=== PATIENT | male | born 1960 | race Two or more races ===

== ENCOUNTER 2017-03-20 05:41 | Emergency (ER) | payer OTHER ==
[2017-03-20 05:41] VITALS: BMI 25.8
[2017-03-20 05:51] VITALS: BP 162/94; PULSE 99; RESP 16; TEMP 98.7; O2SAT 97
--- NOTE | 2017-03-20 06:01 | C.PDOC ---
Time Seen by Provider: 03/20/17 06:00 Chief Complaint (Nursing): Chest Pain Past Medical History Vital Signs: Last Vital Signs Temp 98.7 F 03/20/17 05:50 Pulse 99 H 03/20/17 05:50 Resp 16 03/20/17 05:50 BP 162/94 H 03/20/17 05:50 Pulse Ox 97 03/20/17 05:50 - Medical History PMH: Depression Denies: Diabetes, Hepatitis, HIV, HTN, Chronic Kidney Disease, Seizures, Sexually Transmitted Disease - [facility] Procedures ALCOHOL DETOXIFICATION (10/24/14) Family History: States: Unknown Family Hx - Social History Hx Tobacco Use: No Hx Alcohol Use: Yes Hx Substance Use: No - Immunization History Hx Tetanus Toxoid Vaccination: No Hx Influenza Vaccination: No Hx Pneumococcal Vaccination: No ED Course And Treatment ECG: Interpreted By Me, Viewed By Me ECG Rhythm: Sinus Rhythm (101), Nonspecific Changes O2 Sat by Pulse Oximetry: 97 Pulse Ox Interpretation: Normal Disposition Counseled Patient/Family Regarding: Studies Performed, Diagnosis - Disposition Disposition Time: 06:00
--- NOTE | 2017-03-22 23:20 | CARD ---
APPROVED REPORT EKG Measurement Heart [id number] <Conclusion> Accelerated Junctional rhythm Left axis deviation Nonspecific T wave abnormality Abnormal ECG
== END 2017-03-20 06:00 | disposition left against medical advice (07) ==
LOC: C.ER 05:41
DX: Z02.89 Encounter for other administrative examinations (principal); R07.9 Chest pain, unspecified
CPT/HCPCS: 93005; LWBS0

== ENCOUNTER 2017-03-25 10:35 | Emergency (ER) | payer OTHER ==
[2017-03-25 10:36] VITALS: BMI 25.8
[2017-03-25 10:55] VITALS: BP 159/90; PULSE 80; RESP 18; TEMP 97.8
[2017-03-25 10:58] VITALS: O2SAT 99
--- NOTE | 2017-03-25 11:15 | C.PDOC ---
History Of Present Illness 56 y/o male presents to the ER complaining of left hip pain which began 1 week ago after the patient slipped and fell.Patient reports that he has a history of left hip replacement which he had a year ago. Patient is also intoxicated and seeking detox from ETOH. Time Seen by Provider: 03/25/17 11:04 Chief Complaint (Nursing): Substance Abuse History Per: Patient History/Exam Limitations: intoxication Onset/Duration Of Symptoms: Days Current Symptoms Are (Timing): Still Present Past Medical History Reviewed: Historical Data, Nursing Documentation, Vital Signs Vital Signs: Last Vital Signs Temp 97.8 F 03/25/17 10:55 Pulse 80 03/25/17 10:55 Resp 18 03/25/17 10:55 BP 159/90 H 03/25/17 10:55 Pulse Ox 99 03/25/17 13:57 - Medical History PMH: Depression Denies: Diabetes, Hepatitis, HIV, HTN, Chronic Kidney Disease, Seizures, Sexually Transmitted Disease Surgical History: No Surg Hx - [facility] Procedures ALCOHOL DETOXIFICATION (10/24/14) Family History: States: No Known Family Hx - Social History Hx Tobacco Use: No Hx Alcohol Use: Yes Hx Substance Use: No - Immunization History Hx Tetanus Toxoid Vaccination: No Hx Influenza Vaccination: No Hx Pneumococcal Vaccination: No Review Of Systems Except As Marked, All Systems Reviewed And Found Negative. Musculoskeletal: Positive for: Other (left hip pain) Neurological: Negative for: Weakness, Numbness Physical Exam - Physical Exam Appears: No Acute Distress, Other (intoxicated) Skin: Normal Color, Warm Head: Atraumatic, Normacephalic Eye(s): bilateral: Normal Inspection, PERRL Nose: Normal Oral Mucosa: Moist Neck: Supple Chest: Symmetrical Cardiovascular: Rhythm Regular Respiratory: Normal Breath Sounds, No Accessory Muscle Use Extremity: Normal ROM, No Tenderness, No Swelling Neurological/Psych: Oriented x3, Normal Speech, Normal Cognition, Normal Motor, Normal Sensation Gait: Steady (without any pain) ED Course And Treatment O2 Sat by Pulse Oximetry: 99 (RA) Pulse Ox Interpretation: Normal Medical Decision Making Medical Decision Makin week L hip pain x 1 week, s/p fall, h/o L hip replacement. etoh intox, initially seeking detox (pre-screened) then decided he needed to go home and drink more alcohol and put food in his fridge L hip films ordered and tylenol ordered, pt eloped @ 1120, many prior elopements from ED. Disposition Doctor Will See Patient In The: Office - Disposition Disposition: ELOPEMENT - ER ONLY Disposition Time: 11:18 Condition: GOOD Forms: [facility] (Cymraes) - Clinical Impression Clinical Impression: Alcohol abuse, Hip pain, left - Scribe Statement The provider has reviewed the documentation as recorded by the Nubia Julian Provider Attestation: All medical record entries made by the Nubia were at my direction and personally dictated by me. I have reviewed the chart and agree that the record accurately reflects my personal performance of the history, physical exam, medical decision making, and the department course for this patient. I have also personally directed, reviewed, and agree with the discharge instructions and disposition.
== END 2017-03-25 11:16 | disposition left against medical advice (07) ==
LOC: C.ER 10:35
DX: M25.552 Pain in left hip (principal); F10.129 Alcohol abuse with intoxication, unspecified; Y90.9 Presence of alcohol in blood, level not specified

== ENCOUNTER 2017-03-26 04:33 | Emergency (ER) | payer OTHER ==
[2017-03-26 04:33] VITALS: BMI 25.8
[2017-03-26 04:54] VITALS: TEMP 97.5
--- NOTE | 2017-03-26 06:28 | C.PDOC ---
History Of Present Illness Patient c/o chronic left hip pain for 1 year after hip replacement surgery that was performed at [facility].. Patient sts he was not drinking alcohol for 2.5 years, but started drinking for the last 2 weeks secondary to severe hip pain. Patient also requested detox from alcohol, however he was informed that hospital currently has no available detox beds. Patient sts his last ETOH intake was yesterday. Time Seen by Provider: 03/26/17 05:12 Chief Complaint (Nursing): Substance Abuse Past Medical History Reviewed: Historical Data, Nursing Documentation, Vital Signs Vital Signs: Last Vital Signs Temp 97.5 F L 03/26/17 04:47 Pulse 86 03/26/17 04:47 Resp 18 03/26/17 04:47 BP 123/71 03/26/17 04:47 Pulse Ox 100 03/26/17 06:27 - Medical History PMH: Depression, Chronic Pain Denies: Diabetes, Hepatitis, HIV, HTN, Chronic Kidney Disease, Seizures, Sexually Transmitted Disease Other Surgeries: left hip replacement - [facility] Procedures ALCOHOL DETOXIFICATION (10/24/14) Family History: States: Unknown Family Hx - Social History Hx Tobacco Use: No Hx Alcohol Use: Yes Hx Substance Use: No - Immunization History Hx Tetanus Toxoid Vaccination: No Hx Influenza Vaccination: No Hx Pneumococcal Vaccination: No Review Of Systems Except As Marked, All Systems Reviewed And Found Negative. Physical Exam - Physical Exam Appears: Non-toxic, No Acute Distress, Other (uncomfortable) Skin: Normal Color, Warm Head: Atraumatic, Normacephalic Eye(s): bilateral: Normal Inspection Neck: Normal ROM, Supple Cardiovascular: Rhythm Regular, No Edema Respiratory: Normal Breath Sounds Gastrointestinal/Abdominal: Soft, No Tenderness Back: No Vertebral Tenderness, No Paraspinal Tenderness Extremity: No Normal ROM (hip pain with left leg movement), Tenderness (laterak left hip), No Pedal Edema, No Calf Tenderness, Capillary Refill (<2 sec), No Deformity, No Swelling Neurological/Psych: Oriented x3, Normal Speech, Normal Cognition ED Course And Treatment O2 Sat by Pulse Oximetry: 100 - Other Rad left hip xray X-Ray: Interpreted by Me Interpretation: hip prosthesis in place, loose avulsed piece of bone seen laterally to the hip joint Progress Note: Patient was d/c home on Naproxen and Tramadol with Ortho follow up. Disposition - Disposition Referrals: Spenser Wan MD [Staff Provider] - Disposition: HOME/ ROUTINE Disposition Time: 06:25 Condition: STABLE Additional Instructions: Follow up with your PMD and Orthopedist within 2-3 days. Return to Ed if feel worse. Prescriptions: Naproxen [Naprosyn] 1 tab PO BID PRN #25 tab PRN Reason: Pain traMADol [Ultram] 50 mg PO Q6 #20 tab Instructions: Chronic Pain (ED), Abuse of Alcohol (ED) Forms: [facility] (Irish) - Clinical Impression Clinical Impression: Alcohol abuse, Chronic hip pain
[2017-03-26 06:50] VITALS: BP 120/70; PULSE 70; RESP 14; O2SAT 97
--- NOTE | 2017-03-26 08:37 | RAD ---
PROCEDURE: Left Hip X-ray Radiographs. HISTORY: chronic pain, s/p replacement 1 yr ago COMPARISON: Preoperative examination 05/21/2015 FINDINGS: BONES: Satisfactory position alignment of components left THR. No evidence of orthopedic hardware failure. JOINTS: Normal. SOFT TISSUES: Mild situs postoperative in nature identified. OTHER FINDINGS: None. IMPRESSION: Satisfactory appearance of components left ROSARIO.
== END 2017-03-26 06:50 | disposition home or self-care (01) ==
LOC: C.ER 04:33
DX: F10.10 Alcohol abuse, uncomplicated (principal); G89.29 Other chronic pain; M25.552 Pain in left hip; Z96.642 Presence of left artificial hip joint
CPT/HCPCS: 73502; 96372; 99283; J1885

== ENCOUNTER 2017-04-17 22:25 | Emergency (ER) | payer OTHER ==
[2017-04-17 22:25] VITALS: BMI 25.8
[2017-04-17 22:37] VITALS: BP 148/85; PULSE 86; RESP 18; TEMP 98.1; O2SAT 96
--- NOTE | 2017-04-18 00:25 | C.PDOC ---
History Of Present Illness 56 year old male with a Hx of right hip replacement presents to the ER with a complaint of intermittent right hip pain. Patient reports the pain is usually exacerbated with cold weather, he states he ran out of his pain medications and is requesting toradol IM. Denies recent injury, weakness, or numbness. Time Seen by Provider: 04/17/17 22:45 Chief Complaint (Nursing): Hip Pain History Per: Patient History/Exam Limitations: no limitations Onset/Duration Of Symptoms: Hrs, Intermittent Episodes Current Symptoms Are (Timing): Still Present Past Medical History Reviewed: Historical Data, Nursing Documentation, Vital Signs Vital Signs: Last Vital Signs Temp 98.1 F 04/17/17 22:33 Pulse 86 04/17/17 22:33 Resp 18 04/17/17 22:33 BP 148/85 04/17/17 22:33 Pulse Ox 96 04/18/17 03:45 - Medical History PMH: Depression, Chronic Pain - [facility] Procedures ALCOHOL DETOXIFICATION (10/24/14) Family History: States: Unknown Family Hx - Social History Hx Tobacco Use: No Hx Alcohol Use: Yes Hx Substance Use: No - Immunization History Hx Tetanus Toxoid Vaccination: No Hx Influenza Vaccination: No Hx Pneumococcal Vaccination: No Review Of Systems Musculoskeletal: Positive for: Other (right hip pain) Neurological: Negative for: Weakness, Numbness Physical Exam - Physical Exam Appears: Non-toxic, No Acute Distress Skin: Normal Color, Warm, Dry Head: Atraumatic, Normacephalic Eye(s): bilateral: Normal Inspection Extremity: Normal ROM (x4), No Tenderness, No Deformity, No Swelling Neurological/Psych: Oriented x3, Normal Speech, Normal Motor, Normal Sensation Gait: Steady ED Course And Treatment O2 Sat by Pulse Oximetry: 96 (Room air) Pulse Ox Interpretation: Normal Progress Note: Toradol administered with relief. Patient is resting comfortably in the ER, in no acute distress, and is able to ambulate without difficulty or pain. Will discharge home with Rx and instructions to follow up with PMD. Disposition Counseled Patient/Family Regarding: Diagnosis, Need For Followup, Rx Given - Disposition Disposition: HOME/ ROUTINE Disposition Time: 00:23 Condition: STABLE Additional Instructions: Please follow up with PMD Return to ER if worse Prescriptions: Ibuprofen [Motrin] 600 mg PO Q6H #24 tab Instructions: Arthralgia (ED) Forms: [facility] (Greek) - Clinical Impression Clinical Impression: Hip pain, Arthralgia - PA / [employer] / Resident Statement MD/DO has reviewed & agrees with the documentation as recorded. - Scribe Statement The provider has reviewed the documentation as recorded by the Scribrahul Calix All medical record entries made by the Oliviaibrahul were at my direction and personally dictated by me. I have reviewed the chart and agree that the record accurately reflects my personal performance of the history, physical exam, medical decision making, and the department course for this patient. I have also personally directed, reviewed, and agree with the discharge instructions and disposition.
== END 2017-04-18 00:43 | disposition home or self-care (01) ==
LOC: C.ER 22:25
DX: M25.551 Pain in right hip (principal)
CPT/HCPCS: 96372; 99283; J1885

== ENCOUNTER 2017-04-23 23:37 | Emergency (ER) | payer OTHER ==
[2017-04-23 23:38] VITALS: BMI 25.8
[2017-04-24] MEDS ORDERED: Lidocaine 1% Inj (20ml) ONE (01:00)
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
[2017-04-24 02:48] LABS: HEMOGLOBIN 12.3 g/dL (12.0-18.0); MEAN CORPUSCULAR HEMOGLOBIN 27.7 pg (27.0-31.0); MEAN CORPUSCULAR HGB CONC 32.5 g/dL (33.0-37.0); MEAN PLATELET VOLUME 7.9 fL (7.2-11.7); RBC 4.46 Mil/uL (4.40-5.90); WHITE BLOOD COUNT 7.9 K/uL (4.8-10.8)
[2017-04-24 03:16] LABS: PROTHROMBIN TIME 10.9 SECONDS (9.7-12.2)
[2017-04-24 05:07] VITALS: BP 148/77; PULSE 84; RESP 20; TEMP 97.8; O2SAT 97
== END 2017-04-24 05:07 | disposition home or self-care (01) ==
LOC: SUPCPDRO 23:37 → C.ER 23:37
DX: S01.511A Laceration without foreign body of lip, initial encounter (principal); Y04.0XXA Assault by unarmed brawl or fight, initial encounter

== ENCOUNTER 2017-05-06 21:41 | Emergency (ER) | payer OTHER ==
[2017-05-06 21:41] VITALS: BMI 25.8
[2017-05-06 22:20] VITALS: BP 125/79; PULSE 70; TEMP 98.2; O2SAT 98
--- NOTE | 2017-05-06 23:24 | C.PDOC ---
History Of Present Illness 56 year old male presents to the ED for evaluation of chronic left hip pain s/p left hip replacement. Patient seen 3 weeks ago for same complaint. He is requesting toradol injection and refill of naproxen. He denies trauma, extremity weakness/numbness, or bladder/bowel incontinence. Time Seen by Provider: 05/06/17 22:26 Chief Complaint (Nursing): Hip Pain History Per: Patient History/Exam Limitations: no limitations Onset/Duration Of Symptoms: Other (Chornic) Current Symptoms Are (Timing): Still Present Recent travel outside of the [place]: No Past Medical History Reviewed: Historical Data, Nursing Documentation, Vital Signs Vital Signs: Last Vital Signs Temp 98.2 F 05/06/17 22:11 Pulse 70 05/06/17 22:11 Resp 20 05/06/17 23:41 BP 125/79 05/06/17 22:11 Pulse Ox 98 05/07/17 00:07 - Medical History PMH: Depression, Chronic Pain Denies: Diabetes, Hepatitis, HIV, HTN, Chronic Kidney Disease, Seizures, Sexually Transmitted Disease - [facility] Procedures ALCOHOL DETOXIFICATION (10/24/14) Family History: States: Unknown Family Hx - Social History Hx Tobacco Use: No Hx Alcohol Use: No Hx Substance Use: No - Immunization History Hx Tetanus Toxoid Vaccination: No Hx Influenza Vaccination: No Hx Pneumococcal Vaccination: No Review Of Systems Constitutional: Negative for: Fever, Chills ENT: Negative for: Ear Pain, Throat Pain Cardiovascular: Negative for: Chest Pain Respiratory: Negative for: Cough, Shortness of Breath Gastrointestinal: Negative for: Nausea, Vomiting, Abdominal Pain, Diarrhea Genitourinary: Negative for: Incontinence Musculoskeletal: Positive for: Other (Hip pain) Skin: Negative for: Rash Neurological: Negative for: Weakness, Numbness, Headache Physical Exam - Physical Exam Appears: Well, Non-toxic, No Acute Distress Skin: Normal Color, Warm, Dry Head: Atraumatic, Normacephalic Eye(s): bilateral: Normal Inspection, PERRL, EOMI Oral Mucosa: Moist Neck: Normal ROM, Supple Chest: Symmetrical Back: Normal Inspection Extremity: Normal ROM, No Deformity, Other (Mild tenderness left hip, no swelling, no erythema, ROM intact, good strength and sensation ) Extremity: Bilateral: Atraumatic Neurological/Psych: Oriented x3, Normal Speech Gait: Steady (Fully ambulatory) ED Course And Treatment O2 Sat by Pulse Oximetry: 98 Pulse Ox Interpretation: Normal Progress Note: Given toradol IM and Pt was advised to follow up for pain management Disposition Counseled Patient/Family Regarding: Diagnosis, Need For Followup, Rx Given - Disposition Disposition: HOME/ ROUTINE Disposition Time: 23:22 Condition: STABLE Additional Instructions: Please follow up with PMD or in clinic Return to ER if worse Prescriptions: Naproxen [Naprosyn] 1 tab PO BID PRN #20 tab PRN Reason: Pain Instructions: Chronic Pain (DC) Forms: [employer] (Khmer) - Clinical Impression Clinical Impression: Chronic hip pain - Scribe Statement The provider has reviewed the documentation as recorded by the Scribe (Alfonso Haque) All medical record entries made by the Scribe were at my direction and personally dictated by me. I have reviewed the chart and agree that the record accurately reflects my personal performance of the history, physical exam, medical decision making, and the department course for this patient. I have also personally directed, reviewed, and agree with the discharge instructions and disposition.
[2017-05-06 23:42] VITALS: RESP 20
== END 2017-05-06 23:41 | disposition home or self-care (01) ==
LOC: C.ER 21:41
DX: G89.29 Other chronic pain (principal); M25.552 Pain in left hip
CPT/HCPCS: 96372; 99283; J1885

== ENCOUNTER 2017-05-10 18:02 | Emergency (ER) | payer OTHER ==
[2017-05-10 18:02] VITALS: BMI 25.8
== END 2017-05-10 19:08 | disposition left against medical advice (07) ==
LOC: C.ER 18:02
DX: Z02.89 Encounter for other administrative examinations (principal); M25.559 Pain in unspecified hip

== ENCOUNTER 2017-05-24 22:46 | Emergency (ER) | payer OTHER ==
[2017-05-24 22:47] VITALS: BMI 25.8
[2017-05-24 23:59] VITALS: RESP 20
== END 2017-05-24 23:58 | disposition left against medical advice (07) ==
LOC: C.ER 22:46
DX: Z02.89 Encounter for other administrative examinations (principal); M25.559 Pain in unspecified hip

== ENCOUNTER 2017-06-04 16:32 | Emergency (ER) | payer OTHER ==
[2017-06-04 16:33] VITALS: BMI 25.8
[2017-06-04 16:44] VITALS: BP 172/94; PULSE 99; RESP 16; TEMP 97.8; O2SAT 100
--- NOTE | 2017-06-04 17:10 | C.PDOC ---
History Of Present Illness 56 year old male with a Hx of chronic left hip and leg pain after hip replacement on 500mg naproxen presents to the ER requesting a refill of his naproxen and a shot of toradol for his current pain. Denies any new injuries or new symptoms. Time Seen by Provider: 06/04/17 16:58 Chief Complaint (Nursing): Med Refill History Per: Patient History/Exam Limitations: no limitations Onset/Duration Of Symptoms: Days Current Symptoms Are (Timing): Still Present Recent travel outside of the [place]: No Past Medical History Reviewed: Historical Data, Nursing Documentation, Vital Signs Vital Signs: Last Vital Signs Temp 97.8 F 06/04/17 16:41 Pulse 99 H 06/04/17 16:41 Resp 16 06/04/17 16:41 BP 172/94 H 06/04/17 16:41 Pulse Ox 100 06/04/17 17:10 - Medical History PMH: Depression, Chronic Pain - [facility] Procedures ALCOHOL DETOXIFICATION (10/24/14) Family History: States: Unknown Family Hx - Social History Hx Tobacco Use: No Hx Alcohol Use: No Hx Substance Use: No - Immunization History Hx Tetanus Toxoid Vaccination: No Hx Influenza Vaccination: No Hx Pneumococcal Vaccination: No Review Of Systems Except As Marked, All Systems Reviewed And Found Negative. Musculoskeletal: Positive for: Back Pain (Chronic), Leg Pain (Chronic) Physical Exam - Physical Exam Appears: Non-toxic, Other (Mild pain) Skin: Normal Color, Warm, Dry Head: Atraumatic, Normacephalic Eye(s): bilateral: Normal Inspection Chest: Symmetrical, No Tenderness Cardiovascular: Rhythm Regular Respiratory: Normal Breath Sounds, No Rales, No Rhonchi, No Wheezing Extremity: Tenderness (Left hip and left lateral thigh to palpation), No Deformity Neurological/Psych: Oriented x3, Normal Speech, Normal Motor, Normal Sensation Gait: Steady (w/ cane) ED Course And Treatment O2 Sat by Pulse Oximetry: 100 (Room air) Pulse Ox Interpretation: Normal Progress Note: Toradol administered with relief, patient given Rx for naproxen and discharged home. Disposition Counseled Patient/Family Regarding: Diagnosis, Need For Followup, Rx Given - Disposition Referrals: [facility] [Outside] Disposition: HOME/ ROUTINE Disposition Time: 17:15 Condition: STABLE Additional Instructions: FOLLOW UP WITH YOUR DOCTOR IN 1-2 DAYS USE MEDICATIONS NEEDED RETURN TO ER IF SYMPTOMS WORSEN Prescriptions: Naproxen [Naprosyn] 1 tab PO BID PRN #25 tab PRN Reason: Pain Instructions: Chronic Pain Forms: [facility] (Tunisian) Print Language: ROMANIAN - POA Present On Arrival: None - Clinical Impression Clinical Impression: Medication refill, Chronic left hip pain - Scribe Statement The provider has reviewed the documentation as recorded by the Scribe Hima Calix All medical record entries made by the Oliviaibrahul were at my direction and personally dictated by me. I have reviewed the chart and agree that the record accurately reflects my personal performance of the history, physical exam, medical decision making, and the department course for this patient. I have also personally directed, reviewed, and agree with the discharge instructions and disposition.
== END 2017-06-04 17:25 | disposition home or self-care (01) ==
LOC: C.ER 16:32
DX: Z76.0 Encounter for issue of repeat prescription (principal); G89.29 Other chronic pain; M25.552 Pain in left hip
CPT/HCPCS: 96372; 99282; J1885

== ENCOUNTER 2017-06-14 19:34 | Emergency (ER) | payer OTHER ==
[2017-06-14 19:34] VITALS: BMI 25.8
[2017-06-14 19:55] VITALS: BP 156/94; PULSE 78; RESP 14; TEMP 97.7; O2SAT 97
== END 2017-06-14 20:40 | disposition left against medical advice (07) ==
LOC: C.ER 19:34
DX: Z02.89 Encounter for other administrative examinations (principal); M25.551 Pain in right hip

== ENCOUNTER 2017-06-15 22:46 | Emergency (ER) | payer OTHER ==
[2017-06-15 22:47] VITALS: BMI 25.8
[2017-06-15 23:17] VITALS: RESP 20
[2017-06-16 02:09] VITALS: BP 157/78; PULSE 81; TEMP 97.9; O2SAT 97
--- NOTE | 2017-06-16 02:31 | RAD ---
EXAM: XR Left Hip With Pelvis When Performed, 2 or 3 Views EXAM DATE/TIME: 06/16/2017 12:53 AM CLINICAL HISTORY: 56 years old, male; Pain; Hip pain; Left hip; Additional info: Pain, S/P fall 2 months ago TECHNIQUE: Two or three views of the left hip, with pelvis when performed. COMPARISON: Prior left hip radiographs of LT 2015-05-21 13:58 FINDINGS: BONES/JOINTS: Left hip arthroplasty device in place. This does not appear malpositioned. Lucency is seen at the bone-component interface of the acetabular component of the device medially, measuring up to 4 mm, and cannot exclude mild loosening. Moderate primary osteoarthritic changes involving the right hip. No acute fractures are seen. No evidence of acute dislocation. SOFT TISSUES: Heterotopic ossification involving the left hip and gluteal soft tissues. IMPRESSION: - No evidence of fractures or other significant acute bony abnormality. - Findings involving the acetabular component of the left hip arthroplasty device which could be due to mild loosening. Recommend clinical correlation and followup. - See above for remaining findings.
--- NOTE | 2017-06-16 02:40 | C.PDOC ---
History Of Present Illness 56 year old male presents to the ER requesting detox from ETOH. Patient states he has been drinking because of his left hip pain; he reports he had a left hip replacement 2 years ago and his orthopedist retired so he has not been able to follow up. Patient notes he fell in March but did not have an x-ray done or seek any medical attention at the time. Denies new injury or other complaints. Time Seen by Provider: 06/16/17 00:25 Chief Complaint (Nursing): Lower Extremity Problem/Injury History Per: Patient History/Exam Limitations: no limitations Onset/Duration Of Symptoms: Days Current Symptoms Are (Timing): Still Present Recent travel outside of the [place]: No Past Medical History Reviewed: Historical Data, Nursing Documentation, Vital Signs Vital Signs: Last Vital Signs Temp 97.9 F 06/16/17 02:08 Pulse 81 06/16/17 02:08 Resp 20 06/16/17 02:08 BP 157/78 H 06/16/17 02:08 Pulse Ox 97 06/16/17 02:41 - Medical History PMH: Depression, Chronic Pain - [facility] Procedures ALCOHOL DETOXIFICATION (10/24/14) Family History: States: Unknown Family Hx - Social History Hx Tobacco Use: No Hx Alcohol Use: Yes Hx Substance Use: No - Immunization History Hx Tetanus Toxoid Vaccination: No Hx Influenza Vaccination: No Hx Pneumococcal Vaccination: No Review Of Systems Constitutional: Negative for: Fever, Chills Gastrointestinal: Negative for: Nausea, Vomiting Musculoskeletal: Positive for: Other (Left hip pain) Psych: Negative for: Depression, Suicidal ideation Physical Exam - Physical Exam Appears: Non-toxic, No Acute Distress Skin: Normal Color, Warm, Dry Head: Atraumatic, Normacephalic Eye(s): bilateral: Normal Inspection Oral Mucosa: Moist Chest: Symmetrical, No Tenderness Cardiovascular: Rhythm Regular Respiratory: Normal Breath Sounds, No Rales, No Rhonchi, No Wheezing Gastrointestinal/Abdominal: Soft, No Tenderness Extremity: No Tenderness, No Deformity, No Swelling Neurological/Psych: Oriented x3, Normal Speech, Normal Motor, Normal Sensation Gait: Other (Ambulates with cane) ED Course And Treatment O2 Sat by Pulse Oximetry: 97 (Room air) Pulse Ox Interpretation: Normal - Other Rad Left hip x-ray X-Ray: Viewed By Me, Read By Radiologist Interpretation: EXAM: XR Left Hip With Pelvis When Performed, 2 or 3 Views. EXAM DATE/TIME: 06/16/2017 12:53 AM. CLINICAL HISTORY: 56 years old, male; Pain ; Hip pain; Left hip; Additional info: Pain, S/P fall 2 months ago. TECHNIQUE: Two or three views of the left hip, with pelvis when performed. COMPARISON: Prior left hip radiographs of LT 2015-05-21 13:58. FINDINGS: BONES/JOINTS: Left hip arthroplasty device in place. This does not appear malpositioned. Lucency. is seen at the bone-component interface of the acetabular component of the device medially,. measuring up to 4 mm, and cannot exclude mild loosening. Moderate primary osteoarthritic changes. involving the right hip. No acute fractures are seen. No evidence of acute dislocation. SOFT TISSUES: Heterotopic ossification involving the left hip and gluteal soft tissues. IMPRESSION: - No evidence of fractures or other significant acute bony abnormality. - Findings involving the acetabular component of the left hip arthroplasty device which could be due. to mild loosening. Recommend clinical correlation and followup. Progress Note: Left hip x-ray ordered, results were negative. Toradol administered. On reevaluation, patient is resting comfortably in the ER in no pain or acute distress; will discharge home with instructions to follow up with PMD. Patient informed that there are no detox beds available at this time. Disposition - Disposition Referrals: Eduardo Franklin III, MD [Staff Provider] - Ron Umaña MD [Staff Provider] - Disposition: HOME/ ROUTINE Disposition Time: 02:37 Condition: GOOD Additional Instructions: Follow up with Orthopedist and injection specialist within 1-2 days. Return to ED if feel worse. 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 - Scribe Statement The provider has reviewed the documentation as recorded by the Scribe Hima Calix All medical record entries made by the Scribe were at my direction and personally dictated by me. I have reviewed the chart and agree that the record accurately reflects my personal performance of the history, physical exam, medical decision making, and the department course for this patient. I have also personally directed, reviewed, and agree with the discharge instructions and disposition.
== END 2017-06-16 03:08 | disposition home or self-care (01) ==
LOC: C.ER 22:46
DX: M25.552 Pain in left hip (principal)
CPT/HCPCS: 73502; 96372; 99284; J1885

== ENCOUNTER 2017-06-16 09:19 | Emergency (ER) | payer OTHER ==
[2017-06-16 09:20] VITALS: BMI 25.8
[2017-06-16 09:31] VITALS: RESP 18; TEMP 98; O2SAT 96
--- NOTE | 2017-06-16 09:31 | C.PDOC ---
History Of Present Illness 56 year old male presents to the ED requesting alcohol detox. Patient has had multiple ER visits for chronic pain exacerbation and detox evaluation. Patient currently denies alcohol withdrawal symptoms. REQUESTING ETOH DETOX. MULT RECENT ER VISITS FOR CHRONIC PAIN EXAC AND DETOX EVAL. 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 NO ACUTE INTOX OR WITHDRAWAL REMAINDER NEG Time Seen by Provider: 06/16/17 09:30 Chief Complaint (Nursing): Substance Abuse History Per: Patient History/Exam Limitations: no limitations Onset/Duration Of Symptoms: Hrs Current Symptoms Are (Timing): Still Present Suicide/Self Injury Attempted (Context): None Modifying Factor(s): Alcohol Associated Symptoms: denies: Suicidal Thoughts, Suicidal Plan Involuntary Hold By: None Recent travel outside of the [place]: No Additional History Per: Patient Past Medical History Reviewed: Historical Data, Nursing Documentation, Vital Signs Vital Signs: Last Vital Signs Temp 98 F 06/16/17 09:25 Pulse 77 06/16/17 09:54 Resp 18 06/16/17 09:54 BP 156/90 H 06/16/17 09:54 Pulse Ox 96 06/16/17 09:54 - Medical History PMH: Depression, Chronic Pain Denies: Diabetes, Hepatitis, HIV, HTN, Chronic Kidney Disease, Seizures, Sexually Transmitted Disease Surgical History: No Surg Hx - [facility] Procedures ALCOHOL DETOXIFICATION (10/24/14) Family History: States: Unknown Family Hx - Social History Hx Tobacco Use: No Hx Alcohol Use: Yes Hx Substance Use: No - Immunization History Hx Tetanus Toxoid Vaccination: No Hx Influenza Vaccination: No Hx Pneumococcal Vaccination: No Review Of Systems Psych: Positive for: Other (EtOH detox ). Negative for: Withdrawal Physical Exam - Physical Exam Appears: Non-toxic, No Acute Distress Skin: Normal Color, Warm, Dry Head: Atraumatic, Normacephalic Eye(s): bilateral: Normal Inspection Oral Mucosa: Moist Neck: Supple Chest: Symmetrical, No Deformity, No Tenderness Cardiovascular: Rhythm Regular, No Murmur Respiratory: Normal Breath Sounds, No Rales, No Rhonchi, No Wheezing Extremity: Normal ROM, Capillary Refill (less than 2 seconds ) Neurological/Psych: Oriented x3, Normal Speech, Normal Cognition, Other (calm and cooperative. no acute intoxication or withdrawal ) ED Course And Treatment O2 Sat by Pulse Oximetry: 96 (on RA) Pulse Ox Interpretation: Normal Progress - Re-Evaluation Re-evaluation Note: 06/16/17 09:31 D/W CRISIS, NO DETOX BEDS AVAIL - Data Reviewed Data Reviewed: Old records Disposition Counseled Patient/Family Regarding: Diagnosis, Need For Followup - Disposition Referrals: [facility] [Other] Disposition: HOME/ ROUTINE Disposition Time: 09:44 Condition: GOOD Additional Instructions: CALL [facility] FOR DETOX Instructions: Alcohol Abuse and Alcoholism (DC) Forms: [facility] (Armenian) - Clinical Impression Clinical Impression: Alcohol abuse - Scribe Statement The provider has reviewed the documentation as recorded by the Scribe (Selma Clark) Provider Attestation: All medical record entries made by the Scribe were at my direction and personally dictated by me. I have reviewed the chart and agree that the record accurately reflects my personal performance of the history, physical exam, medical decision making, and the department course for this patient. I have also personally directed, reviewed, and agree with the discharge instructions and disposition.
[2017-06-16 09:54] VITALS: BP 156/90; PULSE 77
== END 2017-06-16 09:55 | disposition home or self-care (01) ==
LOC: C.ER 09:19
DX: F10.10 Alcohol abuse, uncomplicated (principal)

== ENCOUNTER 2017-06-21 22:49 | Emergency (ER) | payer OTHER ==
[2017-06-21 22:49] VITALS: BMI 25.8
[2017-06-21 23:04] VITALS: BP 131/80; PULSE 82; RESP 16; TEMP 98.1; O2SAT 97
--- NOTE | 2017-06-21 23:36 | C.PDOC ---
History Of Present Illness Pt with h/o of chronic hip pain s/p hip replacement presents to ER requesting toradol IM and a refill of his naproxen. Pt denies any recent injuries, numbness , or weakness of lower extremities and has been noncompliant with outpatient follow up. Time Seen by Provider: 06/21/17 23:07 Chief Complaint (Nursing): Hip Pain History Per: Patient History/Exam Limitations: no limitations Onset/Duration Of Symptoms: Hrs Current Symptoms Are (Timing): Still Present Past Medical History Reviewed: Historical Data, Nursing Documentation, Vital Signs Vital Signs: Last Vital Signs Temp 98.1 F 06/21/17 22:56 Pulse 82 06/21/17 22:56 Resp 16 06/21/17 22:56 BP 131/80 06/21/17 22:56 Pulse Ox 97 06/21/17 23:44 - Medical History PMH: Depression, Chronic Pain Denies: Diabetes, Hepatitis, HIV, HTN, Chronic Kidney Disease, Seizures, Sexually Transmitted Disease Surgical History: No Surg Hx - [facility] Procedures ALCOHOL DETOXIFICATION (10/24/14) Family History: States: Unknown Family Hx - Social History Hx Tobacco Use: No Hx Alcohol Use: Yes Hx Substance Use: No - Immunization History Hx Tetanus Toxoid Vaccination: No Hx Influenza Vaccination: No Hx Pneumococcal Vaccination: No Review Of Systems Musculoskeletal: Positive for: Other (chronic hip pain ) Neurological: Negative for: Weakness, Numbness Physical Exam - Physical Exam Appears: Non-toxic, No Acute Distress Skin: Normal Color, Warm, Dry Extremity: Normal ROM (b/l lower extremities ), No Tenderness, Capillary Refill (less than 2 seconds ), No Deformity, No Swelling Neurological/Psych: Oriented x3, Normal Speech, Normal Cognition, Normal Sensation Gait: Steady ED Course And Treatment O2 Sat by Pulse Oximetry: 97 (on RA) Pulse Ox Interpretation: Normal Progress Note: Toradol IM administered. On reassessment, patient is resting comfortably and showing no signs of distress. Patient is ambulatory in the ED without distress and is stable for discharge. He is advised to f/u with his PMD within 1-2 days for further evaluation and/or return to the ED if symptoms worsen. 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 - Scribe Statement The provider has reviewed the documentation as recorded by the Scribe (Selma Clark) All medical record entries made by the Scribe were at my direction and personally dictated by me. I have reviewed the chart and agree that the record accurately reflects my personal performance of the history, physical exam, medical decision making, and the department course for this patient. I have also personally directed, reviewed, and agree with the discharge instructions and disposition.
== END 2017-06-21 23:47 | disposition home or self-care (01) ==
LOC: C.ER 22:49
DX: Z76.0 Encounter for issue of repeat prescription (principal); M25.552 Pain in left hip; G89.29 Other chronic pain
CPT/HCPCS: 96372; 99283; J1885

== ENCOUNTER 2017-07-13 22:43 | Emergency (ER) | payer MEDICAID, OTHER ==
[2017-07-13 22:43] VITALS: BMI 25.8
[2017-07-13 23:16] VITALS: BP 136/82; PULSE 80; RESP 20; TEMP 98.9; O2SAT 97
--- NOTE | 2017-07-13 23:40 | C.PDOC ---
History Of Present Illness 56 year old male with history of left hip replacement 2 years ago and chronic pain, presents to the ER complaining of left hip pain. He is asking for a "shot for pain" and needs refill of naproxen. Denies any fall, numbness, weakness, back pain, incontinence. Time Seen by Provider: 07/13/17 23:26 Chief Complaint (Nursing): Hip Pain History Per: Patient History/Exam Limitations: no limitations Onset/Duration Of Symptoms: Days Current Symptoms Are (Timing): Still Present Recent travel outside of the [place]: No Past Medical History Reviewed: Historical Data, Nursing Documentation, Vital Signs Vital Signs: Last Vital Signs Temp 98.9 F 07/13/17 23:13 Pulse 80 07/13/17 23:13 Resp 20 07/13/17 23:13 BP 136/82 07/13/17 23:13 Pulse Ox 97 07/13/17 23:41 - Medical History PMH: Depression, Chronic Pain - [facility] Procedures ALCOHOL DETOXIFICATION (10/24/14) Family History: States: Unknown Family Hx - Social History Hx Tobacco Use: No Hx Alcohol Use: Yes Hx Substance Use: No - Immunization History Hx Tetanus Toxoid Vaccination: No Hx Influenza Vaccination: No Hx Pneumococcal Vaccination: No Review Of Systems Genitourinary: Negative for: Incontinence Musculoskeletal: Positive for: Other (Left hip pain). Negative for: Back Pain Neurological: Negative for: Weakness, Numbness Physical Exam - Physical Exam Appears: Non-toxic Skin: Normal Color, Warm, Dry Head: Atraumatic, Normacephalic Extremity: Other (Left hip: (-) deformity, (+) mild tenderness, (-) tenderness to the pelvis, (+) full range of motion secondary to pain. Knee, ankle and foot : (-) tenderness, (-) deformity, (-) injury.) Neurological/Psych: Oriented x3, Normal Speech, Normal Motor, Normal Sensation, Other (No focal deficits) ED Course And Treatment O2 Sat by Pulse Oximetry: 97 (Room air) Pulse Ox Interpretation: Normal Medical Decision Making Medical Decision Making: Impression : chronic L hip pain Prior visits reviewed: Patient has multiple ER visits for similar hip pain. Last Visit was 06/24/17. Patient had Xray of hip on 06/24 and 06/16 showing post left hip arthoplasty in good anatomic alignment, no fracture. Plan : Toradol IM Patient instructed to follow-up with orthopedic or pain management. Rest and ice the joint. Return to the emergency room at any time for any new or worsening symptoms. Patient states he fully agrees with and understands discharge instructions. 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 - Scribe Statement The provider has reviewed the documentation as recorded by the Scribrahul Calix All medical record entries made by the Oliviaibrahul were at my direction and personally dictated by me. I have reviewed the chart and agree that the record accurately reflects my personal performance of the history, physical exam, medical decision making, and the department course for this patient. I have also personally directed, reviewed, and agree with the discharge instructions and disposition.
== END 2017-07-14 00:11 | disposition home or self-care (01) ==
LOC: C.ER 22:43
DX: G89.29 Other chronic pain (principal); M25.552 Pain in left hip
CPT/HCPCS: 96372; 99284; J1885

== ENCOUNTER → 2017-08-20 14:04 | Emergency (ER) | payer OTHER ==
[2017-08-20 14:04] VITALS: BMI 25.8
== END | disposition left against medical advice (07) ==
LOC: C.ER 14:04
DX: Z02.89 Encounter for other administrative examinations (principal)

== ENCOUNTER → 2017-08-23 09:59 | Emergency (ER) | payer OTHER ==
[2017-08-23 09:59] VITALS: BMI 25.8
== END | disposition left against medical advice (07) ==
LOC: C.ER 09:59
DX: Z02.89 Encounter for other administrative examinations (principal)

== ENCOUNTER 2017-08-23 17:46 | Inpatient (IN) | payer MEDICAID, OTHER ==
[2017-08-23 17:46] VITALS: BMI 25.8
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
[2017-08-23 22:37] LABS: BASO % 0.3 % (0.0-2.0); EOS # 0.2 K/uL (0.0-0.7); EOS % 2.2 % (0.0-4.0); HEMOGLOBIN 12.2 g/dL (12.0-18.0); LYMPH # 1.9 K/uL (1.0-4.3); LYMPH % 24.7 % (20.0-40.0); MEAN CORPUSCULAR HEMOGLOBIN 27.1 pg (27.0-31.0); MEAN CORPUSCULAR HGB CONC 32.8 g/dL (33.0-37.0); MEAN PLATELET VOLUME 7.4 fL (7.2-11.7); MONO # 0.6 K/uL (0.0-0.8); MONO % 7.7 % (0.0-10.0); NEUT % 65.1 % (50.0-75.0); NRBC % 0.1 % (0.0-2.0); RBC 4.48 Mil/uL (4.40-5.90); RED CELL DISTRIBUTION WIDTH 14.7 % (11.5-14.5); WHITE BLOOD COUNT 7.7 K/uL (4.8-10.8)
[2017-08-23 22:41] LABS: URINE BACTERIA RARE (<OCC); URINE BILIRUBIN NEGATIVE (NEGATIVE); URINE CLARITY Clear (Clear); URINE COLOR Straw (YELLOW); URINE GLUCOSE (UA) NORMAL (Normal); URINE LEUKOCYTE ESTERASE NEG Leu/uL (Negative); URINE PROTEIN NEGATIVE (NEGATIVE); URINE UROBILINOGEN NORMAL mg/dL (0.2-1.0)
[2017-08-23 22:44] LABS: MEAN CELL VOLUME 82.8 fL (80.0-94.0); URINE BLOOD TRACE (NEGATIVE)
[2017-08-23 22:49] LABS: ALB/GLOB RATIO 1.3 (1.0-2.1); ALBUMIN 4.5 g/dL (3.5-5.0); ALT/SGPT 55 U/L (21-72); AST/SGOT 103 U/L (17-59); BLOOD UREA NITROGEN 6 mg/dL (9-20); CALCIUM 9.3 mg/dl (8.6-10.4); GFR AFRICAN-AMERICAN > 60; GFR NON-AFRICAN AMERICAN > 60
[2017-08-23 22:58] LABS: BARBITURATES, UR NEGATIVE (NEGATIVE); BENZODIAZEPINES, UR NEGATIVE (NEGATIVE); OPIATES, UR NEGATIVE (NEGATIVE); PHENCYCLIDINE, UR NEGATIVE (NEGATIVE)
--- NOTE | 2017-08-24 03:14 | PCM.BM ---
<Rashida Vuong - Last Filed: 08/24/17 03:13> Treatment Plan Problems - Problems identified on initial assessmt Alcohol Dependence Date Initiated: 08/24/17 Time Initiated: 03:13 Assessment reference: NA Status: Active Treatment assets and liabiliti Patient Assests: cooperative, ADL independent Patient Liabilities: substance abuse - Milieu Protocol Maintain good personal hygiene: daily Encourage regular showers, daily Remind patient to perform daily oral care, daily Assist patient to perform ADL's Maintain personal safety: every shift Educate patient to report safety concerns to staff, every shift Monitor environment for contraband/sharps Medication safety: Monitor for expected outcome, potential side effects: every shift, Assess barriers to learning: every shift, Assess readiness for medication education: every shift <Elida Shea - Last Filed: 08/26/17 09:05> - Diagnosis (1) Alcohol dependence Status: Acute Interventions: 08/26/17 09:05 * Assess 7x/week regarding severity of withdrawal * Educate regarding risks, benefits, side effects and alternatives of medications * Use Motivational Interviewing for abstinence * Use CBT for relapse prevention * Medication management for withdrawal symptoms * Encourage medication assisted treatment *
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
[2017-08-24] MEDS: Multiple Vitamins Tab PO SCH (09:47)
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
[2017-08-25] MEDS: Multiple Vitamins Tab PO SCH (09:22)
[2017-08-25 16:38] VITALS: RESP 18
--- NOTE | 2017-08-26 09:05 | PCM.PYCHPN ---
Psychiatric Progress Note - Psychiatric Progress Note Patient seen today, length of contact: 16 min Patient Chief Complaint: "Alcohol" Problems Identified/Issues Discussed: The pt is seen, chart reviewed, case discussed with staff. Support and psychoeducation given, CBT and NH used briefly No new symptoms reported, improving slowly and needs more time No SEs from medications, risks discussed. After care discussed - wants to leave on Monday for day Medication Change: Yes (detox changes daily) Medical Record Reviewed: Yes Mental Status Examination - Cognitive Function Orientation: Person, Place, Situation, Time Memory: Intact Attention: WNL Concentration: Poor Association: WNL Fund of Knowledge: WNL - Mood Mood: Anxious - Affect Affect: Constricted - Speech Speech: Appropriate - Formal Thought Process Formal Thought Process: No Impairment - Suicidal Ideation Suicidal Ideation: No - Homicidal Ideation Homicidal Ideation: No Goal/Treatment Plan - Goal/Treatment Plan Need for Continued Stay: Discharge may exacerbated symptoms, Severe functional impairment Progress Toward Problem(s) and Goals/Treatment Plan: Taper with Librium Gabapentin for augmentation if needed As needed medications All risks, benefits and alternatives of the meds discussed, and the pt agreed and understood. Attend groups and activities Supportive therapy and psychoeducation [place] for abstinence CBT for relapse prevention Encourage MAT Refer to rehab or IOP, and self-help groups
[2017-08-26] MEDS: Multiple Vitamins Tab PO SCH (10:08)
--- NOTE | 2017-08-26 13:53 | PCM.PYCHPN ---
Psychiatric Progress Note - Psychiatric Progress Note Patient seen today, length of contact: 16 min Patient Chief Complaint: "Anxious" Problems Identified/Issues Discussed: The pt is seen, chart reviewed, case discussed with staff. Support given, CBT and [place] used briefly No new symptoms reported, improving slowly and needs more time No SEs from medications, risks discussed. After care discussed, he still wants to leave tomorrow. Detox adjusted accordingly after risks discussed Medication Change: Yes (detox changes daily) Medical Record Reviewed: Yes Mental Status Examination - Cognitive Function Orientation: Person, Place, Situation, Time Memory: Intact Attention: WNL Concentration: Poor Association: WNL Fund of Knowledge: WNL - Mood Mood: Anxious - Affect Affect: Constricted - Speech Speech: Appropriate - Formal Thought Process Formal Thought Process: No Impairment - Suicidal Ideation Suicidal Ideation: No - Homicidal Ideation Homicidal Ideation: No Goal/Treatment Plan - Goal/Treatment Plan Need for Continued Stay: Discharge may exacerbated symptoms, Severe functional impairment Progress Toward Problem(s) and Goals/Treatment Plan: Taper with Librium Gabapentin for augmentation if needed As needed medications All risks, benefits and alternatives of the meds discussed, and the pt agreed and understood. Attend groups and activities Supportive therapy and psychoeducation [place] for abstinence CBT for relapse prevention Encourage MAT Refer to rehab or IOP, and self-help groups Estimated Date of D/C: 08/27/17
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
[2017-08-27 08:37] VITALS: BP 111/74; PULSE 97; TEMP 97.5; O2SAT 98
[2017-08-27] MEDS: Multiple Vitamins Tab PO SCH (09:22)
== END 2017-08-27 10:30 | disposition home or self-care (01) | DRG 751 ==
LOC: C.ER 17:46 → C.7D 08-24 01:07
PROVIDERS: ADMIT Psychiatry & Neurology Psychiatry; ATTEND Psychiatry & Neurology Psychiatry
PROC: HZ2ZZZZ Detoxification Services for Substance Abuse Treatment (ICD-10-PCS; principal; 2017-08-24)
PROC: HZ52ZZZ Individual Psychotherapy for Substance Abuse Treatment, Cognitive-Behavioral (ICD-10-PCS; 2017-08-24)
PROC: HZ59ZZZ Individual Psychotherapy for Substance Abuse Treatment, Supportive (ICD-10-PCS; 2017-08-24)
DX: F10.239 Alcohol dependence with withdrawal, unspecified (principal); F12.90 Cannabis use, unspecified, uncomplicated; Z81.1 Family history of alcohol abuse and dependence; Z96.649 Presence of unspecified artificial hip joint; F32.9 Major depressive disorder, single episode, unspecified; G89.29 Other chronic pain

== ENCOUNTER → 2017-09-11 13:53 | Emergency (ER) | payer MEDICAID, OTHER ==
[2017-09-11 13:53] VITALS: BMI 25.8
== END | disposition left against medical advice (07) ==
LOC: C.ER 13:53
DX: Z02.89 Encounter for other administrative examinations (principal); Z00.00 Encounter for general adult medical examination without abnormal findings

== ENCOUNTER 2017-10-02 02:48 | Emergency (ER) | payer OTHER ==
[2017-10-02 02:48] VITALS: BMI 25.8
--- NOTE | 2017-10-02 03:22 | C.PDOC ---
History Of Present Illness 56-year-old male presented to the ER complaining of left hip pain onset after falling yesterday while intoxicated. Patient is able to ambulate with pain . He has a scraped left forearm, and nose. Patient requests detox from alcohol. Patient has a history of alcohol abuse and has previously undergone left hip replacement. Denies LOC. Time Seen by Provider: 10/02/17 03:04 Chief Complaint (Nursing): Substance Abuse History Per: Patient History/Exam Limitations: no limitations Onset/Duration Of Symptoms: Days Current Symptoms Are (Timing): Still Present - Hip Description Of Injury: Fell Past Medical History Reviewed: Historical Data, Nursing Documentation, Vital Signs Vital Signs: Last Vital Signs Temp 97.8 F 10/02/17 06:20 Pulse 67 10/02/17 06:20 Resp 16 10/02/17 06:20 BP 115/73 10/02/17 06:20 Pulse Ox 99 10/02/17 06:20 - Medical History PMH: Depression, Chronic Pain Other Surgeries: Musculoskeletal surgery: left hip replacement - [facility] Procedures ALCOHOL DETOXIFICATION (10/24/14) DETOXIFICATION SERVICES FOR SUBSTANCE ABUSE TREATMENT (08/24/17) INDIV PSYCHOTHERAPY FOR SUBSTANCE ABUSE TREATMENT, SUPPORT (08/24/17) INDIV PSYCHOTHERAPY FOR SUBSTANCE ABUSE, COGNITIV BEHAVIORAL (08/24/17) Family History: States: Unknown Family Hx - Social History Hx Tobacco Use: No Hx Alcohol Use: Yes Hx Substance Use: No - Immunization History Hx Tetanus Toxoid Vaccination: No Hx Influenza Vaccination: No Hx Pneumococcal Vaccination: No Review Of Systems Except As Marked, All Systems Reviewed And Found Negative. Musculoskeletal: Positive for: Other (Hip pain) Skin: Positive for: Bruising (forearm, head and abdomen) Neurological: Positive for: Weakness, Incoordination. Negative for: Numbness Physical Exam - Physical Exam Appears: Well, Non-toxic, No Acute Distress Skin: Warm, Dry, No Rash Head: Atraumatic, Normacephalic Eye(s): bilateral: Normal Inspection Neck: Normal ROM Chest: Symmetrical Cardiovascular: Rhythm Regular, No Murmur Respiratory: Normal Breath Sounds, No Rales, No Rhonchi, No Wheezing Gastrointestinal/Abdominal: Normal Exam, Bowel Sounds, Soft, No Tenderness, No Guarding Extremity: Bilateral: Atraumatic, Normal Color And Temperature, Normal ROM Neurological/Psych: Oriented x3, Normal Speech Gait: Unsteady ED Course And Treatment O2 Sat by Pulse Oximetry: 96 Medical Decision Making Medical Decision Making: Impression: 56 Year -old male presented to the ER complaining of left hip pain onset after falling yesterday while intoxicated. Also requesting detox Plan: --Left Hip Xray Xray viewed shows ORIF, no new fracture Call Crisis who informs me there are no detox beds available. Patient was made aware, he is now asking to rest. Will allow patient to rest for the night and discharge in the morning Disposition Counseled Patient/Family Regarding: Diagnosis, Need For Followup - Disposition Referrals: Maria Guadalupe Julio MD [Primary Care Provider] - Disposition: HOME/ ROUTINE Disposition Time: 06:00 Condition: STABLE Additional Instructions: For Detox please call [phone] or [phone] to inquire about our Detox availability Instructions: Effects of Alcohol on Your Health Forms: [facility] (Telugu) - POA Present On Arrival: None - Clinical Impression Clinical Impression: Alcohol abuse, Chronic left hip pain - 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 (Sonia Suazo) - Scribe Statement All medical record entries made by the Scribe were at my direction and personally dictated by me. I have reviewed the chart and agree that the record accurately reflects my personal performance of the history, physical exam, medical decision making, and the department course for this patient. I have also personally directed, reviewed, and agree with the discharge instructions and disposition.
[2017-10-02 06:37] VITALS: BP 115/73; PULSE 67; RESP 16; TEMP 97.8
--- NOTE | 2017-10-02 08:53 | RAD ---
PROCEDURE: Left Hip X-ray Radiographs. HISTORY: pain s.p fall COMPARISON: None. FINDINGS: BONES: Status post left hip arthroplasty. No evidence of dislocation. No osseous fracture. Prosthesis appears intact. No evidence of prosthesis loosening. No other osseous fracture elsewhere. JOINTS: As above SOFT TISSUES: Normal. OTHER FINDINGS: None. IMPRESSION: No acute fracture. Left hip arthroplasty.
[2017-10-02 21:11] VITALS: O2SAT 96
== END 2017-10-02 06:38 | disposition home or self-care (01) ==
LOC: SUPCPDRO 02:48 → C.ER 02:48
DX: F10.10 Alcohol abuse, uncomplicated (principal); M25.552 Pain in left hip; G89.29 Other chronic pain; Z96.642 Presence of left artificial hip joint

== ENCOUNTER → 2017-10-02 21:25 | Emergency (ER) | payer OTHER ==
[2017-10-02 21:25] VITALS: BMI 25.8
== END | disposition left against medical advice (07) ==
LOC: C.ER 21:25
DX: Z02.89 Encounter for other administrative examinations (principal); F19.10 Other psychoactive substance abuse, uncomplicated

== ENCOUNTER 2017-10-03 00:22 | Emergency (ER) | payer OTHER ==
[2017-10-03 00:24] VITALS: BMI 25.8
--- NOTE | 2017-10-03 01:54 | C.PDOC ---
History Of Present Illness 56-year-old male with a past medical history of alcohol abuse presents to the ED with alcohol intoxication. Patient admits to drinking today. He is requesting detox if available. Otherwise he denies any fall, trauma, suicidal/ homicidal ideation, or other complaint. Patient seen here yesterday with similar complaint. Time Seen by Provider: 10/03/17 00:40 Chief Complaint (Nursing): Substance Abuse History Per: Patient History/Exam Limitations: no limitations Onset/Duration Of Symptoms: Days Current Symptoms Are (Timing): Still Present Suicide/Self Injury Attempted (Context): None Modifying Factor(s): Alcohol Past Medical History Reviewed: Historical Data, Nursing Documentation, Vital Signs Vital Signs: Last Vital Signs Temp 97.5 F L 10/03/17 04:58 Pulse 62 10/03/17 04:58 Resp 16 10/03/17 04:58 BP 105/64 10/03/17 04:58 Pulse Ox 97 10/03/17 05:33 - Medical History PMH: Depression, Chronic Pain Denies: Diabetes, Hepatitis, HIV, HTN, Chronic Kidney Disease, Seizures, Sexually Transmitted Disease Other PMH: Alcohol abuse - [facility] Procedures ALCOHOL DETOXIFICATION (10/24/14) DETOXIFICATION SERVICES FOR SUBSTANCE ABUSE TREATMENT (08/24/17) INDIV PSYCHOTHERAPY FOR SUBSTANCE ABUSE TREATMENT, SUPPORT (08/24/17) INDIV PSYCHOTHERAPY FOR SUBSTANCE ABUSE, COGNITIV BEHAVIORAL (08/24/17) Family History: States: Unknown Family Hx - Social History Hx Tobacco Use: No Hx Alcohol Use: Yes Hx Substance Use: No - Immunization History Hx Tetanus Toxoid Vaccination: No Hx Influenza Vaccination: No Hx Pneumococcal Vaccination: No Review Of Systems Except As Marked, All Systems Reviewed And Found Negative. Constitutional: Negative for: Fever Respiratory: Negative for: Shortness of Breath Gastrointestinal: Negative for: Vomiting Psych: Positive for: Other (Alcohol intoxication). Negative for: Suicidal ideation, Withdrawal Physical Exam - Physical Exam Appears: Well, Non-toxic, No Acute Distress Skin: Warm, Dry, No Rash Head: Atraumatic, Normacephalic Eye(s): bilateral: Normal Inspection Oral Mucosa: Moist Neck: Normal ROM Chest: Symmetrical Cardiovascular: Rhythm Regular, No Murmur Respiratory: Normal Breath Sounds, No Rales, No Rhonchi, No Wheezing Gastrointestinal/Abdominal: Soft, No Tenderness Extremity: Bilateral: Atraumatic, Normal ROM Neurological/Psych: Oriented x3, Normal Speech ED Course And Treatment O2 Sat by Pulse Oximetry: 97 (RA) Pulse Ox Interpretation: Normal Medical Decision Making Medical Decision Making: Impression: Alcohol intoxication, requesting detox Plan: * Accucheck * Will speak with crisis As per crisis team, no detox beds are available at this time. Patient is resting comfortably in stretcher. Plan is to discharge patient when clinically sober. As per crisis there will be possibility of 2 detox beds in the morning after discharges. Patient will be added to the waitlist. I informed patient of this and was instructed to call or return in the morning after 9am Disposition Counseled Patient/Family Regarding: Need For Followup - Disposition Disposition: HOME/ ROUTINE Disposition Time: 05:32 Condition: STABLE Additional Instructions: Return in the morning 9am to speak with Detox coordinator Rylee Instructions: Alcohol Abuse and Alcoholism (DC) Forms: [facility] (Honduran) - POA Present On Arrival: None - Clinical Impression Clinical Impression: Alcohol abuse - PA / ACQUISITIONS ANALYST / Resident Statement MD/DO has reviewed & agrees with the documentation as recorded. - Scribe Statement The provider has reviewed the documentation as recorded by the Scribe (Sonia Suazo) All medical record entries made by the Scribe were at my direction and personally dictated by me. I have reviewed the chart and agree that the record accurately reflects my personal performance of the history, physical exam, medical decision making, and the department course for this patient. I have also personally directed, reviewed, and agree with the discharge instructions and disposition.
[2017-10-03 04:58] VITALS: BP 105/64; PULSE 62; RESP 16; TEMP 97.5
[2017-10-03 05:33] VITALS: O2SAT 97
== END 2017-10-03 05:37 | disposition home or self-care (01) ==
LOC: C.ER 00:22
DX: F10.129 Alcohol abuse with intoxication, unspecified (principal); Y90.9 Presence of alcohol in blood, level not specified

== ENCOUNTER 2017-10-04 01:05 | Inpatient (IN) | payer MEDICAID, OTHER ==
[2017-10-04 01:05] VITALS: BMI 25.8
[2017-10-04 03:11] LABS: GRANULAR CAST 4 /lpf (0-1); SQUAMOUS EPITHIAL < 1 /hpf (0-5); URINE BILIRUBIN NEGATIVE (NEGATIVE); URINE BLOOD 1+ (NEGATIVE); URINE CLARITY Clear (Clear); URINE COLOR Yellow (YELLOW); URINE GLUCOSE (UA) NORMAL (Normal); URINE LEUKOCYTE ESTERASE NEG Leu/uL (Negative); URINE PROTEIN NEGATIVE (NEGATIVE); URINE UROBILINOGEN NORMAL mg/dL (0.2-1.0)
[2017-10-04 03:12] LABS: ALB/GLOB RATIO 1.5 (1.0-2.1); ALBUMIN 4.9 g/dL (3.5-5.0); ALT/SGPT 33 U/L (21-72); AST/SGOT 55 U/L (17-59); BLOOD UREA NITROGEN 9 mg/dL (9-20); CALCIUM 9.3 mg/dl (8.6-10.4); GFR AFRICAN-AMERICAN > 60; GFR NON-AFRICAN AMERICAN > 60
--- NOTE | 2017-10-04 03:13 | C.PDOC ---
History Of Present Illness 56 y/o male presents to ED requesting detox from alcohol. Denies any physical complaints. Patient admits to drinking today. Time Seen by Provider: 10/04/17 01:33 Chief Complaint (Nursing): Substance Abuse History Per: Patient History/Exam Limitations: no limitations Onset/Duration Of Symptoms: Hrs Suicide/Self Injury Attempted (Context): Cut Wrists Modifying Factor(s): Alcohol Associated Symptoms: denies: Anger, Suicidal Thoughts, Suicidal Plan Involuntary Hold By: None Recent travel outside of the [place]: No Past Medical History Reviewed: Historical Data, Nursing Documentation, Vital Signs Vital Signs: Last Vital Signs Temp 98.2 F 10/04/17 04:56 Pulse 78 10/04/17 04:56 Resp 18 10/04/17 04:56 BP 137/77 10/04/17 04:56 Pulse Ox 96 10/04/17 04:56 - Medical History PMH: Depression, Chronic Pain - [facility] Procedures ALCOHOL DETOXIFICATION (10/24/14) DETOXIFICATION SERVICES FOR SUBSTANCE ABUSE TREATMENT (08/24/17) INDIV PSYCHOTHERAPY FOR SUBSTANCE ABUSE TREATMENT, SUPPORT (08/24/17) INDIV PSYCHOTHERAPY FOR SUBSTANCE ABUSE, COGNITIV BEHAVIORAL (08/24/17) Family History: States: Unknown Family Hx - Social History Hx Tobacco Use: No Hx Alcohol Use: Yes Hx Substance Use: Yes ("sometimes") - Immunization History Hx Tetanus Toxoid Vaccination: No Hx Influenza Vaccination: No Hx Pneumococcal Vaccination: No Review Of Systems Constitutional: Negative for: Fever, Chills Gastrointestinal: Negative for: Nausea, Vomiting, Abdominal Pain, Diarrhea Skin: Negative for: Rash Neurological: Negative for: Weakness, Numbness Psych: Negative for: Suicidal ideation Physical Exam - Physical Exam Appears: Well, Non-toxic, No Acute Distress Skin: Normal Color, Warm, Dry Head: Atraumatic, Normacephalic Eye(s): bilateral: Normal Inspection, PERRL, EOMI Oral Mucosa: Moist Neck: Supple Chest: Symmetrical, No Tenderness Cardiovascular: Rhythm Regular, No Murmur Respiratory: Normal Breath Sounds, No Decreased Breath Sounds, No Rales, No Rhonchi, No Wheezing Gastrointestinal/Abdominal: Soft, No Tenderness, No Distention Extremity: Normal ROM, No Deformity Extremity: Bilateral: Atraumatic, Normal Color And Temperature, Normal ROM Neurological/Psych: Oriented x3, Normal Speech Gait: Steady ED Course And Treatment - Laboratory Results Result Diagrams: 10/04/17 02:54 10/04/17 02:54 O2 Sat by Pulse Oximetry: 98 (RA) Pulse Ox Interpretation: Normal Medical Decision Making Medical Decision Making: Ordered blood work and urinalysis. 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 - Scribe Statement The provider has reviewed the documentation as recorded by the Oliviaibrahul Rosen All medical record entries made by the Oliviaibrahul were at my direction and personally dictated by me. I have reviewed the chart and agree that the record accurately reflects my personal performance of the history, physical exam, medical decision making, and the department course for this patient. I have also personally directed, reviewed, and agree with the discharge instructions and disposition.
[2017-10-04 03:14] LABS: BASO # 0.2 K/uL (0.0-0.2); BASO % 2.6 % (0.0-2.0); EOS # 0.1 K/uL (0.0-0.7); EOS % 1.4 % (0.0-4.0); HEMOGLOBIN 13.9 g/dL (12.0-18.0); LYMPH # 2.6 K/uL (1.0-4.3); LYMPH % 34.2 % (20.0-40.0); MEAN CELL VOLUME 83.9 fL (80.0-94.0); MEAN CORPUSCULAR HEMOGLOBIN 27.3 pg (27.0-31.0); MEAN CORPUSCULAR HGB CONC 32.5 g/dL (33.0-37.0); MEAN PLATELET VOLUME 8.5 fL (7.2-11.7); MONO # 0.5 K/uL (0.0-0.8); MONO % 6.4 % (0.0-10.0); NEUT # 4.2 K/uL (1.8-7.0); NEUT % 55.4 % (50.0-75.0); NRBC % 0.1 % (0.0-2.0); RBC 5.09 Mil/uL (4.40-5.90); RED CELL DISTRIBUTION WIDTH 14.4 % (11.5-14.5); WHITE BLOOD COUNT 7.6 K/uL (4.8-10.8)
[2017-10-04 03:33] LABS: BARBITURATES, UR NEGATIVE (NEGATIVE); BENZODIAZEPINES, UR NEGATIVE (NEGATIVE); OPIATES, UR NEGATIVE (NEGATIVE); PHENCYCLIDINE, UR NEGATIVE (NEGATIVE)
--- NOTE | 2017-10-04 06:13 | PCM.BM ---
<Josiah Haleyessa M - Last Filed: 10/04/17 06:12> Treatment Plan Problems - Problems identified on initial assessmt Ineffective Coping Skills Date Initiated: 10/04/17 Time Initiated: 06:12 Assessment reference: NA Status: Active Treatment assets and liabiliti Patient Assests: cooperative, ADL independent Patient Liabilities: substance abuse, other - Milieu Protocol Maintain good personal hygiene: daily Encourage regular showers, daily Remind patient to perform daily oral care, daily Assist patient to perform ADL's Maintain personal safety: every shift Educate patient to report safety concerns to staff, every shift Monitor environment for contraband/sharps Medication safety: Monitor for expected outcome, potential side effects: every shift, Assess barriers to learning: every shift, Assess readiness for medication education: every shift <Rylee Guthrie - Last Filed: 10/04/17 13:22> Family Contact Family involvement: Family/SO is involved Family contact: Patient agrees to contact Family contact name: daughter Family contacted how many times per week?: 1 - Goals for Treatment Patient goals for treatment: Complete detox and atted o/p program. Discharge/Continuing Care - Education Needs Education Needs: Family Medication, Family Diagnosis/Disease Process, Family Anger Management skills, Family Placement options, Family Community resources, Patient Medication, Patient Diagnosis/Disease Process, Patient Coping Skills, Patient Anger Management skills, Patient Placement options, Patient Community resources - Discharge Discharge Criteria: No longer exhibiting s/s of withdrawal, Reduction of target symptoms Discharge to:: Home, With Family - Treatment Team Participation Patient/Family/SO Statement: 10/04/17 13:23 "I wanna go to outpatient--I can't go to inpatient--I need my check..." Discussed with Family/SO: No Was Patient/Family/SO present at Treatment Team Meeting: Yes <Elida Shea - Last Filed: 10/06/17 14:19> - Diagnosis (1) Alcohol dependence Status: Acute Interventions: 10/06/17 14:19 * Assess 7x/week regarding severity of withdrawal * Educate regarding risks, benefits, side effects and alternatives of medications * Use Motivational Interviewing for abstinence * Use CBT for relapse prevention * Medication management for withdrawal symptoms * Encourage medication assisted treatment *
[2017-10-04] MEDS ORDERED: Multiple Vitamins Tab PO SCH (10:00)
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
[2017-10-04] MEDS: Multiple Vitamins Tab PO SCH (10:58)
[2017-10-05] MEDS: Multiple Vitamins Tab PO SCH (09:31)
--- NOTE | 2017-10-05 14:13 | PCM.PYCHPN ---
Psychiatric Progress Note - Psychiatric Progress Note Patient seen today, length of contact: 16 min Patient Chief Complaint: "Sleep is an issue" Problems Identified/Issues Discussed: The pt is seen, chart reviewed, case discussed with staff. The pt is compliant with medications and reports no side-effects. Symptoms are improving but needs more time to stabilize. Pt attends groups and activities. Support given, psycho-education provided. After care discussed. Medication Change: Yes (detox changes daily) Medical Record Reviewed: Yes Mental Status Examination - Cognitive Function Orientation: Person, Place, Situation, Time Memory: Intact Attention: WNL Concentration: WNL Association: WNL Fund of Knowledge: WN - Mood Mood: Depressed, Anxious - Affect Affect: Constricted - Speech Speech: Appropriate - Formal Thought Process Formal Thought Process: No Impairment - Suicidal Ideation Suicidal Ideation: No - Homicidal Ideation Homicidal Ideation: No Goal/Treatment Plan - Goal/Treatment Plan Need for Continued Stay: Discharge may exacerbated symptoms, Severe functional impairment Progress Toward Problem(s) and Goals/Treatment Plan: Taper with Librium Gabapentin for augmentation if needed As needed medications All risks, benefits and alternatives of the meds discussed, and the pt agreed and understood. Attend groups and activities Supportive therapy and psychoeducation [place] for abstinence CBT for relapse prevention Encourage MAT Refer to rehab or IOP, and self-help groups Estimated Date of D/C: 10/07/17
[2017-10-05 19:00] VITALS: RESP 18
[2017-10-06] MEDS: Multiple Vitamins Tab PO SCH (09:34)
--- NOTE | 2017-10-06 14:19 | PCM.PYCHPN ---
Psychiatric Progress Note - Psychiatric Progress Note Patient seen today, length of contact: 16 min Patient Chief Complaint: "Better" Problems Identified/Issues Discussed: The pt is seen, chart reviewed, case discussed with staff. Support and psychoeducation given, CBT and MT used briefly No new symptoms reported, improving slowly and needs more time No SEs from medications, risks discussed. After care discussed Medication Change: Yes (detox changes daily) Medical Record Reviewed: Yes Mental Status Examination - Cognitive Function Orientation: Person, Place, Situation, Time Memory: Intact Attention: WNL Concentration: WNL Association: WNL Fund of Knowledge: WNL - Mood Mood: Depressed, Anxious - Affect Affect: Constricted - Speech Speech: Appropriate - Formal Thought Process Formal Thought Process: No Impairment - Suicidal Ideation Suicidal Ideation: No - Homicidal Ideation Homicidal Ideation: No Goal/Treatment Plan - Goal/Treatment Plan Need for Continued Stay: Discharge may exacerbated symptoms, Severe functional impairment Progress Toward Problem(s) and Goals/Treatment Plan: Taper with Librium Gabapentin for augmentation if needed As needed medications All risks, benefits and alternatives of the meds discussed, and the pt agreed and understood. Attend groups and activities Supportive therapy and psychoeducation MT for abstinence CBT for relapse prevention Encourage MAT Refer to rehab or IOP, and self-help groups Estimated Date of D/C: 10/07/17
[2017-10-07 08:35] VITALS: BP 135/89; PULSE 86; TEMP 97.5; O2SAT 98
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
[2017-10-07] MEDS: Multiple Vitamins Tab PO SCH (09:17)
== END 2017-10-07 10:00 | disposition home or self-care (01) | DRG 751 ==
LOC: C.ER 01:05 → SUPCPDRO 01:05 → C.9E 05:10 → C.7D 05:26
PROVIDERS: ADMIT Psychiatry & Neurology Psychiatry; ATTEND Psychiatry & Neurology Psychiatry
PROC: HZ2ZZZZ Detoxification Services for Substance Abuse Treatment (ICD-10-PCS; principal; 2017-10-04)
PROC: HZ59ZZZ Individual Psychotherapy for Substance Abuse Treatment, Supportive (ICD-10-PCS; 2017-10-04)
PROC: HZ56ZZZ Individual Psychotherapy for Substance Abuse Treatment, Psychoeducation (ICD-10-PCS; 2017-10-04)
PROC: GZ3ZZZZ Medication Management (ICD-10-PCS; 2017-10-04)
DX: F10.230 Alcohol dependence with withdrawal, uncomplicated (principal); F32.9 Major depressive disorder, single episode, unspecified; F12.10 Cannabis abuse, uncomplicated; F19.94 Other psychoactive substance use, unspecified with psychoactive substance-induced mood disorder; F17.210 Nicotine dependence, cigarettes, uncomplicated; Z96.649 Presence of unspecified artificial hip joint; Z81.1 Family history of alcohol abuse and dependence; Z59.0 Homelessness

== ENCOUNTER 2017-10-28 23:00 | Emergency (ER) | payer MEDICAID, OTHER ==
[2017-10-28 23:00] VITALS: BMI 25.8
[2017-10-28 23:39] VITALS: TEMP 98.5; O2SAT 97
--- NOTE | 2017-10-29 00:07 | C.PDOC ---
History Of Present Illness 57 year old male patient presents to the ER with c/o hip pain. Patient is a local homeless man with multiple prior visits. Patient reports his last alcohol intake was today. Patient notes he is looking for a place to stay. Patient denies fever, chills, numbness, and weakness. Time Seen by Provider: 10/29/17 00:01 Chief Complaint (Nursing): Hip Pain History Per: Patient History/Exam Limitations: no limitations Onset/Duration Of Symptoms: Hrs Current Symptoms Are (Timing): Still Present Modifying Factor(s): Alcohol Past Medical History Reviewed: Historical Data, Nursing Documentation, Vital Signs Vital Signs: Last Vital Signs Temp 98.5 F 10/28/17 23:36 Pulse 87 10/29/17 00:38 Resp 18 10/29/17 00:38 BP 156/76 H 10/29/17 00:38 Pulse Ox 97 10/29/17 00:07 - Medical History PMH: Depression, Chronic Pain - [facility] Procedures ALCOHOL DETOXIFICATION (10/24/14) DETOXIFICATION SERVICES FOR SUBSTANCE ABUSE TREATMENT (10/04/17) INDIV PSYCHOTHERAPY FOR SUBSTANCE ABUSE TREATMENT, SUPPORT (10/04/17) INDIV PSYCHOTHERAPY FOR SUBSTANCE ABUSE, COGNITIV BEHAVIORAL (08/24/17) INDIV PSYCHOTHERAPY FOR SUBSTANCE ABUSE, PSYCHOEDUCATION (10/04/17) MEDICATION MANAGEMENT (10/04/17) Family History: States: Unknown Family Hx - Social History Hx Tobacco Use: No Hx Alcohol Use: Yes Hx Substance Use: No - Immunization History Hx Tetanus Toxoid Vaccination: No Hx Influenza Vaccination: No Hx Pneumococcal Vaccination: No Review Of Systems Except As Marked, All Systems Reviewed And Found Negative. Constitutional: Negative for: Fever, Chills Musculoskeletal: Positive for: Other (hip pain) Neurological: Negative for: Weakness, Numbness Physical Exam - Physical Exam Appears: Well, Non-toxic, No Acute Distress Skin: Normal Color, Warm, Dry Head: Atraumatic, Normacephalic Eye(s): bilateral: Normal Inspection Ear(s): Bilateral: Normal Oral Mucosa: Moist Throat: Normal, Other (alcoholic breath) Neck: Normal ROM, Supple Extremity: Normal ROM (x4) Neurological/Psych: Oriented x3, Normal Speech, Normal Motor, Normal Sensation, Normal Reflexes Gait: Steady ED Course And Treatment O2 Sat by Pulse Oximetry: 97 (RA) Pulse Ox Interpretation: Normal Medical Decision Making Medical Decision Making: Plans: -- ibuprofen at least 4 prior radiology studies noting L hip arthroplasty Pt well known for alcohol abuse, c/o L hip pain, and homeless malingering. Disposition Doctor Will See Patient In The: Office Counseled Patient/Family Regarding: Studies Performed, Diagnosis - Disposition Referrals: [facility] [Outside] [facility] [Outside] [facility] [Outside] [facility] [Outside] [facility] [Outside] Disposition: HOME/ ROUTINE Disposition Time: 00:07 Condition: GOOD Additional Instructions: outpatient assistance for your persistent alcohol abuse Seek nightly [facility] placement Instructions: Chronic Pain (DC), Alcohol Abuse and Alcoholism (DC) Forms: [employer] (Malay) - Clinical Impression Clinical Impression: Alcohol abuse, Homelessness, Chronic left hip pain - Scribe Statement The provider has reviewed the documentation as recorded by the Scribe Spencer Do Provider Attestation: All medical record entries made by the Scribe were at my direction and personally dictated by me. I have reviewed the chart and agree that the record accurately reflects my personal performance of the history, physical exam, medical decision making, and the department course for this patient. I have also personally directed, reviewed, and agree with the discharge instructions and disposition.
[2017-10-29 00:38] VITALS: BP 156/76; PULSE 87; RESP 18
== END 2017-10-29 00:36 | disposition home or self-care (01) ==
LOC: C.ER 23:00
DX: G89.29 Other chronic pain (principal); M25.552 Pain in left hip; F10.10 Alcohol abuse, uncomplicated; Y90.9 Presence of alcohol in blood, level not specified; Z59.0 Homelessness

== ENCOUNTER 2017-10-29 07:04 | Emergency (ER) | payer OTHER ==
[2017-10-29 07:04] VITALS: BMI 25.8
[2017-10-29 07:23] VITALS: RESP 18; O2SAT 96
--- NOTE | 2017-10-29 07:47 | C.PDOC ---
History Of Present Illness 57 y/o male presents to ED for complaints of left hip pain that began after he fell last night. Patient was seen in ER after the fall and he reports "they did not do anything and discharged me." Patient states pain worsened which prompted the ED visit. Patient is requesting to be in detox and states he is homeless and wants a place to stay. Denies any other physical complaints. Time Seen by Provider: 10/29/17 07:25 Chief Complaint (Nursing): Back Pain History Per: Patient History/Exam Limitations: no limitations Onset/Duration Of Symptoms: Hrs Current Symptoms Are (Timing): Still Present Quality Of Discomfort: "Pain" Previous Symptoms: Chronic Pain Associated Symptoms: None Exacerbating Factor(s): Nothing Recent travel outside of the [place]: No Past Medical History Reviewed: Historical Data, Nursing Documentation, Vital Signs Vital Signs: Last Vital Signs Temp 97.6 F 10/29/17 07:19 Pulse 85 10/29/17 07:19 Resp 18 10/29/17 07:19 BP 151/92 H 10/29/17 07:19 Pulse Ox 96 10/29/17 09:32 - Medical History PMH: Depression, Chronic Pain - [facility] Procedures ALCOHOL DETOXIFICATION (10/24/14) DETOXIFICATION SERVICES FOR SUBSTANCE ABUSE TREATMENT (10/04/17) INDIV PSYCHOTHERAPY FOR SUBSTANCE ABUSE TREATMENT, SUPPORT (10/04/17) INDIV PSYCHOTHERAPY FOR SUBSTANCE ABUSE, COGNITIV BEHAVIORAL (08/24/17) INDIV PSYCHOTHERAPY FOR SUBSTANCE ABUSE, PSYCHOEDUCATION (10/04/17) MEDICATION MANAGEMENT (10/04/17) Family History: States: Unknown Family Hx - Social History Hx Tobacco Use: No Hx Alcohol Use: Yes Hx Substance Use: No - Immunization History Hx Tetanus Toxoid Vaccination: No Hx Influenza Vaccination: No Hx Pneumococcal Vaccination: No Review Of Systems Except As Marked, All Systems Reviewed And Found Negative. Musculoskeletal: Positive for: Other (Hip pain ) Physical Exam - Physical Exam Appears: Non-toxic, No Acute Distress, Other (Disheveled) Skin: Normal Color, Warm, Dry, No Rash Head: Atraumatic, Normacephalic Eye(s): bilateral: Normal Inspection, PERRL, EOMI Oral Mucosa: Moist Neck: Normal ROM, Supple Chest: Symmetrical, No Tenderness Cardiovascular: Rhythm Regular Respiratory: Normal Breath Sounds, No Decreased Breath Sounds, No Rales, No Rhonchi, No Wheezing Gastrointestinal/Abdominal: Normal Exam, Soft, No Tenderness Back: Other (Tenderness to left posterior iliac spine) Extremity: Normal ROM (Lower extremities ), No Tenderness, No Deformity Extremity: Bilateral: Atraumatic, Normal Color And Temperature, Normal ROM Neurological/Psych: Oriented x3, Normal Speech, Other (No focal deficits) Gait: Steady ED Course And Treatment O2 Sat by Pulse Oximetry: 96 (RA) Pulse Ox Interpretation: Normal - Other Rad L hip X-Ray: Interpreted by Me Interpretation: L hip prosthesis noted, no acute fracture/dislocation noted Medical Decision Making Medical Decision Making: Ordered Hip X-Ray which was unremarkable. Results discussed with patient. Also explained to patient that there are no detox beds available at this time. Disposition - Disposition Disposition: HOME/ ROUTINE Disposition Time: 09:30 Condition: GOOD Additional Instructions: RENARD MARTIN, thank you for letting us take care of you today. Your provider was Magda Duong MD and you were treated for BACK PAIN. The emergency medical care you received today was directed at your acute symptoms. If you were prescribed any medication, please fill it and take as directed. It may take several days for your symptoms to resolve. Return to the Emergency Department if your symptoms worsen, do not improve, or if you have any other problems. Please contact your doctor or call one of the physicians/clinics you have been referred to that are listed on the Patient Visit Information form that is included in your discharge packet. Bring any paperwork you were given at discharge with you along with any medications you are taking to your follow up visit. Our treatment cannot replace ongoing medical care by a primary care provider outside of the emergency department. Thank you for allowing the [facility] team to be part of your care today. If you had an X-Ray or CT scan: A Radiologist will review the ED reading if any change in treatment is needed we will contact you. If you had a blood, urine, or wound culture: It will take several days for the results, if any change in treatment is needed we will contact you. If you had an STI test: It will take 48 hours for the results. Please call after 1 week if you have not heard back. Instructions: Hip Pain (DC) Forms: [id number] (Bhutanese) - Clinical Impression Clinical Impression: Hip pain - Scribe Statement The provider has reviewed the documentation as recorded by the Oliviaibrahul Rosen All medical record entries made by the Nubia were at my direction and personally dictated by me. I have reviewed the chart and agree that the record accurately reflects my personal performance of the history, physical exam, medical decision making, and the department course for this patient. I have also personally directed, reviewed, and agree with the discharge instructions and disposition.
[2017-10-29 10:06] VITALS: BP 144/87; PULSE 88; TEMP 98.3
--- NOTE | 2017-10-29 11:52 | RAD ---
Pelvis and left hip three views History: Pain. Comparison: None available. Findings: Left hip: Status post left hip arthroplasty. Lucency at the metal bone interface at the medial left acetabulum, nonspecific. Mild loosening at this level cannot be excluded. Productive change within the bone with osteophyte formation at the inferior left acetabulum. Heterotopic bone formation at the left greater trochanter and along the lateral cortex of the proximal left femur. No evidence for acute displaced fracture or dislocation. Limited evaluation of the remainder of the pelvis demonstrates degenerative changes in the lower lumbar spine with paravertebral osteophytes. Moderate degenerative changes of the right hip joint space with subchondral sclerosis. Calcified phleboliths in the pelvis. Impression: Status post left hip arthroplasty. Lucency at the metal bone interface at the medial left acetabulum, nonspecific. Mild loosening at this level cannot be excluded. Productive change within the bone with osteophyte formation at the inferior left acetabulum. If there is persistent concern for loosening, correlation with nuclear medicine study may be helpful. Heterotopic bone formation at the left greater trochanter and along the lateral cortex of the proximal left femur.
== END 2017-10-29 10:06 | disposition home or self-care (01) ==
LOC: C.ER 07:04
DX: M25.552 Pain in left hip (principal)

== ENCOUNTER 2017-10-30 23:52 | Emergency (ER) | payer OTHER ==
[2017-10-30 23:52] VITALS: BMI 25.8
[2017-10-31 00:05] VITALS: TEMP 97.9
--- NOTE | 2017-10-31 00:13 | C.PDOC ---
History Of Present Illness The patient presents to the ED requesting a place to stay. Patient admits to daily drinking and presents with alcohol intoxication. Patient denies suicidal/ homicidal ideation and has no other complaints at this time. Time Seen by Provider: 10/31/17 00:13 Chief Complaint (Nursing): Substance Abuse History Per: Patient History/Exam Limitations: no limitations Onset/Duration Of Symptoms: Hrs Current Symptoms Are (Timing): Still Present Suicide/Self Injury Attempted (Context): None Modifying Factor(s): Alcohol Severity: None Pain Scale Rating Of: 0 Associated Symptoms: denies: Suicidal Thoughts, Suicidal Plan Involuntary Hold By: None Recent travel outside of the [place]: No Additional History Per: Patient Past Medical History Reviewed: Historical Data, Nursing Documentation, Vital Signs Vital Signs: Last Vital Signs Temp 97.9 F 10/30/17 23:56 Pulse 79 10/30/17 23:56 Resp 20 10/30/17 23:56 BP 138/72 10/30/17 23:56 Pulse Ox 95 10/31/17 00:30 - Medical History PMH: Depression, Chronic Pain Denies: Diabetes, Hepatitis, HIV, HTN, Chronic Kidney Disease, Seizures, Sexually Transmitted Disease Surgical History: No Surg Hx - [facility] Procedures ALCOHOL DETOXIFICATION (10/24/14) DETOXIFICATION SERVICES FOR SUBSTANCE ABUSE TREATMENT (10/04/17) INDIV PSYCHOTHERAPY FOR SUBSTANCE ABUSE TREATMENT, SUPPORT (10/04/17) INDIV PSYCHOTHERAPY FOR SUBSTANCE ABUSE, COGNITIV BEHAVIORAL (08/24/17) INDIV PSYCHOTHERAPY FOR SUBSTANCE ABUSE, PSYCHOEDUCATION (10/04/17) MEDICATION MANAGEMENT (10/04/17) Family History: States: Unknown Family Hx - Social History Hx Tobacco Use: No Hx Alcohol Use: Yes Hx Substance Use: No - Immunization History Hx Tetanus Toxoid Vaccination: No Hx Influenza Vaccination: No Hx Pneumococcal Vaccination: No Review Of Systems Constitutional: Negative for: Fever, Chills Cardiovascular: Negative for: Chest Pain, Palpitations Respiratory: Negative for: Cough, Shortness of Breath Gastrointestinal: Negative for: Nausea, Vomiting, Abdominal Pain Skin: Negative for: Rash, Lesions, Jaundice, Bruising Psych: Positive for: Other (alcohol intoxication ). Negative for: Suicidal ideation Physical Exam - Physical Exam Appears: Non-toxic, No Acute Distress, Other (visibly intoxicated ) Skin: Warm, Dry Head: Normacephalic Eye(s): bilateral: Normal Inspection Oral Mucosa: Moist, Other (alcohol on breath ) Neck: Supple Chest: Symmetrical, No Deformity, No Tenderness Cardiovascular: Rhythm Regular Respiratory: No Accessory Muscle Use Extremity: Normal ROM Neurological/Psych: Other (awake, alert and arousable to touch and verbal stimuli ) ED Course And Treatment O2 Sat by Pulse Oximetry: 95 (on RA) Pulse Ox Interpretation: Normal Progress Note: labs ordered and reviewed. Reevaluation Time: 05:11 Reassessment Condition: Improved Disposition Counseled Patient/Family Regarding: Studies Performed, Diagnosis, Need For Followup - Disposition Referrals: [facility] [Outside] Disposition: HOME/ ROUTINE Disposition Time: 00:13 Condition: FAIR Instructions: Alcohol Abuse and Alcoholism (DC) Forms: [employer] (Syriac) - Clinical Impression Clinical Impression: Alcohol abuse, Alcohol intoxication - Scribe Statement The provider has reviewed the documentation as recorded by the Scribe (Selma Clark) Provider Attestation: All medical record entries made by the Scribe were at my direction and personally dictated by me. I have reviewed the chart and agree that the record accurately reflects my personal performance of the history, physical exam, medical decision making, and the department course for this patient. I have also personally directed, reviewed, and agree with the discharge instructions and disposition.
[2017-10-31 05:24] VITALS: BP 128/76; PULSE 71; RESP 18; O2SAT 99
== END 2017-10-31 05:24 | disposition home or self-care (01) ==
LOC: C.ER 23:52
DX: F10.129 Alcohol abuse with intoxication, unspecified (principal); Y90.9 Presence of alcohol in blood, level not specified

== ENCOUNTER → 2017-10-31 09:01 | Emergency (ER) | payer OTHER ==
[2017-10-31 09:01] VITALS: BMI 25.8
== END | disposition left against medical advice (07) ==
LOC: C.ER 09:01
DX: Z02.89 Encounter for other administrative examinations (principal); F19.10 Other psychoactive substance abuse, uncomplicated

== ENCOUNTER 2017-11-01 20:00 | Inpatient (IN) | payer MEDICAID, OTHER ==
[2017-11-01 20:00] VITALS: BMI 25.8
--- NOTE | 2017-11-01 21:27 | C.PDOC ---
History Of Present Illness 57yo male, history of alcohol abuse, brought to ER for evaluation as patient noted that if he goes outside, he will kill himself. He admits to drinking alcohol today and had a disagreement with his daughter. He offers no medical complaints. Time Seen by Provider: 11/01/17 20:51 Chief Complaint (Nursing): Substance Abuse History Per: Patient Current Symptoms Are (Timing): Still Present Modifying Factor(s): Alcohol Associated Symptoms: Suicidal Thoughts. denies: Suicidal Plan Past Medical History Reviewed: Historical Data, Nursing Documentation, Vital Signs Vital Signs: Last Vital Signs Temp 98.9 F 11/01/17 20:22 Pulse 89 11/02/17 01:04 Resp 14 11/02/17 01:04 BP 132/65 11/02/17 01:04 Pulse Ox 99 11/02/17 01:04 - Medical History PMH: Depression, Chronic Pain Denies: Diabetes, Hepatitis, HIV, HTN, Chronic Kidney Disease, Seizures, Sexually Transmitted Disease Other Surgeries: right hip replacement - [facility] Procedures ALCOHOL DETOXIFICATION (10/24/14) DETOXIFICATION SERVICES FOR SUBSTANCE ABUSE TREATMENT (10/04/17) INDIV PSYCHOTHERAPY FOR SUBSTANCE ABUSE TREATMENT, SUPPORT (10/04/17) INDIV PSYCHOTHERAPY FOR SUBSTANCE ABUSE, COGNITIV BEHAVIORAL (08/24/17) INDIV PSYCHOTHERAPY FOR SUBSTANCE ABUSE, PSYCHOEDUCATION (10/04/17) MEDICATION MANAGEMENT (10/04/17) Family History: States: No Known Family Hx - Social History Hx Tobacco Use: No Hx Alcohol Use: Yes Hx Substance Use: Yes (occasional marijuana) - Immunization History Hx Tetanus Toxoid Vaccination: No Hx Influenza Vaccination: No Hx Pneumococcal Vaccination: No Review Of Systems Except As Marked, All Systems Reviewed And Found Negative. Constitutional: Negative for: Fever, Chills Eyes: Negative for: Pain ENT: Negative for: Ear Pain Cardiovascular: Negative for: Chest Pain Respiratory: Positive for: Cough. Negative for: Shortness of Breath, SOB with Excertion, Pleuritic Pain Gastrointestinal: Negative for: Nausea, Vomiting, Abdominal Pain, Constipation Genitourinary: Negative for: Dysuria Musculoskeletal: Negative for: Neck Pain, Back Pain Skin: Positive for: Rash Neurological: Negative for: Weakness, Numbness Psych: Positive for: Suicidal ideation Physical Exam - Physical Exam Appears: No Acute Distress Skin: Normal Color, Warm Head: Atraumatic, Normacephalic Eye(s): bilateral: Normal Inspection, PERRL, EOMI Ear(s): Bilateral: Normal Oral Mucosa: Moist Tongue: Normal Appearing Lips: Normal Appearing Gingiva: Normal Appearing Neck: Normal ROM, Supple Chest: Symmetrical Cardiovascular: Rhythm Regular Respiratory: Normal Breath Sounds Gastrointestinal/Abdominal: Normal Exam, Soft, No Tenderness Back: Normal Inspection Extremity: Normal ROM Extremity: Bilateral: Atraumatic, No Pedal Edema, Normal Color And Temperature, Normal ROM Neurological/Psych: Oriented x3 ED Course And Treatment - Laboratory Results Result Diagrams: 11/01/17 21:28 11/01/17 21:28 O2 Sat by Pulse Oximetry: 96 (RA) Pulse Ox Interpretation: Normal Medical Decision Making Medical Decision Making: Plan: * Labs * Urinalysis * UDS [address] Funez due to alcohol abuse and major depressive disorder. Disposition Counseled Patient/Family Regarding: Diagnosis - Disposition Disposition Time: 01:50 Condition: FAIR - Clinical Impression Clinical Impression: Alcohol abuse, Alcohol intoxication, Depression - Scribe Statement The provider has reviewed the documentation as recorded by the Nubia Archer Provider Attestation: All medical record entries made by the Nubia were at my direction and personally dictated by me. I have reviewed the chart and agree that the record accurately reflects my personal performance of the history, physical exam, medical decision making, and the department course for this patient. I have also personally directed, reviewed, and agree with the discharge instructions and disposition.
[2017-11-01 21:32] LABS: BASO # 0.1 K/uL (0.0-0.2); BASO % 1.4 % (0.0-2.0); EOS # 0.1 K/uL (0.0-0.7); EOS % 1.5 % (0.0-4.0); HEMOGLOBIN 12.4 g/dL (12.0-18.0); LYMPH # 1.2 K/uL (1.0-4.3); MEAN CELL VOLUME 84.6 fL (80.0-94.0); MEAN CORPUSCULAR HGB CONC 33.2 g/dL (33.0-37.0); MEAN PLATELET VOLUME 7.4 fL (7.2-11.7); MONO # 0.5 K/uL (0.0-0.8); MONO % 11.4 % (0.0-10.0); NEUT # 2.6 K/uL (1.8-7.0); NEUT % 59.7 % (50.0-75.0); NRBC % 0.1 % (0.0-2.0); RBC 4.43 Mil/uL (4.40-5.90); WHITE BLOOD COUNT 4.4 K/uL (4.8-10.8)
[2017-11-01 21:49] LABS: BARBITURATES, UR NEGATIVE (NEGATIVE); OPIATES, UR NEGATIVE (NEGATIVE); PHENCYCLIDINE, UR NEGATIVE (NEGATIVE); SQUAMOUS EPITHIAL < 1 /hpf (0-5); URINE BACTERIA RARE (<OCC); URINE BILIRUBIN NEGATIVE (NEGATIVE); URINE BLOOD 1+ (NEGATIVE); URINE CLARITY Clear (Clear); URINE COLOR Yellow (YELLOW); URINE GLUCOSE (UA) NORMAL (Normal); URINE LEUKOCYTE ESTERASE NEG Leu/uL (Negative); URINE PROTEIN 1+ mg/dL (NEGATIVE); URINE UROBILINOGEN NORMAL mg/dL (0.2-1.0)
[2017-11-01 21:51] LABS: ALB/GLOB RATIO 1.3 (1.0-2.1); ALBUMIN 4.3 g/dL (3.5-5.0); ALT/SGPT 79 U/L (21-72); AST/SGOT 139 U/L (17-59); BENZODIAZEPINES, UR POSITIVE (NEGATIVE); BLOOD UREA NITROGEN 5 mg/dL (9-20); CALCIUM 8.9 mg/dl (8.6-10.4); GFR NON-AFRICAN AMERICAN > 60
--- NOTE | 2017-11-02 02:07 | PCM.BM ---
<Mp Perry - Last Filed: 11/02/17 02:05> Treatment Plan Problems - Problems identified on initial assessmt DEPRESSION Date Initiated: 11/02/17 Time Initiated: 01:50 Assessment reference: NA Status: Active ALCOHOL ABUSE Date Initiated: 11/02/17 Time Initiated: 01:50 Assessment reference: NA Status: Active Treatment assets and liabiliti Patient Assests: cooperative, self-reliant, ADL independent, good support system , negotiates basic needs Patient Liabilities: financial problems, poor support system, relationship conflicts, substance abuse, medical problems - Milieu Protocol Maintain good personal hygiene: daily Encourage regular showers, daily Remind patient to perform daily oral care, daily Assist patient to perform ADL's Maintain personal safety: every shift Educate patient to report safety concerns to staff, every shift Monitor environment for contraband/sharps Medication safety: Monitor for expected outcome, potential side effects: every shift, Assess barriers to learning: every shift, Assess readiness for medication education: every shift <Joey Infante - Last Filed: 11/03/17 10:57> - Diagnosis (1) Depression Status: Acute Interventions: 11/03/17 10:57 * Assess/adjust medications daily and /or as needed * See patient on an individual basis 7x/week to assess symptoms of depression * Monitor for side effects & effectiveness of medications * (2) Alcohol dependence Status: Acute Interventions: 11/03/17 10:58 * Assess 7x/week regarding severity of withdrawal * Educate regarding risks, benefits, side effects and alternatives of medications * Use Motivational Interviewing for abstinence * Use CBT for relapse prevention * Medication management for withdrawal symptoms * Encourage medication assisted treatment * <Violet Wills - Last Filed: 11/03/17 13:39> Family Contact Family involvement: Family/SO is involved Family contact: Patient declines to allow family contact at present - Goals for Treatment Patient goals for treatment: "I want to go to rehab." Discharge/Continuing Care - Education Needs Education Needs: Patient Medication, Patient Coping Skills, Patient Placement options, Patient Community resources - Discharge Discharge Criteria: Tolerates medication w/o severe side effects, No longer exhibiting s/s of withdrawal, Reduction of target symptoms Discharge to:: Substance Abuse Rehab - Treatment Team Participation Discussed with Family/SO: No Was Patient/Family/SO present at Treatment Team Meeting: Yes
[2017-11-02 06:36] VITALS: O2SAT 99
--- NOTE | 2017-11-02 10:57 | PCM.PSYCH ---
Initial Psychiatric Evaluation - Initial Psychiatric Evaluation Type of Admission: Voluntary Legal Status: Capacity Chief Complaint (in patient's own words): I was feeling depressed and suicidal.' History of Present Illness and Precipitating Events: Pt is 57yr old HM, was living with daughter, now homeless x 3 month, came to the hospital with history of depression, alcohol use disorder and suicidal ideation. Patient denies any past history of any inpatient psychiatric hospitalizations. He denies any past history of any follow-up with any psychiatrist as well. However he reports history of more than 4 detox, his last detox was at [facility], more than a month ago. As per the patient, he went to live with his daughter, and he stayed sober for almost 1 month but then he relapsed on drinking. His daughter kicked him out, and he became increasingly depressed. He reports of drinking 9-10 beers 24 oz, daily. Yesterday, he consumed almost 7 beers, became increasingly depressed, developed suicidal ideation and came to the hospital to get help. He reports depressed mood, feelings of hopelessness, helplessness, and worthlessness. He also reports poor sleep and poor appetite. He reports withdrawal symptoms including anxiety, nausea, shakes, sweating and headaches. He was shaking badly and appeared very depressed. However he denies any auditory or visual hallucinations or any paranoia. PMH: Hip pain s/p hip replacement Sx 2015 Current Medications: Active Medications Generic Name Dose Route Start Last Admin Trade Name Freq PRN Reason Stop Dose Admin Hydroxyzine HCl 25 mg 11/02/17 02:00 Atarax PO Q6 PRN Anxiety Pneumococcal Polyvalent Vaccine 0.5 ml 11/03/17 10:00 Pneumovax 23 Vaccine IM 11/03/17 10:01 .ONCE ONE Trazodone HCl 50 mg 11/02/17 02:00 11/02/17 02:12 Desyrel PO 50 mg HS PRN Administration Sleep Past Psychiatric History - Past Psychiatric History Previous Treatment History: Inpatient Pertinent Medical Hx (Current Medical&Sleep Prob, Allergies): Allergies Allergy/AdvReac Type Severity Reaction Status Date / Time No Known Allergies Allergy Verified 11/01/17 20:25 No Known Home Med 10/29/17 Review of Systems - Review of Systems All systems: reviewed and no additional remarkable complaints except - Psychiatric Psychiatric: Anxiety, Depression, Hopelessness, Irritability, Suicidal Ideation Mental Status Examination - Personal Presentation Personal Presentation: Looks stated age - Affect Affect: Constricted, Depressed - Motor Activity Motor Activity: Calm - Reliability in Providing Information Reliability in Providing Information: Fair - Speech Speech: Organized - Mood Mood: Depressed, Anxious - Formal Thought Process Formal Thought Process: No Impairment - Obsessions/Compulsions Obsessions: No Compulsions: No - Cognitive Functions Orientation: Person, Place, Situation, Time Sensorium: Alert Attention/Concentration: Attentive Abstract Thinking: [place] Estimate of Intelligence: Below average Judgement: Imparied, as evidence by: Poor judgement, Imparied, as evidence by: Lack of insight into illness - Risk Risk: Suicidal, Withdrawal, Diminished functioning - Limitations Limitations: Living alone DSM 5 DX - DSM 5 DSM 5 Diagnosis: Major depressive disorder recurrent severe without psychotic features Alcohol use disorder severe Alcohol withdrawal - Recommended/Plan of Treatment Treatment Recommendations and Plan of Treatment: Major depressive disorder recurrent severe without psychotic features Alcohol use disorder severe Alcohol withdrawal CBT Psychoeducation Supportive therapy, group therapy Zoloft 50 mg by mouth daily Trazodone 50 mg by mouth daily at bedtime Neurontin 100 mg PO TID Hydroxyzine for anxiety Ativan taper MVI/Thiamine/Folic Acid - Smoking Cessation Smoking Cessation Initiated: No
[2017-11-02] MEDS ORDERED: Aluminum Hydroxide/Magnesium Hydroxide Susp (30 mL) PO PRN (10:59)
[2017-11-02] MEDS: Multiple Vitamins Tab PO SCH (12:05)
[2017-11-03] MEDS: Multiple Vitamins Tab PO SCH (09:35)
[2017-11-03] MEDS ORDERED: Pneumococcal 23-Valent Vaccine IM ONE (10:00)
--- NOTE | 2017-11-03 10:59 | PCM.PYCHPN ---
Psychiatric Progress Note - Psychiatric Progress Note Patient seen today, length of contact: 15 min Patient Chief Complaint: I'm still feeling depressed.' Problems Identified/Issues Discussed: Patient seen and evaluated, chart reviewed and discussed with the nurse. Patient still reports depressed mood and feelings of hopelessness or helplessness. He remained depressed, isolative and withdrawn. He reports withdrawal symptoms including anxiety, headaches and nausea and reports some improvement in the shakes. He denies any auditory or visual hallucinations. He is taking medications and denies any side effects. Supportive therapy and psychoeducation was given. Medication Change: Yes Medical Record Reviewed: Yes Mental Status Examination - Cognitive Function Orientation: Person, Place, Situation, Time Memory: Intact Attention: WNL Concentration: Poor Association: WNL Fund of Knowledge: Poor - Mood Mood: Depressed, Anxious - Affect Affect: Constricted, Depressed - Speech Speech: Soft - Formal Thought Process Formal Thought Process: No Impairment - Suicidal Ideation Suicidal Ideation: No - Homicidal Ideation Homicidal Ideation: No Goal/Treatment Plan - Goal/Treatment Plan Need for Continued Stay: Severe depression anxiety, Severe functional impairment Progress Toward Problem(s) and Goals/Treatment Plan: Major depressive disorder recurrent severe without psychotic features Alcohol use disorder severe Alcohol withdrawal CBT Psychoeducation Supportive therapy, group therapy Zoloft 100 mg by mouth daily Trazodone 50 mg by mouth daily at bedtime Neurontin 100 mg PO TID Hydroxyzine for anxiety Ativan taper MVI/Thiamine/Folic Acid - Smoking Cessation Smoking Cessation Initiated: No
--- NOTE | 2017-11-03 15:48 | RAD ---
Date of service: 11/03/2017 HISTORY: Rehab placement COMPARISON: Chest 10/28/2014. TECHNIQUE: Chest PA and lateral FINDINGS: LUNGS: No evidence of acute infiltrate. There is a small approximately 4.8 mm elliptical shaped nodular density right lung base (overlying the right anterior 5th rib) that probably represents vessel on end artifact however followup nonemergent CT scan of the chest recommended to confirm and exclude a parenchymal nodule. Questionable tiny granuloma right medial upper lung field overlying the right posteromedial 5th rib. PLEURA: No significant pleural effusion identified. No pneumothorax apparent. CARDIOVASCULAR: Normal. OSSEOUS STRUCTURES: No significant abnormalities. VISUALIZED UPPER ABDOMEN: Normal. OTHER FINDINGS: None. IMPRESSION: No evidence of acute infiltrate. There is a small approximately 4.8 mm elliptical shaped nodular density right lung base that probably represents vessel on end artifact however followup nonemergent CT scan of the chest recommended to confirm and exclude a parenchymal nodule. Questionable tiny granuloma right medial upper lung field overlying the right posteromedial 5th rib.
[2017-11-04] MEDS: Multiple Vitamins Tab PO SCH (09:03)
--- NOTE | 2017-11-04 11:25 | PCM.PYCHPN ---
Psychiatric Progress Note - Psychiatric Progress Note Patient seen today, length of contact: 15 min Patient Chief Complaint: "Not well" Problems Identified/Issues Discussed: The pt is seen, chart reviewed, case discussed with staff. The pt is compliant with medications and reports no side-effects. Symptoms are improving but needs more time to stabilize. Pt attends groups and activities. Support given, psycho-education provided. After care discussed. Medication Change: Yes (meds adjusted) Medical Record Reviewed: Yes Mental Status Examination - Cognitive Function Orientation: Person, Place, Situation, Time Memory: Intact Attention: WNL Concentration: Poor Association: WNL Fund of Knowledge: Poor - Mood Mood: Depressed, Anxious - Affect Affect: Constricted, Depressed - Speech Speech: Soft - Formal Thought Process Formal Thought Process: No Impairment - Suicidal Ideation Suicidal Ideation: No - Homicidal Ideation Homicidal Ideation: No Goal/Treatment Plan - Goal/Treatment Plan Need for Continued Stay: Severe depression anxiety, Discharge may exacerbated symptoms, Severe functional impairment Progress Toward Problem(s) and Goals/Treatment Plan: Continue medications Support and psychoeducation daily Attend groups and activities daily After care planning by KETAN
[2017-11-05] MEDS: Multiple Vitamins Tab PO SCH (09:42)
--- NOTE | 2017-11-05 12:15 | PCM.PYCHPN ---
Psychiatric Progress Note - Psychiatric Progress Note Patient seen today, length of contact: 15 min Patient Chief Complaint: "A little better" Problems Identified/Issues Discussed: The pt is seen, chart reviewed, case discussed with staff. The pt is compliant with medications and reports no side-effects. Symptoms are improving but needs more time to stabilize. After care discussed, support and psychoeducation given. Medication Change: Yes (meds adjusted) Medical Record Reviewed: Yes Mental Status Examination - Cognitive Function Orientation: Person, Place, Situation, Time Memory: Intact Attention: WNL Concentration: Poor Association: WNL Fund of Knowledge: Poor - Mood Mood: Depressed, Anxious - Affect Affect: Constricted, Depressed - Speech Speech: Soft - Formal Thought Process Formal Thought Process: No Impairment - Suicidal Ideation Suicidal Ideation: No - Homicidal Ideation Homicidal Ideation: No Goal/Treatment Plan - Goal/Treatment Plan Need for Continued Stay: Severe depression anxiety, Discharge may exacerbated symptoms, Severe functional impairment Progress Toward Problem(s) and Goals/Treatment Plan: Continue medications Support and psychoeducation daily Attend groups and activities daily After care planning by KETAN
[2017-11-06] MEDS: Multiple Vitamins Tab PO SCH (09:51)
--- NOTE | 2017-11-06 10:11 | PCM.PYCHPN ---
Psychiatric Progress Note - Psychiatric Progress Note Patient seen today, length of contact: 15 min Patient Chief Complaint: I'm feeling little better.' Problems Identified/Issues Discussed: Patient seen and evaluated, chart reviewed and discussed with the nurse. As per the staff, he is more visible now and started coming out of his room. Today patient reports some improvement in his depressed mood and reports some improvement in the feelings of hopelessness or helplessness. He reports reports some improvement in the withdrawal symptoms as well. He denies any auditory or visual hallucinations. He is taking medications and denies any side effects. Supportive therapy and psychoeducation was given. Medication Change: Yes (meds adjusted) Medical Record Reviewed: Yes Mental Status Examination - Cognitive Function Orientation: Person, Place, Situation, Time Memory: Intact Attention: WNL Concentration: Poor Association: WNL Fund of Knowledge: Poor - Mood Mood: Depressed, Anxious - Affect Affect: Constricted, Depressed - Speech Speech: Soft - Formal Thought Process Formal Thought Process: No Impairment - Suicidal Ideation Suicidal Ideation: No - Homicidal Ideation Homicidal Ideation: No Goal/Treatment Plan - Goal/Treatment Plan Need for Continued Stay: Severe depression anxiety, Discharge may exacerbated symptoms, Severe functional impairment Progress Toward Problem(s) and Goals/Treatment Plan: Major depressive disorder recurrent severe without psychotic features Alcohol use disorder severe Alcohol withdrawal CBT Psychoeducation Supportive therapy, group therapy Zoloft 100 mg by mouth daily Trazodone 50 mg by mouth daily at bedtime Neurontin 300 mg PO TID Hydroxyzine for anxiety Ativan taper MVI/Thiamine/Folic Acid
[2017-11-07] MEDS: Multiple Vitamins Tab PO SCH (10:42)
[2017-11-08] MEDS: Multiple Vitamins Tab PO SCH (11:02)
[2017-11-09 06:35] VITALS: RESP 20
[2017-11-09] MEDS: Multiple Vitamins Tab PO SCH (09:07)
[2017-11-10 06:31] VITALS: BP 122/69; PULSE 68; TEMP 98.3
[2017-11-10] MEDS: Multiple Vitamins Tab PO SCH (09:01)
--- NOTE | 2017-11-10 10:34 | PCM.BM ---
<ElmaViolet - Last Filed: 11/10/17 10:33> Treatment Plan Problems - Problems identified on initial assessmt DEPRESSION Date Initiated: 11/02/17 Time Initiated: 01:50 Assessment reference: NA Status: Active ALCOHOL ABUSE Date Initiated: 11/02/17 Time Initiated: 01:50 Assessment reference: NA Status: Active Treatment assets and liabiliti Patient Assests: cooperative, self-reliant, ADL independent, good support system , negotiates basic needs Patient Liabilities: financial problems, poor support system, relationship conflicts, substance abuse, medical problems - Milieu Protocol Maintain good personal hygiene: daily Encourage regular showers, daily Remind patient to perform daily oral care, daily Assist patient to perform ADL's Maintain personal safety: every shift Educate patient to report safety concerns to staff, every shift Monitor environment for contraband/sharps Medication safety: Monitor for expected outcome, potential side effects: every shift, Assess barriers to learning: every shift, Assess readiness for medication education: every shift Milieu Narrative: Continue medications Support and psychoeducation daily Attend groups and activities daily After care planning by KETAN Family Contact Family involvement: Family/SO is involved Family contact: Patient declines to allow family contact at present - Goals for Treatment Patient goals for treatment: "I want to go to rehab." Discharge/Continuing Care - Education Needs Education Needs: Patient Medication, Patient Coping Skills, Patient Placement options, Patient Community resources - Discharge Discharge Criteria: Tolerates medication w/o severe side effects, No longer exhibiting s/s of withdrawal, Reduction of target symptoms Discharge to:: Substance Abuse Rehab - Treatment Team Participation Patient/Family/SO Statement: Continue medications Support and psychoeducation daily Attend groups and activities daily After care planning by SW Discussed with Family/SO: No Was Patient/Family/SO present at Treatment Team Meeting: Yes Treatment Plan Review - Problem DEPRESSION Time Initiated: :50 ALCOHOL ABUSE Time Initiated: :50 - Discharge / Continuing Care Discharge to:: Substance Abuse Rehab Behavioral Health Services: Residential treatment Health Needs: Medications/Rx, Alcohol/Drug treatment <Joey Infante - Last Filed: 11/10/17 11:50> - Diagnosis (1) Depression Status: Acute Interventions: 11/10/17 11:50 * Assess/adjust medications daily and /or as needed * See patient on an individual basis 7x/week to assess symptoms of depression * Monitor for side effects & effectiveness of medications * (2) Alcohol dependence Status: Acute Interventions: 11/10/17 11:50 * Assess 7x/week regarding severity of withdrawal * Educate regarding risks, benefits, side effects and alternatives of medications * Use Motivational Interviewing for abstinence * Use CBT for relapse prevention * Medication management for withdrawal symptoms * Encourage medication assisted treatment * <Nathalia Paredes - Last Filed: 11/10/17 12:12> Treatment Plan Problems - Problems identified on initial assessmt DEPRESSION Date Initiated: 11/10/17 Time Initiated: 12:11 Treatment Plan Review - Problem DEPRESSION Date Initiated: 11/10/17 Time Initiated: 12:11 Progress toward outcomes: resolved ALCOHOL ABUSE Date Initiated: 11/10/17 Time Initiated: 12:11 Progress toward outcomes: resolved
--- NOTE | 2017-11-10 11:45 | PCM.PYCHDC ---
Mental Status Examination - Mental Status Examination Orientation: Person, Place, Situation, Time Memory: Intact Mood: Neutral Affect: Constricted Speech: Soft Attention: WNL Concentration: WNL Association: WNL Fund of Knowledge: WNL Formal Thought Process: No Impairment Description of patient's judgement and insight: GOOD, FAIR Psychotic Thoughts and Behaviors: Denies any AVH Suicidal Ideation: No Current Homicidal Ideation?: No Discharge Summary - Discharge Note Consultations:: List each consultation separately and include: 1. Reason for request. 2. Findings. 3. Follow-up Summary of Hospital Course include:: 1. Description of specific treatment plan utilized for patients during their course of treatmen. 2. Summarize the time- course for resolution of acute symptoms and/or regressed behaviors. 3. Describe issues identified and worked on during hospitalization. 4. Describe medication utilized. 5. Describe medical problems identified and treated. 6. Reassessment of suicide risk Summary of Hospital Course: Pt is 57yr old HM, was living with daughter, now homeless x 3 month, came to the hospital with history of depression, alcohol use disorder and suicidal ideation. Patient denies any past history of any inpatient psychiatric hospitalizations. He denies any past history of any follow-up with any psychiatrist as well. However he reports history of more than 4 detox, his last detox was at [facility], more than a month ago. As per the patient, he went to live with his daughter, and he stayed sober for almost 1 month but then he relapsed on drinking. His daughter kicked him out, and he became increasingly depressed. He reports of drinking 9-10 beers 24 oz, daily. Yesterday, he consumed almost 7 beers, became increasingly depressed, developed suicidal ideation and came to the hospital to get help. He reports depressed mood, feelings of hopelessness, helplessness, and worthlessness. He also reports poor sleep and poor appetite. He reports withdrawal symptoms including anxiety, nausea, shakes, sweating and headaches. He was shaking badly and appeared very depressed. However he denies any auditory or visual hallucinations or any paranoia. PMH: Hip pain s/p hip replacement Sx 2016 - Diagnosis (1) Depression Current Visit: Yes Status: Acute (2) Alcohol dependence Current Visit: No Status: Acute - Final Diagnosis (DSM 5) Condition upon Discharge: FAIR Disposition: HOME/ ROUTINE Follow-up Treatment Plan: Major depressive disorder recurrent severe without psychotic features Alcohol use disorder severe Alcohol withdrawal CBT Psychoeducation Supportive therapy, group therapy Zoloft 100 mg by mouth daily Trazodone 50 mg by mouth daily at bedtime Neurontin 300 mg PO TID Hydroxyzine for anxiety Ativan taper MVI/Thiamine/Folic Acid Prescriptions/Medication Reconciliation: Gabapentin [Neurontin] 300 mg PO BID #60 cap Sertraline [Zoloft] 100 mg PO DAILY #30 tab traZODone [Desyrel] 50 mg PO HS PRN #30 tab PRN Reason: Sleep
== END 2017-11-10 12:47 | disposition home or self-care (01) | DRG 430 ==
LOC: C.ER 20:00 → C.5E 11-02 00:47
PROC: GZHZZZZ Group Psychotherapy (ICD-10-PCS; principal; 2017-11-02)
DX: F33.2 Major depressive disorder, recurrent severe without psychotic features (principal); F10.239 Alcohol dependence with withdrawal, unspecified; R45.851 Suicidal ideations; Z96.641 Presence of right artificial hip joint; Z59.0 Homelessness

== ENCOUNTER 2017-11-11 00:56 | Emergency (ER) | payer OTHER ==
[2017-11-11 00:57] VITALS: BMI 25.8
[2017-11-11] MEDS ORDERED: Tdap Vaccine 0.5 ml Vial (10-64 yrs) IM ONE ×2 (01:17→01:54)
--- NOTE | 2017-11-11 01:54 | C.PDOC ---
History Of Present Illness 57 y/o male, KHURRAM, presents to the ED with laceration to the occipital aspect from a fall he experienced earlier today. As per EMS,the patient had been drinking all day and falling on his back. He presented to the ED with minimal bleeding. The patients other medical complaints are unable to be assessed due to intoxication. Time Seen by Provider: 11/11/17 01:16 Chief Complaint (Nursing): Substance Abuse History Per: EMS History/Exam Limitations: intoxication Onset/Duration Of Symptoms: Hrs Modifying Factor(s): Alcohol Recent travel outside of the [place]: No Additional History Per: Patient Past Medical History Reviewed: Historical Data, Nursing Documentation, Vital Signs Vital Signs: Last Vital Signs Temp 98.2 F 11/11/17 03:39 Pulse 77 11/11/17 03:39 Resp 18 11/11/17 03:39 BP 124/71 11/11/17 03:39 Pulse Ox 99 11/11/17 03:39 - Medical History PMH: Depression (depression), Chronic Pain Denies: Diabetes, Hepatitis, HIV, HTN, Chronic Kidney Disease, Seizures, Sexually Transmitted Disease Other Surgeries: left hip replacement - [facility] Procedures ALCOHOL DETOXIFICATION (10/24/14) DETOXIFICATION SERVICES FOR SUBSTANCE ABUSE TREATMENT (10/04/17) INDIV PSYCHOTHERAPY FOR SUBSTANCE ABUSE TREATMENT, SUPPORT (10/04/17) INDIV PSYCHOTHERAPY FOR SUBSTANCE ABUSE, COGNITIV BEHAVIORAL (08/24/17) INDIV PSYCHOTHERAPY FOR SUBSTANCE ABUSE, PSYCHOEDUCATION (10/04/17) MEDICATION MANAGEMENT (10/04/17) Family History: States: Unknown Family Hx - Social History Hx Tobacco Use: No Hx Alcohol Use: Yes (daily 5 can of 24 oz. daily) Hx Substance Use: No - Immunization History Hx Tetanus Toxoid Vaccination: No Hx Influenza Vaccination: No Hx Pneumococcal Vaccination: No Review Of Systems Except As Marked, All Systems Reviewed And Found Negative. Constitutional: Negative for: Fever, Chills Skin: Positive for: Other (Laceration to occipital aspect ) Physical Exam - Physical Exam Appears: Non-toxic, No Acute Distress Skin: Normal Color, Warm, Dry Head: Laceration (1 cm to occipital aspect) Eye(s): bilateral: Normal Inspection, EOMI Ear(s): Bilateral: Normal Oral Mucosa: Moist Neck: Supple Chest: Symmetrical Cardiovascular: Rhythm Regular, No Murmur Respiratory: Normal Breath Sounds, No Rales, No Rhonchi, No Wheezing Gastrointestinal/Abdominal: Soft, No Tenderness, No Distention Extremity: Normal ROM Neurological/Psych: Normal Motor, Normal Sensation, Other (no gross focal deficits) ED Course And Treatment O2 Sat by Pulse Oximetry: 98 (RA) Pulse Ox Interpretation: Normal - CT Scan/US Head Other Rad Studies (CT/US): Read By Radiologist, Radiology Report Reviewed CT/US Interpretation: FINDINGS: Limitations: Artifact from left earring. Brain : Cerebral and cerebellar volume loss. Patchy hypodensity is seen in the periventricular and. subcortical white matter. Ventricles: Normal. No ventriculomegaly. Bones/joints: Normal. No acute fracture. Sinuses: Patchy sinus disease. Possible minimal fluid in the right maxillary sinus. Mastoid air cells: Normal as visualized. No mastoid effusion. Orbits: The visualized portions of globe and lens are intact. Soft tissues: Left posterior parietal scalp soft tissue swelling and skin samanta. IMPRESSION: 1. No evidence of an acute intracranial hemorrhage, midline shift or mass effect is identified. 2. Left posterior parietal scalp soft tissue swelling and skin samanta. Laceration - Laceration Repair Occipital Aspect of Head Wound Length (In cm): 1cm Description Of Wound: Linear Wound Cleansed With: Sterile Saline Wound Examination: No FB With Wound Exploration Wound Closure: [place] (4) Wound Complexity: Simple Medical Decision Making Medical Decision Making: Impression: 57 y/o male with 1 cm laceration to occipital aspect. Questionable LOC Plan: -Head CT -Tetanus Patient was advised to keep samanta clean and dry Disposition - Disposition Referrals: [facility] [Outside] [facility] [Outside] Disposition: HOME/ ROUTINE Disposition Time: 03:00 Condition: IMPROVED Additional Instructions: RENARD MARTIN, thank you for letting us take care of you today. Your provider was Alberto Coker DO and you were treated for FALL. The emergency medical care you received today was directed at your acute symptoms. If you were prescribed any medication, please fill it and take as directed. It may take several days for your symptoms to resolve. Return to the Emergency Department if your symptoms worsen, do not improve, or if you have any other problems. Please contact your doctor or call one of the physicians/clinics you have been referred to that are listed on the Patient Visit Information form that is included in your discharge packet. Bring any paperwork you were given at discharge with you along with any medications you are taking to your follow up visit. Our treatment cannot replace ongoing medical care by a primary care provider outside of the emergency department. Thank you for allowing the [facility] team to be part of your care today. Keep area that was stapled clean and dry at all times. Follow up with your doctor or the clinic in 10 days for staple removal. Instructions: Alcohol Use - When Is Drinking a Problem?, Laceration Repair With Samanta (DC) Forms: [employer] (Hungarian) - Clinical Impression Clinical Impression: Alcohol abuse, Scalp laceration - PA / TITLE I TEACHER / Resident Statement MD/DO has reviewed & agrees with the documentation as recorded. - Scribe Statement The provider has reviewed the documentation as recorded by the Scribe (Jennyfer Lee) Provider Attestation: All medical record entries made by the Scribe were at my direction and personally dictated by me. I have reviewed the chart and agree that the record accurately reflects my personal performance of the history, physical exam, medical decision making, and the department course for this patient. I have also personally directed, reviewed, and agree with the discharge instructions and disposition.
[2017-11-11 03:40] VITALS: BP 124/71; PULSE 77; RESP 18; TEMP 98.2
[2017-11-11 05:40] VITALS: O2SAT 98
--- NOTE | 2017-11-11 08:41 | CT ---
Date of service: 11/11/2017 PROCEDURE: CT HEAD WITHOUT CONTRAST. HISTORY: s/p fall - r/o ICH and fx COMPARISON: Comparison made with CT scan brain 08/23/2017. TECHNIQUE: Axial computed tomography images were obtained through the head/brain without intravenous contrast. Radiation dose: Total exam DLP = 887.58 mGy-cm. This CT exam was performed using one or more of the following dose reduction techniques: Automated exposure control, adjustment of the mA and/or kV according to patient size, and/or use of iterative reconstruction technique. . FINDINGS: HEMORRHAGE: No acute parenchymal, subarachnoid or extra-axial hemorrhage. BRAIN: Mild chronic periventricular white matter ischemic changes. Moderate generalized volume loss. VENTRICLES: No obstructive hydrocephalus however there is persistent asymmetry of the lateral ventricles right-side of which is slightly larger than left felt to represent an anatomic variation. CALVARIUM: Calvarium intact. Note made of several skin closure cecile reducing his scalp laceration in the left occipito parietal region of the subjacent the scalp swelling. PARANASAL SINUSES: Unremarkable as visualized. No significant inflammatory changes. MASTOID AIR CELLS: Unremarkable as visualized. No inflammatory changes. OTHER FINDINGS: None. IMPRESSION: No acute intracranial hemorrhage. Mild chronic periventricular white matter ischemic changes. Moderate generalized volume loss. Multiple skin closure cecile seen the closing a left occipito parietal scalp laceration. There is mild underlying scalp contusion/ soft tissue swelling.
== END 2017-11-11 03:42 | disposition home or self-care (01) ==
LOC: C.ER 00:56
DX: S01.01XA Laceration without foreign body of scalp, initial encounter (principal); W19.XXXA Unspecified fall, initial encounter; F10.10 Alcohol abuse, uncomplicated; Y90.9 Presence of alcohol in blood, level not specified

== ENCOUNTER 2017-11-15 20:12 | Emergency (ER) | payer OTHER ==
[2017-11-15 20:13] VITALS: BMI 25.8
[2017-11-15 20:50] VITALS: TEMP 98.5
[2017-11-15 21:40] LABS: BASO # 0.2 K/uL (0.0-0.2); EOS # 0.1 K/uL (0.0-0.7); MONO # 0.6 K/uL (0.0-0.8); MONO % 9.1 % (0.0-10.0); NRBC % 0.1 % (0.0-2.0)
--- NOTE | 2017-11-15 21:45 | C.PDOC ---
History Of Present Illness 57 year old male presents to the ED requesting detox for alcohol abuse. Patient was recently seen for a head injury due to his drinking. Patient reports that he got into an argument with his daughter because of his excessive drinking. Patient states his daughter threw him out and is now homeless. Patient denies SI /HI, hallucinations, CP, SOB, headache, new trauma, injury, fall. He has had multiple visits with the same complaint and has been in detox recently. Time Seen by Provider: 11/15/17 21:34 Chief Complaint (Nursing): Psychiatric Evaluation History Per: Patient History/Exam Limitations: intoxication Onset/Duration Of Symptoms: Hrs Current Symptoms Are (Timing): Still Present Suicide/Self Injury Attempted (Context): None Modifying Factor(s): Alcohol Associated Symptoms: denies: Depression, Suicidal Thoughts, Suicidal Plan Recent travel outside of the [place]: No Additional History Per: Patient Past Medical History Reviewed: Historical Data, Nursing Documentation, Vital Signs Vital Signs: Last Vital Signs Temp 98.5 F 11/15/17 20:46 Pulse 70 11/16/17 00:17 Resp 16 11/16/17 00:17 BP 130/73 11/16/17 00:17 Pulse Ox 98 11/16/17 00:37 - Medical History PMH: Depression (depression), Chronic Pain Denies: Diabetes, Hepatitis, HIV, HTN, Chronic Kidney Disease, Seizures, Sexually Transmitted Disease Surgical History: No Surg Hx - [facility] Procedures ALCOHOL DETOXIFICATION (10/24/14) DETOXIFICATION SERVICES FOR SUBSTANCE ABUSE TREATMENT (10/04/17) GROUP PSYCHOTHERAPY (11/02/17) INDIV PSYCHOTHERAPY FOR SUBSTANCE ABUSE TREATMENT, SUPPORT (10/04/17) INDIV PSYCHOTHERAPY FOR SUBSTANCE ABUSE, COGNITIV BEHAVIORAL (08/24/17) INDIV PSYCHOTHERAPY FOR SUBSTANCE ABUSE, PSYCHOEDUCATION (10/04/17) MEDICATION MANAGEMENT (10/04/17) Family History: States: Unknown Family Hx - Social History Hx Tobacco Use: No Hx Alcohol Use: Yes (daily 5 can of 24 oz. daily) Hx Substance Use: No - Immunization History Hx Tetanus Toxoid Vaccination: No Hx Influenza Vaccination: No Hx Pneumococcal Vaccination: No Review Of Systems Constitutional: Negative for: Fever, Chills Cardiovascular: Negative for: Chest Pain Respiratory: Negative for: Shortness of Breath Gastrointestinal: Negative for: Nausea, Vomiting Musculoskeletal: Negative for: Neck Pain Neurological: Negative for: Headache Psych: Negative for: Depression, Suicidal ideation Physical Exam - Physical Exam Appears: Non-toxic, No Acute Distress, Other (AOB, intoxicated) Skin: Normal Color, Warm, Dry Head: Atraumatic, Normacephalic, Other (well healed wound to the top of the head , abrasion on the forehead) Eye(s): bilateral: Normal Inspection Oral Mucosa: Moist Neck: Normal ROM, No Midline Cervical Tenderness, Supple Chest: Symmetrical Cardiovascular: Rhythm Regular Respiratory: Normal Breath Sounds, No Rales, No Rhonchi, No Wheezing Gastrointestinal/Abdominal: Soft, No Tenderness, No Guarding, No Rebound Extremity: Normal ROM, No Tenderness, No Swelling Neurological/Psych: Oriented x3, Normal Speech Gait: Steady ED Course And Treatment - Laboratory Results Result Diagrams: 11/15/17 21:33 11/15/17 21:33 Lab Interpretation: Abnormal (ETOH 284) O2 Sat by Pulse Oximetry: 98 (ON RA) Pulse Ox Interpretation: Normal Progress Note: Patient evaluated by crisis for evaluation for detox. He recommended for discharge and provided with references for [facility] and alternative detox programs. Reevaluation Time: 00:52 Reassessment Condition: Improved Medical Decision Making Medical Decision Making: Plan: * Labs * UA * Crisis evaluation * 1:1 Obs Disposition - Disposition Referrals: Alcoholics Anonymous [Outside] [facility] [Outside] Disposition: HOME/ ROUTINE Disposition Time: 00:53 Condition: IMPROVED Instructions: Alcohol Abuse and Alcoholism (DC) Forms: [facility] (Cuban) - Clinical Impression Clinical Impression: Alcohol intoxication, Alcohol dependence - Scribe Statement The provider has reviewed the documentation as recorded by the Scribe Harshil Daley All medical record entries made by the Scribe were at my direction and personally dictated by me. I have reviewed the chart and agree that the record accurately reflects my personal performance of the history, physical exam, medical decision making, and the department course for this patient. I have also personally directed, reviewed, and agree with the discharge instructions and disposition.
[2017-11-15 21:50] LABS: BASO % 2.6 % (0.0-2.0); EOS % 1.5 % (0.0-4.0); HEMOGLOBIN 12.6 g/dL (12.0-18.0); LYMPH # 1.8 K/uL (1.0-4.3); MEAN CELL VOLUME 84.3 fL (80.0-94.0); MEAN CORPUSCULAR HEMOGLOBIN 27.9 pg (27.0-31.0); MEAN CORPUSCULAR HGB CONC 33.1 g/dL (33.0-37.0); MEAN PLATELET VOLUME 7.2 fL (7.2-11.7); NEUT # 4.3 K/uL (1.8-7.0); NEUT % 60.8 % (50.0-75.0); RBC 4.53 Mil/uL (4.40-5.90); RED CELL DISTRIBUTION WIDTH 14.9 % (11.5-14.5)
[2017-11-15 21:59] LABS: ALB/GLOB RATIO 1.4 (1.0-2.1); ALBUMIN 4.6 g/dL (3.5-5.0); ALT/SGPT 81 U/L (21-72); AST/SGOT 78 U/L (17-59); BLOOD UREA NITROGEN 6 mg/dL (9-20); CALCIUM 9.2 mg/dl (8.6-10.4); GFR NON-AFRICAN AMERICAN > 60
[2017-11-15 22:01] LABS: URINE BACTERIA RARE (<OCC); URINE BILIRUBIN NEGATIVE (NEGATIVE); URINE CLARITY Clear (Clear); URINE COLOR Yellow (YELLOW); URINE GLUCOSE (UA) NORMAL (Normal); URINE LEUKOCYTE ESTERASE NEG Leu/uL (Negative); URINE PROTEIN NEGATIVE (NEGATIVE); URINE UROBILINOGEN NORMAL mg/dL (0.2-1.0)
[2017-11-15 22:02] LABS: URINE BLOOD TRACE (NEGATIVE)
[2017-11-15 22:03] LABS: BARBITURATES, UR NEGATIVE (NEGATIVE); BENZODIAZEPINES, UR NEGATIVE (NEGATIVE); OPIATES, UR NEGATIVE (NEGATIVE); PHENCYCLIDINE, UR NEGATIVE (NEGATIVE)
[2017-11-16 00:18] VITALS: BP 130/73; PULSE 70; RESP 16
[2017-11-16 00:37] VITALS: O2SAT 98
== END 2017-11-16 01:15 | disposition home or self-care (01) ==
LOC: C.ER 20:12
DX: F10.229 Alcohol dependence with intoxication, unspecified (principal); Y90.8 Blood alcohol level of 240 mg/100 ml or more; Z59.0 Homelessness

== ENCOUNTER 2017-11-16 17:31 | Emergency (ER) | payer OTHER ==
[2017-11-16 17:32] VITALS: BMI 25.8
--- NOTE | 2017-11-16 19:30 | C.PDOC ---
History Of Present Illness Patient presents to the ER requesting detox from ETOH and stating he feels depressed. Patient told there are no detox beds available at this time. Denies physical complaints at this time. Time Seen by Provider: 11/16/17 19:30 Chief Complaint (Nursing): Psychiatric Evaluation History Per: Patient History/Exam Limitations: no limitations Onset/Duration Of Symptoms: Hrs Current Symptoms Are (Timing): Still Present Suicide/Self Injury Attempted (Context): None Associated Symptoms: Depression Involuntary Hold By: None Recent travel outside of the [place]: No Past Medical History Reviewed: Historical Data, Nursing Documentation, Vital Signs Vital Signs: Last Vital Signs Temp 98.9 F 11/16/17 17:51 Pulse 94 H 11/16/17 17:51 Resp 18 11/16/17 17:51 BP 139/86 11/16/17 17:51 Pulse Ox 94 L 11/16/17 19:53 - Medical History PMH: Depression (depression), Chronic Pain Denies: Diabetes, Hepatitis, HIV, HTN, Chronic Kidney Disease, Seizures, Sexually Transmitted Disease - [facility] Procedures ALCOHOL DETOXIFICATION (10/24/14) DETOXIFICATION SERVICES FOR SUBSTANCE ABUSE TREATMENT (10/04/17) GROUP PSYCHOTHERAPY (11/02/17) INDIV PSYCHOTHERAPY FOR SUBSTANCE ABUSE TREATMENT, SUPPORT (10/04/17) INDIV PSYCHOTHERAPY FOR SUBSTANCE ABUSE, COGNITIV BEHAVIORAL (08/24/17) INDIV PSYCHOTHERAPY FOR SUBSTANCE ABUSE, PSYCHOEDUCATION (10/04/17) MEDICATION MANAGEMENT (10/04/17) Family History: States: No Known Family Hx - Social History Hx Tobacco Use: No Hx Alcohol Use: Yes Hx Substance Use: No - Immunization History Hx Tetanus Toxoid Vaccination: No Hx Influenza Vaccination: No Hx Pneumococcal Vaccination: No Review Of Systems Constitutional: Negative for: Fever, Chills Cardiovascular: Negative for: Chest Pain, Palpitations Respiratory: Negative for: Cough, Shortness of Breath Gastrointestinal: Negative for: Nausea, Vomiting Psych: Positive for: Depression Physical Exam - Physical Exam Appears: Non-toxic Skin: Warm, Dry Head: Normacephalic Oral Mucosa: Moist Chest: Symmetrical, No Tenderness Cardiovascular: Rhythm Regular Respiratory: No Rales, No Rhonchi, No Wheezing Gastrointestinal/Abdominal: Soft, No Tenderness Neurological/Psych: Oriented x3 Gait: Steady ED Course And Treatment O2 Sat by Pulse Oximetry: 94 (Room air) Pulse Ox Interpretation: Normal Progress Note: patient was cleared for discharge by dr David Reevaluation Time: 20:08 Reassessment Condition: Improved Disposition Counseled Patient/Family Regarding: Studies Performed, Diagnosis, Need For Followup - Disposition Disposition: HOME/ ROUTINE Disposition Time: 19:30 Condition: FAIR Additional Instructions: Please follow up with [facility] and [facility] Instructions: Depression, Adult (DC) Forms: [employer] (Swedish) - Clinical Impression Clinical Impression: Alcohol abuse, Major depressive disorder - Scribe Statement The provider has reviewed the documentation as recorded by the Scribrahul Calix All medical record entries made by the Scribe were at my direction and personally dictated by me. I have reviewed the chart and agree that the record accurately reflects my personal performance of the history, physical exam, medical decision making, and the department course for this patient. I have also personally directed, reviewed, and agree with the discharge instructions and disposition.
[2017-11-16 20:14] VITALS: BP 142/63; PULSE 85; RESP 16; TEMP 98.7; O2SAT 96
== END 2017-11-16 20:14 | disposition home or self-care (01) ==
LOC: C.ER 17:31
DX: F10.10 Alcohol abuse, uncomplicated (principal); Y90.9 Presence of alcohol in blood, level not specified; F32.9 Major depressive disorder, single episode, unspecified

== ENCOUNTER 2017-11-23 21:40 | Emergency (ER) | payer OTHER ==
[2017-11-23 21:41] VITALS: BMI 25.8
--- NOTE | 2017-11-23 21:59 | C.PDOC ---
History Of Present Illness 57 y/o male, KHURRAM, presents to the ED for public intoxication. The patient is well known to the ED and physicians for ETOH intoxication. Upon arrival the patient has AOB. He is requesting detox but was informed that there are no beds available.The patient offers no medical complaints at this time. Time Seen by Provider: 11/23/17 21:41 History Per: Patient History/Exam Limitations: intoxication Onset/Duration Of Symptoms: Hrs Current Symptoms Are (Timing): Still Present Modifying Factor(s): Alcohol Recent travel outside of the [place]: No Additional History Per: EMS Past Medical History Reviewed: Historical Data, Nursing Documentation, Vital Signs Vital Signs: Last Vital Signs Temp 98 F 11/23/17 21:52 Pulse 73 11/24/17 00:28 Resp 19 11/24/17 00:28 BP 110/62 11/24/17 00:28 Pulse Ox 97 11/24/17 00:28 - Medical History PMH: Depression, Chronic Pain Denies: Diabetes, Hepatitis, HIV, HTN, Chronic Kidney Disease, Seizures, Sexually Transmitted Disease Other Surgeries: Left Hip Replacement - [facility] Procedures ALCOHOL DETOXIFICATION (10/24/14) DETOXIFICATION SERVICES FOR SUBSTANCE ABUSE TREATMENT (10/04/17) GROUP PSYCHOTHERAPY (11/02/17) INDIV PSYCHOTHERAPY FOR SUBSTANCE ABUSE TREATMENT, SUPPORT (10/04/17) INDIV PSYCHOTHERAPY FOR SUBSTANCE ABUSE, COGNITIV BEHAVIORAL (08/24/17) INDIV PSYCHOTHERAPY FOR SUBSTANCE ABUSE, PSYCHOEDUCATION (10/04/17) MEDICATION MANAGEMENT (10/04/17) Family History: States: Unknown Family Hx - Social History Hx Tobacco Use: No Hx Alcohol Use: Yes Hx Substance Use: No - Immunization History Hx Tetanus Toxoid Vaccination: No Hx Influenza Vaccination: No Hx Pneumococcal Vaccination: No Review Of Systems Review Of Systems: ROS cannot be obtained secondary to pt's inabilty to answer questions. Constitutional: Negative for: Fever Physical Exam - Physical Exam Appears: Non-toxic, No Acute Distress Skin: Normal Color, Warm, Dry Head: Atraumatic, Normacephalic Eye(s): bilateral: PERRL, EOMI Ear(s): Bilateral: Normal Oral Mucosa: Moist Neck: Normal ROM Chest: Symmetrical Cardiovascular: Rhythm Regular, No Murmur Respiratory: No Rales, No Rhonchi, No Wheezing, Other (NARD) Gastrointestinal/Abdominal: Bowel Sounds, Soft, No Tenderness Extremity: Normal ROM Extremity: Bilateral: Atraumatic, Normal Color And Temperature, Normal ROM Pulses: Left Radial: Normal, Right Radial: Normal Neurological/Psych: Other (Alert. No focal deficits) ED Course And Treatment O2 Sat by Pulse Oximetry: 96 (RA) Pulse Ox Interpretation: Normal Disposition Counseled Patient/Family Regarding: Studies Performed, Diagnosis - Disposition Disposition: HOME/ ROUTINE Disposition Time: 06:00 Condition: IMPROVED Instructions: Alcohol Abuse and Alcoholism (DC) Forms: General Discharge Instructions - Clinical Impression Clinical Impression: Alcohol intoxication - PA / GLOBAL ACCOUNT MANAGER / Resident Statement MD/DO has reviewed & agrees with the documentation as recorded. - Scribe Statement The provider has reviewed the documentation as recorded by the Scribe (Jennyfer Lee) All medical record entries made by the Scribe were at my direction and personally dictated by me. I have reviewed the chart and agree that the record accurately reflects my personal performance of the history, physical exam, medical decision making, and the department course for this patient. I have also personally directed, reviewed, and agree with the discharge instructions and disposition.
[2017-11-23 22:12] VITALS: TEMP 98
[2017-11-24 06:05] VITALS: BP 130/80; PULSE 84; RESP 20; O2SAT 97
== END 2017-11-24 06:03 | disposition home or self-care (01) ==
LOC: C.ER 21:40
DX: F10.129 Alcohol abuse with intoxication, unspecified (principal)

== ENCOUNTER 2017-12-07 22:22 | Emergency (ER) | payer OTHER ==
[2017-12-07 22:23] VITALS: BMI 25.8
[2017-12-07 22:31] VITALS: BP 130/80; PULSE 90; RESP 16; TEMP 97.5; O2SAT 96
--- NOTE | 2017-12-08 02:01 | C.PDOC ---
History Of Present Illness 57 y/o male, KHURRAM, presents to the ED for ETOH intoxication. The patient admits to drinking earlier today. He denies any SI/HI. The patient offers no medical complaints at this time. Time Seen by Provider: 12/07/17 22:28 Chief Complaint (Nursing): Substance Abuse History Per: Patient History/Exam Limitations: intoxication Modifying Factor(s): Alcohol Recent travel outside of the [place]: No Past Medical History Reviewed: Historical Data, Nursing Documentation, Vital Signs Vital Signs: Last Vital Signs Temp 97.5 F L 12/07/17 22:28 Pulse 90 12/07/17 22:28 Resp 16 12/07/17 22:28 BP 130/80 12/07/17 22:28 Pulse Ox 96 12/07/17 22:28 - Medical History PMH: Depression, Chronic Pain Denies: Diabetes, Hepatitis, HIV, HTN, Chronic Kidney Disease, Seizures, Sexually Transmitted Disease Other Surgeries: Left hip replacement - [facility] Procedures ALCOHOL DETOXIFICATION (10/24/14) DETOXIFICATION SERVICES FOR SUBSTANCE ABUSE TREATMENT (10/04/17) GROUP PSYCHOTHERAPY (11/02/17) INDIV PSYCHOTHERAPY FOR SUBSTANCE ABUSE TREATMENT, SUPPORT (10/04/17) INDIV PSYCHOTHERAPY FOR SUBSTANCE ABUSE, COGNITIV BEHAVIORAL (08/24/17) INDIV PSYCHOTHERAPY FOR SUBSTANCE ABUSE, PSYCHOEDUCATION (10/04/17) MEDICATION MANAGEMENT (10/04/17) Family History: States: Unknown Family Hx - Social History Hx Tobacco Use: No Hx Alcohol Use: Yes Hx Substance Use: Yes - Immunization History Hx Tetanus Toxoid Vaccination: No Hx Influenza Vaccination: No Hx Pneumococcal Vaccination: No Review Of Systems Review Of Systems: ROS cannot be obtained secondary to pt's inabilty to answer questions. Constitutional: Negative for: Fever Physical Exam - Physical Exam Appears: Well, No Acute Distress Skin: Normal Color, Warm, Dry Head: Atraumatic, Normacephalic Eye(s): bilateral: Normal Inspection Ear(s): Bilateral: Normal Oral Mucosa: Moist Chest: Symmetrical Cardiovascular: Rhythm Regular, No Murmur Respiratory: Normal Breath Sounds, No Rales, No Rhonchi, No Wheezing Gastrointestinal/Abdominal: Soft, No Tenderness, No Distention Extremity: Normal ROM Extremity: Bilateral: Normal Color And Temperature, Normal ROM Neurological/Psych: Other (Alert. 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 - Scribe Statement The provider has reviewed the documentation as recorded by the Scribe (Jennyfer Lee) Provider Attestation: All medical record entries made by the Scribe were at my direction and personally dictated by me. I have reviewed the chart and agree that the record accurately reflects my personal performance of the history, physical exam, medical decision making, and the department course for this patient. I have also personally directed, reviewed, and agree with the discharge instructions and disposition.
== END 2017-12-08 02:30 | disposition left against medical advice (07) ==
LOC: C.ER 22:22
DX: F10.10 Alcohol abuse, uncomplicated (principal)

== ENCOUNTER 2017-12-20 00:31 | Emergency (ER) | payer OTHER ==
[2017-12-20 00:31] VITALS: BMI 25.8
[2017-12-20 01:22] VITALS: RESP 16
--- NOTE | 2017-12-20 03:15 | C.PDOC ---
History Of Present Illness 57 y/o intoxicated male presents to the ED for evaluation s/p fall. Patient reports he tripped and fell 30 min prior to arrival, subsequently hitting the left side of head. He now complains of pain to the left hip and left side of neck. Otherwise denies any LOC, syncope, dizziness, chest pain, SOB, nausea, vomiting, extremity weakness, or sensorivascular deficits. On arrival patient is ambulatory into the ED, no acute distress. Time Seen by Provider: 12/20/17 01:22 Chief Complaint (Nursing): Hip Pain History Per: Patient History/Exam Limitations: intoxication Onset/Duration Of Symptoms: Mins Current Symptoms Are (Timing): Still Present Past Medical History Reviewed: Historical Data, Nursing Documentation, Vital Signs Vital Signs: Last Vital Signs Temp 98.2 F 12/20/17 01:14 Pulse 92 H 12/20/17 01:14 Resp 16 12/20/17 01:14 BP 133/79 12/20/17 01:14 Pulse Ox 95 12/20/17 01:14 - Medical History PMH: Depression, Chronic Pain Denies: Diabetes, Hepatitis, HIV, HTN, Chronic Kidney Disease, Seizures, Sexually Transmitted Disease - [facility] Procedures ALCOHOL DETOXIFICATION (10/24/14) DETOXIFICATION SERVICES FOR SUBSTANCE ABUSE TREATMENT (10/04/17) GROUP PSYCHOTHERAPY (11/02/17) INDIV PSYCHOTHERAPY FOR SUBSTANCE ABUSE TREATMENT, SUPPORT (10/04/17) INDIV PSYCHOTHERAPY FOR SUBSTANCE ABUSE, COGNITIV BEHAVIORAL (08/24/17) INDIV PSYCHOTHERAPY FOR SUBSTANCE ABUSE, PSYCHOEDUCATION (10/04/17) MEDICATION MANAGEMENT (10/04/17) Family History: States: Unknown Family Hx - Social History Hx Tobacco Use: No Hx Alcohol Use: Yes Hx Substance Use: No - Immunization History Hx Tetanus Toxoid Vaccination: No Hx Influenza Vaccination: No Hx Pneumococcal Vaccination: No Review Of Systems Constitutional: Positive for: Other (ETOH intoxication). Negative for: Fever Eyes: Negative for: Vision Change Cardiovascular: Negative for: Chest Pain, Light Headedness Respiratory: Negative for: Shortness of Breath Gastrointestinal: Negative for: Nausea, Vomiting Musculoskeletal: Positive for: Neck Pain (Left-sided), Leg Pain (Left hip pain). Negative for: Back Pain Skin: Negative for: Rash, Lesions Neurological: Positive for: Other (+ head trauma without LOC). Negative for: W eakness, Numbness, Incoordination, Change in Speech, Confusion, Dizziness Physical Exam - Physical Exam Appears: Well, Non-toxic, No Acute Distress Skin: Normal Color, Warm, No Rash, No Ecchymosis Head: Atraumatic, Normacephalic, No Tenderness, No Swelling, No Laceration Eye(s): bilateral: PERRL, EOMI Ear(s): Bilateral: Normal Nose: No Flaring, No Discharge, No Deformity, No Tenderness Oral Mucosa: Moist, Other ((+) some alcohol odor) Tongue: Normal Appearing Lips: Normal Appearing Throat: No Drooling Neck: Normal ROM, Trachea Midline, No Midline Cervical Tenderness, Paracervical Tenderness (to left lateral neck), No Step Off Deformity, Supple Chest: Symmetrical, No Deformity, No Tenderness Cardiovascular: Rhythm Regular, No Murmur, No JVD Respiratory: No Decreased Breath Sounds, No Accessory Muscle Use, No Rales, No Rhonchi, No Stridor, No Wheezing Gastrointestinal/Abdominal: Soft, No Tenderness, No Distention, No Guarding, No Rebound Extremity: Normal ROM, Tenderness (over the left lateral hip, no gross ecchymosis or open wound), Capillary Refill (less than 2 sec), No Swelling Extremity: Bilateral: Atraumatic Pulses: Left Dorsalis Pedis: Normal, Right Dorsalis Pedis: Normal Neurological/Psych: Oriented x3, Normal Speech, Normal Motor, Normal Sensation, Normal Reflexes ED Course And Treatment O2 Sat by Pulse Oximetry: 95 (RA) Pulse Ox Interpretation: Normal - Other Rad Pelvis w/left hip X-Ray: Interpreted by Me, Viewed By Me Interpretation: (-) acute fx or dislocation, s/p left total hip replacement C-spine X-Ray: Interpreted by Me, Viewed By Me Interpretation: (+)DJD, no acute fx - CT Scan/US head CT Other Rad Studies (CT/US): Read By Radiologist CT/US Interpretation: Name:RENARD MARTIN Exam Date:Dec 20, 2017 3:52:35 AM EDT. Modality Type:CT\SR. Description:CT - BRAIN WITH CORONAL AND SAGITTAL MPRS. Gender:M Laterality:Not applicable. :[birth year] Referring Physician:Jasmina Brannon). CT scan of the head. CLINICAL HISTORY: Trauma. TECHNIQUE: Multiple axial CT images were obtained through the brain without IV contrast material. COMMENTS: There is normal configuration of sella turcica. There are no intra or extra-axial collections. There is no mass effect or midline shift. There is no evidence of hematoma formation. No hydrocephalus is present. The ventricles are symmetrical. No abnormal calcifications are present. There is diffuse age-appropriate cerebellar and cerebral atrophy with proportionally dilated ventricles and cortical sulci. There are bilateral periventricular and subcortical white matter hypolucencies compatible with mild chronic microvascular disease. Otherwise, no significant focal abnormalities are seen either in the posterior fossa or supratentorial compartment. IMPRESSION: 1. Age-appropriate cerebellar and cerebral atrophy. 2. Mild chronic microvascular disease. 3. No evidence of acute intracranial pathology. Progress Note: Administered 30 mg Toradol IM for pain control. X-rays taken of left hip/pelvis and c-spine. Head CT ordered. Pt was OBS in ED for 5 hours, remained stable. On re-eval, pt is ambulatory in ED with stable gait, tolerate Po well, not in resp. distress. PulsEOx 98% RA. Head:AT/NC. neck: Supple, (-) midline tenderness. Lungs: CTA B/L, BS equal B/L. ABd: benign. Neurologicaly intact. CT head- no acute findings, left hip (-) acute fx. C-spine xray- no acute fx of sublux Pt has clinicla findings c/w hea dinjury, cervical strain, left hip contusion s/p mechanical fall, alcohol intoxication. Pt request discharge now, day care worker was able to see pt, no detox beds avaiable, was provided with list of detox facilities. Stable for d/c now. Disposition Counseled Patient/Family Regarding: Studies Performed, Diagnosis, Need For Followup, Rx Given - Disposition Referrals: [facility] [Outside] Alcoholics Anonymous [Outside] Disposition: HOME/ ROUTINE Disposition Time: 06:30 Condition: STABLE Additional Instructions: Follow up with PMD in 2-3 days for re-evaluation. return if any new changes/. Instructions: Closed Head Injury, Hip Pain (DC), Alcohol Abuse and Alcoholism (DC) Forms: [employer] (Estonian) - Clinical Impression Clinical Impression: Head trauma, Hip pain, Homelessness, Alcohol abuse, Cervical strain - PA / [employer] / Resident Statement MD/DO has reviewed & agrees with the documentation as recorded. - Scribe Statement The provider has reviewed the documentation as recorded by the Scribe (Sonia Suazo) All medical record entries made by the Scribe were at my direction and personally dictated by me. I have reviewed the chart and agree that the record accurately reflects my personal performance of the history, physical exam, medical decision making, and the department course for this patient. I have also personally directed, reviewed, and agree with the discharge instructions and disposition.
[2017-12-20 05:24] VITALS: BP 128/74; PULSE 76; TEMP 97.9
[2017-12-20 05:53] VITALS: O2SAT 95
--- NOTE | 2017-12-20 07:43 | CT ---
Date of service: 12/20/2017 PROCEDURE: CT HEAD WITHOUT CONTRAST. HISTORY: injury, intoxicated COMPARISON: None available. TECHNIQUE: Axial computed tomography images were obtained through the head/brain without intravenous contrast. Radiation dose: Total exam DLP = 1125 mGy-cm. This CT exam was performed using one or more of the following dose reduction techniques: Automated exposure control, adjustment of the mA and/or kV according to patient size, and/or use of iterative reconstruction technique. FINDINGS: HEMORRHAGE: No intracranial hemorrhage. BRAIN: No mass effect or edema. Scattered focal lucencies in the subcortical and periventricular white matter suggestive for chronic microvascular ischemic change. Diffuse age-appropriate cerebral and cerebellar atrophy with proportionately dilated ventricles and cortical sulci. VENTRICLES: Unremarkable. No hydrocephalus. CALVARIUM: Unremarkable. PARANASAL SINUSES: Unremarkable as visualized. No significant inflammatory changes. MASTOID AIR CELLS: Unremarkable as visualized. No inflammatory changes. OTHER FINDINGS: None. IMPRESSION: Age appropriate cerebral and cerebellar atrophy. Chronic microvascular ischemic changes. No acute intracranial abnormality. If symptoms persists, consider correlation with MRI. These findings were preliminarily reported on 12/20/2017 at 4:[address] Marquis Urbina from [employer].
--- NOTE | 2017-12-20 09:53 | RAD ---
Date of service: 12/20/2017 PROCEDURE: Cervical Spine Radiographs. HISTORY: Pain. COMPARISON: None. FINDINGS: BONES: Evaluation limited by the absence of a true lateral view. Vertebral bodies are grossly maintained in height. Evaluation grossly maintained though evaluation is limited. The atlantoaxial articulation is intact. Evaluation of the odontoid process is grossly limited. DISC SPACES: Normal. SOFT TISSUES: Normal. No prevertebral soft tissue swelling. OTHER FINDINGS: None. IMPRESSION: Limited examination. No gross abnormality of fracture or dislocation.
--- NOTE | 2017-12-20 10:20 | RAD ---
PROCEDURE: Left Hip X-ray Radiographs. HISTORY: injury COMPARISON: None. FINDINGS: BONES: Status post left hip arthroplasty. No evidence of prosthesis loosening. No acute fracture. JOINTS: As above SOFT TISSUES: Normal. OTHER FINDINGS: None. IMPRESSION: Left hip arthroplasty. No acute fracture. No evidence of prosthesis loosening.
== END 2017-12-20 06:00 | disposition home or self-care (01) ==
LOC: C.ER 00:31
DX: S09.90XA Unspecified injury of head, initial encounter (principal); S16.1XXA Strain of muscle, fascia and tendon at neck level, initial encounter; W01.0XXA Fall on same level from slipping, tripping and stumbling without subsequent striking against object, initial encounter; Y92.9 Unspecified place or not applicable; M25.552 Pain in left hip; F10.10 Alcohol abuse, uncomplicated; Z59.0 Homelessness
CPT/HCPCS: 70450; 72040; 73502; 82948; 96372; 99284; J1885

== ENCOUNTER 2018-03-26 22:35 | Emergency (ER) | payer OTHER ==
[2018-03-26 22:35] VITALS: BMI 25.8
--- NOTE | 2018-03-27 00:02 | C.PDOC ---
History Of Present Illness 57 year old male is brought to the ED by EMS for public intoxication. Patient admits to drinking alcohol today. Patient denies SI/HI, hallucinations, CP, SOB, injury, fall, trauma. Time Seen by Provider: 03/27/18 00:01 Chief Complaint (Nursing): Substance Abuse History Per: Patient, EMS History/Exam Limitations: intoxication Onset/Duration Of Symptoms: Hrs Current Symptoms Are (Timing): Still Present Suicide/Self Injury Attempted (Context): None Modifying Factor(s): Alcohol Associated Symptoms: denies: Depression, Suicidal Thoughts, Suicidal Plan Recent travel outside of the [place]: No Additional History Per: Patient, EMS Past Medical History Reviewed: Historical Data, Nursing Documentation, Vital Signs Vital Signs: Last Vital Signs Temp 98.7 F 03/26/18 22:56 Pulse 80 03/26/18 22:56 Resp 22 03/26/18 22:56 BP 167/95 H 03/26/18 22:56 Pulse Ox 96 03/26/18 22:56 - Medical History PMH: Depression, Chronic Pain Denies: Diabetes, Hepatitis, HIV, HTN, Chronic Kidney Disease, Seizures, Sexually Transmitted Disease Surgical History: No Surg Hx - [facility] Procedures ALCOHOL DETOXIFICATION (10/24/14) DETOXIFICATION SERVICES FOR SUBSTANCE ABUSE TREATMENT (10/04/17) GROUP PSYCHOTHERAPY (11/02/17) INDIV PSYCHOTHERAPY FOR SUBSTANCE ABUSE TREATMENT, SUPPORT (10/04/17) INDIV PSYCHOTHERAPY FOR SUBSTANCE ABUSE, COGNITIV BEHAVIORAL (08/24/17) INDIV PSYCHOTHERAPY FOR SUBSTANCE ABUSE, PSYCHOEDUCATION (10/04/17) MEDICATION MANAGEMENT (10/04/17) Family History: States: Unknown Family Hx - Social History Hx Tobacco Use: No Hx Alcohol Use: Yes Hx Substance Use: No - Immunization History Hx Tetanus Toxoid Vaccination: No Hx Influenza Vaccination: No Hx Pneumococcal Vaccination: No Review Of Systems Constitutional: Negative for: Fever, Chills Cardiovascular: Negative for: Chest Pain Respiratory: Negative for: Shortness of Breath Gastrointestinal: Negative for: Nausea, Vomiting, Abdominal Pain Skin: Negative for: Rash Psych: Negative for: Depression, Suicidal ideation Physical Exam - Physical Exam Appears: Non-toxic, No Acute Distress Skin: Warm, Dry Head: Normacephalic Eye(s): bilateral: Normal Inspection Neck: Supple Chest: Symmetrical Cardiovascular: Rhythm Regular Respiratory: No Rales, No Rhonchi, No Wheezing Gastrointestinal/Abdominal: Soft, No Tenderness, No Guarding, No Rebound Extremity: Bilateral: Atraumatic, Normal Color And Temperature, Normal ROM Neurological/Psych: Oriented x3, Normal Speech, Normal Cognition Gait: With Assistance (cane) ED Course And Treatment O2 Sat by Pulse Oximetry: 96 (ON RA) Pulse Ox Interpretation: Normal Reevaluation Time: 05:34 Reassessment Condition: Improved Disposition Counseled Patient/Family Regarding: Studies Performed, Diagnosis, Need For Followup - Disposition Referrals: [facility] [Outside] Disposition: HOME/ ROUTINE Disposition Time: 00:02 Condition: FAIR Instructions: Alcohol Abuse and Alcoholism (DC) Forms: [employer] (Urdu) - Clinical Impression Clinical Impression: Alcohol abuse, Alcohol intoxication - Scribe Statement The provider has reviewed the documentation as recorded by the Scribe Harshil Daley All medical record entries made by the Scribe were at my direction and personally dictated by me. I have reviewed the chart and agree that the record accurately reflects my personal performance of the history, physical exam, medical decision making, and the department course for this patient. I have also personally directed, reviewed, and agree with the discharge instructions and disposition.
[2018-03-27 05:52] VITALS: BP 146/83; PULSE 74; RESP 18; TEMP 97.8; O2SAT 99
== END 2018-03-27 05:52 | disposition home or self-care (01) ==
LOC: C.ER 22:35
DX: F10.129 Alcohol abuse with intoxication, unspecified (principal); Y90.9 Presence of alcohol in blood, level not specified

== ENCOUNTER 2018-03-31 23:21 | Emergency (ER) | payer OTHER | END 2018-04-01 00:47 | disposition home or self-care (01) | LOC: C.ER 23:21 ==

== ENCOUNTER 2018-04-01 22:31 | Emergency (ER) | payer OTHER ==
[2018-04-01 22:40] VITALS: BMI 27.3
[2018-04-01] MEDS ORDERED: Naproxen 550 mg Tab PO STA (22:46)
[2018-04-01] MEDS ORDERED: Naproxen 550 mg Tab PO ONE (22:48)
--- NOTE | 2018-04-02 00:15 | C.PDOC ---
History Of Present Illness 57-year-old homeless alcoholic, well known to this ED, presents tonight complaining of chronic hip pain. Patient was seen yesterday for same complaint, given Toradol IM and prescribed Naprosyn. Patient notes he did not fill Naprosyn yet. Also complains that it is cold out, patient is looking for a place to stay the night. He denies any new or worsening pain. No other complaints. Time Seen by Provider: 04/01/18 22:39 Chief Complaint (Nursing): Hip Pain History Per: Patient History/Exam Limitations: no limitations Onset/Duration Of Symptoms: Days Current Symptoms Are (Timing): Still Present Past Medical History Reviewed: Historical Data, Nursing Documentation, Vital Signs Vital Signs: Last Vital Signs Temp 97.4 F L 04/01/18 22:41 Pulse 88 04/01/18 22:41 Resp 20 04/01/18 22:41 BP 180/90 H 04/01/18 22:41 Pulse Ox 100 04/01/18 22:41 - Medical History PMH: Depression, Chronic Pain Denies: Diabetes, Hepatitis, HIV, HTN, Chronic Kidney Disease, Seizures, Sexually Transmitted Disease - [facility] Procedures ALCOHOL DETOXIFICATION (10/24/14) DETOXIFICATION SERVICES FOR SUBSTANCE ABUSE TREATMENT (10/04/17) GROUP PSYCHOTHERAPY (11/02/17) INDIV PSYCHOTHERAPY FOR SUBSTANCE ABUSE TREATMENT, SUPPORT (10/04/17) INDIV PSYCHOTHERAPY FOR SUBSTANCE ABUSE, COGNITIV BEHAVIORAL (08/24/17) INDIV PSYCHOTHERAPY FOR SUBSTANCE ABUSE, PSYCHOEDUCATION (10/04/17) MEDICATION MANAGEMENT (10/04/17) Family History: States: Unknown Family Hx - Social History Hx Tobacco Use: No Hx Alcohol Use: Yes Hx Substance Use: No - Immunization History Hx Tetanus Toxoid Vaccination: No Hx Influenza Vaccination: No Hx Pneumococcal Vaccination: No Review Of Systems Constitutional: Negative for: Fever Cardiovascular: Negative for: Chest Pain Respiratory: Negative for: Shortness of Breath Gastrointestinal: Negative for: Vomiting, Diarrhea Musculoskeletal: Positive for: Leg Pain (chronic hip pain) Neurological: Negative for: Weakness, Numbness, Incoordination Psych: Negative for: Suicidal ideation Physical Exam - Physical Exam Appears: Non-toxic, No Acute Distress, Other (Elderly white male, +alcohol on breath) Skin: Normal Color, Warm Head: Atraumatic, Normacephalic Eye(s): bilateral: Normal Inspection, PERRL, EOMI Oral Mucosa: Moist Neck: Normal ROM Chest: Symmetrical Cardiovascular: Rhythm Regular, No Murmur Respiratory: Normal Breath Sounds, No Accessory Muscle Use Gastrointestinal/Abdominal: Soft, No Tenderness, No Distention Extremity: Bilateral: Normal ROM Neurological/Psych: Normal Speech, Other (Alert, no focal deficit) Gait: With Assistance (+ Antalgic gait, patient ambulates with cane at baseline) ED Course And Treatment O2 Sat by Pulse Oximetry: 100 (RA) Pulse Ox Interpretation: Normal Reevaluation Time: 07:00 Reassessment Condition: Improved (clinically sober, to get a ride to [facility]) Medical Decision Making Medical Decision Making: Plan: Patient observed overnight in the ED and is stable for d/c home. Advised to continue pain meds as written. alcoholism, homeless Disposition Doctor Will See Patient In The: Office Counseled Patient/Family Regarding: Studies Performed, Diagnosis - Disposition Referrals: Alcoholics Anonymous [Outside] [facility] [Outside] [facility] [Outside] [facility] [Outside] [facility] [Outside] Disposition: HOME/ ROUTINE Disposition Time: 06:02 Condition: GOOD Additional Instructions: continue naproxyn 500 mg every 12 hours as needed OR Motrin 600 mg every 6 hours outpatient follow-up as needed. Instructions: Osteoarthritis (DC) Forms: [employer] (Armenian) - Clinical Impression Clinical Impression: Homelessness, Chronic hip pain, Alcohol abuse - Scribe Statement The provider has reviewed the documentation as recorded by the Nubia Suazo Provider Attestation: All medical record entries made by the Oliviaibrahul were at my direction and personally dictated by me. I have reviewed the chart and agree that the record accurately reflects my personal performance of the history, physical exam, medical decision making, and the department course for this patient. I have also personally directed, reviewed, and agree with the discharge instructions and disposition.
[2018-04-02 01:32] VITALS: RESP 18
[2018-04-02 06:03] VITALS: O2SAT 100
[2018-04-02 06:09] VITALS: BP 139/87; PULSE 96; TEMP 98
== END 2018-04-02 06:37 | disposition home or self-care (01) ==
LOC: C.ER 22:31
DX: F10.10 Alcohol abuse, uncomplicated (principal); G89.29 Other chronic pain; M25.559 Pain in unspecified hip; Z59.0 Homelessness

== ENCOUNTER 2018-04-03 18:18 | Emergency (ER) | payer OTHER ==
[2018-04-03 18:19] VITALS: BMI 27.3
[2018-04-03 18:31] VITALS: BP 157/85; PULSE 89; RESP 18; TEMP 98; O2SAT 95
== END 2018-04-03 18:26 | disposition left against medical advice (07) ==
LOC: C.ER 18:18
DX: Z02.89 Encounter for other administrative examinations (principal)
CPT/HCPCS: 82948; LWBS0

== ENCOUNTER 2018-04-03 19:15 | Emergency (ER) | payer OTHER ==
[2018-04-03 19:15] VITALS: BMI 27.3
[2018-04-03 19:26] VITALS: RESP 16; O2SAT 98
--- NOTE | 2018-04-03 20:00 | C.PDOC ---
History Of Present Illness Patient presents to the ER with acute ETOH intoxication, requesting a place to spend the night. Denies any physical complaints at this time. Time Seen by Provider: 04/03/18 19:59 Chief Complaint (Nursing): Substance Abuse History Per: Patient History/Exam Limitations: no limitations Onset/Duration Of Symptoms: Hrs Current Symptoms Are (Timing): Still Present Suicide/Self Injury Attempted (Context): None Modifying Factor(s): Alcohol Involuntary Hold By: None Recent travel outside of the [place]: No Past Medical History Reviewed: Historical Data, Nursing Documentation, Vital Signs Vital Signs: Last Vital Signs Temp 97.8 F 04/03/18 19:20 Pulse 82 04/03/18 19:20 Resp 16 04/03/18 19:20 BP 146/98 H 04/03/18 19:20 Pulse Ox 98 04/03/18 19:20 - Medical History PMH: Depression, Chronic Pain Denies: Diabetes, Hepatitis, HIV, HTN, Chronic Kidney Disease, Seizures, Sexually Transmitted Disease - [facility] Procedures ALCOHOL DETOXIFICATION (10/24/14) DETOXIFICATION SERVICES FOR SUBSTANCE ABUSE TREATMENT (10/04/17) GROUP PSYCHOTHERAPY (11/02/17) INDIV PSYCHOTHERAPY FOR SUBSTANCE ABUSE TREATMENT, SUPPORT (10/04/17) INDIV PSYCHOTHERAPY FOR SUBSTANCE ABUSE, COGNITIV BEHAVIORAL (08/24/17) INDIV PSYCHOTHERAPY FOR SUBSTANCE ABUSE, PSYCHOEDUCATION (10/04/17) MEDICATION MANAGEMENT (10/04/17) Family History: States: No Known Family Hx - Social History Hx Tobacco Use: No Hx Alcohol Use: Yes Hx Substance Use: No - Immunization History Hx Tetanus Toxoid Vaccination: No Hx Influenza Vaccination: No Hx Pneumococcal Vaccination: No Review Of Systems Constitutional: Negative for: Fever, Chills Cardiovascular: Negative for: Chest Pain, Palpitations Respiratory: Negative for: Cough, Shortness of Breath Gastrointestinal: Negative for: Nausea, Vomiting Neurological: Negative for: Weakness, Numbness Physical Exam - Physical Exam Appears: Non-toxic, Other (ETOH on breath, no sign of injury) Skin: Warm, Dry Head: Normacephalic Oral Mucosa: Moist Chest: Symmetrical, No Tenderness Cardiovascular: Rhythm Regular Respiratory: No Rales, No Rhonchi, No Wheezing Gastrointestinal/Abdominal: Soft, No Tenderness Neurological/Psych: Oriented x3 ED Course And Treatment O2 Sat by Pulse Oximetry: 98 (Room air) Pulse Ox Interpretation: Normal Reevaluation Time: 05:55 Reassessment Condition: Improved Disposition Counseled Patient/Family Regarding: Studies Performed, Diagnosis, Need For Followup - Disposition Referrals: [facility] [Outside] Disposition: HOME/ ROUTINE Disposition Time: 20:00 Condition: FAIR Instructions: Alcohol Abuse and Alcoholism (DC) Forms: [facility] (Monegasque) - Clinical Impression Clinical Impression: Alcohol intoxication, Alcohol abuse - Scribe Statement The provider has reviewed the documentation as recorded by the Scribrahul Calix All medical record entries made by the Scribe were at my direction and personally dictated by me. I have reviewed the chart and agree that the record accurately reflects my personal performance of the history, physical exam, medical decision making, and the department course for this patient. I have also personally directed, reviewed, and agree with the discharge instructions and disposition.
[2018-04-04 05:51] VITALS: BP 120/74; PULSE 71; TEMP 98.6
== END 2018-04-04 06:15 | disposition home or self-care (01) ==
LOC: C.ER 19:15
DX: F10.129 Alcohol abuse with intoxication, unspecified (principal); Y90.9 Presence of alcohol in blood, level not specified

== ENCOUNTER 2018-04-18 23:57 | Emergency (ER) | payer OTHER ==
[2018-04-18 23:57] VITALS: BMI 27.3
[2018-04-19] MEDS ORDERED: Lidocaine 5% Patch TD STA (00:28)
[2018-04-19] MEDS ORDERED: Lidocaine 5% Patch TD ONE (00:32)
--- NOTE | 2018-04-19 00:41 | C.PDOC ---
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 He states that later in the morning he slipped and fell while walking which aggravated his chronic back pain. Patient reports that while in detox he was receiving flexeril and other medications for his back pain. Denies abdominal pain, chest pain, weakness or numbness. Chief Complaint (Nursing): Back Pain History Per: Patient History/Exam Limitations: no limitations Onset/Duration Of Symptoms: Hrs Current Symptoms Are (Timing): Still Present Previous Symptoms: Back Pain, Chronic Pain Associated Symptoms: None Exacerbating Factor(s): Nothing Recent travel outside of the [place]: No Past Medical History Reviewed: Historical Data, Nursing Documentation, Vital Signs Vital Signs: Last Vital Signs Temp 98.2 F 04/19/18 00:05 Pulse 78 04/19/18 00:05 Resp 20 04/19/18 00:05 BP 116/76 04/19/18 00:05 Pulse Ox 98 04/19/18 00:05 - Medical History PMH: Depression, Chronic Pain Denies: Diabetes, Hepatitis, HIV, HTN, Chronic Kidney Disease, Seizures, Sexually Transmitted Disease - [facility] Procedures ALCOHOL DETOXIFICATION (10/24/14) DETOXIFICATION SERVICES FOR SUBSTANCE ABUSE TREATMENT (10/04/17) GROUP PSYCHOTHERAPY (11/02/17) INDIV PSYCHOTHERAPY FOR SUBSTANCE ABUSE TREATMENT, SUPPORT (10/04/17) INDIV PSYCHOTHERAPY FOR SUBSTANCE ABUSE, COGNITIV BEHAVIORAL (08/24/17) INDIV PSYCHOTHERAPY FOR SUBSTANCE ABUSE, PSYCHOEDUCATION (10/04/17) MEDICATION MANAGEMENT (10/04/17) Family History: States: Unknown Family Hx - Social History Hx Tobacco Use: No Hx Alcohol Use: Yes Hx Substance Use: No - Immunization History Hx Tetanus Toxoid Vaccination: No Hx Influenza Vaccination: No Hx Pneumococcal Vaccination: No Review Of Systems Constitutional: Negative for: Fever, Chills Eyes: Negative for: Pain, Redness ENT: Negative for: Mouth Swelling Cardiovascular: Negative for: Chest Pain, Palpitations Respiratory: Negative for: Cough, Shortness of Breath Gastrointestinal: Negative for: Nausea, Vomiting Genitourinary: Negative for: Dysuria, Incontinence, Hematuria Musculoskeletal: Positive for: Back Pain Skin: Negative for: Rash Neurological: Negative for: Weakness, Numbness Physical Exam - Physical Exam Appears: Non-toxic Skin: Normal Color, Warm, No Rash Head: Atraumatic, Normacephalic Eye(s): bilateral: Normal Inspection Oral Mucosa: Moist Neck: Normal, No Midline Cervical Tenderness, No Paracervical Tenderness, Supple Chest: Symmetrical, No Tenderness Respiratory: No Accessory Muscle Use, Other (Normal inspiratory effort) Gastrointestinal/Abdominal: Soft, No Tenderness Back: No Vertebral Tenderness, Paraspinal Tenderness (Lower thoracic), No Straight Leg Raising, Other (Mild abrasion to lower thoracic area. No active bleeding or ecchymosis. Increased pain when standing up straight which is normal for him. Ambulatory with cane.) Extremity: Normal ROM (x4) Neurological/Psych: Oriented x3, Normal Speech, Normal Cranial Nerves (Grossly intact), Normal Motor, Normal Sensation ED Course And Treatment O2 Sat by Pulse Oximetry: 98 (room air) Pulse Ox Interpretation: Normal Medical Decision Making Medical Decision Making: Patient notes he is homeless and plans to sleep on a park bench tonight, will allow to sleep until morning. Patient with no symptoms for intra abdominal or cardiopulmonary back pain. Disposition Counseled Patient/Family Regarding: Diagnosis, Need For Followup - Disposition Referrals: [facility] [Outside] Disposition: HOME/ ROUTINE Disposition Time: 05:00 Condition: STABLE Prescriptions: Cyclobenzaprine [Flexeril] 10 mg PO TID #15 tab Instructions: Chronic Pain (DC) Forms: [facility] (Botswanan), General Discharge Instructions - Clinical Impression Clinical Impression: Low back pain - PA / [employer] PARAPROFESSIONAL / Resident Statement MD/DO has reviewed & agrees with the documentation as recorded. - Scribe Statement The provider has reviewed the documentation as recorded by the Scribrahul Calix All medical record entries made by the Oliviaibrahul were at my direction and personally dictated by me. I have reviewed the chart and agree that the record accurately reflects my personal performance of the history, physical exam, medical decision making, and the department course for this patient. I have also personally directed, reviewed, and agree with the discharge instructions and disposition.
[2018-04-19 02:26] VITALS: RESP 18; TEMP 97.8
[2018-04-19 05:24] VITALS: BP 116/75; PULSE 86
[2018-04-19 05:25] VITALS: O2SAT 98
== END 2018-04-19 05:49 | disposition home or self-care (01) ==
LOC: C.EROB 23:57 → C.ER 23:57
DX: M54.5 Low back pain (principal)

== ENCOUNTER 2018-04-21 04:48 | Emergency (ER) | payer OTHER ==
[2018-04-21 04:49] VITALS: BMI 27.3
[2018-04-21 05:04] VITALS: TEMP 97.9
--- NOTE | 2018-04-21 06:12 | C.PDOC ---
History Of Present Illness 57 year old male presents to the ED c/o lower back pain s/p fall yesterday. Patient was seen in the ED 2 days ago after sustaining a fall as well but at that time he was c/o upper back pain. Patient denies LOC, CP, SOB, headache, neck pain, visual changes, rash, saddle anesthesia, bowel incontinence, weakness, numbness. Time Seen by Provider: 04/21/18 05:06 Chief Complaint (Nursing): Back Pain History Per: Patient History/Exam Limitations: no limitations Onset/Duration Of Symptoms: Days (2) Current Symptoms Are (Timing): Still Present Quality Of Discomfort: "Pain" Previous Symptoms: Back Pain Exacerbating Factor(s): Movement Recent travel outside of the [place]: No Additional History Per: Patient Past Medical History Reviewed: Historical Data, Nursing Documentation, Vital Signs Vital Signs: Last Vital Signs Temp 97.9 F 04/21/18 05:02 Pulse 88 04/21/18 05:02 Resp 16 04/21/18 05:02 BP 144/85 04/21/18 05:02 Pulse Ox 97 04/21/18 05:02 - Medical History PMH: Depression, Chronic Pain Denies: Diabetes, Hepatitis, HIV, HTN, Chronic Kidney Disease, Seizures, Sexually Transmitted Disease Surgical History: No Surg Hx - [facility] Procedures ALCOHOL DETOXIFICATION (10/24/14) DETOXIFICATION SERVICES FOR SUBSTANCE ABUSE TREATMENT (10/04/17) GROUP PSYCHOTHERAPY (11/02/17) INDIV PSYCHOTHERAPY FOR SUBSTANCE ABUSE TREATMENT, SUPPORT (10/04/17) INDIV PSYCHOTHERAPY FOR SUBSTANCE ABUSE, COGNITIV BEHAVIORAL (08/24/17) INDIV PSYCHOTHERAPY FOR SUBSTANCE ABUSE, PSYCHOEDUCATION (10/04/17) MEDICATION MANAGEMENT (10/04/17) Family History: States: Unknown Family Hx - Social History Hx Tobacco Use: No Hx Alcohol Use: Yes Hx Substance Use: No - Immunization History Hx Tetanus Toxoid Vaccination: No Hx Influenza Vaccination: No Hx Pneumococcal Vaccination: No Review Of Systems Constitutional: Negative for: Fever, Chills Cardiovascular: Negative for: Chest Pain Respiratory: Negative for: Shortness of Breath Gastrointestinal: Negative for: Nausea, Vomiting, Abdominal Pain Musculoskeletal: Positive for: Back Pain Skin: Negative for: Rash Neurological: Negative for: Weakness, Numbness, Headache, Dizziness Physical Exam - Physical Exam Appears: Non-toxic, No Acute Distress Skin: Normal Color, Warm, Dry Head: Atraumatic, Normacephalic Eye(s): bilateral: Normal Inspection, PERRL, EOMI Neck: Normal ROM, No Midline Cervical Tenderness, Supple Chest: Symmetrical Cardiovascular: Rhythm Regular Respiratory: Normal Breath Sounds, No Rales, No Rhonchi, No Wheezing Gastrointestinal/Abdominal: Soft, No Tenderness, No Guarding, No Rebound Back: Vertebral Tenderness (LS spine), Paraspinal Tenderness (mild) Extremity: Normal ROM, No Tenderness, No Swelling Neurological/Psych: Oriented x3, Normal Speech, Normal Cognition, Normal Motor, Normal Sensation Gait: Steady ED Course And Treatment O2 Sat by Pulse Oximetry: 97 (ON RA) Pulse Ox Interpretation: Normal - Other Rad LS SPine X-Ray X-Ray: Interpreted by Me, Viewed By Me Interpretation: No fracture or dislocations seen. 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 Return to Ed if feel worse. Instructions: Low Back Pain in Adults Forms: [facility] (Niuean) - Clinical Impression Clinical Impression: Back pain - PA / HOTEL GENERAL MANAGER / Resident Statement MD/DO has reviewed & agrees with the documentation as recorded. - Scribe Statement The provider has reviewed the documentation as recorded by the Scribe Harshil Daley All medical record entries made by the Scribe were at my direction and personally dictated by me. I have reviewed the chart and agree that the record accurately reflects my personal performance of the history, physical exam, medical decision making, and the department course for this patient. I have also personally directed, reviewed, and agree with the discharge instructions and disposition.
[2018-04-21 06:59] VITALS: BP 136/75; PULSE 75; RESP 18
--- NOTE | 2018-04-21 10:25 | RAD ---
Date of service: 04/21/2018 PROCEDURE: Radiographs of the Lumbar Spine. HISTORY: fall COMPARISON: No prior. FINDINGS: BONES: Potential scoliotic thoracolumbar spinal deformity versus positional curve in the thoracolumbar spine. Multilevel degenerative spondylosis appreciated moderate severity but gross at L3-4 where prominent anterior osteophyte development is identified. No fracture or spondylolisthesis identified. No destructive bony lesion appreciable. DISC SPACES: As above. OTHER FINDINGS: None. IMPRESSION: Multilevel lumbar spondylosis. Potential scoliotic deformity. MR CT are available follow-up if clinically warranted. No fracture or spondylolisthesis.
[2018-04-22 11:18] VITALS: O2SAT 97
== END 2018-04-21 07:00 | disposition home or self-care (01) ==
LOC: C.ER 04:48
DX: M54.5 Low back pain (principal)

== ENCOUNTER 2018-04-21 16:13 | Emergency (ER) | payer OTHER ==
[2018-04-21 16:37] VITALS: BMI 25.1
[2018-04-21 16:54] VITALS: O2SAT 98
--- NOTE | 2018-04-21 16:59 | C.PDOC ---
History Of Present Illness 57 year old male presents to the ED via EMS requesting alcohol detox. In the ED the patient is visibly intoxicated. The patient also states questionable fall to the right side of his head, forehead abrasions. Denies LOC, other injuries, and any other associated symptoms. <Allyssa Nguyen - Last Filed: 04/21/18 19:04> History Per: Patient History/Exam Limitations: no limitations Recent travel outside of the [place]: No <Allyssa Nguyen - Last Filed: 04/21/18 19:04> <Pauline Ellison - Last Filed: 04/21/18 20:09> Time Seen by Provider: 04/21/18 16:27 Chief Complaint (Nursing): Substance Abuse Past Medical History Reviewed: Historical Data, Nursing Documentation, Vital Signs Vital Signs: Last Vital Signs Temp 97.3 F L 04/21/18 16:53 Pulse 66 04/21/18 16:53 Resp 20 04/21/18 16:53 BP 163/84 H 04/21/18 16:53 Pulse Ox 98 04/21/18 16:53 - Medical History PMH: Depression, Chronic Pain Denies: Diabetes, Hepatitis, HIV, HTN, Chronic Kidney Disease, Seizures, Sexually Transmitted Disease - [facility] Procedures ALCOHOL DETOXIFICATION (10/24/14) DETOXIFICATION SERVICES FOR SUBSTANCE ABUSE TREATMENT (10/04/17) GROUP PSYCHOTHERAPY (11/02/17) INDIV PSYCHOTHERAPY FOR SUBSTANCE ABUSE TREATMENT, SUPPORT (10/04/17) INDIV PSYCHOTHERAPY FOR SUBSTANCE ABUSE, COGNITIV BEHAVIORAL (08/24/17) INDIV PSYCHOTHERAPY FOR SUBSTANCE ABUSE, PSYCHOEDUCATION (10/04/17) MEDICATION MANAGEMENT (10/04/17) Family History: States: Unknown Family Hx - Social History Hx Tobacco Use: No Hx Alcohol Use: Yes Hx Substance Use: No - Immunization History Hx Tetanus Toxoid Vaccination: No Hx Influenza Vaccination: No Hx Pneumococcal Vaccination: No <Allyssa Nguyen - Last Filed: 04/21/18 19:04> Vital Signs: Last Vital Signs Temp 98.6 F 04/21/18 19:03 Pulse 64 04/21/18 19:03 Resp 17 04/21/18 19:03 BP 135/75 04/21/18 19:03 Pulse Ox 98 04/21/18 19:04 - [facility] Procedures ALCOHOL DETOXIFICATION (10/24/14) DETOXIFICATION SERVICES FOR SUBSTANCE ABUSE TREATMENT (10/04/17) GROUP PSYCHOTHERAPY (11/02/17) INDIV PSYCHOTHERAPY FOR SUBSTANCE ABUSE TREATMENT, SUPPORT (10/04/17) INDIV PSYCHOTHERAPY FOR SUBSTANCE ABUSE, COGNITIV BEHAVIORAL (08/24/17) INDIV PSYCHOTHERAPY FOR SUBSTANCE ABUSE, PSYCHOEDUCATION (10/04/17) MEDICATION MANAGEMENT (10/04/17) <Pauline Ellison - Last Filed: 04/21/18 20:09> Review Of Systems Except As Marked, All Systems Reviewed And Found Negative. Constitutional: Positive for: Other (alcohol detox. ) Musculoskeletal: Negative for: Other (other injuries. ) Skin: Positive for: Other ((+) right-sided forhead abrasions. ) Neurological: Negative for: Other ((-) LOC) <Allyssa Nguyen - Last Filed: 04/21/18 19:04> Physical Exam - Physical Exam Appears: Well, Other (cooperative. ) Skin: Warm, Dry, Other ((+) 2 abrasions to the right side of the forhead. ) Head: Atraumatic, Normacephalic Eye(s): bilateral: Normal Inspection Oral Mucosa: Moist Neck: Normal ROM, Supple Chest: Symmetrical Cardiovascular: Rhythm Regular, No Murmur Respiratory: Normal Breath Sounds, No Rales, No Rhonchi, No Wheezing Gastrointestinal/Abdominal: Normal Exam, Soft, No Tenderness Extremity: Normal ROM (x4) Neurological/Psych: Normal Speech <Allyssa Nguyen - Last Filed: 04/21/18 19:04> ED Course And Treatment O2 Sat by Pulse Oximetry: 98 (RA) Pulse Ox Interpretation: Normal <Allyssa Nguyen - Last Filed: 04/21/18 19:04> Pulse Ox Interpretation: Normal Reevaluation Time: 20:08 Reassessment Condition: Improved <Pauline Ellison - Last Filed: 04/21/18 20:09> Medical Decision Making Medical Decision Making: Initial plan: -CT Head w/o contrast CT Head is unremarkable. On re-exam, the patient is resting comfortably. <Allyssa Nguyen - Last Filed: 02/09/19 19:04> Disposition - Disposition Disposition Time: 18:55 <Allyssa Nguyen - Last Filed: 04/21/18 19:04> Counseled Patient/Family Regarding: Studies Performed, Diagnosis, Need For Followup <Pauline Ellison - Last Filed: 04/21/18 20:09> - Disposition Referrals: [facility] [Outside] Disposition: HOME/ ROUTINE Condition: STABLE Instructions: Alcohol Abuse and Alcoholism (DC) Forms: [facility] (Nepalese) - Clinical Impression Clinical Impression: Alcohol intoxication, Alcohol abuse - PA / HYDROMETEOROLOGICAL TECHNICIAN / Resident Statement MD/DO has reviewed & agrees with the documentation as recorded. - Scribe Statement The provider has reviewed the documentation as recorded by the Scribe (Pati Bagley) All medical record entries made by the Scribe were at my direction and personally dictated by me. I have reviewed the chart and agree that the record accurately reflects my personal performance of the history, physical exam, medical decision making, and the department course for this patient. I have also personally directed, reviewed, and agree with the discharge instructions and disposition. <Allyssa Nguyen - Last Filed: 04/21/18 19:04> Physician Patient Turnover Patient Signed Over To: Pauline Ellison Handoff Comments: Pending re-eval and disposition <Allyssa Nguyen - Last Filed: 04/21/18 19:04>
[2018-04-21 20:31] VITALS: BP 168/84; PULSE 66; RESP 20; TEMP 98.2
--- NOTE | 2018-04-22 13:26 | CT ---
Date of service: 04/21/2018 PROCEDURE: CT HEAD WITHOUT CONTRAST. HISTORY: head injury, [facility] COMPARISON: Noncontrast head CT 12/20/2017. TECHNIQUE: Axial computed tomography images were obtained through the head/brain without intravenous contrast. Radiation dose: Total exam DLP = 1202.71 mGy-cm. This CT exam was performed using one or more of the following dose reduction techniques: Automated exposure control, adjustment of the mA and/or kV according to patient size, and/or use of iterative reconstruction technique. FINDINGS: HEMORRHAGE: No intracranial hemorrhage. BRAIN: Stable age-related limited diffuse cerebral atrophy. No acute intracranial findings identified. Good corticomedullary differentiation remains with posterior fossa unremarkable including the brainstem. No suspicious extra-axial fluid collection. Midline brain anatomy appears unremarkable. VENTRICLES: Unremarkable. No hydrocephalus. CALVARIUM: No destructive bony lesion or displaced fracture identified including through the skullbase. PARANASAL SINUSES: Unremarkable as visualized. No significant inflammatory changes. MASTOID AIR CELLS: Unremarkable as visualized. No inflammatory changes. OTHER FINDINGS: None. IMPRESSION: Stable, unremarkable unenhanced head CT. Concordant preliminary report from [place], 04/21/2018, 5:50 p.m..
== END 2018-04-21 20:45 | disposition home or self-care (01) ==
LOC: C.ER 16:13
DX: F10.129 Alcohol abuse with intoxication, unspecified (principal); Y90.9 Presence of alcohol in blood, level not specified

== ENCOUNTER 2018-04-22 05:50 | Emergency (ER) | payer OTHER ==
[2018-04-22 05:51] VITALS: BMI 25.1
[2018-04-22 06:08] VITALS: BP 130/72; PULSE 86; TEMP 97; O2SAT 99
--- NOTE | 2018-04-22 06:13 | C.PDOC ---
History Of Present Illness patient was found loitering and the police called the ambulance. contrary to the triage note, pt doesn' t know why they brought him here" I wasn't bothering anybody" Denies any acute back pain Time Seen by Provider: 04/22/18 06:12 Chief Complaint (Nursing): Back Pain History Per: Patient History/Exam Limitations: no limitations Onset/Duration Of Symptoms: Hrs Current Symptoms Are (Timing): Gone Quality Of Discomfort: Unable To Describe Severity: None Previous Symptoms: None Associated Symptoms: None Exacerbating Factor(s): Nothing Additional History Per: EMS Past Medical History Vital Signs: Last Vital Signs Temp 97 F L 04/22/18 06:03 Pulse 86 04/22/18 06:03 Resp 14 04/22/18 06:03 BP 130/72 04/22/18 06:03 Pulse Ox 99 04/22/18 06:03 - Medical History PMH: Depression, Chronic Pain Denies: Diabetes, Hepatitis, HIV, HTN, Chronic Kidney Disease, Seizures, Sexually Transmitted Disease - [facility] Procedures ALCOHOL DETOXIFICATION (10/24/14) DETOXIFICATION SERVICES FOR SUBSTANCE ABUSE TREATMENT (10/04/17) GROUP PSYCHOTHERAPY (11/02/17) INDIV PSYCHOTHERAPY FOR SUBSTANCE ABUSE TREATMENT, SUPPORT (10/04/17) INDIV PSYCHOTHERAPY FOR SUBSTANCE ABUSE, COGNITIV BEHAVIORAL (08/24/17) INDIV PSYCHOTHERAPY FOR SUBSTANCE ABUSE, PSYCHOEDUCATION (10/04/17) MEDICATION MANAGEMENT (10/04/17) Family History: States: Unknown Family Hx - Social History Hx Tobacco Use: No Hx Alcohol Use: Yes Hx Substance Use: No - Immunization History Hx Tetanus Toxoid Vaccination: No Hx Influenza Vaccination: No Hx Pneumococcal Vaccination: No Review Of Systems Constitutional: Negative for: Fever, Chills Respiratory: Negative for: Shortness of Breath Gastrointestinal: Negative for: Abdominal Pain Musculoskeletal: Positive for: Back Pain Skin: Negative for: Rash Neurological: Negative for: Weakness Psych: Negative for: Anxiety Physical Exam - Physical Exam Appears: Non-toxic, No Acute Distress Chest: Symmetrical Cardiovascular: Rhythm Regular Gastrointestinal/Abdominal: Soft, No Tenderness Back: Normal Inspection Gait: Steady (with cane) ED Course And Treatment O2 Sat by Pulse Oximetry: 99 Disposition Counseled Patient/Family Regarding: Studies Performed, Diagnosis, Need For Followup - Disposition Referrals: [facility] at [facility] [Outside] Disposition: HOME/ ROUTINE Disposition Time: 06:13 Condition: FAIR Forms: [facility] (Hebrew), General Discharge Instructions - Clinical Impression Clinical Impression: Alcohol dependence
[2018-04-22 06:18] VITALS: RESP 20
== END 2018-04-22 06:17 | disposition home or self-care (01) ==
LOC: C.ER 05:50
DX: F10.20 Alcohol dependence, uncomplicated (principal)

== ENCOUNTER 2018-04-24 22:43 | Emergency (ER) | payer OTHER ==
[2018-04-24 22:44] VITALS: BMI 25.1
[2018-04-24 22:50] VITALS: BP 125/83; TEMP 98; O2SAT 98
[2018-04-24] MEDS ORDERED: Naproxen 550 mg Tab PO STA (23:12)
[2018-04-24] MEDS ORDERED: Naproxen 550 mg Tab PO ONE (23:28)
--- NOTE | 2018-04-24 23:36 | C.PDOC ---
History Of Present Illness 57 year old male presents to the ER complaining of chronic back pain.. Patient states the pain is now radiating to his left hip, he reports he was here yesterday was given a shot and discharged. Denies weakness, numbness, or recent injury. Time Seen by Provider: 04/24/18 23:05 Chief Complaint (Nursing): Back Pain History Per: Patient History/Exam Limitations: no limitations Onset/Duration Of Symptoms: Days Current Symptoms Are (Timing): Still Present Quality Of Discomfort: Unable To Describe Previous Symptoms: Chronic Pain Associated Symptoms: None Exacerbating Factor(s): Nothing Recent travel outside of the [place]: No Past Medical History Reviewed: Historical Data, Nursing Documentation, Vital Signs Vital Signs: Last Vital Signs Temp 98 F 04/24/18 22:48 Pulse 90 04/24/18 22:48 Resp 16 04/24/18 22:48 BP 125/83 04/24/18 22:48 Pulse Ox 98 04/24/18 22:48 - Medical History PMH: Depression, Chronic Pain Denies: Diabetes, Hepatitis, HIV, HTN, Chronic Kidney Disease, Seizures, Sexually Transmitted Disease - [facility] Procedures ALCOHOL DETOXIFICATION (10/24/14) DETOXIFICATION SERVICES FOR SUBSTANCE ABUSE TREATMENT (10/04/17) GROUP PSYCHOTHERAPY (11/02/17) INDIV PSYCHOTHERAPY FOR SUBSTANCE ABUSE TREATMENT, SUPPORT (10/04/17) INDIV PSYCHOTHERAPY FOR SUBSTANCE ABUSE, COGNITIV BEHAVIORAL (08/24/17) INDIV PSYCHOTHERAPY FOR SUBSTANCE ABUSE, PSYCHOEDUCATION (10/04/17) MEDICATION MANAGEMENT (10/04/17) Family History: States: Unknown Family Hx - Social History Hx Tobacco Use: No Hx Alcohol Use: Yes Hx Substance Use: No - Immunization History Hx Tetanus Toxoid Vaccination: No Hx Influenza Vaccination: No Hx Pneumococcal Vaccination: No Review Of Systems Genitourinary: Negative for: Dysuria, Incontinence, Hematuria Musculoskeletal: Positive for: Back Pain Neurological: Negative for: Weakness, Numbness Physical Exam - Physical Exam Appears: Non-toxic Skin: Normal Color, Warm, Dry Head: Atraumatic, Normacephalic Eye(s): bilateral: Normal Inspection Back: No CVA Tenderness, No Vertebral Tenderness, No Paraspinal Tenderness, No Straight Leg Raising Extremity: Normal ROM (x4) Neurological/Psych: Oriented x3, Normal Speech, Normal Motor, Normal Sensation Gait: Steady (w/ cane) ED Course And Treatment O2 Sat by Pulse Oximetry: 98 (room air) Pulse Ox Interpretation: Normal Progress Note: Naproxen administered. Patient reports improvement of pain, he is resting comfortably in no acute distress, ambulatory, will discharge home with Rx and instructions to follow up with PMD. Disposition Counseled Patient/Family Regarding: Diagnosis, Need For Followup, Rx Given - Disposition Referrals: [facility] [Non-Staff] - Disposition: HOME/ ROUTINE Disposition Time: 23:34 Condition: STABLE Additional Instructions: Continue naproxen PO Return to ER if worse Prescriptions: Naproxen [Naprosyn] 1 tab PO BID PRN #25 tab PRN Reason: Pain Instructions: Chronic Pain (DC) Forms: [employer] (Macedonian) - Clinical Impression Clinical Impression: Chronic hip pain - PA / CDC ASSOCIATE / Resident Statement MD/DO has reviewed & agrees with the documentation as recorded. - Scribe Statement The provider has reviewed the documentation as recorded by the Scribrahul Calix All medical record entries made by the Oliviaibrahul were at my direction and personally dictated by me. I have reviewed the chart and agree that the record accurately reflects my personal performance of the history, physical exam, medical decision making, and the department course for this patient. I have also personally directed, reviewed, and agree with the discharge instructions and disposition.
[2018-04-24 23:51] VITALS: PULSE 82; RESP 20
== END 2018-04-24 23:50 | disposition home or self-care (01) ==
LOC: C.ER 22:43
DX: G89.29 Other chronic pain (principal); M25.552 Pain in left hip

== ENCOUNTER 2018-04-30 02:17 | Emergency (ER) | payer MEDICAID, OTHER ==
[2018-04-30 02:17] VITALS: BMI 25.1
--- NOTE | 2018-04-30 05:06 | C.PDOC ---
History Of Present Illness 57 year old male presents to the ER complaining of chronic left hip pain and requesting a place to spend the night. Denies weakness, numbness, or recent injury. Time Seen by Provider: 04/30/18 02:31 Chief Complaint (Nursing): Hip Pain History Per: Patient History/Exam Limitations: no limitations Onset/Duration Of Symptoms: Days Current Symptoms Are (Timing): Still Present Recent travel outside of the [place]: No Past Medical History Reviewed: Historical Data, Nursing Documentation, Vital Signs - Medical History PMH: Depression, Chronic Pain Denies: Diabetes, Hepatitis, HIV, HTN, Chronic Kidney Disease, Seizures, Sexually Transmitted Disease - [facility] Procedures ALCOHOL DETOXIFICATION (10/24/14) DETOXIFICATION SERVICES FOR SUBSTANCE ABUSE TREATMENT (10/04/17) GROUP PSYCHOTHERAPY (11/02/17) INDIV PSYCHOTHERAPY FOR SUBSTANCE ABUSE TREATMENT, SUPPORT (10/04/17) INDIV PSYCHOTHERAPY FOR SUBSTANCE ABUSE, COGNITIV BEHAVIORAL (08/24/17) INDIV PSYCHOTHERAPY FOR SUBSTANCE ABUSE, PSYCHOEDUCATION (10/04/17) MEDICATION MANAGEMENT (10/04/17) Family History: States: Unknown Family Hx - Social History Hx Tobacco Use: No Hx Alcohol Use: Yes Hx Substance Use: No - Immunization History Hx Tetanus Toxoid Vaccination: No Hx Influenza Vaccination: No Hx Pneumococcal Vaccination: No Review Of Systems Musculoskeletal: Positive for: Other (Left hip pain) Neurological: Negative for: Weakness, Numbness Physical Exam - Physical Exam Appears: Non-toxic Skin: Normal Color, Warm, Dry Head: Atraumatic, Normacephalic Eye(s): bilateral: Normal Inspection Extremity: Normal ROM (x4), No Tenderness, No Deformity, No Swelling Pulses: Left Dorsalis Pedis: Normal, Right Dorsalis Pedis: Normal Neurological/Psych: Oriented x3, Normal Speech, Normal Motor, Normal Sensation Gait: Steady (w/ cane) ED Course And Treatment Progress Note: Will allow patient to rest until morning. On reevaluation, patient is resting comfortably in the ER in no acute distress, ambulatory, stable for discharge. 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 - Scribe Statement The provider has reviewed the documentation as recorded by the Scribe Hima Calix All medical record entries made by the Scribe were at my direction and personally dictated by me. I have reviewed the chart and agree that the record accurately reflects my personal performance of the history, physical exam, medical decision making, and the department course for this patient. I have also personally directed, reviewed, and agree with the discharge instructions and disposition.
[2018-04-30 05:27] VITALS: BP 145/73; PULSE 96; RESP 18; TEMP 97.6; O2SAT 95
== END 2018-04-30 05:50 | disposition home or self-care (01) ==
LOC: C.ER 02:17
DX: M25.552 Pain in left hip (principal)

== ENCOUNTER 2018-05-03 01:21 | Inpatient (IN) | payer MEDICAID, OTHER ==
[2018-05-03 01:22] VITALS: BMI 25.1
--- NOTE | 2018-05-03 03:02 | C.PDOC ---
History Of Present Illness 57 year old male presents requesting detox from ETOH. Patient states he drinks 2 pints of vodka a day. Denies any medical complaints. Well known to ER. Takes naproxen for chronic hip pain. Time Seen by Provider: 05/03/18 01:34 Chief Complaint (Nursing): Substance Abuse History Per: Patient History/Exam Limitations: no limitations Onset/Duration Of Symptoms: Days Current Symptoms Are (Timing): Still Present Suicide/Self Injury Attempted (Context): None Modifying Factor(s): Alcohol Recent travel outside of the [place]: No Past Medical History Reviewed: Historical Data, Nursing Documentation, Vital Signs Vital Signs: Last Vital Signs Temp 97.4 F L 05/03/18 01:41 Pulse 87 05/03/18 01:41 Resp 20 05/03/18 01:41 BP 157/85 H 05/03/18 01:41 Pulse Ox 94 L 05/03/18 01:41 - Medical History PMH: Depression, Chronic Pain Denies: Diabetes, Hepatitis, HIV, HTN, Chronic Kidney Disease, Seizures, Sexually Transmitted Disease - [facility] Procedures ALCOHOL DETOXIFICATION (10/24/14) DETOXIFICATION SERVICES FOR SUBSTANCE ABUSE TREATMENT (10/04/17) GROUP PSYCHOTHERAPY (11/02/17) INDIV PSYCHOTHERAPY FOR SUBSTANCE ABUSE TREATMENT, SUPPORT (10/04/17) INDIV PSYCHOTHERAPY FOR SUBSTANCE ABUSE, COGNITIV BEHAVIORAL (08/24/17) INDIV PSYCHOTHERAPY FOR SUBSTANCE ABUSE, PSYCHOEDUCATION (10/04/17) MEDICATION MANAGEMENT (10/04/17) Family History: States: Unknown Family Hx - Social History Hx Tobacco Use: No Hx Alcohol Use: Yes Hx Substance Use: No - Immunization History Hx Tetanus Toxoid Vaccination: No Hx Influenza Vaccination: No Hx Pneumococcal Vaccination: No Review Of Systems Constitutional: Negative for: Fever, Chills Cardiovascular: Negative for: Chest Pain, Palpitations Respiratory: Negative for: Cough, Shortness of Breath Gastrointestinal: Negative for: Nausea, Vomiting, Diarrhea Neurological: Negative for: Weakness, Numbness, Dizziness Physical Exam - Physical Exam Appears: Well, Non-toxic, No Acute Distress Skin: Normal Color, Warm Head: Atraumatic, Normacephalic Oral Mucosa: Moist Neck: Normal ROM, Supple Chest: Symmetrical Respiratory: No Accessory Muscle Use, Other (Normal inspiratory effort) Gastrointestinal/Abdominal: Soft, No Distention Neurological/Psych: Oriented x3, Normal Speech, Normal Cranial Nerves (Grossly intact) ED Course And Treatment - Laboratory Results Result Diagrams: 05/03/18 03:35 05/03/18 03:35 O2 Sat by Pulse Oximetry: 94 (Room air) Medical Decision Making Medical Decision Making: Pending crisis evaluation. 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 - Scribe Statement The provider has reviewed the documentation as recorded by the Scribe Hima Calix All medical record entries made by the Oliviaibrahul were at my direction and personally dictated by me. I have reviewed the chart and agree that the record accurately reflects my personal performance of the history, physical exam, medical decision making, and the department course for this patient. I have also personally directed, reviewed, and agree with the discharge instructions and disposition.
[2018-05-03 03:38] LABS: BASO # 0.1 K/uL (0.0-0.2); BASO % 1.1 % (0.0-2.0); EOS # 0.1 K/uL (0.0-0.7); EOS % 1.9 % (0.0-4.0); HEMOGLOBIN 11.2 g/dL (12.0-18.0); LYMPH % 31.4 % (20.0-40.0); MEAN CELL VOLUME 82.7 fL (80.0-94.0); MEAN CORPUSCULAR HEMOGLOBIN 26.1 pg (27.0-31.0); MEAN CORPUSCULAR HGB CONC 31.6 g/dL (33.0-37.0); MONO # 0.7 K/uL (0.0-0.8); NEUT # 3.4 K/uL (1.8-7.0); NEUT % 54.6 % (50.0-75.0); NRBC % 0.1 % (0.0-2.0); RBC 4.27 Mil/uL (4.40-5.90); RED CELL DISTRIBUTION WIDTH 15.4 % (11.5-14.5); WHITE BLOOD COUNT 6.3 K/uL (4.8-10.8)
[2018-05-03 03:50] LABS: URINE BILIRUBIN NEGATIVE (NEGATIVE); URINE BLOOD 1+ (NEGATIVE); URINE CLARITY Clear (Clear); URINE COLOR Straw (YELLOW); URINE GLUCOSE (UA) NORMAL (Normal); URINE LEUKOCYTE ESTERASE NEG Leu/uL (Negative); URINE PROTEIN NEGATIVE (NEGATIVE); URINE UROBILINOGEN NORMAL mg/dL (0.2-1.0)
[2018-05-03 03:52] LABS: ALB/GLOB RATIO 1.5 (1.0-2.1); ALBUMIN 4.2 g/dL (3.5-5.0); ALT/SGPT 41 U/L (21-72); AST/SGOT 118 U/L (17-59); BLOOD UREA NITROGEN 13 mg/dL (9-20); CALCIUM 8.4 mg/dl (8.6-10.4); GFR NON-AFRICAN AMERICAN > 60
[2018-05-03 04:06] LABS: BARBITURATES, UR NEGATIVE (NEGATIVE); OPIATES, UR NEGATIVE (NEGATIVE); PHENCYCLIDINE, UR NEGATIVE (NEGATIVE)
[2018-05-03 04:07] LABS: BENZODIAZEPINES, UR POSITIVE (NEGATIVE)
--- NOTE | 2018-05-03 09:59 | PCM.PSYCH ---
Initial Psychiatric Evaluation - Initial Psychiatric Evaluation Type of Admission: Voluntary Legal Status: Capacity Chief Complaint (in patient's own words): "I relapsed" History of Present Illness and Precipitating Events: Patient is a 57 year old male who is , has a daughter (18+), is homeless, and is on SSI. He presented to the [facility] ED on 05/03 and was admitted to the [facility] detox unit for alcohol detox. His BAL was 275. He has been drinking 3-4 pints of liquor for the last two months due to depression from losing his sister and then father. He explains that his usual drinking, prior to the of his father, consisted of having 4 beers daily for the last 43 years. He has had no periods of sobriety during the last two months but his longest period of sobriety during the last 43 years has been 1.5 years long. He last drank on 05/02, consuming 4 pints of liquor before his admission here. He denies having any withdrawal seizures but had DTs. He has been to detox twice, prior to his admission here, here at [facility]. He has been to rehabilitation units three times in the past, staying at [facility]. Patient has been feeling unhappy and grieving the loss of his father since his passing in February. Reports depression and vague SI but has no plan or intention He denies drug use. He denies tobacco use. He denies homicidal ideations, auditory hallucinations, visual hallucinations. MHx: Chronic hip pain and s/psurgery PsychHx: Depression Psych Hospitalizations: Alcohol detox FMPsychHx: Denies Current Medications: Active Medications Generic Name Dose Route Start Last Admin Trade Name Freq PRN Reason Stop Dose Admin Chlordiazepoxide 25 mg 05/03/18 09:57 Librium PO Q4H PRN Alcohol Withdrawal Chlordiazepoxide 0 mg 05/03/18 10:00 Librium PO 05/08/18 09:59 Q6 BETSEY Taper Past Psychiatric History - Past Psychiatric History Pertinent Medical Hx (Current Medical&Sleep Prob, Allergies): Allergies Allergy/AdvReac Type Severity Reaction Status Date / Time No Known Allergies Allergy Verified 05/03/18 01:50 Naproxen [Naprosyn] 1 tab PO BID PRN #25 tab 04/24/18 Review of Systems - Psychiatric Psychiatric: Abnormal Sleep Pattern, Anhedonia, Anxiety, Difficulty Concentrating. absent: Homicidal Ideation, Paranoia, Suicidal Ideation Mental Status Examination - Personal Presentation Personal Presentation: Looks stated age - Affect Affect: Constricted - Motor Activity Motor Activity: Calm - Reliability in Providing Information Reliability in Providing Information: Good - Speech Speech: Organized - Mood Mood: Depressed, Anxious - Formal Thought Process Formal Thought Process: No Impairment - Cognitive Functions Orientation: Person, Place, Situation, Time Sensorium: Alert Attention/Concentration: Easily distracted Estimate of Intelligence: Average Judgement: Intact, as evidence by: Insight regarding need for hospitalization Memory: Recent intact, as evidence by: Ability to recall events of the day, Remote intact, as evidenced by: Abilit to recall sig. life events - Risk Risk: Withdrawal, Diminished functioning - Strength & Assets Inventory Strength & Assets Inventory: Cooperative DSM 5 DX - DSM 5 DSM 5 Diagnosis: Alcohol withdrawal Alcohol use d/o - severe - Recommended/Plan of Treatment Treatment Recommendations and Plan of Treatment: Taper with Librium Gabapentin for augmentation if needed As needed medications All risks, benefits and alternatives of the meds discussed, and the pt agreed and understood. Attend groups and activities Supportive therapy and psychoeducation DC for abstinence CBT for relapse prevention Encourage MAT Refer to rehab or IOP, and self-help groups Teach healthy lifestyle methods, i.e. diet, exercise, meditation Smoking cessation with DC Nicotine patch if needed 34 min Projected ELOS: 5 days Prognosis: good w treatment - Smoking Cessation Smoking Cessation Initiated: Yes
[2018-05-03] MEDS: Multiple Vitamins Tab PO SCH (10:18)
--- NOTE | 2018-05-03 11:29 | PCM.BM ---
<Eunice Comer - Last Filed: 05/03/18 11:26> Treatment Plan Problems - Problems identified on initial assessmt Anxiety Related to Substance Abuse Date Initiated: 05/03/18 Assessment reference: NA Status: Active Low Motivation to Change Date Initiated: 05/03/18 Assessment reference: NA Status: Active Knowledge Deficit: Alcohol Use Date Initiated: 05/03/18 Assessment reference: NA Status: Active Treatment assets and liabiliti Patient Assests: cooperative, self-reliant, ADL independent, negotiates basic needs Patient Liabilities: financial problems, poor support system, substance abuse, other (homeless) - Milieu Protocol Maintain good personal hygiene: daily Encourage regular showers, daily Remind patient to perform daily oral care, daily Assist patient to perform ADL's Conduct patient checks and document Observation sheet: Q15 minutes Maintain personal safety: every shift Educate patient to report safety concerns to staff, every shift Monitor environment for contraband/sharps Medication safety: Monitor for expected outcome, potential side effects: every shift, Assess barriers to learning: every shift, Assess readiness for medication education: every shift <Elida Shea - Last Filed: 05/03/18 12:09> - Diagnosis (1) Alcohol dependence Status: Acute Interventions: 05/03/18 12:09 * Assess 7x/week regarding severity of withdrawal * Educate regarding risks, benefits, side effects and alternatives of medications * Use Motivational Interviewing for abstinence * Use CBT for relapse prevention * Medication management for withdrawal symptoms * Encourage medication assisted treatment *
[2018-05-04] MEDS: Multiple Vitamins Tab PO SCH (10:47)
--- NOTE | 2018-05-04 14:50 | PCM.PYCHPN ---
Psychiatric Progress Note - Psychiatric Progress Note Patient seen today, length of contact: 16 min Patient Chief Complaint: "I don't feel well" Problems Identified/Issues Discussed: The pt is seen, chart reviewed, case is discussed with staff. The pt is compliant with medications and reports no side-effects. Symptoms are improving but needs more time to stabilize and to avoid relapse. Pt attends groups and activities. Support given, psycho-education provided. After care discussed. Medication Change: Yes (detox changes daily) Medical Record Reviewed: Yes Mental Status Examination - Cognitive Function Orientation: Person, Place, Situation, Time Memory: Intact Attention: WNL Concentration: Poor Association: WNL Fund of Knowledge: WNL - Mood Mood: Depressed, Anxious - Affect Affect: Constricted - Speech Speech: Appropriate - Formal Thought Process Formal Thought Process: No Impairment - Suicidal Ideation Suicidal Ideation: No - Homicidal Ideation Homicidal Ideation: No Goal/Treatment Plan - Goal/Treatment Plan Need for Continued Stay: Discharge may exacerbated symptoms, Severe functional impairment Progress Toward Problem(s) and Goals/Treatment Plan: Taper with Librium Gabapentin for augmentation if needed As needed medications All risks, benefits and alternatives of the meds discussed, and the pt agreed and understood. Attend groups and activities Supportive therapy and psychoeducation VT for abstinence CBT for relapse prevention Encourage MAT Refer to rehab or IOP, and self-help groups Teach healthy lifestyle methods, i.e. diet, exercise, meditation Smoking cessation with VT Nicotine patch if needed
[2018-05-05 06:33] VITALS: RESP 18
[2018-05-05] MEDS: Multiple Vitamins Tab PO SCH (09:54)
[2018-05-05 16:44] VITALS: BP 153/79; PULSE 83; TEMP 97.6; O2SAT 98
== END 2018-05-05 16:55 | disposition left against medical advice (07) | DRG 749 ==
LOC: C.ER 01:21 → C.7D 06:24
PROC: HZ2ZZZZ Detoxification Services for Substance Abuse Treatment (ICD-10-PCS; principal; 2018-05-03)
PROC: HZ52ZZZ Individual Psychotherapy for Substance Abuse Treatment, Cognitive-Behavioral (ICD-10-PCS; 2018-05-03)
PROC: HZ59ZZZ Individual Psychotherapy for Substance Abuse Treatment, Supportive (ICD-10-PCS; 2018-05-03)
PROC: HZ56ZZZ Individual Psychotherapy for Substance Abuse Treatment, Psychoeducation (ICD-10-PCS; 2018-05-03)
DX: F10.231 Alcohol dependence with withdrawal delirium (principal); F32.9 Major depressive disorder, single episode, unspecified; G89.29 Other chronic pain; M25.559 Pain in unspecified hip

== ENCOUNTER 2018-05-09 20:16 | Emergency (ER) | payer OTHER ==
[2018-05-09 20:17] VITALS: BMI 25.1
[2018-05-09 20:27] VITALS: RESP 20
--- NOTE | 2018-05-09 22:53 | C.PDOC ---
History Of Present Illness 57 year old male with history of alcohol abuse and chronic hip pain on daily use of Naproxen presents to the ED requesting pain medications. Reports he ran out of his pain medications because he takes them regularly and it is too soon for his prescription refill. Pt was seen in [place] ED twice in the last 2 days for the same complaint, patient was given Toradol IM. Notes the cold weather makes the joint pain feel worse. Denies any other physical complaints. Time Seen by Provider: 05/09/18 21:51 Chief Complaint (Nursing): Lower Extremity Problem/Injury History Per: Patient History/Exam Limitations: no limitations Onset/Duration Of Symptoms: Days Current Symptoms Are (Timing): Still Present Additional History Per: Prior Records - Hip Description Of Injury: Other (chronic pain ) Past Medical History Reviewed: Historical Data, Nursing Documentation, Vital Signs Vital Signs: Last Vital Signs Temp 98 F 05/09/18 20:19 Pulse 82 05/09/18 20:19 Resp 20 05/09/18 20:19 BP 132/84 05/09/18 20:19 Pulse Ox 97 05/09/18 20:19 - Medical History PMH: Depression, Chronic Pain Denies: Alzheimer's Disease, Asthma, Atrial Fibrillation, Bronchitis, Cardia Arrhythmia, CHF, COPD, Dementia, Diabetes, Emphysema, Hepatitis, HIV, HTN, Hypercholesterolemia, Migraine, Mitral Valve Prolapse, Multiple Sclerosis, Parkinson's Disease, Peripheral Edema, Pneumonia, Pulmonary Embolism, Chronic Kidney Disease, Seizures, Sexually Transmitted Disease, Sleep Apnea, TIA Surgical History: Denies: Pacemaker Other Surgeries: Hx of surgeries - [facility] Procedures ALCOHOL DETOXIFICATION (10/24/14) DETOXIFICATION SERVICES FOR SUBSTANCE ABUSE TREATMENT (05/03/18) GROUP PSYCHOTHERAPY (11/02/17) INDIV PSYCHOTHERAPY FOR SUBSTANCE ABUSE TREATMENT, SUPPORT (05/03/18) INDIV PSYCHOTHERAPY FOR SUBSTANCE ABUSE, COGNITIV BEHAVIORAL (05/03/18) INDIV PSYCHOTHERAPY FOR SUBSTANCE ABUSE, PSYCHOEDUCATION (05/03/18) MEDICATION MANAGEMENT (10/04/17) Family History: States: No Known Family Hx - Social History Hx Tobacco Use: No Hx Alcohol Use: Yes Hx Substance Use: Yes - Immunization History Hx Tetanus Toxoid Vaccination: No Hx Influenza Vaccination: No Hx Pneumococcal Vaccination: No Review Of Systems Constitutional: Negative for: Fever, Chills Cardiovascular: Negative for: Chest Pain Respiratory: Negative for: Shortness of Breath Musculoskeletal: Positive for: Other (chronic hip pain ) Physical Exam - Physical Exam Appears: Other (intoxicated, disheveled, unkempt) Skin: Warm, Dry Head: Normacephalic Nose: Normal Oral Mucosa: Other (alcohol smell on breath ) Neck: Supple Chest: Symmetrical Cardiovascular: Rhythm Regular Respiratory: Normal Breath Sounds, No Rales, No Rhonchi, No Wheezing Gastrointestinal/Abdominal: Soft, No Tenderness Neurological/Psych: Oriented x3, Normal Speech, Other (able to hold conversation) Gait: Other (walking with cane, seen walking in the ED full weight bearing without difficulty) ED Course And Treatment O2 Sat by Pulse Oximetry: 97 (RA) Pulse Ox Interpretation: Normal Progress Note: 11:55 Patient treated with Toradol for hip pain and states that his pain is improved but now he feels suicidal and depressed. States his father several months ago and he is unable to "get over it". He did have a recent psychiatric admission for a similar complaint. Denies current active plan but states that he cannot live on the streets anymore. 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 - Scribe Statement The provider has reviewed the documentation as recorded by the Scribe Luci Hood All medical record entries made by the Scribe were at my direction and personally dictated by me. I have reviewed the chart and agree that the record accurately reflects my personal performance of the history, physical exam, medical decision making, and the department course for this patient. I have also personally directed, reviewed, and agree with the discharge instructions and disposition. Physician Patient Turnover Patient Signed Over To: Doe Yee Handoff Comments: pending crisis evaluation.
[2018-05-10 05:18] VITALS: BP 120/69; PULSE 90; TEMP 97.8; O2SAT 95
== END 2018-05-10 05:49 | disposition home or self-care (01) ==
LOC: C.ER 20:16
DX: M25.552 Pain in left hip (principal); G89.29 Other chronic pain; F32.9 Major depressive disorder, single episode, unspecified; F10.10 Alcohol abuse, uncomplicated

== ENCOUNTER 2018-05-14 12:34 | Emergency (ER) | payer OTHER ==
[2018-05-14 12:34] VITALS: BMI 25.8
[2018-05-14 12:48] VITALS: BP 155/71; PULSE 97; RESP 20; TEMP 98.7; O2SAT 96
--- NOTE | 2018-05-14 13:03 | C.PDOC ---
History Of Present Illness 57 year old male presents to the ED requesting alcohol detox. Patient also requests evaluation of depression, stating he has been depressed since his father . Patient denies suicidal/homicidal ideation at this time. Time Seen by Provider: 05/14/18 12:40 Chief Complaint (Nursing): Substance Abuse History Per: Patient History/Exam Limitations: no limitations Onset/Duration Of Symptoms: Hrs Current Symptoms Are (Timing): Still Present Suicide/Self Injury Attempted (Context): None Modifying Factor(s): Alcohol Associated Symptoms: Depression. denies: Suicidal Thoughts, Suicidal Plan Involuntary Hold By: None Recent travel outside of the [place]: No Additional History Per: Patient Past Medical History Reviewed: Historical Data, Nursing Documentation, Vital Signs Vital Signs: Last Vital Signs Temp 98.7 F 05/14/18 12:42 Pulse 97 H 05/14/18 12:42 Resp 20 05/14/18 12:42 BP 155/71 H 05/14/18 12:42 Pulse Ox 96 05/14/18 12:42 - Medical History PMH: Depression, Chronic Pain Denies: Alzheimer's Disease, Asthma, Atrial Fibrillation, Bronchitis, Cardia Arrhythmia, CHF, COPD, Dementia, Diabetes, Emphysema, Hepatitis, HIV, HTN, Hypercholesterolemia, Migraine, Mitral Valve Prolapse, Multiple Sclerosis, Parkinson's Disease, Peripheral Edema, Pneumonia, Pulmonary Embolism, Chronic Kidney Disease, Seizures, Sexually Transmitted Disease, Sleep Apnea, TIA Surgical History: No Surg Hx Denies: Pacemaker - [facility] Procedures ALCOHOL DETOXIFICATION (10/24/14) DETOXIFICATION SERVICES FOR SUBSTANCE ABUSE TREATMENT (05/03/18) GROUP PSYCHOTHERAPY (11/02/17) INDIV PSYCHOTHERAPY FOR SUBSTANCE ABUSE TREATMENT, SUPPORT (05/03/18) INDIV PSYCHOTHERAPY FOR SUBSTANCE ABUSE, COGNITIV BEHAVIORAL (05/03/18) INDIV PSYCHOTHERAPY FOR SUBSTANCE ABUSE, PSYCHOEDUCATION (05/03/18) MEDICATION MANAGEMENT (10/04/17) Family History: States: Unknown Family Hx - Social History Hx Tobacco Use: No Hx Alcohol Use: Yes Hx Substance Use: Yes - Immunization History Hx Tetanus Toxoid Vaccination: No Hx Influenza Vaccination: No Hx Pneumococcal Vaccination: No Review Of Systems Psych: Positive for: Depression, Other (requesting alcohol detox ). Negative for: Suicidal ideation Physical Exam - Physical Exam Appears: Non-toxic, No Acute Distress Skin: Normal Color, Warm, Dry Head: Atraumatic, Normacephalic Eye(s): bilateral: Normal Inspection Oral Mucosa: Moist Neck: Supple Chest: Symmetrical, No Deformity, No Tenderness Cardiovascular: Rhythm Regular, No Murmur Respiratory: Normal Breath Sounds, No Rales, No Rhonchi, No Wheezing Extremity: Normal ROM, Capillary Refill (less than 2 seconds ) Neurological/Psych: Oriented x3, Normal Speech, Normal Cognition Gait: Steady ED Course And Treatment O2 Sat by Pulse Oximetry: 96 (on RA) Pulse Ox Interpretation: Normal Medical Decision Making Medical Decision Making: Assessment: depression and alcohol use Plan: * labs * crisis evaluation * reassess and disposition Progress: labs ordered. Patient was evaluated by bench worker binding, who informed him there are no detox beds available for him at this time since he was recently discharged. Patient did not verbalize any psychiatric complaints to bench worker binding. Patient is resting comfortably, ambulating with a steady gait, and is showing no signs of distress. 1315: Patient eloped from the ED. Disposition - Disposition Disposition: ELOPEMENT - ER ONLY Disposition Time: 13:15 Condition: STABLE Forms: [facility] (Swedish) - Clinical Impression Clinical Impression: Alcohol abuse - Scribe Statement The provider has reviewed the documentation as recorded by the Scribe (Selma lCark) Provider Attestation: All medical record entries made by the Scribe were at my direction and personally dictated by me. I have reviewed the chart and agree that the record accurately reflects my personal performance of the history, physical exam, medical decision making, and the department course for this patient. I have also personally directed, reviewed, and agree with the discharge instructions and disposition.
== END 2018-05-14 13:44 | disposition left against medical advice (07) ==
LOC: C.ER 12:34
DX: F10.10 Alcohol abuse, uncomplicated (principal); Y90.9 Presence of alcohol in blood, level not specified

== ENCOUNTER 2018-05-15 19:16 | Emergency (ER) | payer OTHER ==
[2018-05-15 19:17] VITALS: BMI 25.8
[2018-05-15 19:50] VITALS: BP 146/74; PULSE 68; RESP 18; TEMP 97.4; O2SAT 97
[2018-05-15] MEDS ORDERED: Naproxen 550 mg Tab PO STA (20:57)
[2018-05-15] MEDS ORDERED: Naproxen 550 mg Tab PO ONE (21:04)
--- NOTE | 2018-05-15 21:22 | C.PDOC ---
History Of Present Illness 57 year old male presents to the ER with chronic left hip pain secondary to prior injury. Patient is also requesting detox from ETOH. Denies other complaints at this time. Time Seen by Provider: 05/15/18 20:26 Chief Complaint (Nursing): Lower Extremity Problem/Injury History Per: Patient History/Exam Limitations: no limitations Onset/Duration Of Symptoms: Days Current Symptoms Are (Timing): Still Present Recent travel outside of the [place]: No Past Medical History Reviewed: Historical Data, Nursing Documentation, Vital Signs Vital Signs: Last Vital Signs Temp 97.4 F L 05/15/18 19:48 Pulse 68 05/15/18 19:48 Resp 18 05/15/18 19:48 BP 146/74 05/15/18 19:48 Pulse Ox 97 05/15/18 19:48 - Medical History PMH: Depression, Chronic Pain Denies: Alzheimer's Disease, Asthma, Atrial Fibrillation, Bronchitis, Cardia Arrhythmia, CHF, COPD, Dementia, Diabetes, Emphysema, Hepatitis, HIV, HTN, Hypercholesterolemia, Migraine, Mitral Valve Prolapse, Multiple Sclerosis, Parkinson's Disease, Peripheral Edema, Pneumonia, Pulmonary Embolism, Chronic Kidney Disease, Seizures, Sexually Transmitted Disease, Sleep Apnea, TIA Surgical History: Denies: Pacemaker - [facility] Procedures ALCOHOL DETOXIFICATION (10/24/14) DETOXIFICATION SERVICES FOR SUBSTANCE ABUSE TREATMENT (05/03/18) GROUP PSYCHOTHERAPY (11/02/17) INDIV PSYCHOTHERAPY FOR SUBSTANCE ABUSE TREATMENT, SUPPORT (05/03/18) INDIV PSYCHOTHERAPY FOR SUBSTANCE ABUSE, COGNITIV BEHAVIORAL (05/03/18) INDIV PSYCHOTHERAPY FOR SUBSTANCE ABUSE, PSYCHOEDUCATION (05/03/18) MEDICATION MANAGEMENT (10/04/17) Family History: States: Unknown Family Hx - Social History Hx Tobacco Use: No Hx Alcohol Use: Yes Hx Substance Use: Yes - Immunization History Hx Tetanus Toxoid Vaccination: No Hx Influenza Vaccination: No Hx Pneumococcal Vaccination: No Review Of Systems Musculoskeletal: Positive for: Other (Left hip pain) Neurological: Negative for: Weakness, Numbness Physical Exam - Physical Exam Appears: Non-toxic, No Acute Distress Skin: Normal Color, Warm, Dry Head: Atraumatic, Normacephalic Eye(s): bilateral: Normal Inspection, PERRL, EOMI Oral Mucosa: Moist Neck: Normal ROM, Supple Chest: Symmetrical, No Tenderness Cardiovascular: Rhythm Regular, No Friction Rub Respiratory: Normal Breath Sounds, No Rales, No Rhonchi, No Stridor, No Wheezing Gastrointestinal/Abdominal: Soft, No Tenderness Back: No CVA Tenderness, No Vertebral Tenderness, No Paraspinal Tenderness Extremity: Normal ROM (x4), No Tenderness, No Deformity, No Swelling, Other (Healed abrasions to bilateral hands) Neurological/Psych: Oriented x3, Normal Speech, Normal Motor, Normal Sensation Gait: Steady ED Course And Treatment O2 Sat by Pulse Oximetry: 97 (Room air) Pulse Ox Interpretation: Normal Medical Decision Making Medical Decision Making: No detox bed available at this time, patient clinically sober at this time, ambulatory with steady gait, naproxen administered for pain, patient clear for discharge. Disposition - Disposition Disposition: HOME/ ROUTINE Disposition Time: 21:19 Condition: GOOD Additional Instructions: Return if worsened. Instructions: Alcohol Use - When Is Drinking a Problem? 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 - Scribe Statement The provider has reviewed the documentation as recorded by the Scribrahul Calix All medical record entries made by the Oliviaibrahul were at my direction and personally dictated by me. I have reviewed the chart and agree that the record accurately reflects my personal performance of the history, physical exam, medical decision making, and the department course for this patient. I have also personally directed, reviewed, and agree with the discharge instructions and disposition.
== END 2018-05-15 21:26 | disposition home or self-care (01) ==
LOC: C.ER 19:16
DX: F10.10 Alcohol abuse, uncomplicated (principal); Z59.0 Homelessness

== ENCOUNTER 2018-05-17 01:34 | Emergency (ER) | payer OTHER | END 2018-05-17 05:25 | disposition home or self-care (01) | LOC: C.ER 01:34 ==

== ENCOUNTER 2018-05-17 20:02 | Emergency (ER) | payer OTHER | END 2018-05-17 23:06 | disposition left against medical advice (07) | LOC: C.ER 20:02 ==

== ENCOUNTER 2018-05-18 20:02 | Inpatient (IN) | payer OTHER | END 2018-05-26 11:40 | disposition home or self-care (01) | LOC: C.ER 20:02 → C.5E 05-19 02:49 ==

== ENCOUNTER 2018-05-27 21:23 | Emergency (ER) | payer OTHER ==
[2018-05-27 21:23] VITALS: BMI 25.8
[2018-05-27 21:29] VITALS: O2SAT 97
[2018-05-27 23:17] LABS: BASO # 0.1 K/uL (0.0-0.2); BASO % 1.3 % (0.0-2.0); EOS # 0.1 K/uL (0.0-0.7); EOS % 1.5 % (0.0-4.0); HEMOGLOBIN 12.8 g/dL (12.0-18.0); LYMPH # 2.6 K/uL (1.0-4.3); LYMPH % 36.9 % (20.0-40.0); MEAN CELL VOLUME 82.9 fL (80.0-94.0); MEAN CORPUSCULAR HEMOGLOBIN 27.4 pg (27.0-31.0); MEAN PLATELET VOLUME 7.8 fL (7.2-11.7); MONO % 14.3 % (0.0-10.0); NEUT # 3.3 K/uL (1.8-7.0); NRBC % 0.2 % (0.0-2.0); RBC 4.67 Mil/uL (4.40-5.90); RED CELL DISTRIBUTION WIDTH 15.7 % (11.5-14.5); WHITE BLOOD COUNT 7.1 K/uL (4.8-10.8)
[2018-05-27 23:27] LABS: ALB/GLOB RATIO 1.6 (1.0-2.1); ALBUMIN 5.1 g/dL (3.5-5.0); ALT/SGPT 82 U/L (21-72); AST/SGOT 85 U/L (17-59); BLOOD UREA NITROGEN 12 mg/dL (9-20); GFR NON-AFRICAN AMERICAN > 60
[2018-05-27 23:34] LABS: URINE BILIRUBIN NEGATIVE (NEGATIVE); URINE BLOOD NEGATIVE (NEGATIVE); URINE CLARITY Clear (Clear); URINE COLOR Straw (YELLOW); URINE GLUCOSE (UA) NORMAL (Normal); URINE LEUKOCYTE ESTERASE NEG Leu/uL (Negative); URINE PROTEIN NEGATIVE (NEGATIVE); URINE UROBILINOGEN NORMAL mg/dL (0.2-1.0)
[2018-05-28 00:04] LABS: BARBITURATES, UR NEGATIVE (NEGATIVE); BENZODIAZEPINES, UR NEGATIVE (NEGATIVE); OPIATES, UR NEGATIVE (NEGATIVE); PHENCYCLIDINE, UR NEGATIVE (NEGATIVE)
--- NOTE | 2018-05-28 00:13 | C.PDOC ---
Time Seen by Provider: 05/27/18 21:28 Chief Complaint (Nursing): Hip Pain Past Medical History Vital Signs: Last Vital Signs Temp 98.2 F 05/27/18 21:25 Pulse 84 05/27/18 21:25 Resp 20 05/27/18 21:25 BP 157/85 H 05/27/18 21:25 Pulse Ox 97 05/27/18 21:25 - Medical History PMH: Depression, Chronic Pain Denies: Alzheimer's Disease, Asthma, Atrial Fibrillation, Bronchitis, Cardia Arrhythmia, CHF, COPD, Dementia, Diabetes, Emphysema, Hepatitis, HIV, HTN, Hypercholesterolemia, Migraine, Mitral Valve Prolapse, Multiple Sclerosis, Parkinson's Disease, Peripheral Edema, Pneumonia, Pulmonary Embolism, Chronic Kidney Disease, Seizures, Sexually Transmitted Disease, Sleep Apnea, TIA Surgical History: Denies: Pacemaker - [facility] Procedures ALCOHOL DETOXIFICATION (10/24/14) DETOXIFICATION SERVICES FOR SUBSTANCE ABUSE TREATMENT (05/03/18) GROUP PSYCHOTHERAPY (11/02/17) INDIV PSYCHOTHERAPY FOR SUBSTANCE ABUSE TREATMENT, SUPPORT (05/03/18) INDIV PSYCHOTHERAPY FOR SUBSTANCE ABUSE, COGNITIV BEHAVIORAL (05/03/18) INDIV PSYCHOTHERAPY FOR SUBSTANCE ABUSE, PSYCHOEDUCATION (05/03/18) MEDICATION MANAGEMENT (10/04/17) Family History: States: Unknown Family Hx - Social History Hx Tobacco Use: No Hx Alcohol Use: Yes (3-4 pts/day) Hx Substance Use: Yes - Immunization History Hx Tetanus Toxoid Vaccination: No Hx Influenza Vaccination: No Hx Pneumococcal Vaccination: No ED Course And Treatment - Laboratory Results Result Diagrams: 05/27/18 23:10 05/27/18 23:10 Lab Results: Total Bilirubin 0.4 mg/dL (0.2-1.3) 05/27/18 23:10 AST 85 U/L (17-59) H D 05/27/18 23:10 ALT 82 U/L (21-72) H D 05/27/18 23:10 Alkaline Phosphatase 72 U/L (38-126) 05/27/18 23:10 Total Protein 8.3 g/dL (6.3-8.3) 05/27/18 23:10 Albumin 5.1 g/dL (3.5-5.0) H 05/27/18 23:10 Globulin 3.2 gm/dL (2.2-3.9) 05/27/18 23:10 Albumin/Globulin Ratio 1.6 (1.0-2.1) 05/27/18 23:10 Urine Color Straw (YELLOW) 05/27/18 23:10 Urine Clarity Clear (Clear) 05/27/18 23:10 Urine pH 5.0 (5.0-8.0) 05/27/18 23:10 Ur Specific [place] 1.009 (1.003-1.030) 05/27/18 23:10 Urine Protein Negative mg/dL (NEGATIVE) 05/27/18 23:10 Urine Glucose (UA) Normal mg/dL (Normal) 05/27/18 23:10 Urine Ketones Negative mg/dL (NEGATIVE) 05/27/18 23:10 Urine Blood Negative (NEGATIVE) 05/27/18 23:10 Urine Nitrate Negative (NEGATIVE) 05/27/18 23:10 Urine Bilirubin Negative (NEGATIVE) 05/27/18 23:10 Urine Urobilinogen Normal mg/dL (0.2-1.0) 05/27/18 23:10 Ur Leukocyte Esterase Neg Ed/uL (Negative) 05/27/18 23:10 Urine WBC (Auto) 1 /hpf (0-5) 05/27/18 23:10 O2 Sat by Pulse Oximetry: 97 Disposition - Disposition
--- NOTE | 2018-05-28 00:17 | C.PDOC ---
History Of Present Illness 57-year-old male presents to the ED requesting alcohol detox. Patient admits to daily drinking and states his last drink was earlier today. Patient also complains of hip pain, which he states is chronic and is no different than usual . He denies suicidal/homicidal ideation at this time. Time Seen by Provider: 05/27/18 21:28 Chief Complaint (Nursing): Hip Pain History Per: Patient History/Exam Limitations: no limitations Onset/Duration Of Symptoms: Hrs Current Symptoms Are (Timing): Still Present Suicide/Self Injury Attempted (Context): None Modifying Factor(s): Alcohol Associated Symptoms: denies: Suicidal Thoughts, Suicidal Plan Involuntary Hold By: None Recent travel outside of the [place]: No Additional History Per: Patient Past Medical History Reviewed: Historical Data, Nursing Documentation, Vital Signs Vital Signs: Last Vital Signs Temp 98.2 F 05/27/18 21:25 Pulse 84 05/27/18 21:25 Resp 20 05/27/18 21:25 BP 157/85 H 05/27/18 21:25 Pulse Ox 97 05/27/18 21:25 - Medical History PMH: Depression, Chronic Pain Denies: Alzheimer's Disease, Asthma, Atrial Fibrillation, Bronchitis, Cardia Arrhythmia, CHF, COPD, Dementia, Diabetes, Emphysema, Hepatitis, HIV, HTN, Hypercholesterolemia, Migraine, Mitral Valve Prolapse, Multiple Sclerosis, Parkinson's Disease, Peripheral Edema, Pneumonia, Pulmonary Embolism, Chronic Kidney Disease, Seizures, Sexually Transmitted Disease, Sleep Apnea, TIA Surgical History: No Surg Hx Denies: Pacemaker - [facility] Procedures ALCOHOL DETOXIFICATION (10/24/14) DETOXIFICATION SERVICES FOR SUBSTANCE ABUSE TREATMENT (05/03/18) GROUP PSYCHOTHERAPY (11/02/17) INDIV PSYCHOTHERAPY FOR SUBSTANCE ABUSE TREATMENT, SUPPORT (05/03/18) INDIV PSYCHOTHERAPY FOR SUBSTANCE ABUSE, COGNITIV BEHAVIORAL (05/03/18) INDIV PSYCHOTHERAPY FOR SUBSTANCE ABUSE, PSYCHOEDUCATION (05/03/18) MEDICATION MANAGEMENT (10/04/17) Family History: States: Unknown Family Hx - Social History Hx Tobacco Use: No Hx Alcohol Use: Yes (3-4 pts/day) Hx Substance Use: Yes - Immunization History Hx Tetanus Toxoid Vaccination: No Hx Influenza Vaccination: No Hx Pneumococcal Vaccination: No Review Of Systems Constitutional: Negative for: Fever, Chills, Weakness Cardiovascular: Negative for: Chest Pain Respiratory: Negative for: Cough, Shortness of Breath Gastrointestinal: Negative for: Nausea, Vomiting Musculoskeletal: Negative for: Back Pain Psych: Positive for: Other (alcohol detox ). Negative for: Suicidal ideation Physical Exam - Physical Exam Appears: Non-toxic, No Acute Distress, Other (no obvious signs of trauma ) Head: Atraumatic Chest: Symmetrical, No Deformity Respiratory: Other (normal inspiratory and expiratory flow) Gastrointestinal/Abdominal: Soft Extremity: Normal ROM, Other (atraumatic ) Neurological/Psych: Other (easily arousable, responsive to voice and painful stimuli ) ED Course And Treatment - Laboratory Results Result Diagrams: 05/27/18 23:10 05/27/18 23:10 Lab Results: Total Bilirubin 0.4 mg/dL (0.2-1.3) 05/27/18 23:10 AST 85 U/L (17-59) H D 05/27/18 23:10 ALT 82 U/L (21-72) H D 05/27/18 23:10 Alkaline Phosphatase 72 U/L (38-126) 05/27/18 23:10 Total Protein 8.3 g/dL (6.3-8.3) 05/27/18 23:10 Albumin 5.1 g/dL (3.5-5.0) H 05/27/18 23:10 Globulin 3.2 gm/dL (2.2-3.9) 05/27/18 23:10 Albumin/Globulin Ratio 1.6 (1.0-2.1) 05/27/18 23:10 Urine Color Straw (YELLOW) 05/27/18 23:10 Urine Clarity Clear (Clear) 05/27/18 23:10 Urine pH 5.0 (5.0-8.0) 05/27/18 23:10 Ur Specific [place] 1.009 (1.003-1.030) 05/27/18 23:10 Urine Protein Negative mg/dL (NEGATIVE) 05/27/18 23:10 Urine Glucose (UA) Normal mg/dL (Normal) 05/27/18 23:10 Urine Ketones Negative mg/dL (NEGATIVE) 05/27/18 23:10 Urine Blood Negative (NEGATIVE) 05/27/18 23:10 Urine Nitrate Negative (NEGATIVE) 05/27/18 23:10 Urine Bilirubin Negative (NEGATIVE) 05/27/18 23:10 Urine Urobilinogen Normal mg/dL (0.2-1.0) 05/27/18 23:10 Ur Leukocyte Esterase Neg Ed/uL (Negative) 05/27/18 23:10 Urine WBC (Auto) 1 /hpf (0-5) 05/27/18 23:10 O2 Sat by Pulse Oximetry: 97 (on RA) Pulse Ox Interpretation: Normal Medical Decision Making Medical Decision Making: Progress: Bloodwork and urinalysis ordered and reviewed. Will discuss case with table worker and inquire about detox bed availability. 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 - Scribe Statement The provider has reviewed the documentation as recorded by the Scribe (Selma Clark) All medical record entries made by the Scribe were at my direction and personally dictated by me. I have reviewed the chart and agree that the record accurately reflects my personal performance of the history, physical exam, medical decision making, and the department course for this patient. I have also personally directed, reviewed, and agree with the discharge instructions and disposition.
[2018-05-28 05:21] VITALS: BP 139/75; PULSE 82; RESP 17; TEMP 98.1
== END 2018-05-28 05:51 | disposition home or self-care (01) ==
LOC: C.ER 21:23
DX: F10.20 Alcohol dependence, uncomplicated (principal); Y90.8 Blood alcohol level of 240 mg/100 ml or more; G89.29 Other chronic pain; M25.552 Pain in left hip

== ENCOUNTER 2018-06-01 21:40 | Emergency (ER) | payer OTHER ==
[2018-06-01 21:40] VITALS: BMI 25.8
[2018-06-01 22:01] VITALS: BP 137/85; PULSE 87; RESP 20; TEMP 98.3; O2SAT 96
--- NOTE | 2018-06-01 22:26 | C.PDOC ---
History Of Present Illness 57 year old male presents to the emergency department with alcohol intoxication. Patient admits to drinking alcohol tonight. Patient also reports chronic left hip pain, which he was most recently evaluated for on 05-27-18. Patient has multiple prior presentations for the same complaints. Time Seen by Provider: 06/01/18 22:20 Chief Complaint (Nursing): Lower Extremity Problem/Injury History Per: Patient History/Exam Limitations: no limitations Onset/Duration Of Symptoms: Hrs Current Symptoms Are (Timing): Still Present - Hip Description Of Injury: Other (chronic) Past Medical History Reviewed: Historical Data, Nursing Documentation, Vital Signs Vital Signs: Last Vital Signs Temp 98.3 F 06/01/18 21:53 Pulse 87 06/01/18 21:53 Resp 20 06/01/18 21:53 BP 137/85 06/01/18 21:53 Pulse Ox 96 06/01/18 21:53 - Medical History PMH: Depression, Chronic Pain Denies: Alzheimer's Disease, Asthma, Atrial Fibrillation, Bronchitis, Cardia Arrhythmia, CHF, COPD, Dementia, Diabetes, Emphysema, Hepatitis, HIV, HTN, Hypercholesterolemia, Migraine, Mitral Valve Prolapse, Multiple Sclerosis, Parkinson's Disease, Peripheral Edema, Pneumonia, Pulmonary Embolism, Chronic Kidney Disease, Seizures, Sexually Transmitted Disease, Sleep Apnea, TIA Surgical History: No Surg Hx Denies: Pacemaker - [facility] Procedures ALCOHOL DETOXIFICATION (10/24/14) DETOXIFICATION SERVICES FOR SUBSTANCE ABUSE TREATMENT (05/03/18) GROUP PSYCHOTHERAPY (11/02/17) INDIV PSYCHOTHERAPY FOR SUBSTANCE ABUSE TREATMENT, SUPPORT (05/03/18) INDIV PSYCHOTHERAPY FOR SUBSTANCE ABUSE, COGNITIV BEHAVIORAL (05/03/18) INDIV PSYCHOTHERAPY FOR SUBSTANCE ABUSE, PSYCHOEDUCATION (05/03/18) MEDICATION MANAGEMENT (10/04/17) Family History: States: No Known Family Hx - Social History Hx Tobacco Use: No Hx Alcohol Use: Yes (3-4 pts/day) Hx Substance Use: Yes - Immunization History Hx Tetanus Toxoid Vaccination: No Hx Influenza Vaccination: No Hx Pneumococcal Vaccination: No Review Of Systems Except As Marked, All Systems Reviewed And Found Negative. Constitutional: Negative for: Fever, Chills Cardiovascular: Negative for: Chest Pain Respiratory: Negative for: Cough, Shortness of Breath Gastrointestinal: Negative for: Nausea, Vomiting, Abdominal Pain, Diarrhea Musculoskeletal: Positive for: Leg Pain (left hip) Neurological: Positive for: Other (intoxication) Physical Exam - Physical Exam Appears: Non-toxic, No Acute Distress, Agitated (argumentative), Other Skin: Normal Color, Warm, Dry Head: Atraumatic, Normacephalic Eye(s): bilateral: Normal Inspection, PERRL, EOMI Nose: Normal Oral Mucosa: Moist, Other (alcohol on breath) Neck: Normal, Supple Chest: Symmetrical, No Tenderness Cardiovascular: Rhythm Regular, No Murmur Respiratory: Normal Breath Sounds, No Rales, No Rhonchi, No Wheezing Gastrointestinal/Abdominal: Soft, No Tenderness, No Guarding, No Rebound Extremity: Normal ROM Neurological/Psych: Oriented x3, Normal Speech, Normal Cognition ED Course And Treatment O2 Sat by Pulse Oximetry: 96 (RA) Pulse Ox Interpretation: Normal Medical Decision Making Medical Decision Making: chronic alcohol abuse, chronic hip pain Disposition Doctor Will See Patient In The: Office Counseled Patient/Family Regarding: Studies Performed, Diagnosis - Disposition Referrals: Alcoholics Anonymous [Outside] [email or web address] [facility] [Outside] [facility] [Outside] [facility] [Outside] [employer] [Outside] Disposition: HOME/ ROUTINE Disposition Time: 22:25 Condition: GOOD Additional Instructions: seek AA Seek nightly Residential placement Instructions: Alcohol Use - When Is Drinking a Problem?, Chronic Pain Forms: [employer] (Chilean) - Clinical Impression Clinical Impression: Homelessness, Alcohol abuse, Chronic left hip pain - Scribe Statement The provider has reviewed the documentation as recorded by the Scribe (Donald Kiran) Provider Attestation: All medical record entries made by the Scribe were at my direction and personally dictated by me. I have reviewed the chart and agree that the record accurately reflects my personal performance of the history, physical exam, medical decision making, and the department course for this patient. I have also personally directed, reviewed, and agree with the discharge instructions and disposition.
== END 2018-06-01 22:41 | disposition home or self-care (01) ==
LOC: C.ER 21:40
DX: F10.10 Alcohol abuse, uncomplicated (principal); M25.552 Pain in left hip; G89.29 Other chronic pain; Z59.0 Homelessness

== ENCOUNTER 2018-06-04 19:22 | Emergency (ER) | payer OTHER ==
[2018-06-04 19:22] VITALS: BMI 25.8
--- NOTE | 2018-06-04 20:52 | C.PDOC ---
History Of Present Illness Patient is a 57 year old homeless male who presents to the ED looking for a place to stay. He denies any SI/HI, CP, SOB, or other physical complaints at the present moment. he later reported depression and was seen by thermometer production worker. Time Seen by Provider: 06/04/18 20:27 Chief Complaint (Nursing): Psychiatric Evaluation History Per: Patient History/Exam Limitations: no limitations Modifying Factor(s): Alcohol Associated Symptoms: denies: Suicidal Thoughts, Suicidal Plan, Other (homicidal ideation) Recent travel outside of the [place]: No Additional History Per: Patient Past Medical History Reviewed: Historical Data, Nursing Documentation, Vital Signs Vital Signs: Last Vital Signs Temp 98.9 F 06/04/18 19:45 Pulse 112 H 06/04/18 19:45 Resp 22 06/04/18 19:45 BP 126/76 06/04/18 19:45 Pulse Ox 94 L 06/04/18 19:45 - Medical History PMH: Depression, Chronic Pain Denies: Alzheimer's Disease, Asthma, Atrial Fibrillation, Bronchitis, Cardia Arrhythmia, CHF, COPD, Dementia, Diabetes, Emphysema, Hepatitis, HIV, HTN, Hypercholesterolemia, Migraine, Mitral Valve Prolapse, Multiple Sclerosis, Parkinson's Disease, Peripheral Edema, Pneumonia, Pulmonary Embolism, Chronic Kidney Disease, Seizures, Sexually Transmitted Disease, Sleep Apnea, TIA Surgical History: No Surg Hx Denies: Pacemaker - [facility] Procedures ALCOHOL DETOXIFICATION (10/24/14) DETOXIFICATION SERVICES FOR SUBSTANCE ABUSE TREATMENT (05/03/18) GROUP PSYCHOTHERAPY (11/02/17) INDIV PSYCHOTHERAPY FOR SUBSTANCE ABUSE TREATMENT, SUPPORT (05/03/18) INDIV PSYCHOTHERAPY FOR SUBSTANCE ABUSE, COGNITIV BEHAVIORAL (05/03/18) INDIV PSYCHOTHERAPY FOR SUBSTANCE ABUSE, PSYCHOEDUCATION (05/03/18) MEDICATION MANAGEMENT (10/04/17) Family History: States: Unknown Family Hx - Social History Hx Tobacco Use: No Hx Alcohol Use: Yes (3-4 pts/day) Hx Substance Use: Yes - Immunization History Hx Tetanus Toxoid Vaccination: No Hx Influenza Vaccination: No Hx Pneumococcal Vaccination: No Review Of Systems Except As Marked, All Systems Reviewed And Found Negative. Cardiovascular: Negative for: Chest Pain Respiratory: Negative for: Shortness of Breath Psych: Negative for: Suicidal ideation, Other (homicidal ideation) Physical Exam - Physical Exam Appears: Non-toxic, No Acute Distress Skin: Normal Color, Warm, Dry Head: Atraumatic, Normacephalic Oral Mucosa: Moist Neck: Supple Chest: Symmetrical Cardiovascular: Rhythm Regular Respiratory: Normal Breath Sounds Gastrointestinal/Abdominal: Soft Neurological/Psych: Oriented x3 ED Course And Treatment - Laboratory Results Result Diagrams: 06/04/18 22:33 06/04/18 22:33 O2 Sat by Pulse Oximetry: 94 (on RA) Medical Decision Making Medical Decision Makin: Patient has been medically cleared. pt observed overnight in nad. stable for dc. cleared by crisis Disposition - Disposition Disposition: HOME/ ROUTINE Disposition Time: 05:00 Condition: STABLE Instructions: Depression, Alcohol Abuse and Alcoholism (DC) Forms: [employer] (Sri Lankan) - Clinical Impression Clinical Impression: Alcohol abuse, Homelessness, Depression - Scribe Statement The provider has reviewed the documentation as recorded by the Oliviaibrahul James All medical record entries made by the Scribe were at my direction and personally dictated by me. I have reviewed the chart and agree that the record accurately reflects my personal performance of the history, physical exam, medical decision making, and the department course for this patient. I have also personally directed, reviewed, and agree with the discharge instructions and disposition.
[2018-06-04 22:43] LABS: BASO # 0.2 K/uL (0.0-0.2); EOS # 0.1 K/uL (0.0-0.7); EOS % 2.2 % (0.0-4.0); HEMOGLOBIN 11.6 g/dL (12.0-18.0); LYMPH % 34.1 % (20.0-40.0); MEAN CELL VOLUME 80.6 fL (80.0-94.0); MEAN CORPUSCULAR HEMOGLOBIN 25.9 pg (27.0-31.0); MEAN CORPUSCULAR HGB CONC 32.1 g/dL (33.0-37.0); MEAN PLATELET VOLUME 7.8 fL (7.2-11.7); MONO # 0.5 K/uL (0.0-0.8); MONO % 8.9 % (0.0-10.0); NEUT # 3.1 K/uL (1.8-7.0); NEUT % 51.8 % (50.0-75.0); NRBC % 0.1 % (0.0-2.0); RBC 4.5 Mil/uL (4.40-5.90); RED CELL DISTRIBUTION WIDTH 15.1 % (11.5-14.5); WHITE BLOOD COUNT 5.9 K/uL (4.8-10.8)
[2018-06-04 22:57] LABS: ALB/GLOB RATIO 1.5 (1.0-2.1); ALBUMIN 4.2 g/dL (3.5-5.0); ALT/SGPT 35 U/L (21-72); AST/SGOT 70 U/L (17-59); BLOOD UREA NITROGEN 12 mg/dL (9-20); CALCIUM 9.1 mg/dl (8.6-10.4); GFR NON-AFRICAN AMERICAN > 60
[2018-06-04 23:40] LABS: URINE BILIRUBIN NEGATIVE (NEGATIVE); URINE BLOOD NEGATIVE (NEGATIVE); URINE CLARITY Clear (Clear); URINE COLOR Straw (YELLOW); URINE GLUCOSE (UA) NORMAL (Normal); URINE LEUKOCYTE ESTERASE NEG Leu/uL (Negative); URINE PROTEIN NEGATIVE (NEGATIVE); URINE UROBILINOGEN NORMAL mg/dL (0.2-1.0)
[2018-06-04 23:48] LABS: BARBITURATES, UR NEGATIVE (NEGATIVE); BENZODIAZEPINES, UR NEGATIVE (NEGATIVE); OPIATES, UR NEGATIVE (NEGATIVE); PHENCYCLIDINE, UR NEGATIVE (NEGATIVE)
[2018-06-05 03:06] VITALS: RESP 16
[2018-06-05 05:40] VITALS: BP 122/72; PULSE 81; TEMP 98.4
[2018-06-05 06:48] VITALS: O2SAT 94
== END 2018-06-05 05:53 | disposition home or self-care (01) ==
LOC: C.ER 19:22
DX: F10.10 Alcohol abuse, uncomplicated (principal); Y90.8 Blood alcohol level of 240 mg/100 ml or more; F32.9 Major depressive disorder, single episode, unspecified; Z59.0 Homelessness

== ENCOUNTER 2018-06-05 23:52 | Emergency (ER) | payer OTHER ==
[2018-06-05 23:52] VITALS: BMI 25.8
[2018-06-06 05:18] VITALS: BP 148/77; PULSE 82; RESP 18; TEMP 97.9; O2SAT 98
--- NOTE | 2018-06-17 14:05 | C.PDOC ---
History Of Present Illness 57 yo male, in er, for etoh abuse. no other complaints. nod etox bed avail. well known to er. Time Seen by Provider: 06/06/18 00:49 Chief Complaint (Nursing): Substance Abuse Past Medical History Reviewed: Historical Data, Nursing Documentation, Vital Signs Vital Signs: Last Vital Signs Temp 97.9 F 06/06/18 05:17 Pulse 82 06/06/18 05:17 Resp 18 06/06/18 05:17 BP 148/77 06/06/18 05:17 Pulse Ox 98 06/06/18 05:17 - Medical History PMH: Depression, Chronic Pain Denies: Alzheimer's Disease, Asthma, Atrial Fibrillation, Bronchitis, Cardia Arrhythmia, CHF, COPD, Dementia, Diabetes, Emphysema, Hepatitis, HIV, HTN, Hypercholesterolemia, Migraine, Mitral Valve Prolapse, Multiple Sclerosis, Parkinson's Disease, Peripheral Edema, Pneumonia, Pulmonary Embolism, Chronic Kidney Disease, Seizures, Sexually Transmitted Disease, Sleep Apnea, TIA Surgical History: Denies: Pacemaker - [facility] Procedures ALCOHOL DETOXIFICATION (10/24/14) DETOXIFICATION SERVICES FOR SUBSTANCE ABUSE TREATMENT (05/03/18) GROUP PSYCHOTHERAPY (11/02/17) INDIV PSYCHOTHERAPY FOR SUBSTANCE ABUSE TREATMENT, SUPPORT (05/03/18) INDIV PSYCHOTHERAPY FOR SUBSTANCE ABUSE, COGNITIV BEHAVIORAL (05/03/18) INDIV PSYCHOTHERAPY FOR SUBSTANCE ABUSE, PSYCHOEDUCATION (05/03/18) MEDICATION MANAGEMENT (10/04/17) Family History: States: Unknown Family Hx - Social History Hx Tobacco Use: No Hx Alcohol Use: Yes (3-4 pts/day) Hx Substance Use: Yes - Immunization History Hx Tetanus Toxoid Vaccination: No Hx Influenza Vaccination: Yes Hx Pneumococcal Vaccination: Yes Physical Exam - Physical Exam Appears: Well, No Acute Distress Skin: Normal Color, Warm, Dry Eye(s): bilateral: Normal Inspection, PERRL, EOMI Nose: Normal Throat: Normal Neck: Normal Cardiovascular: Rhythm Regular Respiratory: Normal Breath Sounds Gastrointestinal/Abdominal: Normal Exam Back: Normal Inspection Extremity: Normal ROM ED Course And Treatment O2 Sat by Pulse Oximetry: 98 Medical Decision Making Medical Decision Makin06/05/18 - well known to er, no complaints. Disposition - Disposition Disposition: HOME/ ROUTINE Disposition Time: 14:05 Condition: STABLE Forms: [facility] (Mauritian) - Clinical Impression Clinical Impression: Alcohol abuse, Homelessness
== END 2018-06-06 05:42 | disposition home or self-care (01) ==
LOC: C.ER 23:52
DX: F10.10 Alcohol abuse, uncomplicated (principal); Z59.0 Homelessness

== ENCOUNTER 2018-06-06 20:41 | Emergency (ER) | payer OTHER ==
[2018-06-06 20:41] VITALS: BMI 25.8
--- NOTE | 2018-06-06 23:35 | C.PDOC ---
History Of Present Illness 57 year old male brought to the ED by EMS for alcohol intoxication. Patient admits to drinking alcohol today and is requesting alcohol detox. Patient denies SI/HI, hallucinations, or physical complaints at this time. Time Seen by Provider: 06/06/18 20:58 Chief Complaint (Nursing): Substance Abuse History Per: Patient, EMS History/Exam Limitations: intoxication Onset/Duration Of Symptoms: Hrs Current Symptoms Are (Timing): Still Present Suicide/Self Injury Attempted (Context): None Modifying Factor(s): Alcohol Associated Symptoms: denies: Depression, Suicidal Thoughts, Suicidal Plan Recent travel outside of the [place]: No Additional History Per: Patient, EMS Past Medical History Reviewed: Historical Data, Nursing Documentation, Vital Signs Vital Signs: Last Vital Signs Temp 97.8 F 06/06/18 21:36 Pulse 84 06/06/18 21:36 Resp 20 06/06/18 21:36 BP 143/82 06/06/18 21:36 Pulse Ox 96 06/06/18 21:36 - Medical History PMH: Depression, Chronic Pain Surgical History: No Surg Hx - [facility] Procedures ALCOHOL DETOXIFICATION (10/24/14) DETOXIFICATION SERVICES FOR SUBSTANCE ABUSE TREATMENT (05/03/18) GROUP PSYCHOTHERAPY (11/02/17) INDIV PSYCHOTHERAPY FOR SUBSTANCE ABUSE TREATMENT, SUPPORT (05/03/18) INDIV PSYCHOTHERAPY FOR SUBSTANCE ABUSE, COGNITIV BEHAVIORAL (05/03/18) INDIV PSYCHOTHERAPY FOR SUBSTANCE ABUSE, PSYCHOEDUCATION (05/03/18) MEDICATION MANAGEMENT (10/04/17) Family History: States: No Known Family Hx - Social History Hx Tobacco Use: No Hx Alcohol Use: Yes (3-4 pts/day) Hx Substance Use: Yes - Immunization History Hx Tetanus Toxoid Vaccination: No Hx Influenza Vaccination: No Hx Pneumococcal Vaccination: No Review Of Systems Constitutional: Negative for: Fever, Chills Cardiovascular: Negative for: Chest Pain Respiratory: Negative for: Shortness of Breath Gastrointestinal: Negative for: Nausea, Vomiting, Abdominal Pain Skin: Negative for: Rash Neurological: Negative for: Weakness, Numbness Psych: Positive for: Other (alco). Negative for: Depression, Suicidal ideation Physical Exam - Physical Exam Appears: Well, Non-toxic, Unkempt, Other (Intoxicated) Skin: Normal Color, Warm, Dry Head: Atraumatic, Normacephalic Eye(s): bilateral: Normal Inspection Oral Mucosa: Moist Neck: Supple Cardiovascular: Rhythm Regular Respiratory: Normal Breath Sounds, No Rales, No Rhonchi, No Wheezing Gastrointestinal/Abdominal: Normal Exam, Bowel Sounds, Soft, No Tenderness Extremity: Normal ROM, No Tenderness Neurological/Psych: Other (intoxicated, able to follow commands, moving all 4 extremities ) Gait: Steady ED Course And Treatment O2 Sat by Pulse Oximetry: 96 (ON RA) Pulse Ox Interpretation: Normal Progress Note: Patient pending sobriety. Disposition - Disposition Disposition Time: 01:00 Condition: STABLE Forms: [employer] (Maori) - Clinical Impression Clinical Impression: Alcohol intoxication - Scribe Statement The provider has reviewed the documentation as recorded by the Scribe Harshil Daley All medical record entries made by the Scribe were at my direction and personally dictated by me. I have reviewed the chart and agree that the record accurately reflects my personal performance of the history, physical exam, medical decision making, and the department course for this patient. I have also personally directed, reviewed, and agree with the discharge instructions and disposition.
[2018-06-07 06:06] VITALS: O2SAT 97
[2018-06-07 06:08] VITALS: BP 130/76; PULSE 76; RESP 18; TEMP 98.1
== END 2018-06-07 06:06 | disposition home or self-care (01) ==
LOC: C.ER 20:41
DX: F10.129 Alcohol abuse with intoxication, unspecified (principal); Y90.9 Presence of alcohol in blood, level not specified

== ENCOUNTER 2018-06-22 00:27 | Emergency (ER) | payer OTHER ==
[2018-06-22 00:27] VITALS: BMI 27.2
[2018-06-22 00:39] VITALS: O2SAT 97
--- NOTE | 2018-06-22 02:13 | C.PDOC ---
History Of Present Illness 57 year old male with Hx of chronic ETOH abuse and chronic left hip pain with left hip replacement states today he fell onto his left hip and since then is has been hurting more than usual. Denies other injury. Admits to ETOH use today. Time Seen by Provider: 06/22/18 00:40 Chief Complaint (Nursing): Lower Extremity Problem/Injury History Per: Patient History/Exam Limitations: no limitations Onset/Duration Of Symptoms: Hrs Current Symptoms Are (Timing): Still Present Recent travel outside of the [place]: No - Hip Description Of Injury: Fell Past Medical History Reviewed: Historical Data, Nursing Documentation, Vital Signs Vital Signs: Last Vital Signs Temp 97.4 F L 06/22/18 00:37 Pulse 83 06/22/18 00:37 Resp 16 06/22/18 00:37 BP 154/88 H 06/22/18 00:37 Pulse Ox 97 06/22/18 00:37 - Medical History PMH: Depression, Chronic Pain (left hip) Denies: Alzheimer's Disease, Asthma, Atrial Fibrillation, Bronchitis, Cardia Arrhythmia, CHF, COPD, Dementia, Diabetes, Emphysema, Hepatitis, HIV, HTN, Hypercholesterolemia, Migraine, Mitral Valve Prolapse, Multiple Sclerosis, Parkinson's Disease, Peripheral Edema, Pneumonia, Pulmonary Embolism, Chronic Kidney Disease, Seizures, Sexually Transmitted Disease, Sleep Apnea, TIA Surgical History: Denies: Pacemaker - [facility] Procedures ALCOHOL DETOXIFICATION (10/24/14) DETOXIFICATION SERVICES FOR SUBSTANCE ABUSE TREATMENT (05/03/18) GROUP PSYCHOTHERAPY (06/07/18) INDIV PSYCHOTHERAPY FOR SUBSTANCE ABUSE TREATMENT, SUPPORT (05/03/18) INDIV PSYCHOTHERAPY FOR SUBSTANCE ABUSE, COGNITIV BEHAVIORAL (05/03/18) INDIV PSYCHOTHERAPY FOR SUBSTANCE ABUSE, MOTIVATION ENHANCE (06/07/18) INDIV PSYCHOTHERAPY FOR SUBSTANCE ABUSE, PSYCHOEDUCATION (05/03/18) INDIVIDUAL PSYCHOTHERAPY, SUPPORTIVE (06/07/18) MEDICATION MANAGEMENT (10/04/17) Family History: States: Unknown Family Hx - Social History Hx Tobacco Use: No Hx Alcohol Use: Yes Hx Substance Use: No - Immunization History Hx Tetanus Toxoid Vaccination: No Hx Influenza Vaccination: No Hx Pneumococcal Vaccination: No Review Of Systems Constitutional: Negative for: Fever, Chills Cardiovascular: Negative for: Chest Pain, Palpitations Respiratory: Negative for: Cough, Shortness of Breath Gastrointestinal: Negative for: Nausea, Vomiting Genitourinary: Negative for: Dysuria, Hematuria Musculoskeletal: Positive for: Other (Left hip pain) Skin: Negative for: Rash Neurological: Negative for: Weakness, Numbness Physical Exam - Physical Exam Appears: Non-toxic, Other (Intoxicated, Disheveled) Skin: Normal Color, Warm, No Rash Head: Atraumatic, Normacephalic Oral Mucosa: Moist Neck: Normal, Supple Chest: Symmetrical Cardiovascular: Rhythm Regular Respiratory: Normal Breath Sounds, No Rales, No Rhonchi, No Wheezing Gastrointestinal/Abdominal: Soft, No Tenderness Back: No Vertebral Tenderness, No Paraspinal Tenderness Extremity: Other (Left hip tenderness, ROM of left leg decreased secondary to pain) Pulses: Left Dorsalis Pedis: Normal, Right Dorsalis Pedis: Normal Neurological/Psych: Oriented x3, Normal Speech, Normal Motor, Normal Sensation Gait: Steady ED Course And Treatment O2 Sat by Pulse Oximetry: 97 (room air) Pulse Ox Interpretation: Normal - Other Rad L hip X-Ray: Interpreted by Me Interpretation: L hip prosthesiswith no acute fx or dislocation noted. Medical Decision Making Medical Decision Making: Plan: * Motrin 600mg PO * Left hip x-ray No acute findings on L hip xray. Patient has history of chronic L hip pain. Stable for discharge. Disposition - Disposition Disposition: HOME/ ROUTINE Disposition Time: 05:00 Condition: STABLE Additional Instructions: RENARD MARTIN, thank you for letting us take care of you today. Your provider was Mgada Duong MD and you were treated for SUBSTANCE ABUSE. The emergency medical care you received today was directed at your acute symptoms. If you were prescribed any medication, please fill it and take as directed. It may take several days for your symptoms to resolve. Return to the Emergency Department if your symptoms worsen, do not improve, or if you have any other problems. Please contact your doctor or call one of the physicians/clinics you have been referred to that are listed on the Patient Visit Information form that is included in your discharge packet. Bring any paperwork you were given at discharge with you along with any medications you are taking to your follow up visit. Our treatment cannot replace ongoing medical care by a primary care provider outside of the emergency department. Thank you for allowing the [facility] team to be part of your care today. If you had an X-Ray or CT scan: A Radiologist will review the ED reading if any change in treatment is needed we will contact you. If you had a blood, urine, or wound culture: It will take several days for the results, if any change in treatment is needed we will contact you. If you had an STI test: It will take 48 hours for the results. Please call after 1 week if you have not heard back. Instructions: Hip Pain (DC), Alcohol Abuse and Alcoholism (DC) Forms: [facility] (Greenlandic) - Clinical Impression Clinical Impression: Chronic left hip pain, Alcohol intoxication - Scribe Statement The provider has reviewed the documentation as recorded by the Scribe Hima Calix All medical record entries made by the Scribe were at my direction and personally dictated by me. I have reviewed the chart and agree that the record accurately reflects my personal performance of the history, physical exam, medical decision making, and the department course for this patient. I have also personally directed, reviewed, and agree with the discharge instructions and disposition.
[2018-06-22 05:05] VITALS: BP 130/80; PULSE 88; RESP 14; TEMP 97
--- NOTE | 2018-06-22 10:44 | RAD ---
PROCEDURE: Left Hip X-ray Radiographs. HISTORY: Chronic left hip pain, states fell today on hip COMPARISON: None. TECHNIQUE: 2 views obtained. FINDINGS: BONES: The pelvic ring is intact. There is no acute displaced fracture or bone destruction. Bone alignment is normal JOINTS: There is severe degenerative osteoarthrosis in the right hip joint with severe reduced joint space and marginal spurring. Status post total left hip arthroplasty. No evidence of hardware complications. SOFT TISSUES: Normal. OTHER FINDINGS: None. IMPRESSION: No acute displaced fracture or dislocation. Please note occult fractures cannot be excluded on plain radiographs. If there is a persistent clinical concern, an MRI of the hip may be performed for further evaluation. Severe degenerative osteoarthrosis in the right hip joint.
== END 2018-06-22 05:05 | disposition home or self-care (01) ==
LOC: C.ER 00:27
DX: G89.29 Other chronic pain (principal); M25.552 Pain in left hip; F10.129 Alcohol abuse with intoxication, unspecified; Y90.9 Presence of alcohol in blood, level not specified

== ENCOUNTER 2018-06-26 20:24 | Emergency (ER) | payer OTHER ==
[2018-06-26 20:24] VITALS: BMI 27.2
--- NOTE | 2018-06-26 22:26 | C.PDOC ---
History Of Present Illness Patient presents for ETOH detox, last drink was [employer]. Denies any physical complaints. Time Seen by Provider: 06/26/18 22:26 Chief Complaint (Nursing): Substance Abuse History Per: Patient History/Exam Limitations: no limitations Onset/Duration Of Symptoms: Hrs Current Symptoms Are (Timing): Still Present Modifying Factor(s): Alcohol Severity: None Pain Scale Rating Of: 0 Associated Symptoms: denies: Depression, Suicidal Thoughts Recent travel outside of the [place]: No Past Medical History Reviewed: Historical Data, Nursing Documentation, Vital Signs Vital Signs: Last Vital Signs Temp 97.5 F L 06/26/18 20:50 Pulse 111 H 06/26/18 20:50 Resp 16 06/26/18 20:50 BP 152/90 H 06/26/18 20:50 Pulse Ox 98 06/26/18 20:50 - Medical History PMH: Depression, Chronic Pain (left hip) Denies: Alzheimer's Disease, Asthma, Atrial Fibrillation, Bronchitis, Cardia Arrhythmia, CHF, COPD, Dementia, Diabetes, Emphysema, Hepatitis, HIV, HTN, Hypercholesterolemia, Migraine, Mitral Valve Prolapse, Multiple Sclerosis, Parkinson's Disease, Peripheral Edema, Pneumonia, Pulmonary Embolism, Chronic Kidney Disease, Seizures, Sexually Transmitted Disease, Sleep Apnea, TIA Surgical History: Denies: Pacemaker - [facility] Procedures ALCOHOL DETOXIFICATION (10/24/14) DETOXIFICATION SERVICES FOR SUBSTANCE ABUSE TREATMENT (05/03/18) GROUP PSYCHOTHERAPY (06/07/18) INDIV PSYCHOTHERAPY FOR SUBSTANCE ABUSE TREATMENT, SUPPORT (05/03/18) INDIV PSYCHOTHERAPY FOR SUBSTANCE ABUSE, COGNITIV BEHAVIORAL (05/03/18) INDIV PSYCHOTHERAPY FOR SUBSTANCE ABUSE, MOTIVATION ENHANCE (06/07/18) INDIV PSYCHOTHERAPY FOR SUBSTANCE ABUSE, PSYCHOEDUCATION (05/03/18) INDIVIDUAL PSYCHOTHERAPY, SUPPORTIVE (06/07/18) MEDICATION MANAGEMENT (10/04/17) Family History: States: No Known Family Hx - Social History Hx Tobacco Use: No Hx Alcohol Use: Yes Hx Substance Use: No - Immunization History Hx Tetanus Toxoid Vaccination: No Hx Influenza Vaccination: No Hx Pneumococcal Vaccination: No Review Of Systems Constitutional: Negative for: Fever, Chills Cardiovascular: Negative for: Chest Pain, Palpitations Respiratory: Negative for: Cough, Shortness of Breath Gastrointestinal: Negative for: Nausea, Vomiting Neurological: Negative for: Weakness, Numbness Physical Exam - Physical Exam Appears: Non-toxic Skin: Warm, Dry Head: Normacephalic Oral Mucosa: Moist Chest: Symmetrical, No Tenderness Cardiovascular: Rhythm Regular Respiratory: No Rales, No Rhonchi, No Wheezing Gastrointestinal/Abdominal: Soft, No Tenderness Neurological/Psych: Oriented x3 ED Course And Treatment - Laboratory Results Result Diagrams: 06/26/18 22:54 06/26/18 22:54 O2 Sat by Pulse Oximetry: 98 (Room air) Pulse Ox Interpretation: Normal Progress Note: Blood work and urinalysis ordered. Crisis notified. Dr owens cleared the pt for discharge to home Reevaluation Time: 05:09 Reassessment Condition: Improved Disposition Counseled Patient/Family Regarding: Studies Performed, Diagnosis, Need For Followup - Disposition Disposition: HOME/ ROUTINE Disposition Time: 22:26 Condition: FAIR Instructions: Alcohol Abuse and Alcoholism (DC) Forms: [facility] (Telugu) - Clinical Impression Clinical Impression: Alcohol abuse - Scribe Statement The provider has reviewed the documentation as recorded by the Scribe Hima Calix All medical record entries made by the Oliviaibrahul were at my direction and personally dictated by me. I have reviewed the chart and agree that the record accurately reflects my personal performance of the history, physical exam, medical decision making, and the department course for this patient. I have also personally directed, reviewed, and agree with the discharge instructions and disposition.
[2018-06-26 23:03] LABS: BASO # 0.1 K/uL (0.0-0.2); BASO % 1.3 % (0.0-2.0); EOS # 0.2 K/uL (0.0-0.7); EOS % 2.9 % (0.0-4.0); HEMOGLOBIN 11.8 g/dL (12.0-18.0); LYMPH # 1.8 K/uL (1.0-4.3); LYMPH % 30.4 % (20.0-40.0); MEAN CELL VOLUME 80.4 fL (80.0-94.0); MEAN CORPUSCULAR HEMOGLOBIN 26.2 pg (27.0-31.0); MEAN CORPUSCULAR HGB CONC 32.6 g/dL (33.0-37.0); MEAN PLATELET VOLUME 7.9 fL (7.2-11.7); MONO # 0.7 K/uL (0.0-0.8); MONO % 11.9 % (0.0-10.0); NEUT # 3.1 K/uL (1.8-7.0); NEUT % 53.5 % (50.0-75.0); NRBC % 0.1 % (0.0-2.0); RBC 4.49 Mil/uL (4.40-5.90); RED CELL DISTRIBUTION WIDTH 16.4 % (11.5-14.5); URINE BACTERIA RARE (<OCC); URINE BILIRUBIN NEGATIVE (NEGATIVE); URINE BLOOD NEGATIVE (NEGATIVE); URINE CLARITY Clear (Clear); URINE COLOR Straw (YELLOW); URINE GLUCOSE (UA) NORMAL (Normal); URINE LEUKOCYTE ESTERASE NEG Leu/uL (Negative); URINE PROTEIN NEGATIVE (NEGATIVE); URINE UROBILINOGEN NORMAL mg/dL (0.2-1.0); WHITE BLOOD COUNT 5.8 K/uL (4.8-10.8)
[2018-06-26 23:25] LABS: BARBITURATES, UR NEGATIVE (NEGATIVE); BENZODIAZEPINES, UR NEGATIVE (NEGATIVE); OPIATES, UR NEGATIVE (NEGATIVE); PHENCYCLIDINE, UR NEGATIVE (NEGATIVE)
[2018-06-26 23:26] LABS: ALB/GLOB RATIO 1.3 (1.0-2.1); ALBUMIN 4.4 g/dL (3.5-5.0); ALT/SGPT 25 U/L (21-72); AST/SGOT 78 U/L (17-59); BLOOD UREA NITROGEN 11 mg/dL (9-20); CALCIUM 9.1 mg/dl (8.6-10.4); GFR NON-AFRICAN AMERICAN > 60
[2018-06-26 23:49] VITALS: TEMP 98.8
[2018-06-27 05:08] VITALS: BP 120/70; PULSE 80; RESP 14
[2018-06-27 05:09] VITALS: O2SAT 98
== END 2018-06-27 05:39 | disposition home or self-care (01) ==
LOC: C.ER 20:24
DX: F10.10 Alcohol abuse, uncomplicated (principal); Y90.8 Blood alcohol level of 240 mg/100 ml or more

== ENCOUNTER 2018-07-02 20:37 | Inpatient (IN) | payer OTHER ==
[2018-07-02 20:38] VITALS: BMI 27.2
--- NOTE | 2018-07-02 21:43 | C.PDOC ---
History Of Present Illness Patient presents to the ER stating he has been depressed for a while. Denies SI or HI. Admits to drinking on a regular basis. Time Seen by Provider: 07/02/18 21:43 Chief Complaint (Nursing): Psychiatric Evaluation History Per: Patient History/Exam Limitations: no limitations Onset/Duration Of Symptoms: Hrs Current Symptoms Are (Timing): Still Present Suicide/Self Injury Attempted (Context): None Modifying Factor(s): Alcohol Associated Symptoms: Depression. denies: Suicidal Thoughts, Other (Homicidal ideation) Recent travel outside of the [place]: No Past Medical History Reviewed: Historical Data, Nursing Documentation, Vital Signs Vital Signs: Last Vital Signs Temp 97.8 F 07/02/18 21:15 Pulse 95 H 07/02/18 21:15 Resp 16 07/02/18 21:15 BP 119/81 07/02/18 21:15 Pulse Ox 95 07/02/18 21:15 - Medical History PMH: Depression, Chronic Pain (left hip) Denies: Alzheimer's Disease, Asthma, Atrial Fibrillation, Bronchitis, Cardia Arrhythmia, CHF, COPD, Dementia, Diabetes, Emphysema, Hepatitis, HIV, HTN, Hypercholesterolemia, Migraine, Mitral Valve Prolapse, Multiple Sclerosis, Parkinson's Disease, Peripheral Edema, Pneumonia, Pulmonary Embolism, Chronic Kidney Disease, Seizures, Sexually Transmitted Disease, Sleep Apnea, TIA Surgical History: Denies: Pacemaker - [facility] Procedures ALCOHOL DETOXIFICATION (10/24/14) DETOXIFICATION SERVICES FOR SUBSTANCE ABUSE TREATMENT (05/03/18) GROUP PSYCHOTHERAPY (06/07/18) INDIV PSYCHOTHERAPY FOR SUBSTANCE ABUSE TREATMENT, SUPPORT (05/03/18) INDIV PSYCHOTHERAPY FOR SUBSTANCE ABUSE, COGNITIV BEHAVIORAL (05/03/18) INDIV PSYCHOTHERAPY FOR SUBSTANCE ABUSE, MOTIVATION ENHANCE (06/07/18) INDIV PSYCHOTHERAPY FOR SUBSTANCE ABUSE, PSYCHOEDUCATION (05/03/18) INDIVIDUAL PSYCHOTHERAPY, SUPPORTIVE (06/07/18) MEDICATION MANAGEMENT (10/04/17) Family History: States: Unknown Family Hx - Social History Hx Tobacco Use: No Hx Alcohol Use: Yes Hx Substance Use: No - Immunization History Hx Tetanus Toxoid Vaccination: No Hx Influenza Vaccination: No Hx Pneumococcal Vaccination: No Review Of Systems Constitutional: Negative for: Fever, Chills Cardiovascular: Negative for: Chest Pain, Palpitations Respiratory: Negative for: Cough, Shortness of Breath Gastrointestinal: Negative for: Nausea, Vomiting Neurological: Negative for: Weakness, Numbness Psych: Positive for: Depression. Negative for: Suicidal ideation, Other (Homicidal ideation) Physical Exam - Physical Exam Appears: Non-toxic Skin: Warm, Dry Head: Normacephalic Oral Mucosa: Moist Chest: Symmetrical, No Tenderness Cardiovascular: Rhythm Regular Respiratory: No Rales, No Rhonchi, No Wheezing Gastrointestinal/Abdominal: Soft, No Tenderness Neurological/Psych: Oriented x3 ED Course And Treatment O2 Sat by Pulse Oximetry: 95 (room air) Pulse Ox Interpretation: Normal Progress Note: Spoke with crisis who will evaluate patient. Disposition Discussed With DrAamir: Elida Shea Comment: accepted the pt on his service and took over the care at 11:08 PM Doctor Will See Patient In The: Hospital Counseled Patient/Family Regarding: Studies Performed, Diagnosis - Disposition Disposition: HOSPITALIZED Disposition Time: 21:43 Condition: FAIR Forms: [facility] (Bulgarian) - POA Present On Arrival: None - Clinical Impression Clinical Impression: Major depression - Scribe Statement The provider has reviewed the documentation as recorded by the Scribrahul Calix All medical record entries made by the Scribe were at my direction and personally dictated by me. I have reviewed the chart and agree that the record accurately reflects my personal performance of the history, physical exam, medical decision making, and the department course for this patient. I have also personally directed, reviewed, and agree with the discharge instructions and disposition. Decision To Admit - Pt Status Changed To: Hospital Disposition Of: Inpatient - Admit Certification Admit to Inpatient:: After my assessment, the patient will require hospitalization for at least two midnights. This is because of the severity of symptoms shown, intensity of services needed, and/or the medical risk in this patient being treated as an outpatient. - InPatient: Physician Admission Certification: I certify that this patient requires 2 or more midnights of care for the following reason:: After my assessment, the patient will require hospitalization for at least two midnights. This is because of the severity of symptoms shown, intensity of services needed, and/or the medical risk in this patient being treated as an outpatient. - . Bed Request Type: Psychiatry Admitting Physician: Elida Shea Patient Diagnosis: Major depression
[2018-07-02 23:45] LABS: BASO # 0.1 K/uL (0.0-0.2); BASO % 1.3 % (0.0-2.0); EOS # 0.1 K/uL (0.0-0.7); EOS % 2.5 % (0.0-4.0); HEMOGLOBIN 11.7 g/dL (12.0-18.0); LYMPH # 1.7 K/uL (1.0-4.3); LYMPH % 31.4 % (20.0-40.0); MEAN CELL VOLUME 80.8 fL (80.0-94.0); MEAN CORPUSCULAR HGB CONC 32.1 g/dL (33.0-37.0); MEAN PLATELET VOLUME 7.6 fL (7.2-11.7); MONO # 0.7 K/uL (0.0-0.8); MONO % 12.4 % (0.0-10.0); NEUT # 2.8 K/uL (1.8-7.0); NEUT % 52.4 % (50.0-75.0); NRBC % 0.1 % (0.0-2.0); RBC 4.51 Mil/uL (4.40-5.90); WHITE BLOOD COUNT 5.4 K/uL (4.8-10.8)
[2018-07-02 23:49] LABS: URINE BILIRUBIN NEGATIVE (NEGATIVE); URINE CLARITY Clear (Clear); URINE COLOR Straw (YELLOW); URINE GLUCOSE (UA) NORMAL (Normal); URINE LEUKOCYTE ESTERASE NEG Leu/uL (Negative); URINE PROTEIN NEGATIVE (NEGATIVE); URINE UROBILINOGEN NORMAL mg/dL (0.2-1.0)
[2018-07-02 23:51] LABS: URINE BLOOD NEGATIVE (NEGATIVE)
[2018-07-03 00:15] LABS: BARBITURATES, UR NEGATIVE (NEGATIVE); BENZODIAZEPINES, UR NEGATIVE (NEGATIVE); OPIATES, UR NEGATIVE (NEGATIVE); PHENCYCLIDINE, UR NEGATIVE (NEGATIVE)
[2018-07-03 00:20] LABS: ALB/GLOB RATIO 1.4 (1.0-2.1); ALBUMIN 4.4 g/dL (3.5-5.0); ALT/SGPT 16 U/L (21-72); AST/SGOT 95 U/L (17-59); BLOOD UREA NITROGEN 11 mg/dL (9-20); CALCIUM 8.9 mg/dl (8.6-10.4); GFR NON-AFRICAN AMERICAN > 60
--- NOTE | 2018-07-03 01:42 | PCM.BM ---
<Andrew Chapa - Last Filed: 07/03/18 01:39> Treatment Plan Problems - Problems identified on initial assessmt Medication Nonadherence Date Initiated: 07/03/18 Time Initiated: 00:45 Assessment reference: NA Status: Active Social Isolation Date Initiated: 07/03/18 Time Initiated: 00:45 Assessment reference: NA Status: Active Treatment assets and liabiliti Patient Assests: cooperative, self-reliant, ADL independent, negotiates basic needs Patient Liabilities: live alone (Currently homeless), relationship conflicts (Daughter), substance abuse (Alcohol) - Milieu Protocol Maintain good personal hygiene: daily Encourage regular showers, daily Remind patient to perform daily oral care, daily Assist patient to perform ADL's Conduct patient checks and document Observation sheet: Q15 minutes Maintain personal safety: every shift Educate patient to report safety concerns to staff, every shift Monitor environment for contraband/sharps Medication safety: Monitor for expected outcome, potential side effects: every shift, Assess barriers to learning: every shift, Assess readiness for medication education: every shift <Violet Wills - Last Filed: 07/04/18 12:08> Family Contact Family involvement: Famliy/SO not involved - Goals for Treatment Patient goals for treatment: "I need housing." Discharge/Continuing Care - Education Needs Education Needs: Patient Medication, Patient Coping Skills, Patient Placement options, Patient Community resources - Discharge Discharge Criteria: Tolerates medication w/o severe side effects, No longer exhibiting s/s of withdrawal Discharge to:: [facility] - Treatment Team Participation Discussed with Family/SO: No Was Patient/Family/SO present at Treatment Team Meeting: Yes <Kenyon Funez - Last Filed: 07/04/18 14:50> - Diagnosis (1) Major depressive disorder, recurrent severe without psychotic features Status: Acute Interventions: 07/03/18 17:39 * Assess/adjust medications daily and /or as needed * See patient on an individual basis 7x/week to assess level of manic behaviors and stability * Discuss risks, benefits, side effects and alternatives of medication (2) Alcohol withdrawal Status: Acute Interventions: 07/03/18 17:39 Assess 7x/week regarding severity of withdrawal Educate regarding risks, benefits, side effects and alternatives of medications Use Motivational Interviewing for abstinence Use CBT for relapse prevention Medication management for withdrawal symptoms Encourage medication assisted treatment (3) Alcohol use disorder, severe, dependence Status: Acute Interventions: 07/03/18 17:38 Assess 7x/week regarding severity of withdrawal Educate regarding risks, benefits, side effects and alternatives of medications Use Motivational Interviewing for abstinence Use CBT for relapse prevention Medication management for withdrawal symptoms Encourage medication assisted treatment
[2018-07-03] MEDS: Multiple Vitamins Tab PO SCH (14:30)
--- NOTE | 2018-07-03 17:54 | PCM.PSYCH ---
Initial Psychiatric Evaluation - Initial Psychiatric Evaluation Chief Complaint (in patient's own words): I was depressed and also need help for alcohol drinking. History of Present Illness and Precipitating Events: Patient is a 57 years old, , unemployed, on disability, male with history of depression and alcohol use disorder was admitted due to worsening of depression and withdrawing from alcohol. Patient reported history of depression for last many years, noncompliant with treatment, history of about 9 previous inpatient psychiatric admission. Patient reported worsening of his depression since February 2018 after the of his father in [place]. Patient reported noncompliant with treatment. Patient was admitted at [facility] and April 2017 and May 2017 but noncompliant with treatment after discharge from the hospital, continue drinking alcohol. Patient reported feeling depressed with decreased sleep and appetite. Lost about 15 pounds over the last 3 months. Patient denied any current or past suicidal or homicidal ideations. Denied any suicidal attempts. Reported feeling hopeless and helpless. Denied any manic, anxiety or psychotic symptoms. No history of visiting any psychiatrist. Patient has history of left hip replacement in 2016, currently taking naproxen for pain. Alcohol: Patient reported started drinking alcohol at 14 years of age, increased gradually. Currently he was drinking 3-4 pints of vodka daily. His last drink was yesterday, 4 big cans of beer. His longest period of abstinence was 2 years in the past. He has history of 3 detox Synthroid rehabs in the past. Patient was born in [place], has 4 years of college education. His last job was in 2016. He stopped working after left hip surgery, on disability. Patient is , has 1 grownup daughter who is noting good relation with the patient. Currently he is homeless for last 3 months. Current Medications: Active Medications Generic Name Dose Route Start Last Admin Trade Name Freq PRN Reason Stop Dose Admin Chlordiazepoxide 25 mg 07/03/18 13:22 Librium PO Q4H PRN Alcohol Withdrawal Chlordiazepoxide 25 mg 07/03/18 18:00 07/03/18 17:09 Librium PO 07/07/18 17:59 25 mg Q6 BETSEY Administration Taper Clonidine HCl 0.1 mg 07/03/18 13:22 Catapres PO Q4H PRN Symptoms of alcohol withdrawl Folic Acid 1 mg 07/03/18 13:30 07/03/18 14:30 Folic Acid PO 1 mg DAILY BETSEY Administration Gabapentin 400 mg 07/03/18 14:00 07/03/18 17:09 Neurontin PO 400 mg TID BETSEY Administration Lorazepam 1 mg 07/03/18 01:20 07/03/18 06:29 Ativan PO 1 mg Q6 PRN Administration Symptoms of alcohol withdrawl Multivitamins 1 tab 07/03/18 13:30 07/03/18 14:30 Hexavitamin PO 1 tab DAILY BETSEY Administration Naproxen 550 mg 07/03/18 13:25 Anaprox Ds PO BID PRN Pain, moderate (4-7) Pneumococcal Polyvalent Vaccine 0.5 ml 07/06/18 10:00 Pneumovax 23 Vaccine IM 07/06/18 10:01 .ONCE ONE Sertraline HCl 50 mg 07/03/18 17:45 Zoloft PO DAILY [facility] Thiamine HCl 100 mg 07/03/18 13:30 07/03/18 14:30 Vitamin B1 Tab PO 100 mg DAILY BETSEY Administration Past Psychiatric History - Past Psychiatric History Previous Treatment History: Inpatient [facility]: Mostly at [facility] History of Abuse: None reported History of ETOH/Drug Use: See HPI History of Family Illness: None reported Pertinent Medical Hx (Current Medical&Sleep Prob, Allergies): Allergies Allergy/AdvReac Type Severity Reaction Status Date / Time No Known Allergies Allergy Verified 06/26/18 20:53 Folic Acid 1 mg PO DAILY #30 tab 06/12/18 Mirtazapine [Remeron] 15 mg PO HS #30 tab 06/12/18 Multimineral/Multivitamin [Therapeutic-M Tab] 1 tab PO DAILY tab 06/12/18 Naproxen [Naprosyn] 500 mg PO Q12 PRN #60 tablet 06/12/18 Thiamine [Vitamin B1 Tab] 100 mg PO DAILY #30 tab 06/12/18 Review of Systems - Psychiatric Psychiatric: As Per HPI, Depression, Hopelessness Mental Status Examination - Personal Presentation Personal Presentation: Looks stated age - Affect Affect: Depressed - Motor Activity Motor Activity: Calm - Reliability in Providing Information Reliability in Providing Information: Fair - Speech Speech: Organized - Mood Mood: Depressed - Formal Thought Process Formal Thought Process: No Impairment - Hallucinations/Delusions Hallucinations: Other (None reported) Delusions: Other - Obsessions/Compulsions Obsessions: None Compulsions: None - Cognitive Functions Orientation: Person, Place, Situation, Time Sensorium: Alert Attention/Concentration: Attentive Abstract Thinking: [place] Estimate of Intelligence: Average Judgement: Intact, as evidence by: Insight regarding need for hospitalization Memory: Remote intact, as evidenced by: Ability to recall historical events - Risk Risk: Withdrawal, Diminished functioning - Strength & Assets Inventory Strength & Assets Inventory: Cooperative - Limitations Limitations: Other (Homeless) DSM 5 DX - DSM 5 DSM 5 Diagnosis: Major depressive disorder recurrent severe without psychotic features. Alcohol withdrawal Alcohol use disorder severe - Recommended/Plan of Treatment Treatment Recommendations and Plan of Treatment: Patient education. Supportive therapy. CBT for relapse prevention. LA for abstinence. Will start Librium taper for alcohol withdrawal symptoms. Will start sertraline for depression. Other PRN medications. Patient is not interested in any follow-up treatment. Projected ELOS: 8-10 days - Smoking Cessation Smoking Cessation Initiated: No Reason for not providing: Patient does not smoke cigarettes with
[2018-07-03] MEDS: Naproxen 550 mg Tab PO PRN (21:06)
[2018-07-04] MEDS: Multiple Vitamins Tab PO SCH (09:07)
[2018-07-04] MEDS: Naproxen 550 mg Tab PO PRN ×2 (09:08→21:18)
--- NOTE | 2018-07-04 16:23 | PCM.PYCHPN ---
Psychiatric Progress Note - Psychiatric Progress Note Patient seen today, length of contact: 15 minutes Patient Chief Complaint: I am feeling little better. Problems Identified/Issues Discussed: Patient seen, chart reviewed, case discussed with the staff. Patient is related to illness and treatment were discussed with the patient and staff. Patient was evaluated with the team. Reported compliant with treatment with no adverse effects. Tolerating treatment very well. Reported feeling little better. Still has withdrawal symptoms including shaking, headache, anxiety and tiredness. Mood reported as still depressed. Affect appropriate. Aftercare discussed with the patient. Patient needs more time for stabilization. Patient denied any suicidal or homicidal ideation at the time of evaluation. Medical Problems: None reported. Diagnostic Results: Reviewed DSM 5 Symptoms Update: Some improvement with treatment. Medication Change: No Medical Record Reviewed: Yes Mental Status Examination - Cognitive Function Orientation: Person, Place, Situation, Time Memory: Intact Attention: WNL Concentration: WNL Association: WN Fund of Knowledge: [facility] Decription of patient's judgement and insights: Fair - Mood Mood: Depressed - Affect Affect: Depressed - Speech Speech: Appropriate - Formal Thought Process Formal Thought Process: No Impairment Psychotic Thoughts and Behaviors: None - Suicidal Ideation Suicidal Ideation: No - Homicidal Ideation Homicidal Ideation: No Goal/Treatment Plan - Goal/Treatment Plan Need for Continued Stay: Remain at risks for inpatient hospitalization, Discharge may exacerbated symptoms, Severe functional impairment Progress Toward Problem(s) and Goals/Treatment Plan: Patient education. Supportive therapy. CBT for relapse prevention. NM for abstinence. Patient is still not interested in any follow-up treatment. Estimated Date of D/C: 07/09/18 - Smoking Cessation Smoking Cessation Initiated: No
[2018-07-05] MEDS: Multiple Vitamins Tab PO SCH (09:11)
--- NOTE | 2018-07-05 21:28 | PCM.PYCHPN ---
Psychiatric Progress Note - Psychiatric Progress Note Patient seen today, length of contact: 15 minutes Patient Chief Complaint: I am feeling little better. Problems Identified/Issues Discussed: Patient seen, chart reviewed, case discussed with the staff. Patient is related to illness and treatment were discussed with the patient and staff. Patient was evaluated with the team. Reported compliant with treatment with no adverse effects. Tolerating treatment very well. Reported feeling little better. Still has withdrawal symptoms including shaking, headache, anxiety and tiredness. Mood reported as still depressed. Affect appropriate. Aftercare discussed with the patient. Patient needs more time for stabilization. Patient denied any suicidal or homicidal ideation at the time of evaluation. Medical Problems: None reported. Diagnostic Results: Reviewed DSM 5 Symptoms Update: Some improvement with treatment. Medication Change: No Medical Record Reviewed: Yes Mental Status Examination - Cognitive Function Orientation: Person, Place, Situation, Time Memory: Intact Attention: WNL Concentration: WNL Association: WN Fund of Knowledge: [facility] Decription of patient's judgement and insights: Fair - Mood Mood: Depressed - Affect Affect: Depressed - Speech Speech: Appropriate - Formal Thought Process Formal Thought Process: No Impairment Psychotic Thoughts and Behaviors: None - Suicidal Ideation Suicidal Ideation: No - Homicidal Ideation Homicidal Ideation: No Goal/Treatment Plan - Goal/Treatment Plan Need for Continued Stay: Remain at risks for inpatient hospitalization, Discharge may exacerbated symptoms, Severe functional impairment Progress Toward Problem(s) and Goals/Treatment Plan: Patient education. Supportive therapy. CBT for relapse prevention. [place] for abstinence. Patient is still not interested in any follow-up treatment. Estimated Date of D/C: 07/09/18 - Smoking Cessation Smoking Cessation Initiated: No
[2018-07-06] MEDS: Multiple Vitamins Tab PO SCH (09:43)
[2018-07-06] MEDS ORDERED: Pneumococcal 23-Valent Vaccine IM ONE (10:00)
--- NOTE | 2018-07-06 15:41 | PCM.PYCHPN ---
Psychiatric Progress Note - Psychiatric Progress Note Patient seen today, length of contact: 15 minutes Patient Chief Complaint: I am feeling little better. Problems Identified/Issues Discussed: Patient seen, chart reviewed, case discussed with the staff. Patient is related to illness and treatment were discussed with the patient and staff. Patient was evaluated with the team. Reported compliant with treatment with no adverse effects. Tolerating treatment very well. Reported feeling little better. Still has withdrawal symptoms including shaking, headache, anxiety and tiredness. Mood reported as still depressed. Affect appropriate. Aftercare discussed with the patient. Patient needs more time for stabilization. Patient denied any suicidal or homicidal ideation at the time of evaluation. Medical Problems: None reported. Diagnostic Results: Reviewed DSM 5 Symptoms Update: Some improvement with treatment. Medication Change: No Medical Record Reviewed: Yes Mental Status Examination - Cognitive Function Orientation: Person, Place, Situation, Time Memory: Intact Attention: WNL Concentration: WNL Association: WN Fund of Knowledge: [facility] Decription of patient's judgement and insights: Fair - Mood Mood: Depressed - Affect Affect: Depressed - Speech Speech: Appropriate - Formal Thought Process Formal Thought Process: No Impairment Psychotic Thoughts and Behaviors: None - Suicidal Ideation Suicidal Ideation: No - Homicidal Ideation Homicidal Ideation: No Goal/Treatment Plan - Goal/Treatment Plan Need for Continued Stay: Remain at risks for inpatient hospitalization, Discharge may exacerbated symptoms, Severe functional impairment Progress Toward Problem(s) and Goals/Treatment Plan: Patient education. Supportive therapy. CBT for relapse prevention. [place] for abstinence. Patient is still not interested in any follow-up treatment. Estimated Date of D/C: 07/09/18 - Smoking Cessation Smoking Cessation Initiated: No
[2018-07-07] MEDS: Multiple Vitamins Tab PO SCH (09:40)
--- NOTE | 2018-07-07 23:56 | PCM.PYCHPN ---
Psychiatric Progress Note - Psychiatric Progress Note Patient seen today, length of contact: 17 minutes Patient Chief Complaint: "I am still having trouble with sleep" Problems Identified/Issues Discussed: The pt is seen, chart reviewed, case is discussed with staff. The pt is compliant with medications and reports no side-effects. Symptoms are improving but needs more time to stabilize and to avoid relapse. Pt attends groups and activities. Support given, psycho-education provided. After care discussed. Medication Change: No Medical Record Reviewed: Yes Mental Status Examination - Cognitive Function Orientation: Person, Place, Situation, Time Memory: Intact Attention: WNL Concentration: WNL Association: WNL Fund of Knowledge: WNL - Mood Mood: Depressed - Affect Affect: Depressed - Speech Speech: Appropriate - Formal Thought Process Formal Thought Process: No Impairment - Suicidal Ideation Suicidal Ideation: No - Homicidal Ideation Homicidal Ideation: No Goal/Treatment Plan - Goal/Treatment Plan Need for Continued Stay: Remain at risks for inpatient hospitalization, Discharge may exacerbated symptoms, Severe functional impairment Progress Toward Problem(s) and Goals/Treatment Plan: Continue medications Support and psychoeducation daily Attend groups and activities daily Individual therapy After care planning by KETAN and the team Estimated Date of D/C: 07/09/18
[2018-07-08] MEDS: Multiple Vitamins Tab PO SCH (10:15)
[2018-07-09] MEDS: Naproxen 550 mg Tab PO PRN (09:25)
[2018-07-09] MEDS: Multiple Vitamins Tab PO SCH (09:25)
--- NOTE | 2018-07-09 13:26 | PCM.PYCHPN ---
Psychiatric Progress Note - Psychiatric Progress Note Patient seen today, length of contact: 16 minutes Patient Chief Complaint: I am feeling little better Problems Identified/Issues Discussed: Patient was seen and evaluated, chart reviewed and discussed with the staff. Patient still reports depressed mood but reports some improvement in the feelings of hopelessness and helplessness. He reports some improvement in the sleep and appetite. He reports improvement in the withdrawal symptoms but still reports shakes, anxiety, headache and sweating. He denies any auditory or visual hallucinations or any paranoia. He is taking medication but denies any side effects. Symptoms are improving gradually but he needs to stay longer for further stabilization. Supportive therapy was given. Medication Change: Yes Medical Record Reviewed: Yes Mental Status Examination - Cognitive Function Orientation: Person, Place, Situation, Time Memory: Intact Attention: WNL Concentration: WNL Association: WNL Fund of Knowledge: Poor - Mood Mood: Depressed, Anxious - Affect Affect: Constricted, Depressed - Speech Speech: Appropriate - Formal Thought Process Formal Thought Process: No Impairment - Suicidal Ideation Suicidal Ideation: No - Homicidal Ideation Homicidal Ideation: No Goal/Treatment Plan - Goal/Treatment Plan Need for Continued Stay: Remain at risks for inpatient hospitalization, Discharge may exacerbated symptoms, Severe functional impairment Progress Toward Problem(s) and Goals/Treatment Plan: Major depressive disorder recurrent severe without psychotic features. Alcohol withdrawal Alcohol use disorder severe Patient education. Supportive therapy. CBT [place] for abstinence. Librium taper Trazodone for insomnia Zoloft for depression Neurontin for augmentation Estimated Date of D/C: 07/10/18
[2018-07-10 06:57] VITALS: O2SAT 98
[2018-07-10] MEDS: Multiple Vitamins Tab PO SCH (09:08)
[2018-07-10] MEDS: Naproxen 550 mg Tab PO PRN (09:08)
--- NOTE | 2018-07-10 23:23 | PCM.PYCHPN ---
Psychiatric Progress Note - Psychiatric Progress Note Patient seen today, length of contact: 17 minutes Patient Chief Complaint: I am feeling little better Problems Identified/Issues Discussed: Patient was seen and evaluated, chart reviewed and discussed with the staff. Patient still reports depressed mood but reports some improvement in the feelings of hopelessness and helplessness. He reports some improvement in the sleep and appetite. He reports improvement in the withdrawal symptoms but still reports shakes, anxiety, headache and sweating. He denies any auditory or visual hallucinations or any paranoia. He is taking medication but denies any side effects. Symptoms are improving gradually but he needs to stay longer for further stabilization. Supportive therapy was given. Medication Change: No Medical Record Reviewed: Yes Mental Status Examination - Cognitive Function Orientation: Person, Place, Situation, Time Memory: Intact Attention: WNL Concentration: WNL Association: WNL Fund of Knowledge: WNL - Mood Mood: Depressed - Affect Affect: Depressed - Speech Speech: Appropriate - Formal Thought Process Formal Thought Process: No Impairment - Suicidal Ideation Suicidal Ideation: No - Homicidal Ideation Homicidal Ideation: No Goal/Treatment Plan - Goal/Treatment Plan Need for Continued Stay: Remain at risks for inpatient hospitalization, Discharge may exacerbated symptoms, Severe functional impairment Progress Toward Problem(s) and Goals/Treatment Plan: Major depressive disorder recurrent severe without psychotic features. Alcohol withdrawal Alcohol use disorder severe Patient education. Supportive therapy. CBT [place] for abstinence. Librium taper Trazodone for insomnia Zoloft for depression Neurontin for augmentation Estimated Date of D/C: 07/09/18
--- NOTE | 2018-07-11 09:32 | PCM.BM ---
<GonzaloViolet Hutchison - Last Filed: 07/11/18 09:30> Treatment Plan Problems - Problems identified on initial assessmt Medication Nonadherence Date Initiated: 07/03/18 Time Initiated: 00:45 Assessment reference: NA Status: Active Social Isolation Date Initiated: 07/03/18 Time Initiated: 00:45 Assessment reference: NA Status: Active Treatment assets and liabiliti Patient Assests: cooperative, self-reliant, ADL independent, negotiates basic needs Patient Liabilities: live alone (Currently homeless), relationship conflicts (Daughter), substance abuse (Alcohol) - Milieu Protocol Maintain good personal hygiene: daily Encourage regular showers, daily Remind patient to perform daily oral care, daily Assist patient to perform ADL's Conduct patient checks and document Observation sheet: Q15 minutes Maintain personal safety: every shift Educate patient to report safety concerns to staff, every shift Monitor environment for contraband/sharps Medication safety: Monitor for expected outcome, potential side effects: every shift, Assess barriers to learning: every shift, Assess readiness for medication education: every shift Milieu Narrative: Major depressive disorder recurrent severe without psychotic features. Alcohol withdrawal Alcohol use disorder severe Patient education. Supportive therapy. CBT [place] for abstinence. Librium taper Trazodone for insomnia Zoloft for depression Neurontin for augmentation Family Contact Family involvement: Famliy/SO not involved - Goals for Treatment Patient goals for treatment: "I need housing." Discharge/Continuing Care - Education Needs Education Needs: Patient Medication, Patient Coping Skills, Patient Placement options, Patient Community resources - Discharge Discharge Criteria: Tolerates medication w/o severe side effects, No longer exhibiting s/s of withdrawal Discharge to:: Custodial - Treatment Team Participation Patient/Family/SO Statement: Major depressive disorder recurrent severe without psychotic features. Alcohol withdrawal Alcohol use disorder severe Patient education. Supportive therapy. CBT [place] for abstinence. Librium taper Trazodone for insomnia Zoloft for depression Neurontin for augmentation Discussed with Family/SO: No Was Patient/Family/SO present at Treatment Team Meeting: Yes Treatment Plan Review - Problem Medication Nonadherence Time Initiated: 00:45 Social Isolation Time Initiated: 00:45 - Discharge / Continuing Care Discharge to:: Custodial Behavioral Health Services: Intensive Outpatient Health Needs: Medications/Rx, Alcohol/Drug treatment <Maria Guadalupe Johnson - Last Filed: 07/11/18 09:53> Treatment Plan Review - Problem Medication Nonadherence Date Initiated: 07/11/18 Time Initiated: 09:53 Progress toward outcomes: improved Social Isolation Date Initiated: 07/11/18 Time Initiated: 09:53 Progress toward outcomes: improved <NareshEvelionatalie - Last Filed: 07/13/18 11:36> - Diagnosis (1) Major depressive disorder, recurrent severe without psychotic features Status: Acute Interventions: 07/03/18 17:39 * Assess/adjust medications daily and /or as needed * See patient on an individual basis 7x/week to assess level of depressive behaviors and stability * Discuss risks, benefits, side effects and alternatives of medication 07/13/18 11:35 (2) Alcohol use disorder, severe, dependence Status: Acute Interventions: 07/03/18 17:38 Assess 7x/week regarding severity of withdrawal Educate regarding risks, benefits, side effects and alternatives of medications Use Motivational Interviewing for abstinence Use CBT for relapse prevention Medication management for withdrawal symptoms Encourage medication assisted treatment
[2018-07-11] MEDS: Multiple Vitamins Tab PO SCH (10:18)
--- NOTE | 2018-07-11 12:58 | PCM.PYCHPN ---
Psychiatric Progress Note - Psychiatric Progress Note Patient seen today, length of contact: 17 minutes Patient Chief Complaint: I am feeling little better Problems Identified/Issues Discussed: Patient was seen and evaluated, chart reviewed and discussed with the staff. Patient reports some improvement in his mood and feelings of hopelessness and helplessness. He reports some improvement in the sleep and appetite. He reports some improvement in the withdrawal symptoms as well. He denies any auditory or visual hallucinations or any paranoia. He is taking medication but denies any side effects. Symptoms are improving gradually but he needs to stay longer for further stabilization. Supportive therapy was given. Medication Change: Yes Medical Record Reviewed: Yes Mental Status Examination - Cognitive Function Orientation: Person, Place, Situation, Time Memory: Intact Attention: WNL Concentration: WNL Association: WNL Fund of Knowledge: Poor - Mood Mood: Depressed - Affect Affect: Depressed - Speech Speech: Appropriate - Formal Thought Process Formal Thought Process: No Impairment - Suicidal Ideation Suicidal Ideation: No - Homicidal Ideation Homicidal Ideation: No Goal/Treatment Plan - Goal/Treatment Plan Need for Continued Stay: Remain at risks for inpatient hospitalization, Discharge may exacerbated symptoms, Severe functional impairment Progress Toward Problem(s) and Goals/Treatment Plan: Major depressive disorder recurrent severe without psychotic features. Alcohol withdrawal Alcohol use disorder severe Patient education. Supportive therapy. CBT [place] for abstinence. Librium taper Trazodone for insomnia Zoloft for depression Neurontin for augmentation Estimated Date of D/C: 07/11/18
[2018-07-12] MEDS: Multiple Vitamins Tab PO SCH (09:16)
--- NOTE | 2018-07-12 22:57 | PCM.PYCHPN ---
Psychiatric Progress Note - Psychiatric Progress Note Patient seen today, length of contact: 17 minutes Patient Chief Complaint: I am feeling little better Problems Identified/Issues Discussed: Patient was seen and evaluated, chart reviewed and discussed with the staff. Patient reports some improvement in his mood and feelings of hopelessness and helplessness. He reports some improvement in the sleep and appetite. He reports some improvement in the withdrawal symptoms as well. He denies any auditory or visual hallucinations or any paranoia. He is taking medication but denies any side effects. Symptoms are improving gradually but he needs to stay longer for further stabilization. Supportive therapy was given. Medication Change: No Medical Record Reviewed: Yes Mental Status Examination - Cognitive Function Orientation: Person, Place, Situation, Time Memory: Intact Attention: WNL Concentration: WNL Association: WNL Fund of Knowledge: WNL - Mood Mood: Depressed - Affect Affect: Depressed - Speech Speech: Appropriate - Formal Thought Process Formal Thought Process: No Impairment - Suicidal Ideation Suicidal Ideation: No - Homicidal Ideation Homicidal Ideation: No Goal/Treatment Plan - Goal/Treatment Plan Need for Continued Stay: Remain at risks for inpatient hospitalization, Discharge may exacerbated symptoms, Severe functional impairment Progress Toward Problem(s) and Goals/Treatment Plan: Major depressive disorder recurrent severe without psychotic features. Alcohol withdrawal Alcohol use disorder severe Patient education. Supportive therapy. CBT [place] for abstinence. Librium taper Trazodone for insomnia Zoloft for depression Neurontin for augmentation Estimated Date of D/C: 07/09/18
[2018-07-13 06:53] VITALS: BP 124/82; PULSE 83; RESP 20; TEMP 97.8
[2018-07-13] MEDS: Multiple Vitamins Tab PO SCH (09:10)
--- NOTE | 2018-07-13 09:48 | PCM.PYCHDC ---
Mental Status Examination - Mental Status Examination Orientation: Person, Place, Situation, Time Memory: Intact Mood: Neutral Affect: Constricted Speech: Soft Attention: WNL Concentration: WNL Association: WNL Fund of Knowledge: WNL Formal Thought Process: No Impairment Description of patient's judgement and insight: good, fair Psychotic Thoughts and Behaviors: denies any AVH Suicidal Ideation: No Current Homicidal Ideation?: No Discharge Summary - Discharge Note Reason for Hospitalization: Patient is a 57 years old, , unemployed, on disability, male with history of depression and alcohol use disorder was admitted due to worsening of depression and withdrawing from alcohol. Patient reported history of depression for last many years, noncompliant with treatment, history of about 9 previous inpatient psychiatric admission. Patient reported worsening of his depression since February 2018 after the of his father in [place]. Patient reported noncompliant with treatment. Patient was admitted at [facility] and April 2017 and May 2017 but noncompliant with treatment after discharge from the hospital, continue drinking alcohol. Patient reported feeling depressed with decreased sleep and appetite. Lost about 15 pounds over the last 3 months. Patient denied any current or past suicidal or homicidal ideations. Denied any suicidal attempts. Reported feeling hopeless and helpless. Denied any manic, anxiety or psychotic symptoms. No history of visiting any psychiatrist. Patient has history of left hip replacement in 2016, currently taking naproxen for pain. Alcohol: Patient reported started drinking alcohol at 14 years of age, increased gradually. Currently he was drinking 3-4 pints of vodka daily. His last drink was yesterday, 4 big cans of beer. His longest period of abstinence was 2 years in the past. He has history of 3 detox Synthroid rehabs in the past. Patient was born in [place], has 4 years of college education. His last job was in 2016. He stopped working after left hip surgery, on disability. Patient is , has 1 grownup daughter who is noting good relation with the patient. Currently he is homeless for last 3 months. Consultations:: List each consultation separately and include: 1. Reason for r equest. 2. Findings. 3. Follow-up Summary of Hospital Course include:: 1. Description of specific treatment plan utilized for patients during their course of treatmen. 2. Summarize the time- course for resolution of acute symptoms and/or regressed behaviors. 3. Describe issues identified and worked on during hospitalization. 4. Describe medication utilized. 5. Describe medical problems identified and treated. 6. Reassessment of suicide risk Summary of Hospital Course: During the course of his stay, patient (pt) started progressively improving and no longer remained irritable, depressed, and suicidal. His mood and anxiety were improved and he started attending groups and meetings and started socializing. Patient denied any feelings of hopelessness, helplessness, and worthlessness, denied any problem with the sleep or appetite, denied suicidal ideation or homicidal ideation. Pt denied any auditory or visual hallucinations. He denied any withdrawal symptoms. Pt was treated with medications along with supportive therapy, milieu therapy and group therapy. Some changes were made in his current medications and patient was discharged on following medications. He tolerated these medications very well and denied any side effects. - Final Diagnosis (DSM 5) Condition upon Discharge: FAIR DSM 5: Major depressive disorder recurrent severe without psychotic features. Alcohol withdrawal Alcohol use disorder severe Disposition: HOME/ ROUTINE Follow-up Treatment Plan: Followup: He was discharged to the [facility]. Education: Pt was educated and counseled about the risks and benefits of taking and not taking medications. Pt was educated and counseled about the risks of drinking and abusing drugs. Pt was educated and counseled to go to the ER or call 911 if pt develop suicidal ideation or homicidal ideation, worsening of symptoms or severe side effects of the meds. Prescriptions/Medication Reconciliation: Gabapentin [Neurontin] 400 mg PO TID #90 cap PARoxetine [Paxil] 10 mg PO DAILY #30 tab QUEtiapine [Seroquel] 100 mg PO HS #30 tab - Smoking Cessation Smoking Cessation Medication prescribed: No - Antipsychotic Medications Pt discharged on 2 or more routine antipsychotic medications: No
== END 2018-07-13 10:30 | disposition home or self-care (01) | DRG 750 ==
LOC: C.ER 20:37 → C.5E 23:08
PROVIDERS: ADMIT Psychiatry & Neurology Psychiatry; ATTEND Psychiatry & Neurology Psychiatry
PROC: HZ2ZZZZ Detoxification Services for Substance Abuse Treatment (ICD-10-PCS; principal; 2018-07-02)
PROC: HZ52ZZZ Individual Psychotherapy for Substance Abuse Treatment, Cognitive-Behavioral (ICD-10-PCS; 2018-07-02)
PROC: HZ59ZZZ Individual Psychotherapy for Substance Abuse Treatment, Supportive (ICD-10-PCS; 2018-07-02)
PROC: HZ56ZZZ Individual Psychotherapy for Substance Abuse Treatment, Psychoeducation (ICD-10-PCS; 2018-07-02)
PROC: HZ42ZZZ Group Counseling for Substance Abuse Treatment, Cognitive-Behavioral (ICD-10-PCS; 2018-07-02)
PROC: HZ46ZZZ Group Counseling for Substance Abuse Treatment, Psychoeducation (ICD-10-PCS; 2018-07-02)
PROC: GZHZZZZ Group Psychotherapy (ICD-10-PCS; 2018-07-02)
PROC: GZ58ZZZ Individual Psychotherapy, Cognitive-Behavioral (ICD-10-PCS; 2018-07-02)
PROC: GZ56ZZZ Individual Psychotherapy, Supportive (ICD-10-PCS; 2018-07-02)
DX: F10.230 Alcohol dependence with withdrawal, uncomplicated (principal); F33.2 Major depressive disorder, recurrent severe without psychotic features; Y90.8 Blood alcohol level of 240 mg/100 ml or more; Z59.0 Homelessness; F41.9 Anxiety disorder, unspecified; G47.00 Insomnia, unspecified; Z91.19 Patient's noncompliance with other medical treatment and regimen; Z96.642 Presence of left artificial hip joint

== ENCOUNTER 2018-07-14 18:16 | Emergency (ER) | payer OTHER ==
[2018-07-14 18:17] VITALS: BMI 27.2
[2018-07-14 18:32] VITALS: RESP 18
--- NOTE | 2018-07-14 22:13 | C.PDOC ---
History Of Present Illness 57-year-old male brought to the ED by ambulance for evaluation of acute alcohol intoxication. Patient admits to drinking earlier today and does not offer any additional complaints at this time. Time Seen by Provider: 07/14/18 18:20 Chief Complaint (Nursing): Substance Abuse History Per: EMS History/Exam Limitations: intoxication Onset/Duration Of Symptoms: Hrs Current Symptoms Are (Timing): Still Present Modifying Factor(s): Alcohol Associated Symptoms: denies: Suicidal Thoughts, Suicidal Plan Involuntary Hold By: None Recent travel outside of the [place]: No Additional History Per: Patient, EMS Past Medical History Reviewed: Historical Data, Nursing Documentation, Vital Signs Vital Signs: Last Vital Signs Temp 99 F 07/14/18 18:27 Pulse 90 07/14/18 18:27 Resp 18 07/14/18 18:27 BP 177/90 H 07/14/18 18:27 Pulse Ox 99 07/14/18 18:27 Primary Care Provider: FAMILY PROVIDER,NO - Medical History PMH: Depression, Chronic Pain (left hip) Surgical History: No Surg Hx Denies: Pacemaker - [facility] Procedures ALCOHOL DETOXIFICATION (10/24/14) DETOXIFICATION SERVICES FOR SUBSTANCE ABUSE TREATMENT (05/03/18) GROUP PSYCHOTHERAPY (06/07/18) INDIV PSYCHOTHERAPY FOR SUBSTANCE ABUSE TREATMENT, SUPPORT (05/03/18) INDIV PSYCHOTHERAPY FOR SUBSTANCE ABUSE, COGNITIV BEHAVIORAL (05/03/18) INDIV PSYCHOTHERAPY FOR SUBSTANCE ABUSE, MOTIVATION ENHANCE (06/07/18) INDIV PSYCHOTHERAPY FOR SUBSTANCE ABUSE, PSYCHOEDUCATION (05/03/18) INDIVIDUAL PSYCHOTHERAPY, SUPPORTIVE (06/07/18) MEDICATION MANAGEMENT (10/04/17) Family History: States: No Known Family Hx - Social History Hx Tobacco Use: No Hx Alcohol Use: Yes Hx Substance Use: Yes - Immunization History Hx Tetanus Toxoid Vaccination: No Hx Influenza Vaccination: No Hx Pneumococcal Vaccination: No Review Of Systems Psych: Positive for: Other (EtOH intoxication ). Negative for: Suicidal ideation Physical Exam - Physical Exam Appears: Non-toxic, No Acute Distress, Unkempt, Other (visibly intoxicated ) Skin: Normal Color, Warm, Dry, Other (malodorous) Head: Atraumatic, Normacephalic Eye(s): bilateral: Normal Inspection Oral Mucosa: Moist, Other (alcohol on breath ) Neck: Supple Cardiovascular: Rhythm Regular Respiratory: Normal Breath Sounds, No Rales, No Rhonchi, No Wheezing Gastrointestinal/Abdominal: Normal Exam, Bowel Sounds, Soft, No Tenderness Extremity: Normal ROM Extremity: Bilateral: Atraumatic, Normal Color And Temperature, Normal ROM Neurological/Psych: Other (sleeping, arousable to verbal stimuli) ED Course And Treatment O2 Sat by Pulse Oximetry: 99 (on RA ) Pulse Ox Interpretation: Normal Progress Note: Accucheck ordered and reviewed - WNL at 125. 11:30pm- Patient arousable to verbal stimuli. Still intoxicated and unsteady on his feet. Pending sobriety. Disposition - Disposition Disposition Time: 00:00 Condition: STABLE Forms: [employer] (Guyanese) - Clinical Impression Clinical Impression: Alcohol intoxication - Scribe Statement The provider has reviewed the documentation as recorded by the Scribe (Selma Clark) Provider Attestation: All medical record entries made by the Scribe were at my direction and personally dictated by me. I have reviewed the chart and agree that the record accurately reflects my personal performance of the history, physical exam, medical decision making, and the department course for this patient. I have also personally directed, reviewed, and agree with the discharge instructions and disposition. Physician Patient Turnover Patient Signed Over To: Raymond Alfonso Handoff Comments: pending sobriety
[2018-07-15 00:48] VITALS: BP 148/85; PULSE 99; TEMP 98.2; O2SAT 95
== END 2018-07-15 00:50 | disposition home or self-care (01) ==
LOC: C.ER 18:16
DX: F10.129 Alcohol abuse with intoxication, unspecified (principal); Y90.9 Presence of alcohol in blood, level not specified

== ENCOUNTER 2018-07-20 03:00 | Emergency (ER) | payer OTHER ==
[2018-07-20 03:00] VITALS: BMI 27.2
--- NOTE | 2018-07-20 05:25 | C.PDOC ---
History Of Present Illness 57 year old male brought in by EMS after being found intoxicated in public. Denies any complaints at this time. Time Seen by Provider: 07/20/18 03:11 Chief Complaint (Nursing): Substance Abuse History Per: Patient, EMS History/Exam Limitations: no limitations Onset/Duration Of Symptoms: Hrs ( ) Current Symptoms Are (Timing): Still Present Suicide/Self Injury Attempted (Context): None Modifying Factor(s): Alcohol Recent travel outside of the [place]: No Past Medical History Reviewed: Historical Data, Nursing Documentation, Vital Signs Vital Signs: Last Vital Signs Temp 97.9 F 07/20/18 03:09 Pulse 82 07/20/18 03:09 Resp 16 07/20/18 03:09 BP 136/88 07/20/18 03:09 Pulse Ox 95 07/20/18 03:09 Primary Care Provider: FAMILY PROVIDER,NO - Medical History PMH: Depression, Chronic Pain (left hip) Denies: Alzheimer's Disease, Asthma, Atrial Fibrillation, Bronchitis, Cardia Arrhythmia, CHF, COPD, Dementia, Diabetes, Emphysema, Hepatitis, HIV, HTN, Hypercholesterolemia, Migraine, Mitral Valve Prolapse, Multiple Sclerosis, Parkinson's Disease, Peripheral Edema, Pneumonia, Pulmonary Embolism, Chronic Kidney Disease, Seizures, Sexually Transmitted Disease, Sleep Apnea, TIA Surgical History: Denies: Pacemaker - [facility] Procedures ALCOHOL DETOXIFICATION (10/24/14) DETOXIFICATION SERVICES FOR SUBSTANCE ABUSE TREATMENT (07/02/18) GROUP CORPORATE LEGAL INTERN FOR SUBSTANCE ABUSE TREATMENT, PSYCHOEDUCATION (07/02/18) GROUP CORPORATE LEGAL INTERN FOR SUBSTANCE ABUSE, COGNITIVE BEHAVIORAL (07/02/18) GROUP PSYCHOTHERAPY (07/02/18) INDIV PSYCHOTHERAPY FOR SUBSTANCE ABUSE TREATMENT, SUPPORT (07/02/18) INDIV PSYCHOTHERAPY FOR SUBSTANCE ABUSE, COGNITIV BEHAVIORAL (07/02/18) INDIV PSYCHOTHERAPY FOR SUBSTANCE ABUSE, MOTIVATION ENHANCE (06/07/18) INDIV PSYCHOTHERAPY FOR SUBSTANCE ABUSE, PSYCHOEDUCATION (07/02/18) INDIVIDUAL PSYCHOTHERAPY, COGNITIVE-BEHAVIORAL (07/02/18) INDIVIDUAL PSYCHOTHERAPY, SUPPORTIVE (07/02/18) MEDICATION MANAGEMENT (10/04/17) Family History: States: Unknown Family Hx - Social History Hx Tobacco Use: No Hx Alcohol Use: Yes Hx Substance Use: Yes - Immunization History Hx Tetanus Toxoid Vaccination: No Hx Influenza Vaccination: No Hx Pneumococcal Vaccination: No Review Of Systems Constitutional: Negative for: Fever, Chills Cardiovascular: Negative for: Chest Pain, Palpitations Respiratory: Negative for: Cough, Shortness of Breath Gastrointestinal: Negative for: Nausea, Vomiting Neurological: Negative for: Weakness, Numbness Physical Exam - Physical Exam Appears: Non-toxic, Other (ETOH on breath, no sign of acute injury) Skin: Normal Color, Warm Head: Atraumatic, Normacephalic Eye(s): bilateral: Normal Inspection Oral Mucosa: Moist Neck: Normal, Supple Chest: Symmetrical, No Tenderness Cardiovascular: Rhythm Regular Respiratory: Normal Breath Sounds, No Rales, No Rhonchi, No Wheezing Gastrointestinal/Abdominal: Soft, No Tenderness Neurological/Psych: Other (Arousable, slurred speech.) ED Course And Treatment O2 Sat by Pulse Oximetry: 95 (Room air) Pulse Ox Interpretation: Normal Progress Note: Patient pending sobiety. On reevaluation, patient is ambulating with steady gait, aaox3, vitals are stable, clinically sober, stable for discharge. Disposition - Disposition Disposition: HOME/ ROUTINE Disposition Time: 06:36 Condition: STABLE Forms: [employer] [facility] (Macanese) - Clinical Impression Clinical Impression: Alcohol abuse - PA / CONTENT DIRECTOR / Resident Statement MD/DO has reviewed & agrees with the documentation as recorded. - Scribe Statement The provider has reviewed the documentation as recorded by the Scribrahul Calix All medical record entries made by the Scribe were at my direction and personally dictated by me. I have reviewed the chart and agree that the record accurately reflects my personal performance of the history, physical exam, medical decision making, and the department course for this patient. I have also personally directed, reviewed, and agree with the discharge instructions and disposition.
[2018-07-20 06:55] VITALS: BP 128/72; PULSE 76; RESP 20; TEMP 98; O2SAT 97
== END 2018-07-20 06:54 | disposition home or self-care (01) ==
LOC: C.ER 03:00
DX: F10.10 Alcohol abuse, uncomplicated (principal); Y90.9 Presence of alcohol in blood, level not specified

== ENCOUNTER 2018-07-22 03:38 | Inpatient (IN) | payer OTHER ==
[2018-07-22 03:38] VITALS: BMI 27.2
--- NOTE | 2018-07-22 03:59 | C.PDOC ---
History Of Present Illness 57 yr old male w/ hx of Depression, Chronic Pain, Etoh abuse p/w chest pain. Pt notes drinking etoh today earlier ~ 4 beers and notes that he started having chest pain one hour ago described as a throbbing, without radiation. Pain was not tearing in nature and did not radiate into his back. No shortness of breath. No abdominal pain, constipation, diarrhea. No dark or bloody stool. No fall or trauma. No fever, chills or night sweats. No other complaints Time Seen by Provider: 07/22/18 03:59 Chief Complaint (Nursing): Chest Pain Past Medical History Vital Signs: Last Vital Signs Temp 97.3 F L 07/22/18 03:45 Pulse 84 07/22/18 03:45 Resp 18 07/22/18 03:45 BP Pulse Ox 97 07/22/18 03:45 Primary Care Provider: Non [facility] Provider, - Medical History PMH: Depression, Chronic Pain (left hip) Denies: Alzheimer's Disease, Asthma, Atrial Fibrillation, Bronchitis, Cardia Arrhythmia, CHF, COPD, Dementia, Diabetes, Emphysema, Hepatitis, HIV, HTN, Hypercholesterolemia, Migraine, Mitral Valve Prolapse, Multiple Sclerosis, Parkinson's Disease, Peripheral Edema, Pneumonia, Pulmonary Embolism, Chronic Kidney Disease, Seizures, Sexually Transmitted Disease, Sleep Apnea, TIA Surgical History: Denies: Pacemaker - [facility] Procedures ALCOHOL DETOXIFICATION (10/24/14) DETOXIFICATION SERVICES FOR SUBSTANCE ABUSE TREATMENT (07/02/18) GROUP PASTEURIZING MACHINE OPERATOR FOR SUBSTANCE ABUSE TREATMENT, PSYCHOEDUCATION (07/02/18) GROUP PASTEURIZING MACHINE OPERATOR FOR SUBSTANCE ABUSE, COGNITIVE BEHAVIORAL (07/02/18) GROUP PSYCHOTHERAPY (07/02/18) INDIV PSYCHOTHERAPY FOR SUBSTANCE ABUSE TREATMENT, SUPPORT (07/02/18) INDIV PSYCHOTHERAPY FOR SUBSTANCE ABUSE, COGNITIV BEHAVIORAL (07/02/18) INDIV PSYCHOTHERAPY FOR SUBSTANCE ABUSE, MOTIVATION ENHANCE (06/07/18) INDIV PSYCHOTHERAPY FOR SUBSTANCE ABUSE, PSYCHOEDUCATION (07/02/18) INDIVIDUAL PSYCHOTHERAPY, COGNITIVE-BEHAVIORAL (07/02/18) INDIVIDUAL PSYCHOTHERAPY, SUPPORTIVE (07/02/18) MEDICATION MANAGEMENT (10/04/17) Family History: States: Unknown Family Hx - Social History Hx Tobacco Use: No Hx Alcohol Use: Yes Hx Substance Use: Yes - Immunization History Hx Tetanus Toxoid Vaccination: No Hx Influenza Vaccination: No Hx Pneumococcal Vaccination: No Review Of Systems Constitutional: Negative for: Fever, Chills, Weakness Eyes: Negative for: Pain ENT: Negative for: Ear Pain, Ear Discharge, Nose Pain, Mouth Pain, Throat Pain, Throat Swelling Cardiovascular: Positive for: Chest Pain. Negative for: Palpitations, Orthopnea Respiratory: Negative for: Cough, Shortness of Breath, Pleuritic Pain, Sputum Gastrointestinal: Negative for: Nausea, Vomiting, Abdominal Pain, Constipation, Melena, Hematochezia Genitourinary: Negative for: Dysuria, Frequency, Hematuria, Penile Discharge, Scrotal Pain, Rash, Penile Pain Musculoskeletal: Negative for: Neck Pain, Shoulder Pain, Back Pain, Hand Pain, Foot Pain Skin: Negative for: Rash, Lesions Neurological: Negative for: Weakness, Numbness, Headache Physical Exam - Physical Exam Appears: Well, Non-toxic, No Acute Distress, Other (alcohol on breath) Skin: Normal Color, Warm, Dry Head: Atraumatic, Normacephalic Eye(s): bilateral: Normal Inspection, PERRL, EOMI Nose: Normal Throat: Normal, No Erythema, No Exudate Neck: Normal, No Midline Cervical Tenderness, Supple, Other (no meningeal signs) Cardiovascular: Rhythm Regular, No Murmur, No JVD Respiratory: Normal Breath Sounds Gastrointestinal/Abdominal: Normal Exam, Soft, No Tenderness, No Mass, No Distention, No Guarding, No Rebound Back: Normal Inspection, No CVA Tenderness, No Vertebral Tenderness Extremity: Normal ROM Pulses: Left Dorsalis Pedis: Normal, Right Dorsalis Pedis: Normal Neurological/Psych: Oriented x3, Normal Speech, Normal Cognition, No Cerebellar Signs, Normal Motor ED Course And Treatment - Laboratory Results Result Diagrams: 07/24/18 06:40 07/24/18 06:40 O2 Sat by Pulse Oximetry: 97 Medical Decision Making Medical Decision Makin yr old male w/ hx of htn, etoh abuse, chronic pain p/w chest pain. Chest pain not longer than 6 hours prior to presentation to eD. Will likely require serial troponins. No signs of withdrawal at this time. EK, nsr, no stemi Heart score: Age: 1 RF: 1 Story: 1 Ek Troponin pending 0600 trop x1 unremarkable cxr unremarkable mildly elevated lipase, likely 2/2 etoh today [address] Elamir for admission x3, unable to reach him. appreciate consult w/ Dr. Delroy Lennon : accepted to his service pt in [place], agreeable to plan Disposition - Disposition Disposition: HOSPITALIZED Disposition Time: 07:00 Condition: STABLE - Clinical Impression Clinical Impression: Chest pain
[2018-07-22] MEDS: Sodium Chloride 0.9% 1,000 ML IV SCH ×2 (04:41→14:02)
[2018-07-22 04:55] LABS: BASO # 0.1 K/uL (0.0-0.2); BASO % 0.9 % (0.0-2.0); EOS # 0.1 K/uL (0.0-0.7); HEMOGLOBIN 11.7 g/dL (12.0-18.0); LYMPH # 1.8 K/uL (1.0-4.3); LYMPH % 15.7 % (20.0-40.0); MEAN CELL VOLUME 79.3 fL (80.0-94.0); MEAN CORPUSCULAR HEMOGLOBIN 25.2 pg (27.0-31.0); MEAN CORPUSCULAR HGB CONC 31.8 g/dL (33.0-37.0); MEAN PLATELET VOLUME 7.6 fL (7.2-11.7); MONO # 0.7 K/uL (0.0-0.8); MONO % 6.4 % (0.0-10.0); NEUT # 8.6 K/uL (1.8-7.0); RBC 4.65 Mil/uL (4.40-5.90); RED CELL DISTRIBUTION WIDTH 17.8 % (11.5-14.5); WHITE BLOOD COUNT 11.4 K/uL (4.8-10.8)
[2018-07-22 05:34] LABS: ALB/GLOB RATIO 1.4 (1.0-2.1); ALBUMIN 4.6 g/dL (3.5-5.0); ALT/SGPT 44 U/L (21-72); AST/SGOT 71 U/L (17-59); BLOOD UREA NITROGEN 11 mg/dL (9-20); CALCIUM 8.3 mg/dl (8.6-10.4); GFR NON-AFRICAN AMERICAN > 60; LIPASE 421 U/L (23-300)
[2018-07-22] MEDS: Enoxaparin 40 mg Syringe SC SCH (10:40)
[2018-07-22] MEDS: Metoprolol Succinate 25 mg XL Tab PO SCH (10:41)
[2018-07-22] MEDS: Multivitamin With Minerals Tab PO SCH (10:41)
[2018-07-22 14:03] LABS: CK-MB 4.26 ng/mL (0.0-3.38)
--- NOTE | 2018-07-22 15:51 | RAD ---
Date of service: 07/22/2018 HISTORY: Chest pain COMPARISON: Comparison made with prior chest radiograph dated 11/03/2017 TECHNIQUE: Chest PA and lateral views FINDINGS: LUNGS: No active pulmonary disease. PLEURA: No significant pleural effusion identified. No pneumothorax apparent. CARDIOVASCULAR: No aortic atherosclerotic calcification present. Normal cardiac size. No pulmonary vascular congestion. OSSEOUS STRUCTURES: Old healed fracture deformity mid shaft right clavicle.. Questionable old healed fracture deformity right posterolateral 6th rib VISUALIZED UPPER ABDOMEN: Normal. OTHER FINDINGS: None. IMPRESSION: No active disease.
--- NOTE | 2018-07-22 18:00 | US ---
Date of service: 07/22/2018 HISTORY: ELEVATED LIPASE COMPARISON: None. TECHNIQUE: Sonographic evaluation of the abdomen. FINDINGS: LIVER: Liver is enlarged measuring nearly 20 cm in CC dimension. Liver demonstrates increased echotexture likely due to fatty infiltration however other infiltrative hepatocellular disease process not excluded. No obvious hepatic mass or collection. No significant intrahepatic biliary ductal dilatation. Portal vein exhibits hepatopetal flow. GALLBLADDER: Unremarkable. No gallstones. No sonographic Mcdaniel sign COMMON BILE DUCT: Measures 5.1 mm. No stones. No dilatation. PANCREAS: Poor visualization of the pancreas due to body habitus and bowel gas RIGHT KIDNEY: Measures 11.0 x 5.5 x 5.4cm. Normal echogenicity. No calculus, mass, or hydronephrosis. LEFT KIDNEY: Measures 10.7 x 5.9 x 5.4cm. Normal echogenicity. No calculus, mass, or hydronephrosis. SPLEEN: Normal in size and contour. No mass. AORTA: No aneurysmal dilatation. IVC: Unremarkable. OTHER FINDINGS: None. IMPRESSION: Hepatomegaly with fatty infiltration however other infiltrative hepatocellular disease process not excluded.
[2018-07-23 06:49] LABS: HDL CHOLESTEROL 67 mg/dL (30-70)
[2018-07-23 07:00] LABS: LDL CHOLESTEROL 103 mg/dL (0-129)
[2018-07-23 07:01] LABS: CK-MB 2.05 ng/mL (0.0-3.38)
[2018-07-23] MEDS: Sodium Chloride 0.9% 1,000 ML IV SCH ×2 (08:17→11:59)
[2018-07-23] MEDS: Enoxaparin 40 mg Syringe SC SCH (10:24)
[2018-07-23] MEDS: Multivitamin With Minerals Tab PO SCH (10:25)
[2018-07-23] MEDS: Metoprolol Succinate 25 mg XL Tab PO SCH (10:25)
--- NOTE | 2018-07-23 17:30 | CARD ---
APPROVED REPORT Date of service: 07/23/2018 EXAM: Two-dimensional and M-mode echocardiogram with Doppler and color Doppler. Other Information Quality : Good[employer] : INDICATION Chest Pain alcohol abuse 2D DIMENSIONS IVSd1.0 (0.7-1.1cm)LVDd5.3 (3.9-5.9cm) PWd1.0 (0.7-1.1cm)LA Ydctpg97 (18-58mL) LVDs3.4 (2.5-4.0cm)FS (%) 36.3 % LVEF (%)52.0 (>50%)LVEF (Martínez's)51.55 % M-Mode DIMENSIONS Left Atrium (MM)3.15 (2.5-4.0cm)IVSd0.85 (0.7-1.1cm) Aortic Root4.33 (2.2-3.7cm)LVDd6.19 (4.0-5.6cm) Aortic Cusp Exc.1.94 (1.5-2.0cm)PWd0.87 (0.7-1.1cm) FS (%) 35 %LVDs4.02 (2.0-3.8cm) LVEF (%)52 (>50%) Aortic Valve AI P 1/2 [id number] Mitral Valve MV E Pkzfehyh08.3cm/sMV A Qnftqucv11.3cm/sE/A ratio0.8 TDI Lateral E' Peak V12.00cm/sMedial E' Peak V5.51cm/sE/Lateral E'5.1 E/Medial E'11.1 Tricuspid Valve TR Peak Ultuaguh298sq/sTR Peak [id number] LEFT VENTRICLE The left ventricle is normal size. There is normal left ventricular wall thickness. The left ventricular function is normal. The left ventricular ejection fraction is within the normal range. There is normal LV segmental wall motion. Transmitral Doppler flow pattern is abnormal. RIGHT VENTRICLE The right ventricle is normal size. ATRIA The left atrium size is normal. The right atrium size is normal. AORTIC VALVE The aortic valve is bicuspid. There is trace aortic regurgitation. MITRAL VALVE Mitral regurgitation is trace. TRICUSPID VALVE There is mild tricuspid regurgitation. GREAT VESSELS The aortic root is mildly enlarged. <Conclusion> Normal LV sysyolic function. Diastolic dysfunction. Normal chamber szie. Biscuspid Aortic valve with trace AR. Trace MR. Mild TR. Dilated Aortic root.
[2018-07-23] MEDS: metroNIDAZOLE IV 500 mg/100 ml 500 MG/100 ML BAG IVPB SCH (20:03)
[2018-07-24] MEDS: metroNIDAZOLE IV 500 mg/100 ml 500 MG/100 ML BAG IVPB SCH ×3 (02:09→18:14)
[2018-07-24] MEDS: Sodium Chloride 0.9% 1,000 ML IV SCH ×2 (02:13→13:36)
--- NOTE | 2018-07-24 03:53 | CP.PCM.HP ---
Present on Admission - Present on Admission Any Indicators Present on Admission: No Past Patient History - Infectious Disease Hx of Infectious Diseases: None - Past Medical History & Family History Past Medical History?: No - Past Social History Smoking Status: Former Smoker - CARDIAC Hx Atrial Fibrillation: No Hx Cardia Arrhythmia: No Hx Congestive Heart Failure: No Hx Hypercholesterolemia: No Hx Hypertension: No Hx Mitral Valve Prolapse: No Hx Pacemaker: No Hx Peripheral Edema: No - PULMONARY Hx Asthma: No Hx Bronchitis: No Hx Chronic Obstructive Pulmonary Disease (COPD): No Hx Emphysema: No Hx Pneumonia: No Hx Pulmonary Embolism: No Hx Sleep Apnea: No - NEUROLOGICAL Hx Alzheimer's Disease: No Hx Dementia: No Hx Migraine: No Hx Multiple Sclerosis: No Hx Parkinson's Disease: No Hx Seizures: No Hx Transient Ischemic Attacks (TIA): No - HEENT Hx HEENT Problems: No - RENAL Hx Chronic Kidney Disease: No - ENDOCRINE/METABOLIC Hx Endocrine Disorders: No - HEMATOLOGICAL/ONCOLOGICAL Hx Human Immunodeficiency Virus (HIV): No - INTEGUMENTARY Hx Dermatological Problems: No - MUSCULOSKELETAL/RHEUMATOLOGICAL Hx Musculoskeletal Disorders: Yes Hx Falls: Yes - GASTROINTESTINAL Hx Gastrointestinal Disorders: No - GENITOURINARY/GYNECOLOGICAL Hx Sexually Transmitted Disorders: No - PSYCHIATRIC Hx Depression: Yes Hx Substance Use: Yes - SURGICAL HISTORY Hx Surgeries: Yes Hx Musculoskeletal Surgery: Yes (left hip replacement) Other/Comment: PT USES CANE TO WALK AROUND - ANESTHESIA Hx Anesthesia: Yes Hx Anesthesia Reactions: No Hx Malignant Hyperthermia: No Meds Allergies/Adverse Reactions: Allergies Allergy/AdvReac Type Severity Reaction Status Date / Time No Known Allergies Allergy Verified 07/22/18 03:45 Results - Vital Signs Recent Vital Signs: Last Vital Signs Temp 98.2 F 07/23/18 23:45 Pulse 65 07/24/18 03:34 Resp 20 07/23/18 23:45 BP 133/78 07/23/18 23:45 Pulse Ox 93 L 07/23/18 23:45 - Labs Result Diagrams: 07/22/18 04:50 07/22/18 04:50 Labs: Laboratory Results - last 24 hr 07/23/18 06:25 Total Creatine Kinase 360 H CK-MB (Mass) 2.05 Troponin I < 0.0120 Triglycerides 151 H Cholesterol 178 LDL Cholesterol Direct 103 HDL Cholesterol 67
[2018-07-24 06:45] LABS: BASO # 0.1 K/uL (0.0-0.2); BASO % 0.7 % (0.0-2.0); EOS # 0.3 K/uL (0.0-0.7); EOS % 3.6 % (0.0-4.0); HEMOGLOBIN 11.6 g/dL (12.0-18.0); LYMPH # 1.5 K/uL (1.0-4.3); LYMPH % 20.1 % (20.0-40.0); MEAN CORPUSCULAR HEMOGLOBIN 25.2 pg (27.0-31.0); MEAN CORPUSCULAR HGB CONC 31.8 g/dL (33.0-37.0); MEAN PLATELET VOLUME 7.7 fL (7.2-11.7); MONO # 0.8 K/uL (0.0-0.8); MONO % 10.3 % (0.0-10.0); NEUT # 4.9 K/uL (1.8-7.0); NEUT % 65.3 % (50.0-75.0); NRBC % 0.1 % (0.0-2.0); RBC 4.62 Mil/uL (4.40-5.90); RED CELL DISTRIBUTION WIDTH 17.9 % (11.5-14.5); WHITE BLOOD COUNT 7.6 K/uL (4.8-10.8)
[2018-07-24 07:40] LABS: ALB/GLOB RATIO 1.4 (1.0-2.1); ALBUMIN 4.1 g/dL (3.5-5.0); ALT/SGPT 31 U/L (21-72); AST/SGOT 56 U/L (17-59); BLOOD UREA NITROGEN 9 mg/dL (9-20); CALCIUM 8.7 mg/dl (8.6-10.4); GFR NON-AFRICAN AMERICAN > 60
[2018-07-24] MEDS: Enoxaparin 40 mg Syringe SC SCH (09:10)
[2018-07-24] MEDS: Multivitamin With Minerals Tab PO SCH (09:10)
[2018-07-24] MEDS: Metoprolol Succinate 25 mg XL Tab PO SCH (09:11)
[2018-07-24] MEDS ORDERED: Potassium Chloride 20 mEq ER Tab PO ONE (10:00)
--- NOTE | 2018-07-24 11:52 | CP.PCM.CON ---
<Cornelius Moore - Last Filed: 07/24/18 17:48> History of Present Illness - History of Present Illness History of Present Illness: PGY2 Cardiology Consult Note for Dr. Alexander Reason for Consult: Chest pain Patient is a 57 year old with a past medical history of depression, chronic pain and alcohol abuse was admitted to the hospital with a complaint of chest pain. He reported experiencing chest pain prior to arriving to the hospital two days ago. The pain was described as a throbbing sensation without radiation. The pain resolved and he has not experienced it since being admitted. He has never experienced chest pain like this before, denies any cardiac history. He reports drinking heavily since March, after his father . He has is complaining of abdominal pain and diarrhea for the past three days, but denies any fevers, chills, nausea, vomiting, chest pain, shortness of breath, lightheadedness or dizziness. PMH: depression, chronic pain and alcohol abuse Allergies: NKDA Review of Systems - Review of Systems All systems: reviewed and no additional remarkable complaints except (as per HPI) Past Patient History - Infectious Disease Hx of Infectious Diseases: None - Past Medical History & Family History Past Medical History?: No - Past Social History Smoking Status: Former Smoker - CARDIAC Hx Atrial Fibrillation: No Hx Cardia Arrhythmia: No Hx Congestive Heart Failure: No Hx Hypercholesterolemia: No Hx Hypertension: No Hx Mitral Valve Prolapse: No Hx Pacemaker: No Hx Peripheral Edema: No - PULMONARY Hx Asthma: No Hx Bronchitis: No Hx Chronic Obstructive Pulmonary Disease (COPD): No Hx Emphysema: No Hx Pneumonia: No Hx Pulmonary Embolism: No Hx Sleep Apnea: No - NEUROLOGICAL Hx Alzheimer's Disease: No Hx Dementia: No Hx Migraine: No Hx Multiple Sclerosis: No Hx Parkinson's Disease: No Hx Seizures: No Hx Transient Ischemic Attacks (TIA): No - HEENT Hx HEENT Problems: No - RENAL Hx Chronic Kidney Disease: No - ENDOCRINE/METABOLIC Hx Endocrine Disorders: No - HEMATOLOGICAL/ONCOLOGICAL Hx Human Immunodeficiency Virus (HIV): No - INTEGUMENTARY Hx Dermatological Problems: No - MUSCULOSKELETAL/RHEUMATOLOGICAL Hx Musculoskeletal Disorders: Yes Hx Falls: Yes - GASTROINTESTINAL Hx Gastrointestinal Disorders: No - GENITOURINARY/GYNECOLOGICAL Hx Sexually Transmitted Disorders: No - PSYCHIATRIC Hx Depression: Yes Hx Substance Use: Yes - SURGICAL HISTORY Hx Surgeries: Yes Hx Musculoskeletal Surgery: Yes (left hip replacement) Other/Comment: PT USES CANE TO WALK AROUND - ANESTHESIA Hx Anesthesia: Yes Hx Anesthesia Reactions: No Hx Malignant Hyperthermia: No Meds Allergies/Adverse Reactions: Allergies Allergy/AdvReac Type Severity Reaction Status Date / Time No Known Allergies Allergy Verified 07/22/18 03:45 - Medications Medications: Current Medications Aspirin (Ecotrin) 81 mg PO DAILY [facility] Last Admin: 07/24/18 09:11 Dose: 81 mg Enoxaparin Sodium (Lovenox) 40 mg SC DAILY [facility] Last Admin: 07/24/18 09:10 Dose: 40 mg Folic Acid (Folic Acid) 1 mg PO DAILY [facility] Last Admin: 07/24/18 09:10 Dose: 1 mg Gabapentin (Neurontin) 400 mg PO TID [facility] Last Admin: 07/24/18 09:10 Dose: 400 mg Sodium Chloride (Sodium Chloride 0.9%) 1,000 mls @ 100 mls/hr IV .Q10H [facility] Last Admin: 07/24/18 02:13 Dose: 100 mls/hr Metronidazole (Flagyl) 500 mg in 100 mls @ 100 mls/hr IVPB Q8H [facility]; Protocol Last Admin: 07/24/18 11:01 Dose: 100 mls/hr Metoprolol Succinate (Toprol Xl) 25 mg PO DAILY [facility] Last Admin: 07/24/18 09:11 Dose: 25 mg Mirtazapine (Remeron) 15 mg PO HS [facility] Last Admin: 07/23/18 21:22 Dose: 15 mg Multivitamins/Minerals (Therapeutic-M Tab) 1 tab PO DAILY [facility] Last Admin: 07/24/18 09:10 Dose: 1 tab Paroxetine HCl (Paxil) 10 mg PO DAILY [facility] Last Admin: 07/24/18 09:11 Dose: 10 mg Quetiapine Fumarate (Seroquel) 100 mg PO HS [facility] Last Admin: 07/23/18 21:22 Dose: 100 mg Rosuvastatin Calcium (Crestor) 5 mg PO HS [facility] Last Admin: 07/23/18 21:22 Dose: 5 mg Thiamine HCl (Vitamin B1 Tab) 100 mg PO DAILY [facility] Last Admin: 07/24/18 09:11 Dose: 100 mg Physical Exam - Constitutional Appears: Non-toxic, No Acute Distress, Other (obese) - Head Exam Head Exam: ATRAUMATIC, NORMOCEPHALIC - Eye Exam Eye Exam: Normal appearance - ENT Exam ENT Exam: Mucous Membranes Moist - Neck Exam Neck exam: Negative for: Lymphadenopathy, Tenderness - Respiratory Exam Respiratory Exam: Clear to Auscultation Bilateral, NORMAL BREATHING PATTERN. absent: Accessory Muscle Use, Rales, Rhonchi, Wheezes, Respiratory Distress - Cardiovascular Exam Cardiovascular Exam: REGULAR RHYTHM, +S1, +S2 - GI/Abdominal Exam GI & Abdominal Exam: Hyperactive Bowel Sounds, Soft, Tenderness (mild). absent: Distended, Firm, Guarding, Rigid - Extremities Exam Extremities exam: Positive for: pedal edema, pedal pulses present. Negative for: calf tenderness - Neurological Exam Neurological exam: Alert, Oriented x3 Additional comments: mild hand tremor - Psychiatric Exam Psychiatric exam: Depressed, Normal Affect - Skin Skin Exam: Dry, Warm Results - Vital Signs Recent Vital Signs: Last Vital Signs Temp 98.6 F 07/24/18 08:10 Pulse 73 07/24/18 08:10 Resp 20 07/24/18 08:10 BP 127/77 07/24/18 08:10 Pulse Ox 96 07/24/18 08:10 - Labs Result Diagrams: 07/24/18 06:40 07/24/18 06:40 Labs: Laboratory Results - last 24 hr 07/24/18 07/24/18 06:40 06:40 WBC 7.6 RBC 4.62 Hgb 11.6 L Hct 36.5 MCV 79.0 L MCH 25.2 L MCHC 31.8 L RDW 17.9 H Plt Count 306 D MPV 7.7 Neut % (Auto) 65.3 Lymph % (Auto) 20.1 [place] % (Auto) 10.3 H Eos % (Auto) 3.6 Baso % (Auto) 0.7 Neut # (Auto) 4.9 Lymph # (Auto) 1.5 [place] # (Auto) 0.8 Eos # (Auto) 0.3 Baso # (Auto) 0.1 Sodium 140 Potassium 3.3 L Chloride 107 Carbon Dioxide 22 Anion Gap 15 BUN 9 Creatinine 0.7 L Est GFR ( Amer) > 60 Est GFR (Non-Af Amer) > 60 Random Glucose 90 Calcium 8.7 Phosphorus 3.1 Magnesium 1.7 Total Bilirubin 0.6 AST 56 ALT 31 Alkaline Phosphatase 79 Total Protein 7.1 Albumin 4.1 Globulin 3.0 Albumin/Globulin Ratio 1.4 Assessment & Plan - Assessment and Plan (Free Text) Assessment: Patient is a 57 year old male with a past medical history of depression, chronic pain and alcohol abuse was admitted for chest pain r/o ACS, currently going through alcohol withdrawal. Plan: Atypical Chest Pain Bicuspid Aortic Valve Dilated Aortic Root Resolved. Denies any chest pain since admission. Pt denies any cardiac history. ECHO 07/22/18: EF > 52%, diastolic dysfunction, Biscupid Aortic valve with trace AR, trace MR, mild TR and dilate Aortic Root. Troponin negative x3 Although chest pain is atypical, a dilated Aortic root and biscupid Aortic valve was seen ECHO. CT angio (dissection protocol) ordered to further evaluate aorta, r/o any aortic aneurysms. Abdominal Pain Diarrhea likely secondary to alcohol abuse/withdrawal Management per GI Alcohol Withdrawal continue to monitor Management per primary team Case discussed with Dr. Benjamin Moore PGY2 <Alberto Alexander - Last Filed: 07/24/18 22:29> Meds - Medications Medications: Current Medications Aspirin (Ecotrin) 81 mg PO DAILY [facility] Last Admin: 07/24/18 09:11 Dose: 81 mg Enoxaparin Sodium (Lovenox) 40 mg SC DAILY [facility] Last Admin: 07/24/18 09:10 Dose: 40 mg Folic Acid (Folic Acid) 1 mg PO DAILY [facility] Last Admin: 07/24/18 09:10 Dose: 1 mg Gabapentin (Neurontin) 400 mg PO TID [facility] Last Admin: 07/24/18 18:14 Dose: 400 mg Sodium Chloride (Sodium Chloride 0.9%) 1,000 mls @ 100 mls/hr IV .Q10H [facility] Last Admin: 07/24/18 13:36 Dose: 100 mls/hr Metronidazole (Flagyl) 500 mg in 100 mls @ 100 mls/hr IVPB Q8H [facility]; Protocol Last Admin: 07/24/18 18:14 Dose: 100 mls/hr Metoprolol Succinate (Toprol Xl) 25 mg PO DAILY [facility] Last Admin: 07/24/18 09:11 Dose: 25 mg Mirtazapine (Remeron) 15 mg PO HS [facility] Last Admin: 07/24/18 21:46 Dose: 15 mg Multivitamins/Minerals (Therapeutic-M Tab) 1 tab PO DAILY [facility] Last Admin: 07/24/18 09:10 Dose: 1 tab Paroxetine HCl (Paxil) 10 mg PO DAILY [facility] Last Admin: 07/24/18 09:11 Dose: 10 mg Quetiapine Fumarate (Seroquel) 100 mg PO HS [facility] Last Admin: 07/24/18 21:45 Dose: 100 mg Rosuvastatin Calcium (Crestor) 5 mg PO HS [facility] Last Admin: 07/24/18 21:46 Dose: 5 mg Thiamine HCl (Vitamin B1 Tab) 100 mg PO DAILY [facility] Last Admin: 07/24/18 09:11 Dose: 100 mg Results - Vital Signs Recent Vital Signs: Last Vital Signs Temp 98.7 F 07/24/18 15:12 Pulse 70 07/24/18 15:12 Resp 20 07/24/18 15:12 BP 144/95 H 07/24/18 15:12 Pulse Ox 97 07/24/18 15:45 - Labs Result Diagrams: 07/24/18 06:40 07/24/18 06:40 Labs: Laboratory Results - last 24 hr 07/24/18 07/24/18 07/24/18 06:40 06:40 13:08 WBC 7.6 RBC 4.62 Hgb 11.6 L Hct 36.5 MCV 79.0 L MCH 25.2 L MCHC 31.8 L RDW 17.9 H Plt Count 306 D MPV 7.7 Neut % (Auto) 65.3 Lymph % (Auto) 20.1 [place] % (Auto) 10.3 H Eos % (Auto) 3.6 Baso % (Auto) 0.7 Neut # (Auto) 4.9 Lymph # (Auto) 1.5 [place] # (Auto) 0.8 Eos # (Auto) 0.3 Baso # (Auto) 0.1 PT INR APTT Sodium 140 Potassium 3.3 L Chloride 107 Carbon Dioxide 22 Anion Gap 15 BUN 9 Creatinine 0.7 L Est GFR ( Amer) > 60 Est GFR (Non-Af Amer) > 60 Random Glucose 90 Calcium 8.7 Phosphorus 3.1 Magnesium 1.7 Total Bilirubin 0.6 AST 56 ALT 31 Alkaline Phosphatase 79 Total Protein 7.1 Albumin 4.1 Globulin 3.0 Albumin/Globulin Ratio 1.4 Amylase Lipase Alpha Fetoprotein Carcinoembryonic Ag CA 19-9 Antigen C. difficile Ag & Toxin Negative 07/24/18 07/24/18 07/24/18 14:00 14:00 14:00 WBC RBC Hgb Hct MCV MCH MCHC RDW Plt Count MPV Neut % (Auto) Lymph % (Auto) [place] % (Auto) Eos % (Auto) Baso % (Auto) Neut # (Auto) Lymph # (Auto) [place] # (Auto) Eos # (Auto) Baso # (Auto) PT 11.8 INR 1.1 APTT 39.2 H Sodium Potassium Chloride Carbon Dioxide Anion Gap BUN Creatinine Est GFR ( Amer) Est GFR (Non-Af Amer) Random Glucose Calcium Phosphorus Magnesium Total Bilirubin AST ALT Alkaline Phosphatase Total Protein Albumin Globulin Albumin/Globulin Ratio Amylase 86 Lipase 327 H Alpha Fetoprotein 3.9 Carcinoembryonic Ag 3.9 H CA 19-9 Antigen 4.0 C. difficile Ag & Toxin Assessment & Plan - Assessment and Plan (Free Text) Plan: Patient seen, examined and evaluated personally by me. Plan of care d/w the lead medical technologist and as documented
--- NOTE | 2018-07-24 14:18 | PN ---
DATE: 07/24/2018 LOCATION: 670, bed B. SUBJECTIVE: This is a 57-year-old male seen initially for GI consultation as requested by the admitting MD on 07/23/2018. Reexamined again today with a complaint of watery bowel movement, abdominal pain on and off, but less than before. The entire chart is reviewed including today's lab workup with hemoglobin of 11.6, normal white blood cells with low indices highly suggestive of hypochromic microcytic anemia with normal troponin level as reported before. Lipase level is 421. The most recently done abdominal ultrasound, report is seen indicative of hepatomegaly with fatty infiltrate of the liver. PHYSICAL EXAMINATION: GENERAL: A 57-year-old male. VITAL SIGNS: Afebrile with pulse of 70, respiratory rate 20-22, blood pressure 130/74. HEENT: Showed pale, dry oral mucous membrane. Nonicteric sclerae. LUNGS: Few scattered crepitation. Decreased air entry at bases. HEART: Positive S1 and S2. ABDOMEN: Soft with slight generalized tenderness. No mass or organomegaly. No rebound tenderness or guarding. EXTREMITIES: Without significant clubbing, cyanosis or edema. IMPRESSION: 1. Re-exacerbation of peptic ulcer disease. 2. Acute pancreatitis most likely alcohol induced. 3. Alcoholism by history. 4. Hypochromic microcytic anemia, most likely secondary to above. SUGGESTIONS: 1. Agree with your plan. 2. Proton pump inhibitors. 3. Due to the patient's anemia , stool workup as well as cancer markers to be considered. 4. Further recommendation to follow; and sectional abdominal and pelvic CAT scan as well as psychiatric evaluation to be ordered. Joel Ignacio MD
[2018-07-24 14:23] LABS: INR 1.1; PARTIAL THROMBOPLASTIN TIME 39.2 SECONDS (21-34); PROTHROMBIN TIME 11.8 SECONDS (9.7-12.2)
[2018-07-24] MEDS ORDERED: Iohexol 300 100 ML IJ ONE (18:40)
--- NOTE | 2018-07-24 21:15 | CP.PCM.PN ---
Subjective - Date & Time of Evaluation Date of Evaluation: 07/24/18 Time of Evaluation: 20:40 - Subjective Subjective: dict Objective - Vital Signs/Intake and Output Vital Signs (last 24 hours): Temp Pulse Resp BP Pulse Ox 98.7 F 70 20 144/95 H 97 07/24/18 15:12 07/24/18 15:12 07/24/18 15:12 07/24/18 15:12 07/24/18 15:45 Intake and Output: 07/24/18 07/25/18 18:59 06:59 Intake Total 2340 Balance 2340 - Medications Medications: Current Medications Aspirin (Ecotrin) 81 mg PO DAILY [facility] Last Admin: 07/24/18 09:11 Dose: 81 mg Enoxaparin Sodium (Lovenox) 40 mg SC DAILY [facility] Last Admin: 07/24/18 09:10 Dose: 40 mg Folic Acid (Folic Acid) 1 mg PO DAILY [facility] Last Admin: 07/24/18 09:10 Dose: 1 mg Gabapentin (Neurontin) 400 mg PO TID [facility] Last Admin: 07/24/18 18:14 Dose: 400 mg Sodium Chloride (Sodium Chloride 0.9%) 1,000 mls @ 100 mls/hr IV .Q10H [facility] Last Admin: 07/24/18 13:36 Dose: 100 mls/hr Metronidazole (Flagyl) 500 mg in 100 mls @ 100 mls/hr IVPB Q8H [facility]; Protocol Last Admin: 07/24/18 18:14 Dose: 100 mls/hr Metoprolol Succinate (Toprol Xl) 25 mg PO DAILY [facility] Last Admin: 07/24/18 09:11 Dose: 25 mg Mirtazapine (Remeron) 15 mg PO HS [facility] Last Admin: 07/23/18 21:22 Dose: 15 mg Multivitamins/Minerals (Therapeutic-M Tab) 1 tab PO DAILY [facility] Last Admin: 07/24/18 09:10 Dose: 1 tab Paroxetine HCl (Paxil) 10 mg PO DAILY [facility] Last Admin: 07/24/18 09:11 Dose: 10 mg Quetiapine Fumarate (Seroquel) 100 mg PO HS [facility] Last Admin: 07/23/18 21:22 Dose: 100 mg Rosuvastatin Calcium (Crestor) 5 mg PO HS [facility] Last Admin: 07/23/18 21:22 Dose: 5 mg Thiamine HCl (Vitamin B1 Tab) 100 mg PO DAILY [facility] Last Admin: 07/24/18 09:11 Dose: 100 mg - Labs Labs: 07/24/18 06:40 07/24/18 06:40 PT 11.8 SECONDS (9.7-12.2) 07/24/18 14:00 INR 1.1 07/24/18 14:00 APTT 39.2 SECONDS (21-34) H 07/24/18 14:00
[2018-07-25] MEDS: metroNIDAZOLE IV 500 mg/100 ml 500 MG/100 ML BAG IVPB SCH ×3 (02:47→18:00)
[2018-07-25] MEDS: Sodium Chloride 0.9% 1,000 ML IV SCH ×2 (02:47→17:54)
--- NOTE | 2018-07-25 05:01 | PN ---
DATE: 07/25/2018 SUBJECTIVE: The patient still has diarrhea. He has less shaking, less tremulous. No fever noted. No nausea or vomiting. PHYSICAL EXAMINATION: VITAL SIGNS: Blood pressure 144/95, pulse 70, respiratory rate 20, temperature 98.7. LUNGS: Clear. CARDIOVASCULAR SYSTEM: S1, S2, regular. ABDOMEN: Soft. ASSESSMENT: 1. Delirium tremens. 2. Dehydration, hypokalemia. 3. Chronic liver disease. PLAN: Medical management. Monitor the patient. Delroy Lennon MD
--- NOTE | 2018-07-25 07:12 | HP ---
CHIEF COMPLAINT: Chest pain and palpitation. HISTORY OF PRESENT ILLNESS: This is a 57-year-old white male, who is a smoker and he is alcoholic. He has history of major depression with prior history of emergency room visit because of his alcohol-related problems including intoxication and withdrawal and he has been drinking and then he became tired of drinking and the other day he came to emergency room, he had four . He then later on only developed some dull chest pain, nonradiating, not associated with diaphoresis, dizziness, and the patient says it was not pressure like. It does not radiate to the back and now he is having palpitation, weakness, and he has diarrhea. He denies any other drugs other than alcohol. He has generalized weakness. He denies any hematuria, hematemesis, melena, or hematochezia. He has chronic dry cough, chest congestion, and wheezing. He denies any joint pain or hip pain. He denies any history of tingling, numbness, or paraesthesia. He denies any sneezing, itchy eyes, or itchy nose. He denies any history of polyuria, polydipsia, or polyphagia. PAST MEDICAL HISTORY: Positive for alcoholism, depression. SOCIAL HISTORY: He smokes He drinks. He does not work. CURRENT MEDICATIONS: Thiamine, Seroquel, , multivitamin, Remeron, Neurontin, folic acid. FAMILY HISTORY: Negative for premature CAD. PHYSICAL EXAMINATION: GENERAL: A middle-age male, who is shaking, tremulous, , complaining of persistent diarrhea. VITAL SIGNS: Blood pressure 133/78, pulse 81, respiratory rate 20, temperature 98.2. SKIN: Flushed. No bruises. No purpura. No petechiae. HEENT: Atraumatic, normocephalic. Negative pallor. Negative jaundice. Extraocular movements are intact. NECK: Supple. No JVD. No lymph node. No thyromegaly. No carotid bruit. CHEST WALL: Bilateral symmetrical expansion. No tenderness. No deformity. LUNGS: Bilateral scattered rhonchi. CARDIOVASCULAR SYSTEM: S1 and S2, regular. ABDOMEN: Soft and nontender. Bowel sounds are positive. EXTREMITIES: No clubbing, cyanosis, or edema. CENTRAL NERVOUS SYSTEM: Awake, alert, and oriented x3. Cranial nerves II through XII are normal. ASSESSMENT: 1. Chest pain, rule out myocardial infarction. 2. Diarrhea, rule out gastroenteritis. It could be withdrawal from alcohol. 3. Alcoholism. 4. Dehydration. 5. Alcoholic liver disease. PLAN: Admit. Detailed orders are written. Seen and examined. Delroy Lennon MD
[2018-07-25] MEDS: Multivitamin With Minerals Tab PO SCH (09:23)
[2018-07-25] MEDS: Enoxaparin 40 mg Syringe SC SCH (09:24)
[2018-07-25] MEDS: Metoprolol Succinate 25 mg XL Tab PO SCH (09:24)
--- NOTE | 2018-07-25 10:45 | CT ---
PROCEDURE: CT Angiography Chest, Abdomen and Pelvis with and without intravenous contrast HISTORY: dilated aortic root on ECHO, bicuspid valve r/oAAA COMPARISON: None. TECHNIQUE: Contiguous axial images of the chest, abdomen and pelvis were obtained in the phase of aortic enhancement. A noncontrast enhanced CT of the chest was also obtained to evaluate for possible intramural thrombus. Coronal and sagittal reformats were generated. IV dose administered: 100 cc Omnipaque 300. Radiation dose: Total exam DLP = 1949.19 mGy-cm. This CT exam was performed using one or more of the following dose reduction techniques: Automated exposure control, adjustment of the mA and/or kV according to patient size, and/or use of iterative reconstruction technique. FINDINGS: CT ANGIOGRAPHY OF THE CHEST WITH & WITHOUT CONTRAST: AORTA (CHEST AND ABDOMEN): The thoracic and abdominal aorta are unremarkable, without aneurysm, dissection or rupture. No intramural thrombus identified in the thoracic aorta on the non-contrast ct of the chest. The celiac axis, superior mesenteric artery, inferior mesenteric artery and the renal arteries are widely patent. The pelvic arteries are unremarkable. LUNGS: Faint multifocal infiltrates right lower lobe, posterior segment right upper lobe, superior segment left lower lobe. Findings consistent inflammatory/infectious etiology. In particular, the findings in the right upper lobe reflect tree-in-bud sign MEDIASTINUM: Maximum diameter ascending aorta of 4 x 4.3 cm. Nondilated mildly ectatic descending aorta. Normal caliber aorta and pulmonary arterial trunk. No aortic dissection. Normal size heart. LYMPH NODES: Unremarkable. PLEURA: Unremarkable. No pneumothorax. No pleural fluid. BONES: Unremarkable. OTHER FINDINGS: None. CT ANGIOGRAPHY OF THE ABDOMEN AND PELVIS WITH CONTRAST: LIVER: Hepatomegaly, hepatic steatosis. Focal fatty sparing right lobe adjacent to the falciform ligament. GALLBLADDER AND BILE DUCTS: Unremarkable. PANCREAS: Unremarkable. No gross lesion or ductal dilatation. SPLEEN: Unremarkable. ADRENALS: Unremarkable. No mass. KIDNEYS AND URETERS: Unremarkable. No hydronephrosis. No solid mass. VASCULATURE: Atherosclerotic calcification and mural plaque present. Findings are seen throughout the aorta which is non aneurysmal. STOMACH AND BOWEL: Unremarkable. No obstruction. No gross mural thickening. APPENDIX: Normal appendix. PERITONEUM: Unremarkable. No free fluid. No free air. LYMPH NODES: Unremarkable. No enlarged lymph nodes. BONES: No acute fracture. OTHER FINDINGS: None. IMPRESSION: 1. Mild dilatation of the ascending aorta. 2. Normal caliber descending thoracic aorta. 3. Abdominal aorta and proximal iliac vessels: Atherosclerotic calcification and mural plaque present. Findings are seen throughout the aorta which is non aneurysmal. 4. Multifocal faint infiltrates infectious/inflammatory. This report is discordant with reference to the pulmonary parenchymal findings, not mentioned in the preliminary report. There is no available information indicating that the multifocal infiltrates are known to the health care personnel involved in the care and management of the patient. Accordingly, and per institutional protocol, this report has been routed to the PA folder for review and follow-up.
[2018-07-25 11:31] LABS: BLOOD UREA NITROGEN 8 mg/dL (9-20); CALCIUM 9.2 mg/dl (8.6-10.4); GFR NON-AFRICAN AMERICAN > 60
[2018-07-25] MEDS ORDERED: Peg-Electrolyte Oral Soln 4L (Golytely) PO ONE (13:00)
--- NOTE | 2018-07-25 14:24 | CP.PCM.PN ---
<Cornelius Moore - Last Filed: 07/25/18 16:21> Subjective - Date & Time of Evaluation Date of Evaluation: 07/25/18 Time of Evaluation: 11:30 - Subjective Subjective: PGY2 Cardiology Note for Dr. Alexander Patient seen and examined this morning at bedside this morning. No acute events overnight. Patient is seen up and walking around. He denies any chest pain or shortness of breath. Reports improvement in his hand tremor. Objective - Vital Signs/Intake and Output Vital Signs (last 24 hours): Temp Pulse Resp BP Pulse Ox 98.1 F 91 H 20 152/84 H 98 07/25/18 08:25 07/25/18 12:43 07/25/18 08:25 07/25/18 08:25 07/25/18 08:25 Intake and Output: 07/25/18 07/25/18 06:59 18:59 Intake Total 800 Balance 800 - Medications Medications: Current Medications Aspirin (Ecotrin) 81 mg PO DAILY [facility] Last Admin: 07/25/18 09:23 Dose: 81 mg Bisacodyl (Dulcolax) 10 mg PO ONCE ONE Stop: 07/25/18 17:01 Enoxaparin Sodium (Lovenox) 40 mg SC DAILY [facility] Last Admin: 07/25/18 09:24 Dose: 40 mg Folic Acid (Folic Acid) 1 mg PO DAILY [facility] Last Admin: 07/25/18 09:23 Dose: 1 mg Gabapentin (Neurontin) 400 mg PO TID [facility] Last Admin: 07/25/18 13:29 Dose: 400 mg Metronidazole (Flagyl) 500 mg in 100 mls @ 100 mls/hr IVPB Q8H [facility]; Protocol Last Admin: 07/25/18 11:36 Dose: 100 mls/hr Metoclopramide HCl (Reglan) 5 mg IVP Q6H [facility] Stop: 07/28/18 06:00 Last Admin: 07/25/18 12:05 Dose: 5 mg Metoprolol Succinate (Toprol Xl) 25 mg PO DAILY [facility] Last Admin: 07/25/18 09:24 Dose: 25 mg Mirtazapine (Remeron) 15 mg PO HS [facility] Last Admin: 07/24/18 21:46 Dose: 15 mg Multivitamins/Minerals (Therapeutic-M Tab) 1 tab PO DAILY [facility] Last Admin: 07/25/18 09:23 Dose: 1 tab Paroxetine HCl (Paxil) 10 mg PO DAILY [facility] Last Admin: 07/25/18 09:23 Dose: 10 mg Quetiapine Fumarate (Seroquel) 100 mg PO HS [facility] Last Admin: 07/24/18 21:45 Dose: 100 mg Rosuvastatin Calcium (Crestor) 5 mg PO HS [facility] Last Admin: 07/24/18 21:46 Dose: 5 mg Thiamine HCl (Vitamin B1 Tab) 100 mg PO DAILY [facility] Last Admin: 07/25/18 09:23 Dose: 100 mg - Labs Labs: 07/24/18 06:40 07/25/18 11:06 PT 11.8 SECONDS (9.7-12.2) 07/24/18 14:00 INR 1.1 07/24/18 14:00 APTT 39.2 SECONDS (21-34) H 07/24/18 14:00 - Additional Findings Additional findings: - Constitutional Appears: Non-toxic, No Acute Distress, Other (obese) - Head Exam Head Exam: ATRAUMATIC, NORMOCEPHALIC - Eye Exam Eye Exam: Normal appearance - ENT Exam ENT Exam: Mucous Membranes Moist - Neck Exam Neck exam: Negative for: Lymphadenopathy, Tenderness - Respiratory Exam Respiratory Exam: Clear to Auscultation Bilateral, NORMAL BREATHING PATTERN. absent: Accessory Muscle Use, Rales, Rhonchi, Wheezes, Respiratory Distress - Cardiovascular Exam Cardiovascular Exam: REGULAR RHYTHM, +S1, +S2 - GI/Abdominal Exam GI & Abdominal Exam: Hyperactive Bowel Sounds, Soft, Tenderness (mild). absent: Distended, Firm, Guarding, Rigid - Extremities Exam Extremities exam: Positive for: pedal edema, pedal pulses present. Negative for: calf tenderness - Neurological Exam Neurological exam: Alert, Oriented x3 Additional comments: improving mild hand tremor - Psychiatric Exam Psychiatric exam: Normal Mood, Normal Affect - Skin Skin Exam: Dry, Warm Assessment and Plan - Assessment and Plan (Free Text) Plan: Patient is a 57 year old male with a past medical history of depression, chronic pain and alcohol abuse was admitted for chest pain r/o ACS, currently going through alcohol withdrawal. Plan: Atypical Chest Pain Bicuspid Aortic Valve Dilated Aortic Root Resolved. Pt denies any cardiac history. ECHO 07/22/18: EF > 52%, diastolic dysfunction, Biscupid Aortic valve with trace AR, trace MR, mild TR and dilate Aortic Root. Troponin negative x3 CT angio (dissection protocol): * 1. Mild dilatation of the ascending aorta (max 4.3cm). * 2. Normal caliber descending thoracic aorta. * 3. Abdominal aorta and proximal iliac vessels: Atherosclerotic calcification and mural plaque present. Findings are seen throughout the aorta which is non aneurysmal. * 4. Multifocal faint infiltrates infectious/inflammatory. No further cardiology intervention at this time. continue current management Abdominal Pain Diarrhea likely secondary to alcohol abuse/withdrawal Management per GI Alcohol Withdrawal continue to monitor Management per primary team DISPO: Discussed findings of CTA with patient. He is stable from cardiac standpoint. He is to follow up with Dr. Alexander in his office as an outpatient for continued care. Case discussed with Dr. Benjamin Moore PGY2 <Alberto Alexander - Last Filed: 07/25/18 22:39> Objective - Vital Signs/Intake and Output Vital Signs (last 24 hours): Temp Pulse Resp BP Pulse Ox 98.3 F 71 20 164/97 H 96 07/25/18 15:10 07/25/18 15:10 07/25/18 15:10 07/25/18 15:10 07/25/18 15:10 Intake and Output: 07/25/18 07/26/18 18:59 06:59 Intake Total 1200 Balance 1200 - Medications Medications: Current Medications Aspirin (Ecotrin) 81 mg PO DAILY [facility] Last Admin: 07/25/18 09:23 Dose: 81 mg Enoxaparin Sodium (Lovenox) 40 mg SC DAILY [facility] Last Admin: 07/25/18 09:24 Dose: 40 mg Folic Acid (Folic Acid) 1 mg PO DAILY [facility] Last Admin: 07/25/18 09:23 Dose: 1 mg Gabapentin (Neurontin) 400 mg PO TID [facility] Last Admin: 07/25/18 17:47 Dose: 400 mg Metronidazole (Flagyl) 500 mg in 100 mls @ 100 mls/hr IVPB Q8H [facility]; Protocol Last Admin: 07/25/18 18:00 Dose: 100 mls/hr Metoclopramide HCl (Reglan) 5 mg IVP Q6H [facility] Stop: 07/28/18 06:00 Last Admin: 07/25/18 17:48 Dose: 5 mg Metoprolol Succinate (Toprol Xl) 25 mg PO DAILY [facility] Last Admin: 07/25/18 09:24 Dose: 25 mg Mirtazapine (Remeron) 15 mg PO HS [facility] Last Admin: 07/25/18 21:32 Dose: 15 mg Multivitamins/Minerals (Therapeutic-M Tab) 1 tab PO DAILY [facility] Last Admin: 07/25/18 09:23 Dose: 1 tab Paroxetine HCl (Paxil) 10 mg PO DAILY [facility] Last Admin: 07/25/18 09:23 Dose: 10 mg Quetiapine Fumarate (Seroquel) 100 mg PO HS [facility] Last Admin: 07/25/18 21:31 Dose: 100 mg Rosuvastatin Calcium (Crestor) 5 mg PO HS [facility] Last Admin: 07/25/18 21:32 Dose: 5 mg Thiamine HCl (Vitamin B1 Tab) 100 mg PO DAILY [facility] Last Admin: 07/25/18 09:23 Dose: 100 mg - Labs Labs: 07/24/18 06:40 07/25/18 11:06 PT 11.8 SECONDS (9.7-12.2) 07/24/18 14:00 INR 1.1 07/24/18 14:00 APTT 39.2 SECONDS (21-34) H 07/24/18 14:00 Assessment and Plan - Assessment and Plan (Free Text) Plan: Patient seen, examined and evaluated personally by me. Plan of care d/w the medical territory manager and as documented
--- NOTE | 2018-07-25 15:18 | PN ---
DATE: 07/25/2018 LOCATION: 670, bed B. SUBJECTIVE: This is a 57-year-old male seen and examined early in rounds today without reported significant clinical changes or active bleeding with a complaint of abdominal pain, dyspepsia and persistent diarrhea again, without reported active bleeding. The entire chart is reviewed including but not limited to the most recent lab and radiology study results, current and the previous medication list, current and the previous medical events and today's lab results showed low BUN and creatinine with yesterday results indicative of increased lipase to 327, CEA of 3.9, but normal CEA 19-9 antigen. Official report of the recently done CAT scan is seen. PHYSICAL EXAMINATION: GENERAL: A 57-year-old male, awake, alert, oriented. VITAL SIGNS: Afebrile with pulse of 70, respiratory rate 20-22, blood pressure 140/78. HEENT: Showed pale, dry oral mucous membrane. Nonicteric sclerae. LUNGS: Few scattered crepitation. Decreased air entry at bases. HEART: Positive S1 and S2. ABDOMEN: Soft with mild generalized tenderness. No mass or organomegaly. No rebound tenderness or guarding, but mild abdominal distention as well as midepigastric and left lower quadrant tenderness. EXTREMITIES: With mild lower extremity edematous changes. No cyanosis or clubbing. NEUROLOGICAL: No reported new neurological deficits, sensory or motor. IMPRESSION: 1. Diarrhea of unclear etiology, to rule out infectious diarrhea versus diverticulosis with early stage of diverticulitis, keeping in mind that the patient never had colonoscopy before. 2. Re-exacerbation of peptic ulcer disease. 3. Alcoholism, by history. 4. Known history of depression, chronic lower back pain syndrome as well as alcohol abuse. 5. Increased CEA level, to rule out possible lower gastrointestinal tract occult malignancy, the patient has hypochromic microcytic anemia. 6. Acute alcoholic pancreatitis, by recent history, improving clinically and biochemically. SUGGESTIONS: 1. Continue current management. 2. Follow stool workup. 3. Flagyl IV. 4. The patient for endoscopic evaluation of the GI tract when he is more stable clinically and after adequate preparation. 5. Further recommendations to follow. Joel Ignacio MD [facility] # [id number]
[2018-07-25] MEDS ORDERED: Bisacodyl 5mg EC Tab PO ONE (17:00)
--- NOTE | 2018-07-25 23:20 | CP.PCM.PN ---
Subjective - Date & Time of Evaluation Date of Evaluation: 07/25/18 Time of Evaluation: 07:20 - Subjective Subjective: dict Objective - Vital Signs/Intake and Output Vital Signs (last 24 hours): Temp Pulse Resp BP Pulse Ox 98.3 F 71 20 164/97 H 96 07/25/18 15:10 07/25/18 15:10 07/25/18 15:10 07/25/18 15:10 07/25/18 15:10 Intake and Output: 07/25/18 07/26/18 18:59 06:59 Intake Total 1200 Balance 1200 - Medications Medications: Current Medications Aspirin (Ecotrin) 81 mg PO DAILY [facility] Last Admin: 07/25/18 09:23 Dose: 81 mg Enoxaparin Sodium (Lovenox) 40 mg SC DAILY [facility] Last Admin: 07/25/18 09:24 Dose: 40 mg Folic Acid (Folic Acid) 1 mg PO DAILY [facility] Last Admin: 07/25/18 09:23 Dose: 1 mg Gabapentin (Neurontin) 400 mg PO TID [facility] Last Admin: 07/25/18 17:47 Dose: 400 mg Metronidazole (Flagyl) 500 mg in 100 mls @ 100 mls/hr IVPB Q8H [facility]; Protocol Last Admin: 07/25/18 18:00 Dose: 100 mls/hr Metoclopramide HCl (Reglan) 5 mg IVP Q6H [facility] Stop: 07/28/18 06:00 Last Admin: 07/25/18 22:45 Dose: 5 mg Metoprolol Succinate (Toprol Xl) 25 mg PO DAILY [facility] Last Admin: 07/25/18 09:24 Dose: 25 mg Mirtazapine (Remeron) 15 mg PO HS [facility] Last Admin: 07/25/18 21:32 Dose: 15 mg Multivitamins/Minerals (Therapeutic-M Tab) 1 tab PO DAILY [facility] Last Admin: 07/25/18 09:23 Dose: 1 tab Paroxetine HCl (Paxil) 10 mg PO DAILY [facility] Last Admin: 07/25/18 09:23 Dose: 10 mg Quetiapine Fumarate (Seroquel) 100 mg PO HS [facility] Last Admin: 07/25/18 21:31 Dose: 100 mg Rosuvastatin Calcium (Crestor) 5 mg PO HS [facility] Last Admin: 07/25/18 21:32 Dose: 5 mg Thiamine HCl (Vitamin B1 Tab) 100 mg PO DAILY [facility] Last Admin: 07/25/18 09:23 Dose: 100 mg - Labs Labs: 07/24/18 06:40 07/25/18 11:06 PT 11.8 SECONDS (9.7-12.2) 07/24/18 14:00 INR 1.1 07/24/18 14:00 APTT 39.2 SECONDS (21-34) H 07/24/18 14:00
[2018-07-26] MEDS: metroNIDAZOLE IV 500 mg/100 ml 500 MG/100 ML BAG IVPB SCH ×3 (02:44→20:00)
--- NOTE | 2018-07-26 04:35 | PN ---
DATE: 07/25/2018 SUBJECTIVE: The patient still has diarrhea. He is for colonoscopy. He is afebrile. No shortness of breath. No chest pain. No nausea or vomiting. He is shaky. Palpitations. PHYSICAL EXAMINATION: VITAL SIGNS: Blood pressure 164/77, pulse 71, respiratory rate 20, temperature 98.3. LUNGS: Clear. CARDIOVASCULAR SYSTEM: S1 and S2, regular. ABDOMEN: Soft. ASSESSMENT: 1. Dehydration. 2. Diarrhea, most likely due to alcohol withdrawal. 3. Hypertension due to alcohol withdrawal. 4. Alcoholic liver disease. PLAN: Colonoscopy. Continue IV fluids. Monitor the patient. Delroy Lennon MD
[2018-07-26] MEDS: Metoprolol Succinate 25 mg XL Tab PO SCH ×2 (06:41→09:41)
[2018-07-26] MEDS ORDERED: Propofol 10 mg/ml Inj (20 ML) ONE (07:50)
[2018-07-26] MEDS ORDERED: Lidocaine Hydrochloride 5 ML INJ ONE (07:54)
[2018-07-26] MEDS ORDERED: Midazolam 2 MG/2 ML VIAL ONE ×2 (07:54→08:03)
[2018-07-26] MEDS: Enoxaparin 40 mg Syringe SC SCH (09:42)
[2018-07-26] MEDS: Multivitamin With Minerals Tab PO SCH (09:44)
[2018-07-26 11:30] LABS: AMYLASE 78 U/L (30-110); LIPASE 214 U/L (23-300)
--- NOTE | 2018-07-26 18:00 | CON ---
DATE: 07/23/2018 LOCATION: 670, bed B. This is from Dr. Joel Ignacio to Dr. Saji Potts. HISTORY OF PRESENT ILLNESS: I was called for a GI consultation by the admitting medical team. The patient is seen and fully examined with the staff in the floor on 07/23/2018. The entire chart is reviewed including but not limited to the most recent lab and radiology study results, current and the previous medication list, current and the previous medical events, allergy to medication list as well as all the available current and the previous medical records. Case discussed at length with the admitting medical team before and immediately after my GI consultation on 07/23/2018. This is a 57-year-old male with a known history of alcoholism and depression, was admitted to the hospital with crampy, severe abdominal pain, diarrhea, postprandial abdominal distention and dyspepsia with nausea, but no reported active bleeding or vomiting associated with chest discomfort rather than chest pain. No reported significant shortness of breath. PAST MEDICAL HISTORY: Including but not limited to, 1. Alcoholism. 2. Chronic lower back pain syndrome and left hip pain. 3. Depression. On record, the patient never had any colonoscopy before. FAMILY HISTORY: Unknown. SOCIAL HISTORY: Positive for alcoholism, but denied cigarette smoking. CURRENT MEDICATIONS: Medication lists were reviewed. ALLERGIES TO MEDICATIONS: UNKNOWN. LABORATORY DATA AND DIAGNOSTIC DATA: Initial blood workup at the time of the admission showed white blood cells of 11.4, hemoglobin 11.7 with low indices, highly suggestive of hypochromic microcytic anemia with thrombocytosis of 407 with low calcium 8.3, AST 71, normal ALT with troponin level less than 0.012, but lipase of 421 with triglycerides 151. The patient had an ultrasound of the abdomen, initial report is seen with evidence of hepatomegaly and fatty infiltrate of the liver. PHYSICAL EXAMINATION: GENERAL: A 57-year-old male, awake, alert, oriented, complaining of persistent midepigastric pain. VITAL SIGNS: Afebrile with pulse of 76, respiratory rate 20-22, blood pressure 144/80. HEENT: Showed pale, dry oral mucoid membrane. Nonicteric sclerae. LUNGS: Few scattered crepitation. Decreased air entry at bases. HEART: Positive S1 and S2. ABDOMEN: Soft with mild generalized tenderness. No mass or organomegaly. No rebound tenderness or guarding. EXTREMITIES: Without significant clubbing, cyanosis or edema. No reported new neurological deficits, sensory or motor. IMPRESSION: 1. Chest pain, cardiac versus, most likely noncardiac. 2. Alcoholism by history with acute pancreatitis, alcohol induced. 3. Hepatomegaly with fatty infiltrate of the liver secondary to alcoholism. 4. Diarrhea, to rule out infectious versus mechanical diarrhea; however, the possibility of diverticulosis with early stage of diverticulitis was raised. 5. Hypochromic microcytic anemia, to rule out upper versus lower GI blood loss. 7. Rule out occult gastrointestinal malignancy. SUGGESTIONS: 1. Agree with your plan. 2. Cancer markers. 3. Further stool workup 4. Proton pump inhibitors. 5. tab p.o. 6. Psychiatric reevaluation. Endoscopic evaluation of the upper and lower GI tract after complete cardiology workup and once the patient is more stable clinically, including colonoscopy and upper endoscopy. Carafate liquid p.o. Repeat serum lipase, amylase level after 24-48 hours is suggested. Further recommendations to follow. Thank you for letting me participate in your patient's case management. Joel Ignacio MD
--- NOTE | 2018-07-26 23:07 | CP.PCM.PN ---
Subjective - Date & Time of Evaluation Date of Evaluation: 07/26/18 Time of Evaluation: 08:20 - Subjective Subjective: dict Objective - Vital Signs/Intake and Output Vital Signs (last 24 hours): Temp Pulse Resp BP Pulse Ox 98.2 F 68 20 162/83 H 99 07/26/18 15:00 07/26/18 15:00 07/26/18 15:00 07/26/18 15:00 07/26/18 15:00 Intake and Output: 07/26/18 07/27/18 18:59 06:59 Intake Total 1000 Balance 1000 - Medications Medications: Current Medications Aspirin (Ecotrin) 81 mg PO DAILY [facility] Last Admin: 07/26/18 09:42 Dose: 81 mg Enoxaparin Sodium (Lovenox) 40 mg SC DAILY [facility] Last Admin: 07/26/18 09:42 Dose: 40 mg Folic Acid (Folic Acid) 1 mg PO DAILY [facility] Last Admin: 07/26/18 09:41 Dose: 1 mg Gabapentin (Neurontin) 400 mg PO TID [facility] Last Admin: 07/26/18 17:01 Dose: 400 mg Metoclopramide HCl (Reglan) 5 mg IVP Q6H [facility] Stop: 07/28/18 06:00 Last Admin: 07/26/18 16:59 Dose: 5 mg Metoprolol Succinate (Toprol Xl) 25 mg PO DAILY [facility] Last Admin: 07/26/18 09:41 Dose: 25 mg Mirtazapine (Remeron) 15 mg PO HS [facility] Last Admin: 07/26/18 21:28 Dose: 15 mg Multivitamins/Minerals (Therapeutic-M Tab) 1 tab PO DAILY [facility] Last Admin: 07/26/18 09:44 Dose: 1 tab Paroxetine HCl (Paxil) 10 mg PO DAILY [facility] Last Admin: 07/26/18 09:41 Dose: 10 mg Quetiapine Fumarate (Seroquel) 100 mg PO HS [facility] Last Admin: 07/26/18 21:28 Dose: 100 mg Rosuvastatin Calcium (Crestor) 5 mg PO HS [facility] Last Admin: 07/26/18 21:28 Dose: 5 mg Thiamine HCl (Vitamin B1 Tab) 100 mg PO DAILY [facility] Last Admin: 07/26/18 09:42 Dose: 100 mg - Labs Labs: 07/24/18 06:40 07/25/18 11:06 PT 11.8 SECONDS (9.7-12.2) 07/24/18 14:00 INR 1.1 07/24/18 14:00 APTT 39.2 SECONDS (21-34) H 07/24/18 14:00
[2018-07-27] MEDS: Enoxaparin 40 mg Syringe SC SCH (09:04)
[2018-07-27] MEDS: Multivitamin With Minerals Tab PO SCH (09:05)
[2018-07-27] MEDS: Metoprolol Succinate 25 mg XL Tab PO SCH (09:07)
[2018-07-27] MEDS ORDERED: Propofol 10 mg/ml Inj (20 ML) ONE (10:11)
[2018-07-27] MEDS ORDERED: Midazolam 2 MG/2 ML VIAL ONE (11:56)
--- NOTE | 2018-07-27 17:23 | CP.PCM.PN ---
Subjective - Date & Time of Evaluation Date of Evaluation: 07/27/18 Time of Evaluation: 15:00 - Subjective Subjective: Patient seen today after EGD , denies any complaints , [id number] pain resolved , tolerating diet vss - stable Objective - Vital Signs/Intake and Output Vital Signs (last 24 hours): Temp Pulse Resp BP Pulse Ox 97.7 F 70 15 157/85 H 100 07/27/18 12:05 07/27/18 12:35 07/27/18 12:35 07/27/18 12:35 07/27/18 12:35 Intake and Output: 07/27/18 07/27/18 06:59 18:59 Intake Total 200 Balance 200 - Labs Labs: 07/24/18 06:40 07/25/18 11:06 PT 11.8 SECONDS (9.7-12.2) 07/24/18 14:00 INR 1.1 07/24/18 14:00 APTT 39.2 SECONDS (21-34) H 07/24/18 14:00 Assessment and Plan - Assessment and Plan (Free Text) Assessment: A/P 57 yr old male w/ hx of Depression, Chronic Pain, Etoh abuse presented to [facility] ED with chest pain an d abdominal pain . troponin x 3 - negative CT- negative s/p colonoscopy and EGD- negative ( see full report for details ) D/w Dr. Lennon cleared for discharge home today discharge plan discussed with patient , who understands and agrees with plan
[2018-07-27 18:30] VITALS: BP 142/85; PULSE 77; RESP 20; TEMP 98.1; O2SAT 96
--- NOTE | 2018-07-28 00:01 | CP.PCM.DIS ---
Provider - Provider Date of Admission: 07/25/18 16:23 Attending physician: Delroy Lennon MD Primary care physician: Non CPH Provider Consults: 07/23/18 18:52 Gastroenterology Consult Routine Comment: Consulting Provider: Joel Bloom Consulting Physician: Joel Bloom Reason for Consult: diarrhoea 07/24/18 04:14 Cardiology Consult Routine Comment: Consulting Provider: Alberto Alexander Consulting Physician: Alberto Alexander Reason for Consult: chest pain 07/25/18 17:22 Inpatient GRAPHIC DESIGN ASSISTANT Core Measures Referral Routine Comment: Physician Instructions: Reason For Exam: protocol Time Spent in preparation of Discharge (in minutes): 30 Hospital Course - Lab Results Lab Results: Most Recent Lab Values WBC 7.6 K/uL (4.8-10.8) 07/24/18 06:40 RBC 4.62 Mil/uL (4.40-5.90) 07/24/18 06:40 Hgb 11.6 g/dL (12.0-18.0) L 07/24/18 06:40 Hct 36.5 % (35.0-51.0) 07/24/18 06:40 MCV 79.0 fL (80.0-94.0) L 07/24/18 06:40 MCH 25.2 pg (27.0-31.0) L 07/24/18 06:40 MCHC 31.8 g/dL (33.0-37.0) L 07/24/18 06:40 RDW 17.9 % (11.5-14.5) H 07/24/18 06:40 Plt Count 306 K/uL (130-400) D 07/24/18 06:40 MPV 7.7 fL (7.2-11.7) 07/24/18 06:40 Neut % (Auto) 65.3 % (50.0-75.0) 07/24/18 06:40 Lymph % (Auto) 20.1 % (20.0-40.0) 07/24/18 06:40 [place] % (Auto) 10.3 % (0.0-10.0) H 07/24/18 06:40 Eos % (Auto) 3.6 % (0.0-4.0) 07/24/18 06:40 Baso % (Auto) 0.7 % (0.0-2.0) 07/24/18 06:40 Neut # (Auto) 4.9 K/uL (1.8-7.0) 07/24/18 06:40 Lymph # (Auto) 1.5 K/uL (1.0-4.3) 07/24/18 06:40 [place] # (Auto) 0.8 K/uL (0.0-0.8) 07/24/18 06:40 Eos # (Auto) 0.3 K/uL (0.0-0.7) 07/24/18 06:40 Baso # (Auto) 0.1 K/uL (0.0-0.2) 07/24/18 06:40 PT 11.8 SECONDS (9.7-12.2) 07/24/18 14:00 INR 1.1 07/24/18 14:00 APTT 39.2 SECONDS (21-34) H 07/24/18 14:00 Sodium 139 mmol/L (132-148) 07/25/18 11:06 Potassium 3.7 mmol/L (3.6-5.2) 07/25/18 11:06 Chloride 106 mmol/L (98-107) 07/25/18 11:06 Carbon Dioxide 24 mmol/L (22-30) 07/25/18 11:06 Anion Gap 13 (10-20) 07/25/18 11:06 BUN 8 mg/dL (9-20) L 07/25/18 11:06 Creatinine 0.7 mg/dL (0.8-1.5) L 07/25/18 11:06 Est GFR ( Amer) > 60 07/25/18 11:06 Est GFR (Non-Af Amer) > 60 07/25/18 11:06 Random Glucose 82 mg/dL (75-110) 07/25/18 11:06 Calcium 9.2 mg/dl (8.6-10.4) 07/25/18 11:06 Phosphorus 3.1 mg/dL (2.5-4.5) 07/24/18 06:40 Magnesium 1.7 mg/dL (1.6-2.3) 07/24/18 06:40 Total Bilirubin 0.6 mg/dL (0.2-1.3) 07/24/18 06:40 AST 56 U/L (17-59) 07/24/18 06:40 ALT 31 U/L (21-72) 07/24/18 06:40 Alkaline Phosphatase 79 U/L (38-126) 07/24/18 06:40 Total Creatine Kinase 360 U/L (55-170) H 07/23/18 06:25 CK-MB (Mass) 2.05 ng/mL (0.0-3.38) 07/23/18 06:25 Troponin I < 0.0120 ng/mL (0.00-0.120) 07/23/18 06:25 Total Protein 7.1 g/dL (6.3-8.3) 07/24/18 06:40 Albumin 4.1 g/dL (3.5-5.0) 07/24/18 06:40 Globulin 3.0 gm/dL (2.2-3.9) 07/24/18 06:40 Albumin/Globulin Ratio 1.4 (1.0-2.1) 07/24/18 06:40 Triglycerides 151 mg/dL (0-149) H 07/23/18 06:25 Cholesterol 178 mg/dL (0-199) 07/23/18 06:25 LDL Cholesterol Direct 103 mg/dL (0-129) 07/23/18 06:25 HDL Cholesterol 67 mg/dL (30-70) 07/23/18 06:25 Amylase 78 U/L (30-110) 07/26/18 11:12 Lipase 214 U/L (23-300) 07/26/18 11:12 Alpha Fetoprotein 3.9 ng/mL (0.0-7.5) 07/24/18 14:00 Carcinoembryonic Ag 3.9 ng/mL (0-3.0) H 07/24/18 14:00 CA 19-9 Antigen 4.0 U/mL (0-37) 07/24/18 14:00 C. difficile Ag & Toxin Negative (NEGATIVE) 07/24/18 13:08 Discharge Exam - Head Exam Head Exam: ATRAUMATIC, NORMOCEPHALIC Discharge Plan - Follow Up Plan Condition: STABLE Disposition: HOME/ ROUTINE Instructions: Heart Healthy Diet, Colonoscopy (DC), Chest Pain (DC), Upper GI Endoscopy (DC) Additional Instructions: Please f/u with clinic at [facility] /Dr. Lennon office in 1 week Please continue medication as per med., rec. Referrals: [facility] [Outside] Delroy Lennon MD [Staff Provider] - Non [facility] Provider, [Primary Care Provider] -
--- NOTE | 2018-07-28 04:14 | DS ---
DISCHARGE DIAGNOSES: 1. Colitis. 2. Dehydration, hypokalemia. 3. Alcoholism with delirium tremens. 4. Hypertension. HOSPITAL COURSE: This is a 57-year-old alcoholic with history of alcoholism. He came in because of alcohol withdrawal. He also had diarrhea. He had frequent bowel movements which would not be controlled symptomatically. The patient had atherosclerosis in the lower extremity. The patient has chronic angiogram CT of the chest. The patient was treated symptomatically with antidiarrheal medication, GI evaluation, Librium, psychiatric evaluation. The patient did well and now the patient is for discharge. Condition upon discharge is stable. The patient will be followed up as outpatient. Delroy Lennon MD
--- NOTE | 2018-07-28 08:06 | PN ---
DATE: 07/26/2018 SUBJECTIVE: The patient is for colonoscopy. He is afebrile. No shortness of breath. No nausea or vomiting. PHYSICAL EXAMINATION: VITAL SIGNS: Blood pressure 129/80, pulse 73, respiratory rate 20, and temperature 98.5. LUNGS: Clear. ABDOMEN: Soft. Bowel sounds are present. ASSESSMENT: 1. Colitis. 2. Alcohol withdrawal delirium tremens. 3. Dehydration. PLAN: Colonoscopy. Monitor the patient. Delroy Lennon MD
== END 2018-07-27 16:28 | disposition home or self-care (01) | DRG 750 ==
LOC: C.ER 03:38 → SUPCPDRO 03:38 → C.9E 06:54 → C.6T 07:37 → OBSVTOIN 07-25 16:23
PROVIDERS: ADMIT Internal Medicine; ATTEND Internal Medicine
PROC: HZ2ZZZZ Detoxification Services for Substance Abuse Treatment (ICD-10-PCS; principal; 2018-07-25)
PROC: 0DBM8ZX Excision of Descending Colon, Via Natural or Artificial Opening Endoscopic, Diagnostic (ICD-10-PCS; 2018-07-26)
PROC: 0DB68ZX Excision of Stomach, Via Natural or Artificial Opening Endoscopic, Diagnostic (ICD-10-PCS; 2018-07-27)
DX: F10.231 Alcohol dependence with withdrawal delirium (principal); E86.0 Dehydration; K85.20 Alcohol induced acute pancreatitis without necrosis or infection; E87.6 Hypokalemia; D50.9 Iron deficiency anemia, unspecified; R07.89 Other chest pain; K70.9 Alcoholic liver disease, unspecified; Z96.642 Presence of left artificial hip joint; I10 Essential (primary) hypertension; F17.210 Nicotine dependence, cigarettes, uncomplicated; F32.9 Major depressive disorder, single episode, unspecified; Y90.9 Presence of alcohol in blood, level not specified; M54.5 Low back pain; G89.29 Other chronic pain; K52.9 Noninfective gastroenteritis and colitis, unspecified; I70.209 Unspecified atherosclerosis of native arteries of extremities, unspecified extremity; K29.00 Acute gastritis without bleeding; K29.50 Unspecified chronic gastritis without bleeding

== ENCOUNTER 2018-07-30 03:21 | Emergency (ER) | payer OTHER ==
[2018-07-30 03:21] VITALS: BMI 27.2
--- NOTE | 2018-07-30 04:06 | C.PDOC ---
History Of Present Illness Patient presents to the ED requesting for a place to stay. Patient reports he is homeless currently. Patient denies any medical complaints at this time. Time Seen by Provider: 07/30/18 04:05 Chief Complaint (Nursing): Medical Clearance History Per: Patient History/Exam Limitations: no limitations Onset/Duration Of Symptoms: Hrs Current Symptoms Are (Timing): Still Present Recent travel outside of the [place]: No Additional History Per: Patient Past Medical History Reviewed: Historical Data, Nursing Documentation, Vital Signs Vital Signs: Last Vital Signs Temp 97.6 F 07/30/18 03:42 Pulse 96 H 07/30/18 03:42 Resp 18 07/30/18 03:42 BP 155/87 H 07/30/18 03:42 Pulse Ox 98 07/30/18 03:42 Primary Care Provider: FAMILY PROVIDER,NO - Medical History PMH: Depression, Chronic Pain (left hip) Denies: Alzheimer's Disease, Asthma, Atrial Fibrillation, Bronchitis, Cardia Arrhythmia, CHF, COPD, Dementia, Diabetes, Emphysema, Hepatitis, HIV, HTN, Hypercholesterolemia, Migraine, Mitral Valve Prolapse, Multiple Sclerosis, Parkinson's Disease, Peripheral Edema, Pneumonia, Pulmonary Embolism, Chronic Kidney Disease, Seizures, Sexually Transmitted Disease, Sleep Apnea, TIA Surgical History: No Surg Hx Denies: Pacemaker - [facility] ALCOHOL DETOXIFICATION (10/24/14) DETOXIFICATION SERVICES FOR SUBSTANCE ABUSE TREATMENT (07/02/18) GROUP CNC APPLICATIONS ENGINEER FOR SUBSTANCE ABUSE TREATMENT, PSYCHOEDUCATION (07/02/18) GROUP CNC APPLICATIONS ENGINEER FOR SUBSTANCE ABUSE, COGNITIVE BEHAVIORAL (07/02/18) GROUP PSYCHOTHERAPY (07/02/18) INDIV PSYCHOTHERAPY FOR SUBSTANCE ABUSE TREATMENT, SUPPORT (07/02/18) INDIV PSYCHOTHERAPY FOR SUBSTANCE ABUSE, COGNITIV BEHAVIORAL (07/02/18) INDIV PSYCHOTHERAPY FOR SUBSTANCE ABUSE, MOTIVATION ENHANCE (06/07/18) INDIV PSYCHOTHERAPY FOR SUBSTANCE ABUSE, PSYCHOEDUCATION (07/02/18) INDIVIDUAL PSYCHOTHERAPY, COGNITIVE-BEHAVIORAL (07/02/18) INDIVIDUAL PSYCHOTHERAPY, SUPPORTIVE (07/02/18) MEDICATION MANAGEMENT (10/04/17) Family History: States: Unknown Family Hx - Social History Hx Tobacco Use: No Hx Alcohol Use: Yes Hx Substance Use: Yes - Immunization History Hx Tetanus Toxoid Vaccination: No Hx Influenza Vaccination: No Hx Pneumococcal Vaccination: No Review Of Systems Constitutional: Negative for: Fever, Chills Cardiovascular: Negative for: Chest Pain Respiratory: Negative for: Shortness of Breath Gastrointestinal: Negative for: Vomiting, Abdominal Pain Skin: Negative for: Rash Psych: Negative for: Depression, Suicidal ideation Physical Exam - Physical Exam Appears: Non-toxic, No Acute Distress Skin: Warm, Dry Head: Normacephalic Eye(s): bilateral: Normal Inspection Neck: Supple Cardiovascular: Rhythm Regular Respiratory: No Rales, No Rhonchi, No Wheezing Extremity: Bilateral: Atraumatic, Normal Color And Temperature, Normal ROM Neurological/Psych: Oriented x3, Normal Speech, Normal Cognition Gait: Steady ED Course And Treatment O2 Sat by Pulse Oximetry: 98 (ON RA) Pulse Ox Interpretation: Normal Reevaluation Time: 05:30 Reassessment Condition: Improved Disposition Counseled Patient/Family Regarding: Studies Performed, Diagnosis, Need For Followup - Disposition Disposition: HOME/ ROUTINE Disposition Time: 04:06 Condition: FAIR Forms: [facility] (Croatian), General Discharge Instructions - Clinical Impression Clinical Impression: Medical assessment - Scribe Statement The provider has reviewed the documentation as recorded by the Scribe Harshil Daley All medical record entries made by the Scribe were at my direction and personally dictated by me. I have reviewed the chart and agree that the record accurately reflects my personal performance of the history, physical exam, medical decision making, and the department course for this patient. I have also personally directed, reviewed, and agree with the discharge instructions and disposition.
[2018-07-30 05:49] VITALS: BP 149/83; PULSE 93; RESP 20; TEMP 98; O2SAT 97
== END 2018-07-30 05:49 | disposition home or self-care (01) ==
LOC: C.ER 03:21
DX: Z00.00 Encounter for general adult medical examination without abnormal findings (principal); Z59.0 Homelessness

== ENCOUNTER 2018-08-01 23:52 | Emergency (ER) | payer OTHER | END 2018-08-02 05:25 | disposition home or self-care (01) | LOC: C.ER 23:52 | DX: S70.02XA Contusion of left hip, initial encounter (principal); W01.0XXA Fall on same level from slipping, tripping and stumbling without subsequent striking against object, initial encounter; M25.552 Pain in left hip; F10.129 Alcohol abuse with intoxication, unspecified; Y90.8 Blood alcohol level of 240 mg/100 ml or more ==